=== PATIENT | female | born 1940 | race Caucasian/White ===

== ENCOUNTER 2017-04-17 17:37 | Observation (INO) | payer MEDICARE, SELFPAY ==
[2017-04-17 17:37] VITALS: BP 116/62; PULSE 55; RESP 16; TEMP 36.6; O2SAT 95; BMI 36.6
--- NOTE | 2017-04-17 17:40 | RAD_ITS ---
STUDY: X-RAY - LEFT FOOT CLINICAL: Female, 77 years old. Trauma TECHNIQUE: 3 view(s) of the foot. COMPARISON: None. FINDINGS: Normal talus, calcaneus, and tarsal bones. Normal visualized subtalar, talonavicular, calcaneocuboid, tarsal and tarsometatarsal articulations. There are very subtle lucencies at the base of the second and third metatarsals possibly representing hairline fractures. These could be artifactual. Clinical correlation recommended Normal metatarsophalangeal joint of the great toe. Normal tibial and fibular sesamoid bones. Normal interphalangeal joint of the great toe. Normal phalanges of the great toe. Normal second through fifth metatarsophalangeal joints. Normal interphalangeal joints and phalanges of the lesser toes. The soft tissue structures are unremarkable. RAD/Foot min 3 Views IMPRESSION: Question hairline fractures of the base of the second and third metatarsals otherwise no definitive evidence for acute fracture Electronically Signed: Ron Alford MD at 18:46 EST , Service support ,
--- NOTE | 2017-04-17 17:40 | RAD_ITS ---
XR Ankle Min 3 Views INDICATION: FALL, LEFT ANKLE PAIN COMPARISON: None TECHNIQUE: 3 views of the left ankle FINDINGS: There is mild soft tissue swelling noted at the medial ankle. A tiny ossific density is seen distal to the medial malleolus, appears well-corticated, most compatible with an old avulsion injury. An acute fracture is not identified with certainty. Ankle mortise is preserved. RAD/Ankle min 3 Views IMPRESSION: Mild soft tissue swelling at the medial malleolus with findings suggestive of a tiny chronic avulsion injury. No acute fracture. at 1838 Reported and signed by: Gaviota Puente MD Electronically Signed: Gaviota Puente MD at 17:37 EST Tel , Service support ,
--- NOTE | 2017-04-17 19:05 | ED.RN ---
PT ERPOTS HAS BEEN GETTING DIZZY AND WAS BEFORE FALL WELL.
[2017-04-17 19:40] VITALS: BP 164/84; PULSE 59; RESP 26; O2SAT 96
--- NOTE | 2017-04-17 19:50 | EKG12_ITS ---
Test Reason : Blood Pressure : / mmHG Vent. Rate : 058 BPM Atrial Rate : 058 BPM P-R Int : 156 ms QRS Dur : 088 ms QT Int : 490 ms P-R-T Axes : -02 -17 177 degrees QTc Int : 481 ms Sinus bradycardia Left ventricular hypertrophy with repolarization abnormality Abnormal ECG Confirmed by ELINOR ROWLAND ([id number]), technical editor BALDO SILVA ([id number] on 04/19/2017 2:44:54 PM Referred By: RENETTA Confirmed By:ELINOR ROWLAND
--- NOTE | 2017-04-17 19:50 | RAD_ITS ---
XR Chest 1 View INDICATION: SHORTNESS OF BREATH COMPARISON: None TECHNIQUE: Frontal view of the chest FINDINGS: Heart size and pulmonary vascularity are within normal limits. Interstitial markings are increased at the lung bases. There is no evidence of focal airspace consolidation or pleural effusion. Sternotomy wires are noted and mediastinal clips. RAD/Chest 1 View (Portable) IMPRESSION: Mildly increased interstitial markings at the lung bases, lungs otherwise clear. Status post CABG surgery. at 2020 Reported and signed by: Gaviota Puente MD Electronically Signed: Gaviota Puente MD at 19:18 EST Tel , Service support ,
[2017-04-17] MEDS: Aspirin 81 MG TAB.CHEW 324 MG PO (20:14)
[2017-04-17 20:17] LABS: Absolute Lymphocyte Count 1.94 X10^3/ul (0.83-4.51); Basophil# 0.02 X10^3/uL; Basophil% 0.3 % (0-1); Eosinophil# 0.04 X10^3/uL; Eosinophils% 0.7 % (0-5); Hematocrit 39.6 % (37-47); Hemoglobin 12.3 g/dl (12.0-15.0); Lymphocyte # 1.94 X10^3/ul (4.0); Lymphocyte % 32.5 % (19-41); Mean Corp Hgb Conc 31.1 g/gl (32-36); Mean Corpuscular Hgb 29.4 pg (27.0-32.0); Mean Corpuscular Volume 94.7 fL (81-99); Mean Platelet Vol. 11.1 fl (6.2-12.0); Monocyte# 0.94 X10^3/uL; Monocyte% 15.7 % (0-10); Neutrophil # 3.02 X10^3/uL (2.7-7.7); Neutrophil % 50.6 % (47-70); Platelet Count 201 K/mm3 (150-450); RBC Distribution Width CV 13.9 % (11.6-14.6); RBC Distribution Width SD 47.9 fl (35.1-43.9); Red Blood Count 4.18 M/mm3 (4.2-5.4)
[2017-04-17 20:18] LABS: POSITIVE COUNT NO; POSITIVE DIFFERENTIAL NO; POSITIVE MORPHOLOGY NO
[2017-04-17 20:38] LABS: Anion Gap 6 (5-15); BUN 12 mg/dL (7-18); BUN/Creat Ratio 13.5 RATIO (10-20); Calcium,Total 9.1 mg/dL (8.5-10.1); Chloride 101 mmol/L (98-107); Creatinine, Serum 0.89 mg/dL (0.55-1.02); EST Glomerular Filtration Rate 66 mL/min (>60); Est Glom Filt Rate - Afr Amer 80 mL/min (>60); Estimated Creatinine Clearance 44.48 ml/min; Glucose 85 mg/dL (74-106); Potassium 4.1 mmol/L (3.5-5.1); Sodium Level 138 mmol/L (136-145)
[2017-04-17 21:53] VITALS: BP 152/97; PULSE 64; RESP 14; O2SAT 94
--- NOTE | 2017-04-17 21:53 | NURSING ---
TRIED TO GET A URINE SAMPLE BUT PT PUT TOILET PAPER IN THE TOILET AND WAS UNABLE TO OBTAIN A GOOD SAMPLE.
--- NOTE | 2017-04-17 22:25 | PCM.HP.STD ---
Problem List (1) Dizziness Status: Acute (2) Hypertension Status: Chronic Qualifiers: Hypertension type: essential hypertension Qualified Code(s): I10 - Essential (primary) hypertension (3) Hyperlipidemia Status: Chronic Qualifiers: Hyperlipidemia type: unspecified Qualified Code(s): E78.5 - Hyperlipidemia, unspecified (4) CAD (coronary artery disease) Status: Acute Qualifiers: Coronary Disease-Associated Artery/Lesion type: unspecified vessel or lesion type (5) Hypothyroidism Status: Chronic Qualifiers: Hypothyroidism type: acquired Qualified Code(s): E03.9 - Hypothyroidism, unspecified History of Present Illness Date of Admission: 04/17/17 Chief Complaint: Dizziness, recurrent falls, dyspnea on exertion The patient is a 77 year old F medical history of CAD status post CABG and stents, last stent placed was 2015, hypertension, hyperlipidemia, hypothyroidism, previous CVA with left leg weakness who comes in with complaints of shortness of breath ongoing for more than 3 weeks, dizziness ongoing for more than 2 weeks, recurrent fall with a latest fall that happened yesterday. His coming to the ED at insistence of family members who noted that her left ankle and leg was swollen and tender to touch as well as erythematous. Patient states that she fell yesterday when she was going to see her hairdresser. She felt very dizzy but did not lose consciousness or have a feeling of passing out. Is that she missed her step. She denied any recent history of melena or hematochezia. She has history of GI bleeds. Denies any chest pain or nausea or diaphoresis or orthopnea or PND or fever or chills. Vitals in the ED showed temperature of 97.8, blood pressure 164/84, heart rate of 59, respiratory rate 26, SPO2 96% on 2 L of oxygen. CBC is unremarkable as well as BMP. Chest x-ray shows mildly increased interstitial markings at the lung bases but lungs are otherwise clear. X-ray shows mild soft tissue swelling at the media malleolus with signs suggesting of tiny chronic avulsion injury, no acute fracture seen on the left ankle. Left foot x-ray shows hairline fracture of the base of the second and third metatarsal but no evidence of acute fracture. Past Medical History Past Medical History (Chronic Problems): Chronic Problems Hypertension (Chronic) Hyperlipidemia (Chronic) Hypothyroidism (Chronic) Allergies Sulfa (Sulfonamide Antibiotics) Adverse Reaction (Verified 04/17/17 17:40) Rash Home Medications: Ambulatory Orders Medication Instructions Recorded Aspirin [Aspirin EC] 81 mg PO DAILY 04/17/17 Atorvastatin Calcium [Lipitor] 80 mg PO QHS 04/17/17 Carvedilol [Coreg] 25 mg PO BID 04/17/17 Flaxseed Oil [[place]-3 Flaxseed Oil] 1,000 mg PO DAILY 04/17/17 Levothyroxine [Synthroid] 100 mcg PO DAILY 04/17/17 Lisinopril [Zestril] 40 mg PO DAILY 04/17/17 Omeprazole 20 mg PO DAILY 04/17/17 Vitamin E 400 units PO DAILY 04/17/17 Surgical History: appendectomy, cholecystectomy, coronary bypass surgery, hysterectomy, tonsillectomy, - - Right CEA Psychiatric History: No pertinent psych hx SURVEILLANCE TECHNICIAN History: No pertinent SURVEILLANCE TECHNICIAN history Lives: With Family Smoking Status: Former smoker Tobacco Use: Non-smoker Alcohol: None Drugs: None - *Family History Maternal History Items: Diabetes, Heart Disease Review of Systems Constitutional: Reports: Weakness. Denies: Anorexia, Chills, Fever, Night Sweats, Weight Change Eyes: Denies: Blurred vision, Cataracts, Conjunctivae Inflammation, Double vision HEENT: Denies: Difficulty Hearing, Difficulty Swallowing, Head Aches, Hearing Changes, Sinus Congestion, Sinus Drainage Cardiovascular: Reports: Light Headedness. Denies: Chest Pain, Claudication, Chest Pressure, Chest Tightness, Edema, Orthopnea, Palpitations, Paroxysmal Noc. Dyspnea, Syncope Respiratory: Reports: Shortness of breath at rest, Shortness of breath upon exertion. Denies: Cough, Hemoptysis, Sputum production Gastrointestinal: Denies: Abdominal Pain, Constipation, Hematemesis, Nausea, Vomiting Genitourinary: Denies: Dysuria, Frequency, Incontinence, Nocturia Musculoskeletal: Denies: Joint Pain, Joint stiffness, Joint swelling, Joint Tenderness Skin: Denies: Pruritis, Rash, Wounds Neurological: Denies: Difficulty swallowing, Focal weakness, Numbness, Tingling Psychiatric: Denies: Anxiety, Depression, Homicidal Ideations, Suicidal Ideations Hematologic/ Lymphatic: Denies: Easy Bruising, Easy Bleeding VTE Information - Inpt Only VTE Present on Admission: No VTE Pharm Prophylaxis ordered?: Yes Patient Problems: Active and Suspected Problems Dizziness (Acute) CAD (coronary artery disease) (Acute) - Physical Exam General: Alert, Oriented x3, Cooperative, - - on 2L of oxygen HEENT: Atraumatic, PERRLA, EOMI, Normocephalic Oral: Moist Mucosa Neck: Supple Lungs: Clear to auscultation, Normal air movement, Diminished - at lung bases, audible wheezes heard Cardiovascular: Regular rate, Regular Rhythm, Normal S1, Normal S2, No murmurs Abdomen: Bowel Sounds Present, Soft, Non Tender, Non-Distended, No Hepato-splenomegaly Extremities: No edema, - - Left foot in boot Skin: No rashes Musculoskeletal: No Tenderness to Palpation of Joints or Extremities Lymphatic: No Cervical, Supraclavicular, or Inguinal Adenopathy Neurological: Cranial nerves II-XII grossly intact, Neuro grossly intact Psych/Mental Status: Normal Affect, Appropriate Vital Signs Temp Pulse Resp BP Pulse Ox 97.8 F 64 14 152/97 H 94 04/17/17 17:37 04/17/17 21:53 04/17/17 21:53 04/17/17 21:53 04/17/17 21:53 Oxygen Flow Rate 2 Oxygen Delivery Method Room Air Weight: 93.894 kg Body Mass Index (BMI) 36.6 Laboratory Tests Past 24 Hrs 04/17/17 04/17/17 19:30 19:30 WBC 6.0 RBC 4.18 L Hgb 12.3 Hct 39.6 MCV 94.7 MCH 29.4 MCHC 31.1 L RDW 13.9 RDW Differential 47.9 H Plt Count 201 MPV 11.1 Immature Gran % (Auto) 0.200 Neut % (Auto) 50.6 Lymph % (Auto) 32.5 Gilliam % (Auto) 15.7 H Eos % (Auto) 0.7 Baso % (Auto) 0.3 Absolute Neuts (auto) 3.0 Absolute Lymphs (auto) 1.94 Total Counted Not Reportable Sodium 138 Potassium 4.1 Chloride 101 Carbon Dioxide 31.0 Anion Gap 6 BUN 12 Creatinine 0.89 Estim Creat Clear Calc 44.48 Est GFR (MDRD) Af Amer 80 Est GFR (MDRD) Non-Af 66 BUN/Creatinine Ratio 13.5 Glucose 85 Calcium 9.1 Troponin I < 0.02 Assessment/Plan Active and Suspected Problems Dizziness (Acute) CAD (coronary artery disease) (Acute) 77 year old F medical history of CAD status post CABG and stents, 3 stents placed was 2016, hypertension, hyperlipidemia, hypothyroidism, previous CVA with left leg weakness who comes in with complaints of shortness of breath ongoing for more than 3 weeks, dizziness ongoing for more than 2 weeks, recurrent fall with a latest fall that happened yesterday. 1. Dizziness, recurrent falls, unclear etiology in a patient with significant cardiac history, EKG shows T-wave inversions in leads I, II, aVL, V5, V6( appears non-specific), troponins x 1 is negative Plan: Admit to PCU, monitor on telemetry, cardiology consult, repeat EKG in am, PT and OT to evaluate and treat, orthostatic vitals, obtain records from her primary mineral surveying technician, Dr. Marshall in [facility]. 2. CAD status post CABG and stents, T waves appear non-specific, initial troponins are negative, will trend troponins, continue on aspirin and statin, and Coreg. 3. Left second and third metatarsal hairline fractures, patient in boots, would need to follow-up with orthopedics in the outpatient, Tylenol and oxycodone as needed for pain 4. Hypertension, uncontrolled secondary to missed medications, will resume all medications with hydralazine as needed, continue to monitor on telemetry, low-salt diet 5. Hyperlipidemia, on statin, will check lipid profile in a.m. 6. Hypothyroidism, on levothyroxine 7. History of GI bleeds, no recent bleeds, hemoglobin is stable, will continue to monitor as patient will be put on DVT prophylaxis with Lovenox 8. DVT prophylaxis with Lovenox subcu Code Visit Inpatient E&M: 94738 Init Hosp L2
[2017-04-17 22:35] VITALS: BP 175/99; PULSE 69; RESP 21; O2SAT 97
[2017-04-17 22:46] LABS: Mucous, Urine 0 SEEN /hpf (<or=2+)
[2017-04-17 22:47] LABS: Color, Urine Yellow (Yellow); Glucose, Dipstick Normal (Normal); Ketone-Dipstick 15 mg/dl (Negative); Leukocyte Esterase-Dipstick 500 /ul (Negative); Nitrite-Dipstick Negative (Negative); Occult Blood-Urine 10 /ul (Negative); Protein-Dipstick 15 mg/dl (Negative); Specific Gravity, Urine 1.015 (1.002-1.030); Urine Bilirubin Dipstick Negative (Negative); Urine Clarity Cloudy (Clear); Urine Urobilinogen Normal (Normal)
[2017-04-17 22:53] LABS: Amorphous Sediment 1+ URATE; Bacteria RARE /hpf (None Seen); Red Blood Cells-Urine 0-5 SEEN /hpf (0-5); Squamous Epithelial Cells - UA 0-5 SEEN /hpf (5-10); White Blood Cells 50-100 SEEN /hpf (0-5)
[2017-04-17 23:42] VITALS: BP 140/82; PULSE 75; RESP 16; O2SAT 96
[2017-04-18] VITALS (14 sets, daily range): BP systolic 125–202; BP diastolic 55–101; PULSE 56–74; RESP 14–20; TEMP 36.7–37.1; O2SAT 94–97; BMI 36.4
[2017-04-18] MEDS: Acetaminophen 325 MG Tablet 650 MG PO ×2 (01:38→12:16)
--- NOTE | 2017-04-18 02:01 | ED.VISSUMM ---
- ER Visit Summary Date of Service: 04/18/17 Chief Complaint: Left foot pain and frequent falls History of Present Illness: The patient is a 77 F patient presenting with multiple complaints. First off patient states yesterday she suffered a fall where she injured her left foot. She is having some difficulty with bearing weight on this. She states that there is significant amount of bruising and swelling. Also, the patient has been dealing with increasing exertional dyspnea and frequent falls associated with syncopal episodes. Patient states that she does have a history of coronary artery disease as well as a stroke. She denies any recent infections such as fever cough nausea vomiting diarrhea dysuria hematuria frequency. Review of systems otherwise negative. Physical Examination: Vital signs notable for mild hypertension 152/97. Well-nourished obese female no acute distress moist mucous membranes. No JVD. Heart regular rate and rhythm with 2+ bilaterally symmetric radial pulses. Lungs clear. Abdomen soft nontender. Extremities shows evidence of left foot swelling and ecchymosis with tenderness to palpation and limited range of motion secondary to pain. Skin otherwise normal color. Patient alert and oriented no lateralizing neurological deficits. Test Results: EKG shows sinus rate of [address] elevation in lead III and T-wave inversions diffusely with no comparison. CBC chemistry troponin found to be negative, chest x-ray shows increased markings at the base, foot x-ray shows a nondisplaced second and third metatarsal fracture Emergency Department Course and Treatment: Patient presented secondary to frequent falls, increasing dyspnea, and foot pain. X-ray did have show evidence of a fracture, patient was placed in a walking boot. Patient was worked up for the possibility of cardiac etiology had EKG abnormalities and some evidence of heart failure. I believe that she requires admission for cardiac evaluation. Patient will be admitted under the hospitalist. Disposition: Admit Impression: 1. EKG changes 2. Exertional dyspnea 3. Closed left second and third metatarsal fractures nondisplaced This note was generated with [employer] dictation software. It may contain incorrect words, spelling, and punctuation that were not noted in review of the chart prior to signing ED Disposition - Plan for ED Patient: Disposition: Acute Care Hospital [facility] Chief Complaint: Fall
--- NOTE | 2017-04-18 02:48 | ED.DCSUM_ITS ---
- ER Visit Summary Date of Service: 04/18/17 Chief Complaint: Left foot pain and frequent falls History of Present Illness: The patient is a 77 F patient presenting with multiple complaints. First off patient states yesterday she suffered a fall where she injured her left foot. She is having some difficulty with bearing weight on this. She states that there is significant amount of bruising and swelling. Also, the patient has been dealing with increasing exertional dyspnea and frequent falls associated with syncopal episodes. Patient states that she does have a history of coronary artery disease as well as a stroke. She denies any recent infections such as fever cough nausea vomiting diarrhea dysuria hematuria frequency. Review of systems otherwise negative. Physical Examination: Vital signs notable for mild hypertension 152/97. Well- nourished obese female no acute distress moist mucous membranes. No JVD. Heart regular rate and rhythm with 2+ bilaterally symmetric radial pulses. Lungs clear. Abdomen soft nontender. Extremities shows evidence of left foot swelling and ecchymosis with tenderness to palpation and limited range of motion secondary to pain. Skin otherwise normal color. Patient alert and oriented no lateralizing neurological deficits. Test Results: EKG shows sinus rate of [address] elevation in lead III and T-wave inversions diffusely with no comparison. CBC chemistry troponin found to be negative, chest x-ray shows increased markings at the base, foot x- ray shows a nondisplaced second and third metatarsal fracture Emergency Department Course and Treatment: Patient presented secondary to frequent falls, increasing dyspnea, and foot pain. X-ray did have show evidence of a fracture, patient was placed in a walking boot. Patient was worked up for the possibility of cardiac etiology had EKG abnormalities and some evidence of heart failure. I believe that she requires admission for cardiac evaluation. Patient will be admitted under the hospitalist. Disposition: Admit Impression: 1. EKG changes 2. Exertional dyspnea 3. Closed left second and third metatarsal fractures nondisplaced This note was generated with [employer] dictation software. It may contain incorrect words, spelling, and punctuation that were not noted in review of the chart prior to signing ED Disposition - Plan for ED Patient: Disposition: Acute Care Hospital [facility] Chief Complaint: Fall
--- NOTE | 2017-04-18 05:55 | EKG12_ITS ---
Test Reason : MORNING EKG Blood Pressure : / mmHG Vent. Rate : 061 BPM Atrial Rate : 061 BPM P-R Int : 154 ms QRS Dur : 098 ms QT Int : 482 ms P-R-T Axes : 042 007 220 degrees QTc Int : 485 ms Normal sinus rhythm Left ventricular hypertrophy with repolarization abnormality Abnormal ECG No previous ECGs available Confirmed by ELINOR ROWLAND ([id number]), photographic editor BALDO SILVA ([id number] on 04/24/2017 2:20:37 PM Referred By: RAJAN Confirmed By:ELINOR ROWLAND
[2017-04-18 05:57] LABS: Hematocrit 38.6 % (37-47); Hemoglobin 11.8 g/dl (12.0-15.0); Mean Corp Hgb Conc 30.6 g/gl (32-36); Mean Corpuscular Hgb 29.2 pg (27.0-32.0); Mean Corpuscular Volume 95.5 fL (81-99); Mean Platelet Vol. 10.6 fl (6.2-12.0); Platelet Count 188 K/mm3 (150-450); RBC Distribution Width CV 13.8 % (11.6-14.6); Red Blood Count 4.04 M/mm3 (4.2-5.4); White Blood Count 4.6 K/mm3 (4.4-11.0)
[2017-04-18 06:13] LABS: Anion Gap 3 (5-15); BUN 11 mg/dL (7-18); BUN/Creat Ratio 14.6 RATIO (10-20); Calcium,Total 8.8 mg/dL (8.5-10.1); Chloride 103 mmol/L (98-107); Creatinine, Serum 0.75 mg/dL (0.55-1.02); EST Glomerular Filtration Rate 80 mL/min (>60); Est Glom Filt Rate - Afr Amer 96 mL/min (>60); Estimated Creatinine Clearance 39.59 ml/min; Glucose 88 mg/dL (74-106); Potassium 3.6 mmol/L (3.5-5.1); Sodium Level 138 mmol/L (136-145)
[2017-04-18] MEDS: Enoxaparin 40 MG/0.4 ML Syringe SC (06:19)
[2017-04-18] MEDS: Levothyroxine 100 MCG Tablet PO (06:19)
[2017-04-18 06:21] LABS: Scan Indicated on CBC? Y/N NO
[2017-04-18] MEDS: Ipratropium/Albuterol Sulfate 3 ML AMPUL.NEB INHALATION ×3 (07:24→14:39)
[2017-04-18] MEDS: Aspirin E.C. 81 MG Tablet PO (08:21)
[2017-04-18] MEDS: Pantoprazole Sodium 20 MG Tablet PO (08:22)
[2017-04-18] MEDS: Lisinopril 40 MG Tablet PO (08:22)
[2017-04-18] MEDS: Vitamin E 400 UNITS Capsule PO (08:22)
[2017-04-18] MEDS: Carvedilol 25 MG Tablet PO (08:22)
[2017-04-18] MEDS: Vitamin B Comp W-C Capsule 1 CAP PO (08:22)
--- NOTE | 2017-04-18 13:16 | PCM.DC ---
- Discharge Diagnoses Current Active Problems: Current Active and Chronic Problems Dizziness (Acute) Hypertension (Chronic) Hyperlipidemia (Chronic) CAD (coronary artery disease) (Acute) Hypothyroidism (Chronic) You will use the following diet at home:: Cardiac Discharge Activity: - - Wear orthopedic boot left foot/leg while ambulating until evaluted by orthopedics as outpatient. Call your doctor if you observe: Shortness of breath, Dizziness, Fainting spells, Chest pain, Increased palpitations (irregular heartbeat) Allergies/Adverse Reactions: Allergies Sulfa (Sulfonamide Antibiotics) Adverse Reaction (Verified 04/17/17 17:40) Rash Medications to take at Discharge Aspirin [Aspirin EC] 81 mg PO DAILY 04/17/17 Atorvastatin Calcium [Lipitor] 80 mg PO QHS 04/17/17 Carvedilol [Coreg (Beta Deya)] 25 mg PO BID 04/17/17 Flaxseed Oil [[place]-3 Flaxseed Oil] 1,000 mg PO DAILY 04/17/17 Levothyroxine [Synthroid] 100 mcg PO DAILY 04/17/17 Lisinopril [Zestril] 40 mg PO DAILY 04/17/17 Omeprazole 20 mg PO DAILY 04/17/17 Vitamin E 400 units PO DAILY 04/17/17 Primary Care Physician: Chase Bryan [Primary Care Provider] - Please follow up with your Primary Care Physician in: 1 Week Please Follow Up With: [facility] - Make patient appt prio to DC When: 3-5 days Please Follow Up With: Dr. Marshall, Rack Washer When: 1-2 Weeks Proposed Discharge Date: 04/18/17
--- NOTE | 2017-04-18 13:21 | DCINST_ITS ---
- Discharge Diagnoses Current Active Problems: Current Active and Chronic Problems Dizziness (Acute) Hypertension (Chronic) Hyperlipidemia (Chronic) CAD (coronary artery disease) (Acute) Hypothyroidism (Chronic) You will use the following diet at home:: Cardiac Discharge Activity: - - Wear orthopedic boot left foot/leg while ambulating until evaluted by orthopedics as outpatient. Call your doctor if you observe: Shortness of breath, Dizziness, Fainting spells , Chest pain, Increased palpitations (irregular heartbeat) Allergies/Adverse Reactions: Allergies Sulfa (Sulfonamide Antibiotics) Adverse Reaction (Verified 04/17/17 17:40) Rash Medications to take at Discharge Aspirin [Aspirin EC] 81 mg PO DAILY 04/17/17 Atorvastatin Calcium [Lipitor] 80 mg PO QHS 04/17/17 Carvedilol [Coreg (Beta Deya)] 25 mg PO BID 04/17/17 Flaxseed Oil [[place]-3 Flaxseed Oil] 1,000 mg PO DAILY 04/17/17 Levothyroxine [Synthroid] 100 mcg PO DAILY 04/17/17 Lisinopril [Zestril] 40 mg PO DAILY 04/17/17 Omeprazole 20 mg PO DAILY 04/17/17 Vitamin E 400 units PO DAILY 04/17/17 Primary Care Physician: Chase Bryan [Primary Care Provider] - Please follow up with your Primary Care Physician in: 1 Week Please Follow Up With: [facility] - Make patient appt prio to DC When: 3-5 days Please Follow Up With: Dr. Marshall, Fur Designer When: 1-2 Weeks Proposed Discharge Date: 04/18/17
--- NOTE | 2017-04-18 13:21 | PCM.DC.SUM ---
<Lilia Blackwood - Last Filed: 04/18/17 13:35> Discharge Date and Diagnosis Date of Admission: 04/17/17 Date of Discharge: 04/18/17 - Primary Discharge Diagnosis Active and Suspected Problems 1. Left second and third metatarsal hairline fractures status post mechanical fall prior to admission 2. Dizziness - Secondary Discharge Diagnosis Chronic Problems Hypertension (Chronic) Hyperlipidemia (Chronic) Hypothyroidism (Chronic) CAD status post CABG History of GI bleeds Hospital Course and Treatment Imaging Results: Diagnostic Data Ankle X-Ray 04/17/17 17:40 IMPRESSION: Mild soft tissue swelling at the medial malleolus with findings suggestive of a tiny chronic avulsion injury. No acute fracture. at 1838 Reported and signed by: Gaviota Puente MD Electronically Signed: Gaviota Puente MD at 17:37 EST Tel , Service support , Foot X-Ray 04/17/17 17:40 IMPRESSION: Question hairline fractures of the base of the second and third metatarsals otherwise no definitive evidence for acute fracture Electronically Signed: Ron Alford MD at 18:46 EST , Service support , Chest X-Ray 04/17/17 19:50 IMPRESSION: Mildly increased interstitial markings at the lung bases, lungs otherwise clear. Status post CABG surgery. at 2020 Reported and signed by: Gaviota Puente MD Electronically Signed: Gaviota Puente MD at 19:18 EST Tel , Service support , Operations: None Procedures: None Summary of Care Provided: The patient is a 77 year old F who presented to the emergency room 04/17/2017 due to mechanical fall and dizziness. Patient states she does not frequently leave her house. She went to get her hair done yesterday and tripped over the curb which caused her to fall. She denies dizziness or other symptoms related to her fall. She states she occasionally feels dizzy at home with standing from a seated position however this is not new for her. Patient missed some of her blood pressure medications and blood pressure was elevated on admission. Improved on current home regimen. Oxygen stable on room air. Patient denies shortness of breath. Chest x-ray showed mild increased markings of the lung bases, lungs otherwise clear. Oxygen stable on room air. X-ray of the left foot showed hairline fractures of the base of the second and third metatarsals. Otherwise no acute fracture. Left ankle x-ray showed mild soft tissue swelling at the medial malleolus with findings suggestive of a tiny chronic avulsion injury. No acute fracture. Patient will follow up with [facility] in 3-5 days as outpatient. In the meantime she will continue wearing boots on left lower extremity with any ambulation. She denies pain. Physical therapy evaluated patient and recommended short-term continue to therapy. Patient refused and wishes to return home without home health or further physical therapy. She denies frequent falls at home. She lives with her who helps her when needed. She has a past medical history of CAD status post CABG, hypertension, hyperlipidemia, hypothyroidism, history of CVA with chronic left leg weakness, history of GI bleed. Patient denies current dizziness. Again, she wishes to return home. Troponin negative. UA with 500 leukocytes, otherwise unremarkable. Patient denies urinary symptoms. Orthostatic vitals positive. Patient received normal saline bolus. EKG showed nonspecific T-wave changes. Patient denies chest pain. She can continue outpatient follow-up with her crop and soil technician, Dr. Lamb who is associated with [facility]. Other chronic medical conditions as noted above are stable at this time. Patient seen and examined prior to discharge. Lungs clear, diminished. Heart rate regular in rate and rhythm, no murmurs. Abdomen soft, nontender. Neuro grossly intact. Left foot in boot. Vitals stable. Patient is stable for discharge home to follow-up with primary care physician, cardiology and was to orthopedics. This patient was seen by MIRNA Osei under the supervision of Dr. Chong. Discharge Diet: Low fat/ Low Cholesterol Discharge Activity: - - Wear orthopedic boot left foot/leg while ambulating until evaluted by orthopedics as outpatient. Call your doctor if you observe: Shortness of breath, Dizziness, Fainting spells, Chest pain, Increased palpitations (irregular heartbeat) Home Medications: Medications to take at Discharge Aspirin [Aspirin EC] 81 mg PO DAILY 04/17/17 Atorvastatin Calcium [Lipitor] 80 mg PO QHS 04/17/17 Carvedilol [Coreg (Beta Deya)] 25 mg PO BID 04/17/17 Flaxseed Oil [[place]-3 Flaxseed Oil] 1,000 mg PO DAILY 04/17/17 Levothyroxine [Synthroid] 100 mcg PO DAILY 04/17/17 Lisinopril [Zestril] 40 mg PO DAILY 04/17/17 Omeprazole 20 mg PO DAILY 04/17/17 Vitamin E 400 units PO DAILY 04/17/17 Primary Care Physician: Chase Bryan [Primary Care Provider] - Please follow up with your Primary Care Physician in: 1 Week Please Follow Up With: [facility] - Make patient appt prio to DC When: 3-5 days Please Follow Up With: Dr. Marshall, Cow Washer When: 1-2 Weeks Disposition: Home Minutes spent on discharge:: 35 Patient Condition:: Stable Meaningful Use Info Meaningful Use Diagnoses (Choose all that apply): None applicable <Tito Chong - Last Filed: 04/19/17 13:00> Discharge Date and Diagnosis - Secondary Discharge Diagnosis Chronic Problems Hypertension (Chronic) Hyperlipidemia (Chronic) Hypothyroidism (Chronic) Hospital Course and Treatment Summary of Care Provided: Hospitalist note: Discharge summary above reviewed and I agree with the above discharge and treatment plan. She was admitted because of mechanical fall and dizziness. She was found to have left second and third metatarsal hairline fractures due to mechanical fall. Patient denied dizziness or other symptoms related to the fall. She mentioned that she has chronic intermittent dizziness. Her EKG revealed nonspecific T-wave changes, normal sinus rhythm without acute ischemic changes. Chest x-ray showed no acute infiltrate, consolation or effusion. Routine blood work was unremarkable. Her cardiac enzymes were negative. Her orthostatic vitals were negative. Patient discharged home in a stable medical condition, recommended to use Tylenol or ibuprofen [id number] for pain control, plan to follow-up with orthopedic surgery as outpatient in 3-5 days, continued on her home medication without any changes. . Minutes spent on discharge:: 26 Code Visit OBSV E&M: 62522 Observation care discharge
--- NOTE | 2017-04-18 13:35 | DS.PCM_ITS ---
<Lilia Blackwood - Last Filed: 04/18/17 13:35> Discharge Date and Diagnosis Date of Admission: 04/17/17 Date of Discharge: 04/18/17 - Primary Discharge Diagnosis Active and Suspected Problems 1. Left second and third metatarsal hairline fractures status post mechanical fall prior to admission 2. Dizziness - Secondary Discharge Diagnosis Chronic Problems Hypertension (Chronic) Hyperlipidemia (Chronic) Hypothyroidism (Chronic) CAD status post CABG History of GI bleeds Hospital Course and Treatment Imaging Results: Diagnostic Data Ankle X-Ray 04/17/17 17:40 IMPRESSION: Mild soft tissue swelling at the medial malleolus with findings suggestive of a tiny chronic avulsion injury. No acute fracture. at 1838 Reported and signed by: Gaviota Puente MD Electronically Signed: Gaviota Puente MD at 17:37 EST Tel , Service support , Foot X-Ray 04/17/17 17:40 IMPRESSION: Question hairline fractures of the base of the second and third metatarsals otherwise no definitive evidence for acute fracture Electronically Signed: Ron Alford MD at 18:46 EST , Service support , Chest X-Ray 04/17/17 19:50 IMPRESSION: Mildly increased interstitial markings at the lung bases, lungs otherwise clear. Status post CABG surgery. at 2020 Reported and signed by: Gaviota Puente MD Electronically Signed: Gaviota Puente MD at 19:18 EST Tel , Service support , Operations: None Procedures: None Summary of Care Provided: The patient is a 77 year old F who presented to the emergency room 04/17/2017 due to mechanical fall and dizziness. Patient states she does not frequently leave her house. She went to get her hair done yesterday and tripped over the curb which caused her to fall. She denies dizziness or other symptoms related to her fall. She states she occasionally feels dizzy at home with standing from a seated position however this is not new for her. Patient missed some of her blood pressure medications and blood pressure was elevated on admission. Improved on current home regimen. Oxygen stable on room air. Patient denies shortness of breath. Chest x-ray showed mild increased markings of the lung bases, lungs otherwise clear. Oxygen stable on room air. X-ray of the left foot showed hairline fractures of the base of the second and third metatarsals. Otherwise no acute fracture. Left ankle x-ray showed mild soft tissue swelling at the medial malleolus with findings suggestive of a tiny chronic avulsion injury. No acute fracture. Patient will follow up with [facility] in 3-5 days as outpatient. In the meantime she will continue wearing boots on left lower extremity with any ambulation. She denies pain. Physical therapy evaluated patient and recommended short-term continue to therapy. Patient refused and wishes to return home without home health or further physical therapy. She denies frequent falls at home. She lives with her who helps her when needed. She has a past medical history of CAD status post CABG, hypertension, hyperlipidemia, hypothyroidism, history of CVA with chronic left leg weakness, history of GI bleed. Patient denies current dizziness. Again, she wishes to return home. Troponin negative. UA with 500 leukocytes, otherwise unremarkable. Patient denies urinary symptoms. Orthostatic vitals positive. Patient received normal saline bolus. EKG showed nonspecific T-wave changes. Patient denies chest pain. She can continue outpatient follow-up with her instrumentation fitter, Dr. Lamb who is associated with [facility]. Other chronic medical conditions as noted above are stable at this time. Patient seen and examined prior to discharge. Lungs clear , diminished. Heart rate regular in rate and rhythm, no murmurs. Abdomen soft , nontender. Neuro grossly intact. Left foot in boot. Vitals stable. Patient is stable for discharge home to follow-up with primary care physician, cardiology and was to orthopedics. This patient was seen by MIRNA Osei under the supervision of Dr. Chong. Discharge Diet: Low fat/ Low Cholesterol Discharge Activity: - - Wear orthopedic boot left foot/leg while ambulating until evaluted by orthopedics as outpatient. Call your doctor if you observe: Shortness of breath, Dizziness, Fainting spells , Chest pain, Increased palpitations (irregular heartbeat) Home Medications: Medications to take at Discharge Aspirin [Aspirin EC] 81 mg PO DAILY 04/17/17 Atorvastatin Calcium [Lipitor] 80 mg PO QHS 04/17/17 Carvedilol [Coreg (Beta Deya)] 25 mg PO BID 04/17/17 Flaxseed Oil [[place]-3 Flaxseed Oil] 1,000 mg PO DAILY 04/17/17 Levothyroxine [Synthroid] 100 mcg PO DAILY 04/17/17 Lisinopril [Zestril] 40 mg PO DAILY 04/17/17 Omeprazole 20 mg PO DAILY 04/17/17 Vitamin E 400 units PO DAILY 04/17/17 Primary Care Physician: Chase Bryan [Primary Care Provider] - Please follow up with your Primary Care Physician in: 1 Week Please Follow Up With: [facility] - Make patient appt prio to DC When: 3-5 days Please Follow Up With: Dr. Marshall, Medical Office Receptionist Assistant When: 1-2 Weeks Disposition: Home Minutes spent on discharge:: 35 Patient Condition:: Stable Meaningful Use Info Meaningful Use Diagnoses (Choose all that apply): None applicable <Tito Chong - Last Filed: 04/19/17 13:00> Discharge Date and Diagnosis - Secondary Discharge Diagnosis Chronic Problems Hypertension (Chronic) Hyperlipidemia (Chronic) Hypothyroidism (Chronic) Hospital Course and Treatment Summary of Care Provided: Hospitalist note: Discharge summary above reviewed and I agree with the above discharge and treatment plan. She was admitted because of mechanical fall and dizziness. She was found to have left second and third metatarsal hairline fractures due to mechanical fall. Patient denied dizziness or other symptoms related to the fall. She mentioned that she has chronic intermittent dizziness. Her EKG revealed nonspecific T-wave changes, normal sinus rhythm without acute ischemic changes. Chest x-ray showed no acute infiltrate, consolation or effusion. Routine blood work was unremarkable. Her cardiac enzymes were negative. Her orthostatic vitals were negative. Patient discharged home in a stable medical condition, recommended to use Tylenol or ibuprofen [id number] for pain control, plan to follow-up with orthopedic surgery as outpatient in 3-5 days, continued on her home medication without any changes. . Minutes spent on discharge:: 26 Code Visit OBSV E&M: 38571 Observation care discharge
== END 2017-04-18 13:20 | disposition home or self-care (01) ==
LOC: ED 21:07 → PCU 22:36
PROVIDERS: Admitting Provider Internal Medicine; Emergency Provider Emergency Medicine; Family Provider Internal Medicine; PCP Internal Medicine; Visit Provider Hospitalist
DX: S92.322A Displaced fracture of second metatarsal bone, left foot, initial encounter for closed fracture (principal); S92.332A Displaced fracture of third metatarsal bone, left foot, initial encounter for closed fracture; W01.0XXA Fall on same level from slipping, tripping and stumbling without subsequent striking against object, initial encounter; Y93.89 Activity, other specified; Y92.9 Unspecified place or not applicable; E78.5 Hyperlipidemia, unspecified; I10 Essential (primary) hypertension; E03.9 Hypothyroidism, unspecified; I25.10 Atherosclerotic heart disease of native coronary artery without angina pectoris; R42 Dizziness and giddiness; I69.354 Hemiplegia and hemiparesis following cerebral infarction affecting left non-dominant side; R06.09 Other forms of dyspnea; M79.89 Other specified soft tissue disorders; E66.9 Obesity, unspecified; Z68.36 Body mass index [BMI] 36.0-36.9, adult; Z95.1 Presence of aortocoronary bypass graft; Z91.81 History of falling; Z71.3 Dietary counseling and surveillance; Z79.899 Other long term (current) drug therapy
CPT/HCPCS: 36415; 71045; 73610; 73630; 80048; 81001; 84484; 85025; 85027; 93005; 94640; 96360; 96372; 97162; 97166; 99218; 99285; J7040; A4216; G0378; G8978; G8979; G8987; G8988

== ENCOUNTER 2017-04-30 12:26 | Inpatient (IN) | payer MEDICARE, SELFPAY ==
[2017-04-30] VITALS (13 sets, daily range): BP systolic 158–175; BP diastolic 78–85; PULSE 59–66; RESP 13–18; TEMP 36.7–37.1; O2SAT 91–100; BMI 38.2; BMI 35.7
--- NOTE | 2017-04-30 12:45 | EKG12_ITS ---
Test Reason : SOB Blood Pressure : / mmHG Vent. Rate : 058 BPM Atrial Rate : 058 BPM P-R Int : 154 ms QRS Dur : 094 ms QT Int : 474 ms P-R-T Axes : 012 -16 176 degrees QTc Int : 465 ms Sinus bradycardia Left ventricular hypertrophy with repolarization abnormality Abnormal ECG Confirmed by DANICA HERNÁNDEZ, NABEEL ([id number]), tape editor BALDO SILVA ([id number]) on 05/01/2017 2:30:39 PM Referred By: BELINDA Confirmed By:NABEEL MISHRA MD
--- NOTE | 2017-04-30 12:46 | CT_ITS ---
STUDY: CTA CHEST REASON FOR EXAM: Female, 77 years old. Shortness of breath. RADIATION DOSAGE (If Supplied By Facility): CTDIvol = ( 17.84 ) mGy, DLP = ( 557.76 ) mGycm TECHNIQUE: The examination was performed with the intravenous administration of 100CC ml of Isovue 370 contrast material. Post-processing of the angiographic images was performed, with multiplanar reformation and 3D reconstruction. Individualized dose optimization techniques were used for this CT. COMPARISON: None. FINDINGS: Normal enhancement of the main pulmonary artery and right and left pulmonary arteries. Normal enhancement of the bilateral peripheral pulmonary arteries. There is no demonstrated pulmonary embolism. The main pulmonary artery measures up to 3.7 cm There is atherosclerotic calcification of the aortic arch and descending aorta. There is no demonstrated aortic dissection. There are calcifications of the coronary arteries. Sternal cerclage wires are present from a prior sternotomy. There are mitral annulus calcifications present. Normal mediastinum. Normal hilar regions. Normal visualized trachea and bronchi. There is minimal dependent atelectasis. There is a left apical granuloma present. Normal chest wall structures. Normal osseous structures. Limited images of the abdomen demonstrate gallstones within the gallbladder. CT/CTA Chest W/WO Contrast IMPRESSION: No demonstrated pulmonary embolism or arterial dissection. Dilated main pulmonary artery may reflect underlying pulmonary hypertension. Atherosclerosis. Minimal bilateral dependent atelectasis. Cholelithiasis. Electronically Signed: Gale Toribio MD at 14:51 EST Tel , Service support ,
--- NOTE | 2017-04-30 12:47 | ED.VISSUMM ---
- ER Visit Summary Date of Service: 04/30/17 Chief Complaint: Shortness of breath, near syncope History of Present Illness: The patient is a 77 F presenting with shortness of breath for the past couple of days. She states that this has been progressively worsening. She denies chest pain. She has a cough that is intermittently productive of sputum. She has nausea. She complains of dizziness and near syncope today. She did not fall. She is not on home O2. She had a foot fracture approximately 3 weeks ago and is wearing a walking boot. Physical Examination: Vitals are stable. Patient is afebrile. Alert no acute distress. HEENT exam is unremarkable. Neck is supple. Lungs are clear and equal bilaterally. Heart is regular rate and rhythm. Abdomen is soft nontender nondistended. Extremities are unremarkable. No calf tenderness. Left dorsal foot tenderness. Normal pulses. Skin is warm and dry. No focal neurologic deficit. Remainder of exam is unremarkable. Emergency Department Course and Treatment: Patient is given albuterol, Atrovent. EKG is sinus rate of 58 with LVH. CBC, chemistries unremarkable. Troponin is negative. CTA chest was obtained to rule out PE. This shows no evidence of PE, suggestive of pulmonary hypertension. Due to patient's dizziness and near syncopal episode I feel she should be observed in the hospital. Attempted to ambulate the patient and her pulse ox went to 86% on room air. Discussed with the hospitalist for admission Disposition: Observation Impression: Near syncope, hypoxia This note was generated with [employer] dictation software. It may contain incorrect words, spelling, and punctuation that were not noted in review of the chart prior to signing ED Disposition - Plan for ED Patient: Chief Complaint: Shortness of Breath Referrals: Chase Bryan [Primary Care Provider] -
[2017-04-30 13:01] LABS: Absolute Lymphocyte Count 1.28 X10^3/ul (0.83-4.51); Absolute Neutrophil Count 3.8 X10^3/uL (2.0-7.7); Basophil# 0.03 X10^3/uL; Basophil% 0.5 % (0-1); Eosinophil# 0.11 X10^3/uL; Eosinophils% 1.9 % (0-5); Hematocrit 40.9 % (37-47); Hemoglobin 12.5 g/dl (12.0-15.0); Lymphocyte # 1.28 X10^3/ul (4.0); Lymphocyte % 22.3 % (19-41); Mean Corp Hgb Conc 30.6 g/gl (32-36); Mean Corpuscular Hgb 28.9 pg (27.0-32.0); Mean Corpuscular Volume 94.7 fL (81-99); Monocyte# 0.54 X10^3/uL; Monocyte% 9.4 % (0-10); Neutrophil # 3.77 X10^3/uL (2.7-7.7); Neutrophil % 65.9 % (47-70); Platelet Count 220 K/mm3 (150-450); RBC Distribution Width CV 13.5 % (11.6-14.6); RBC Distribution Width SD 46.3 fl (35.1-43.9); Red Blood Count 4.32 M/mm3 (4.2-5.4); White Blood Count 5.7 K/mm3 (4.4-11.0)
[2017-04-30 13:04] LABS: POSITIVE COUNT NO; POSITIVE DIFFERENTIAL NO; POSITIVE MORPHOLOGY NO
[2017-04-30] MEDS: Ipratropium/Albuterol Sulfate 3 ML AMPUL.NEB INHALATION ×2 (13:15→19:37)
[2017-04-30 13:22] LABS: Anion Gap 4 (5-15); BUN 7 mg/dL (7-18); BUN/Creat Ratio 10.1 RATIO (10-20); Calcium,Total 9.1 mg/dL (8.5-10.1); Chloride 104 mmol/L (98-107); Creatinine, Serum 0.69 mg/dL (0.55-1.02); EST Glomerular Filtration Rate 87 mL/min (>60); Est Glom Filt Rate - Afr Amer 106 mL/min (>60); Estimated Creatinine Clearance 39.59 ml/min; Glucose 99 mg/dL (74-106); Potassium 3.9 mmol/L (3.5-5.1); Sodium Level 140 mmol/L (136-145)
--- NOTE | 2017-04-30 17:06 | PCM.HP.STD ---
<Lilia Blackwood - Last Filed: 04/30/17 17:38> Problem List (1) CAD (coronary artery disease) Status: Chronic (2) Dizziness Status: Chronic (3) Hyperlipidemia Status: Chronic (4) Hypertension Status: Chronic (5) Hypothyroidism Status: Chronic History of Present Illness Date of Admission: 04/30/17 Chief Complaint: Shortness of breath The patient is a 77 year old F who presents with worsening shortness of breath over the past 2 days. She states shortness of breath is worse at night and she has been sleeping in a recliner due to difficulty breathing while lying flat. She states she feels like the room is closing in on her and states she is scared to fall asleep due to fear she will wake up. She describes a tightness in her chest and throat. She complains of wheezing with exertion. She denies chest pain. Denies lower extremity swelling. Denies recent illness. Her family at bedside states they have noticed an increase in shortness of breath recently and states she is often short of breath even while having conversations by phone. Daughter at bedside states that she has heard patient had wheezing when walking from one side of the room to the other. Patient is a former smoker and quit approximately 18 years ago. She states she previously smoked for approximately 20 years. She has never had any pulmonary function testing or been diagnosed with COPD. Patient states she was at her building code inspector's office recently and was tested for oxygen. She states she was told she was a few points away from requiring home oxygen. Patient denies any recent falls at home. She was recently admitted to the hospital 04/17/2017 due to mechanical fall which was unrelated to dizziness or syncope. Patient does state she has intermittent dizziness at home but never feels like she is going to pass out. Dizziness is worse upon standing from seated position. She has a past medical history of CAD status post CABG, hypertension, hyperlipidemia, hypothyroidism, history of CVA with chronic left leg weakness, history of GI bleed. [facility] She has never seen a accelerator systems director. Past Medical History Past Medical History (Chronic Problems): Chronic Problems Dizziness (Chronic) Hypertension (Chronic) Hyperlipidemia (Chronic) CAD (coronary artery disease) (Chronic) Hypothyroidism (Chronic) Allergies Sulfa (Sulfonamide Antibiotics) Adverse Reaction (Verified 04/30/17 12:27) Rash Home Medications: Ambulatory Orders Medication Instructions Recorded Aspirin [Aspirin EC] 81 mg PO DAILY 04/17/17 Atorvastatin Calcium [Lipitor] 80 mg PO QHS 04/17/17 Carvedilol [Coreg (Beta Deya)] 25 mg PO BID 04/17/17 Flaxseed Oil [Leeds-3 Flaxseed Oil] 1,000 mg PO DAILY 04/17/17 Levothyroxine [Synthroid] 100 mcg PO DAILY 04/17/17 Lisinopril [Zestril] 40 mg PO DAILY 04/17/17 Omeprazole 20 mg PO DAILY 04/17/17 Vitamin E 400 units PO DAILY 04/17/17 Surgical History: coronary bypass surgery, hysterectomy, - - Right carotid endarterectomy, carpal tunnel surgery, hernia repair. 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 Quit approximately 18 years ago. Alcohol: None Drugs: None - *Family History Maternal History Items: Diabetes, Heart Disease Review of Systems Constitutional: Reports: Weight Change - Patient states she has slowly gained weight over the past year following her stroke., Fatigue. Denies: Chills, Fever Eyes: Denies: Blurred vision HEENT: Reports: Post Nasal Drip. Denies: Head Aches, Sinus Congestion, Sinus Drainage Cardiovascular: Reports: Chest Tightness, Light Headedness - Intermittent, chronic. Denies: Chest Pain, Palpitations, Syncope Respiratory: Reports: Shortness of Breath, Wheezing. Denies: Cough, Sputum production Gastrointestinal: Denies: Abdominal Pain, Diarrhea, Nausea, Vomiting Genitourinary: Denies: Dysuria Musculoskeletal: Denies: Joint Pain, Joint Tenderness Neurological: Denies: Numbness, Tingling, Focal weakness Psychiatric: Denies: Anxiety, Depression, Homicidal Ideations, Suicidal Ideations Hematologic/ Lymphatic: Denies: Easy Bruising, Easy Bleeding VTE Information - Inpt Only VTE Present on Admission: No VTE Mechan Device Prophylaxis: None VTE Pharm Prophylaxis ordered?: Yes - Physical Exam General: Alert, Oriented x3, Cooperative HEENT: Atraumatic, PERRLA, EOMI, Normocephalic Oral: Dry Mucosa Neck: Supple, No JVD, Negative Carotid Bruits Lungs: Clear to auscultation, Diminished Cardiovascular: Regular rate, Regular Rhythm, Normal S1, Normal S2, No murmurs Abdomen: Bowel Sounds Present, Soft, Non Tender, Non-Distended, Obese Extremities: No clubbing, No cyanosis, No edema, Capillary Refill Less than 3 Seconds Skin: No rashes, No breakdown, - - Erythematous patchy rash on face Musculoskeletal: No Tenderness to Palpation of Joints or Extremities, - - Left foot boot Neurological: Cranial nerves II-XII grossly intact Psych/Mental Status: Normal Affect, Appropriate Vital Signs Temp Pulse Resp BP Pulse Ox 98.7 F 62 14 160/85 H 99 04/30/17 12:28 04/30/17 15:09 04/30/17 15:09 04/30/17 15:09 04/30/17 15:09 Oxygen Flow Rate (L/min) 2 Oxygen Delivery Method Nasal Cannula Weight: 97.9 kg Body Mass Index (BMI) 38.2 Laboratory Tests Past 24 Hrs 04/30/17 04/30/17 12:50 12:50 WBC 5.7 RBC 4.32 Hgb 12.5 Hct 40.9 MCV 94.7 MCH 28.9 MCHC 30.6 L RDW 13.5 RDW Differential 46.3 H Plt Count 220 MPV 10.0 Immature Gran % (Auto) 0.000 Neut % (Auto) 65.9 Lymph % (Auto) 22.3 [place] % (Auto) 9.4 Eos % (Auto) 1.9 Baso % (Auto) 0.5 Absolute Neuts (auto) 3.8 Absolute Lymphs (auto) 1.28 Total Counted Not Reportable Sodium 140 Potassium 3.9 Chloride 104 Carbon Dioxide 32.0 Anion Gap 4 L BUN 7 Creatinine 0.69 Estim Creat Clear Calc 39.59 Est GFR (MDRD) Af Amer 106 Est GFR (MDRD) Non-Af 87 BUN/Creatinine Ratio 10.1 Glucose 99 Calcium 9.1 Troponin I < 0.02 Assessment/Plan 1. Shortness of breath with acute hypoxia-oxygen reported to be 87% on room air in the emergency room. CT of chest showed no pulmonary embolism or arterial dissection. Minimal bilateral dependent atelectasis. Dilated main pulmonary artery which may represent pulmonary hypertension. Oxygen now 99% on 2 L nasal cannula. Continue supplemental oxygen to maintain O2 or above 90%. Patient will need walking pulse ox to assess for home oxygen needs prior to discharge. Albuterol and DuoNeb breathing treatments for shortness of breath. Obtain echocardiogram. Recommend outpatient pulmonary function testing and follow-up with pulmonary medicine given history of tobacco use. Troponin negative ?1. EKG in emergency room showed sinus rhythm without ST T changes. Suspect COPD/pulmonary hypertension. Check BNP, TSH, Mg. Cycle enzymes. 2. CAD status post CABG-denies chest pain. Continue aspirin, statin, beta-deya. Follows with Dr. Lamb in [place]. Interested in establishing with [facility]. 3. Hypertension-mildly elevated on admission. Continue home regimen of carvedilol and lisinopril. Continue to monitor. 4. Hyperlipidemia-continue statin. 5. Hypothyroidism-continue Synthroid. Check TSH. 6. History of CVA with chronic left leg weakness- PT/OT. Continue aspirin, statin. 7. History of GI bleed-patient states this was secondary to high-dose aspirin usage. Continue PPI. 8. Lupus- denies recent flare up. 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 Check ESR/CRP. 9. Former smoker-quit approximately 18 years ago. Smoked for 20+ years. 10. Recent metatarsal fracture secondary to mechanical fall-continue left foot boot as ordered by ortho as outpatient. Discharge planning: Home health services and home-going needs were discussed with patient prior to discharge during recent admission 04/17/17 and patient declined. Family at bedside states patient has difficulty completing daily activities including showering/bathing. Anticipate patient will need, at minimum, home health services. Consult case management. Patient does state she lives at home with her who helps with daily activities. DVT prophylaxis-Lovenox subcu. This patient was seen by MIRNA Osei under the supervision of Dr. Chong. <Tito Chong - Last Filed: 04/30/17 17:51> History of Present Illness The patient is a 77 year old F [] Past Medical History Allergies Sulfa (Sulfonamide Antibiotics) Adverse Reaction (Verified 04/30/17 12:27) Rash - Physical Exam Vital Signs Temp Pulse Resp BP Pulse Ox 98.7 F 65 14 162/80 H 96 04/30/17 12:28 04/30/17 17:14 04/30/17 17:14 04/30/17 17:14 04/30/17 17:14 Oxygen Flow Rate (L/min) 2 Oxygen Delivery Method Nasal Cannula Assessment/Plan Hospitalist note: I am seeing this patient in conjunction with Lilia Arrieta. I independently seen and examined the patient. History and physical, laboratory data and imaging studies reviewed and I agree with above treatment plan. Patient was admitted for shortness of breath on exertion as well as questionable orthopnea. Does have a history of CAD status post CABG and also she is a ex-smoker, smoked for about 20 years and she quit smoking a few years ago. She denied chronic cough. In the emergency room, her pulse ox went down to 86% with ambulation. Other vital signs were stable. - Physical Exam General: Alert, Oriented x3, Cooperative, No apparent distress. HEENT: Atraumatic, PERRLA, EOMI. Neck: Supple, No JVD, Negative Carotid Bruits, Trachea Midline, Thyroid Normal. Lungs: Diminished breath sounds at the bases, otherwise clear, no rhonchi, No wheeze, No rales. Cardiovascular: Regular rate, Regular Rhythm, Normal S1, Normal S2, PMI Normal. Abdomen: Bowel Sounds Present, Soft, Non Tender, Non-Distended, No Hepato-splenomegaly. Extremities: No clubbing, No cyanosis, No edema Skin: No rashes, No breakdown Neurological: Neuro grossly intact Vital Signs are stable. Pulse ox is 96% on 2 L of oxygen. Assessment and plan: #1 shortness of breath/hypoxia: Differential diagnosis as suspected COPD versus CHF which is less likely. CTA chest, EKG and routine blood work reviewed. Troponin is negative. Plan: Admit to PCU, cardiac monitoring, serial cardiac enzymes, BNP, 2D echocardiogram, bronchodilators, incentive spirometer. Patient will need lung function test as outpatient. #2 other chronic medical problems: Stable, continue home medications as above. This note was generated with [employer] dictation software. It may contain incorrect words, spelling, and punctuation that were not noted in checking the note before signing. Code Visit OBSV E&M: 12627 Initial observation care L3
--- NOTE | 2017-04-30 17:12 | NURSING ---
124 OBS SOB, HYPOXIA ASHELFAH
--- NOTE | 2017-04-30 17:17 | HP.PCM_ITS ---
<Lilia Blackwood - Last Filed: 04/30/17 17:38> Problem List (1) CAD (coronary artery disease) Status: Chronic (2) Dizziness Status: Chronic (3) Hyperlipidemia Status: Chronic (4) Hypertension Status: Chronic (5) Hypothyroidism Status: Chronic History of Present Illness Date of Admission: 04/30/17 Chief Complaint: Shortness of breath The patient is a 77 year old F who presents with worsening shortness of breath over the past 2 days. She states shortness of breath is worse at night and she has been sleeping in a recliner due to difficulty breathing while lying flat. She states she feels like the room is closing in on her and states she is scared to fall asleep due to fear she will wake up. She describes a tightness in her chest and throat. She complains of wheezing with exertion. She denies chest pain. Denies lower extremity swelling. Denies recent illness. Her family at bedside states they have noticed an increase in shortness of breath recently and states she is often short of breath even while having conversations by phone. Daughter at bedside states that she has heard patient had wheezing when walking from one side of the room to the other. Patient is a former smoker and quit approximately 18 years ago. She states she previously smoked for approximately 20 years. She has never had any pulmonary function testing or been diagnosed with COPD. Patient states she was at her safe deposit clerk 's office recently and was tested for oxygen. She states she was told she was a few points away from requiring home oxygen. Patient denies any recent falls at home. She was recently admitted to the hospital 04/17/2017 due to mechanical fall which was unrelated to dizziness or syncope. Patient does state she has intermittent dizziness at home but never feels like she is going to pass out. Dizziness is worse upon standing from seated position. She has a past medical history of CAD status post CABG, hypertension, hyperlipidemia, hypothyroidism, history of CVA with chronic left leg weakness, history of GI bleed. [facility] She has never seen a professor of communication and writing. Past Medical History Past Medical History (Chronic Problems): Chronic Problems Dizziness (Chronic) Hypertension (Chronic) Hyperlipidemia (Chronic) CAD (coronary artery disease) (Chronic) Hypothyroidism (Chronic) Allergies Sulfa (Sulfonamide Antibiotics) Adverse Reaction (Verified 04/30/17 12:27) Rash Home Medications: Ambulatory Orders Medication Instructions Recorded Aspirin [Aspirin EC] 81 mg PO DAILY 04/17/17 Atorvastatin Calcium [Lipitor] 80 mg PO QHS 04/17/17 Carvedilol [Coreg (Beta Deya)] 25 mg PO BID 04/17/17 Flaxseed Oil [Bearden-3 Flaxseed Oil] 1,000 mg PO DAILY 04/17/17 Levothyroxine [Synthroid] 100 mcg PO DAILY 04/17/17 Lisinopril [Zestril] 40 mg PO DAILY 04/17/17 Omeprazole 20 mg PO DAILY 04/17/17 Vitamin E 400 units PO DAILY 04/17/17 Surgical History: coronary bypass surgery, hysterectomy, - - Right carotid endarterectomy, carpal tunnel surgery, hernia repair. 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 Quit approximately 18 years ago. Alcohol: None Drugs: None - *Family History Maternal History Items: Diabetes, Heart Disease Review of Systems Constitutional: Reports: Weight Change - Patient states she has slowly gained weight over the past year following her stroke., Fatigue. Denies: Chills, Fever Eyes: Denies: Blurred vision HEENT: Reports: Post Nasal Drip. Denies: Head Aches, Sinus Congestion, Sinus Drainage Cardiovascular: Reports: Chest Tightness, Light Headedness - Intermittent, chronic. Denies: Chest Pain, Palpitations, Syncope Respiratory: Reports: Shortness of Breath, Wheezing. Denies: Cough, Sputum production Gastrointestinal: Denies: Abdominal Pain, Diarrhea, Nausea, Vomiting Genitourinary: Denies: Dysuria Musculoskeletal: Denies: Joint Pain, Joint Tenderness Neurological: Denies: Numbness, Tingling, Focal weakness Psychiatric: Denies: Anxiety, Depression, Homicidal Ideations, Suicidal Ideations Hematologic/ Lymphatic: Denies: Easy Bruising, Easy Bleeding VTE Information - Inpt Only VTE Present on Admission: No VTE Mechan Device Prophylaxis: None VTE Pharm Prophylaxis ordered?: Yes - Physical Exam General: Alert, Oriented x3, Cooperative HEENT: Atraumatic, PERRLA, EOMI, Normocephalic Oral: Dry Mucosa Neck: Supple, No JVD, Negative Carotid Bruits Lungs: Clear to auscultation, Diminished Cardiovascular: Regular rate, Regular Rhythm, Normal S1, Normal S2, No murmurs Abdomen: Bowel Sounds Present, Soft, Non Tender, Non-Distended, Obese Extremities: No clubbing, No cyanosis, No edema, Capillary Refill Less than 3 Seconds Skin: No rashes, No breakdown, - - Erythematous patchy rash on face Musculoskeletal: No Tenderness to Palpation of Joints or Extremities, - - Left foot boot Neurological: Cranial nerves II-XII grossly intact Psych/Mental Status: Normal Affect, Appropriate Vital Signs Temp Pulse Resp BP Pulse Ox 98.7 F 62 14 160/85 H 99 04/30/17 12:28 04/30/17 15:09 04/30/17 15:09 04/30/17 15:09 04/30/17 15:09 Oxygen Flow Rate (L/min) 2 Oxygen Delivery Method Nasal Cannula Weight: 97.9 kg Body Mass Index (BMI) 38.2 Laboratory Tests Past 24 Hrs 04/30/17 04/30/17 12:50 12:50 WBC 5.7 RBC 4.32 Hgb 12.5 Hct 40.9 MCV 94.7 MCH 28.9 MCHC 30.6 L RDW 13.5 RDW Differential 46.3 H Plt Count 220 MPV 10.0 Immature Gran % (Auto) 0.000 Neut % (Auto) 65.9 Lymph % (Auto) 22.3 [place] % (Auto) 9.4 Eos % (Auto) 1.9 Baso % (Auto) 0.5 Absolute Neuts (auto) 3.8 Absolute Lymphs (auto) 1.28 Total Counted Not Reportable Sodium 140 Potassium 3.9 Chloride 104 Carbon Dioxide 32.0 Anion Gap 4 L BUN 7 Creatinine 0.69 Estim Creat Clear Calc 39.59 Est GFR (MDRD) Af Amer 106 Est GFR (MDRD) Non-Af 87 BUN/Creatinine Ratio 10.1 Glucose 99 Calcium 9.1 Troponin I < 0.02 Assessment/Plan 1. Shortness of breath with acute hypoxia-oxygen reported to be 87% on room air in the emergency room. CT of chest showed no pulmonary embolism or arterial dissection. Minimal bilateral dependent atelectasis. Dilated main pulmonary artery which may represent pulmonary hypertension. Oxygen now 99% on 2 L nasal cannula. Continue supplemental oxygen to maintain O2 or above 90%. Patient will need walking pulse ox to assess for home oxygen needs prior to discharge. Albuterol and DuoNeb breathing treatments for shortness of breath. Obtain echocardiogram. Recommend outpatient pulmonary function testing and follow-up with pulmonary medicine given history of tobacco use. Troponin negative ?1. EKG in emergency room showed sinus rhythm without ST T changes. Suspect COPD/pulmonary hypertension. Check BNP, TSH, Mg. Cycle enzymes. 2. CAD status post CABG-denies chest pain. Continue aspirin, statin, beta- deya. Follows with Dr. Lamb in [place]. Interested in establishing with [facility]. 3. Hypertension-mildly elevated on admission. Continue home regimen of carvedilol and lisinopril. Continue to monitor. 4. Hyperlipidemia-continue statin. 5. Hypothyroidism-continue Synthroid. Check TSH. 6. History of CVA with chronic left leg weakness- PT/OT. Continue aspirin, statin. 7. History of GI bleed-patient states this was secondary to high-dose aspirin usage. Continue PPI. 8. Lupus- denies recent flare up. 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 Check ESR/CRP. 9. Former smoker-quit approximately 18 years ago. Smoked for 20+ years. 10. Recent metatarsal fracture secondary to mechanical fall-continue left foot boot as ordered by ortho as outpatient. Discharge planning: Home health services and home-going needs were discussed with patient prior to discharge during recent admission 04/17/17 and patient declined. Family at bedside states patient has difficulty completing daily activities including showering/bathing. Anticipate patient will need, at minimum, home health services. Consult case management. Patient does state she lives at home with her who helps with daily activities. DVT prophylaxis-Lovenox subcu. This patient was seen by MIRNA Osei under the supervision of Dr. Chong. <Tito Chong - Last Filed: 04/30/17 17:51> History of Present Illness The patient is a 77 year old F [] Past Medical History Allergies Sulfa (Sulfonamide Antibiotics) Adverse Reaction (Verified 04/30/17 12:27) Rash - Physical Exam Vital Signs Temp Pulse Resp BP Pulse Ox 98.7 F 65 14 162/80 H 96 04/30/17 12:28 04/30/17 17:14 04/30/17 17:14 04/30/17 17:14 04/30/17 17:14 Oxygen Flow Rate (L/min) 2 Oxygen Delivery Method Nasal Cannula Assessment/Plan Hospitalist note: I am seeing this patient in conjunction with Lilia Arrieta. I independently seen and examined the patient. History and physical, laboratory data and imaging studies reviewed and I agree with above treatment plan. Patient was admitted for shortness of breath on exertion as well as questionable orthopnea. Does have a history of CAD status post CABG and also she is a ex-smoker, smoked for about 20 years and she quit smoking a few years ago. She denied chronic cough. In the emergency room, her pulse ox went down to 86% with ambulation. Other vital signs were stable. - Physical Exam General: Alert, Oriented x3, Cooperative, No apparent distress. HEENT: Atraumatic, PERRLA, EOMI. Neck: Supple, No JVD, Negative Carotid Bruits, Trachea Midline, Thyroid Normal. Lungs: Diminished breath sounds at the bases, otherwise clear, no rhonchi, No wheeze, No rales. Cardiovascular: Regular rate, Regular Rhythm, Normal S1, Normal S2, PMI Normal. Abdomen: Bowel Sounds Present, Soft, Non Tender, Non-Distended, No Hepato- splenomegaly. Extremities: No clubbing, No cyanosis, No edema Skin: No rashes, No breakdown Neurological: Neuro grossly intact Vital Signs are stable. Pulse ox is 96% on 2 L of oxygen. Assessment and plan: #1 shortness of breath/hypoxia: Differential diagnosis as suspected COPD versus CHF which is less likely. CTA chest, EKG and routine blood work reviewed. Troponin is negative. Plan: Admit to PCU, cardiac monitoring, serial cardiac enzymes, BNP, 2D echocardiogram, bronchodilators, incentive spirometer. Patient will need lung function test as outpatient. #2 other chronic medical problems: Stable, continue home medications as above. This note was generated with [employer] dictation software. It may contain incorrect words, spelling, and punctuation that were not noted in checking the note before signing. Code Visit OBSV E&M: 35376 Initial observation care L3
--- NOTE | 2017-04-30 17:32 | ECHOD_ITS ---
Reason For Study: dyspnea, SOB Procedure This was a 2D Doppler, Color Flow transthoracic echocardiogram. The study was technically difficult. Exam performed portable in patient room. Left Ventricle Mild concentric left ventricular hypertrophy. The estimated ejection fraction is 65 %. Stage 1 diastolic dysfunction. No regional wall motion abnormalities noted. Right Ventricle Normal size and thickness. Normal systolic function. Atria The left atrium is severely enlarged. Normal right atrium. Normal atrial septum. Mitral Valve Mild diffuse mitral valve thickening. Severe mitral annular calcification extending into the posterior leaflet. Tricuspid Valve Normal tricuspid valve. Trivial tricuspid valve insufficiency. Right ventricular systolic pressure estimated to be 37 mmHg. Mild pulmonary hypertension. Aortic Valve Trisinus/trileaflet aortic valve. Mild diffuse aortic valve thickening. Trivial aortic valve insufficiency. Pulmonic Valve Normal pulmonic valve. Great Vessels Calcified aortic root. Mild atherosclerosis of the aortic arch. Normal inferior vena cava. Inferior vena cava collapse with sniff. Pericardium/Pleural No pericardial effusion. MMode/2D Measurements & Calculations LVIDd: 5.7 cm IVSd: 1.3 cm Ao root diam: 3.1 cm LVIDs: 3.9 cm LVPWd: 1.2 cm LA dimension: 4.8 cm RVDd: 2.8 cm FS: 30.7 % LAV(MOD-bp): 94.4 ml LA A4 area: 28.7 cm2 RA A4 area: 15.6 cm2 LAV(MOD-bp) Indexed: 48.1 ml/m2 LAV(MOD-sp2): 91.0 ml LAV(MOD-sp4): 99.2 ml Doppler Measurements & Calculations MV E max emory: 62.3 cm/sec Lat Peak E' Emory: 5.9 cm/sec Med Peak E' Emory: 3.5 cm/sec MV A max emory: 89.6 cm/sec E/E' lat: 10.6 E/E' med: 17.5 MV E/A: 0.70 Ao V2 max: 120.6 cm/sec AI max emory: 386.4 cm/sec LV V1 max: 89.2 cm/sec Ao max P.8 mmHg AI max P.8 mmHg LV V1 max P.2 mmHg AI dec slope: 198.9 cm/sec2 AI P1/2t: 569.2 msec PA V2 max: 73.0 cm/sec TR max emory: 252.4 cm/sec TR max P.9 mmHg Interpretation Summary Mild concentric left ventricular hypertrophy. The estimated ejection fraction is 65 %. Stage 1 diastolic dysfunction. The left atrium is severely enlarged. Trivial tricuspid valve insufficiency. Right ventricular systolic pressure estimated to be 37 mmHg. Mild pulmonary hypertension. There is no comparison study available. Ordering Physician: MIRNA Osei Referring Physician: Chase Bryan Performed By: Marion Reece RDCS, RVT
[2017-04-30 18:44] LABS: Erythrocyte Sedimentation Rate 15 mm/hr (0-30)
[2017-04-30 19:04] LABS: BNP,B-Type NATRIURETIC PEPTIDE 614.5 pg/mL (0-100)
[2017-04-30 19:08] LABS: CRP < 2.90 mg/L (0.0-3.0)
[2017-04-30 19:17] LABS: Magnesium 2.1 mg/dL (1.6-2.6); Thyroid Stim Hormone (TSH) 3.29 uIU/mL (0.358-3.74)
[2017-04-30] MEDS: Furosemide 20 MG/2 ML VIAL IV (21:50)
[2017-04-30] MEDS: Atorvastatin Calcium 80 MG Tablet PO (21:50)
[2017-04-30] MEDS: Carvedilol 25 MG Tablet PO (21:50)
[2017-04-30] MEDS: 0.9% NaCl Peripheral Flush Adult/Peds IV (21:53)
[2017-05-01] VITALS (16 sets, daily range): BP systolic 110–149; BP diastolic 53–70; PULSE 51–66; RESP 16–20; TEMP 36.6–37; O2SAT 92–98
[2017-05-01 04:12] LABS: Hematocrit 39.7 % (37-47); Hemoglobin 12.4 g/dl (12.0-15.0); Mean Corp Hgb Conc 31.2 g/gl (32-36); Mean Corpuscular Hgb 29.8 pg (27.0-32.0); Mean Corpuscular Volume 95.4 fL (81-99); Mean Platelet Vol. 10.3 fl (6.2-12.0); Platelet Count 229 K/mm3 (150-450); RBC Distribution Width CV 13.5 % (11.6-14.6); Red Blood Count 4.16 M/mm3 (4.2-5.4); White Blood Count 5.6 K/mm3 (4.4-11.0)
[2017-05-01 04:19] LABS: Scan Indicated on CBC? Y/N NO
[2017-05-01 05:24] LABS: Anion Gap 8 (5-15); BUN 8 mg/dL (7-18); BUN/Creat Ratio 10.9 RATIO (10-20); Calcium,Total 9.2 mg/dL (8.5-10.1); Chloride 100 mmol/L (98-107); Cholesterol 114 mg/dL (200); Creatinine, Serum 0.74 mg/dL (0.55-1.02); EST Glomerular Filtration Rate 81 mL/min (>60); Est Glom Filt Rate - Afr Amer 99 mL/min (>60); Estimated Creatinine Clearance 41.33 ml/min; Glucose 91 mg/dL (74-106); High Density Lipoprotein 48 mg/dL; Potassium 3.6 mmol/L (3.5-5.1); Sodium Level 140 mmol/L (136-145); Triglycerides 64 mg/dL; Very Low Density Lipoprotein 13 mg/dL (5-40)
[2017-05-01] MEDS: Levothyroxine 100 MCG Tablet PO (06:54)
[2017-05-01] MEDS: Enoxaparin 40 MG/0.4 ML Syringe SC (06:54)
[2017-05-01] MEDS: Ipratropium/Albuterol Sulfate 3 ML AMPUL.NEB INHALATION ×2 (07:16→13:12)
[2017-05-01] MEDS: Aspirin E.C. 81 MG Tablet PO (07:59)
[2017-05-01] MEDS: Carvedilol 25 MG Tablet PO ×2 (10:00→21:51)
[2017-05-01] MEDS: Pantoprazole Sodium 20 MG Tablet PO (10:00)
[2017-05-01] MEDS: Lisinopril 40 MG Tablet PO (10:00)
--- NOTE | 2017-05-01 11:37 | PCM.PROGNOTE ---
<Lilia Blackwood - Last Filed: 05/01/17 11:49> Subjective: Patient seen and examined. She received IV Lasix ?1 last evening and reports improvement in shortness of breath. She states she slept well last night. Denies chest pain. Denies dizziness, lightheadedness. Denies other complaints. - Physical Exam General: Alert, Oriented x3, Cooperative HEENT: Atraumatic Neck: Supple, No JVD, Negative Carotid Bruits Lungs: Clear to auscultation, Diminished Cardiovascular: Regular rate, Regular Rhythm, Normal S1, Normal S2, No murmurs Abdomen: Bowel Sounds Present, Soft, Non Tender, Non-Distended Extremities: No clubbing, No cyanosis, No edema, Capillary Refill Less than 3 Seconds Skin: No rashes, No breakdown Musculoskeletal: No Tenderness to Palpation of Joints or Extremities, - - Left foot boot Neurological: Cranial nerves II-XII grossly intact, Neuro grossly intact Psych/Mental Status: Normal Affect, Appropriate Vital Signs Temp Pulse Resp BP Pulse Ox 97.9 F 59 L 18 147/70 H 98 05/01/17 08:08 05/01/17 11:08 05/01/17 08:08 05/01/17 08:08 05/01/17 08:13 Oxygen Flow Rate (L/min) 2 Oxygen Delivery Method Nasal Cannula Weight: 94.1 kg Body Mass Index (BMI) 35.7 Intake and Output for Last 24 Hours 04/29/17 04/30/17 05/01/17 23:59 23:59 23:59 Intake Total 100 / 100 100 / 100 Output Total 1050 / 1050 450 / 450 Balance -950 / -950 -350 / -350 Laboratory Tests Past 24 Hrs 04/30/17 04/30/17 04/30/17 18:25 18:25 18:25 WBC RBC Hgb Hct MCV MCH MCHC RDW RDW Differential Plt Count MPV ESR 15 Sodium Potassium Chloride Carbon Dioxide Anion Gap BUN Creatinine Estim Creat Clear Calc Est GFR (MDRD) Af Amer Est GFR (MDRD) Non-Af BUN/Creatinine Ratio Glucose Calcium Magnesium 2.1 Troponin I C-React Prot Ext Range < 2.90 B-Natriuretic Peptide Triglycerides Cholesterol LDL Cholesterol VLDL Cholesterol HDL Cholesterol TSH 3.29 04/30/17 04/30/17 04/30/17 18:25 18:25 21:19 WBC RBC Hgb Hct MCV MCH MCHC RDW RDW Differential Plt Count MPV ESR Sodium Potassium Chloride Carbon Dioxide Anion Gap BUN Creatinine Estim Creat Clear Calc Est GFR (MDRD) Af Amer Est GFR (MDRD) Non-Af BUN/Creatinine Ratio Glucose Calcium Magnesium Troponin I < 0.02 < 0.02 C-React Prot Ext Range B-Natriuretic Peptide 614.5 H Triglycerides Cholesterol LDL Cholesterol VLDL Cholesterol HDL Cholesterol TSH 05/01/17 05/01/17 05/01/17 03:40 03:40 03:40 WBC 5.6 RBC 4.16 L Hgb 12.4 Hct 39.7 MCV 95.4 MCH 29.8 MCHC 31.2 L RDW 13.5 RDW Differential 45.0 H Plt Count 229 MPV 10.3 ESR Sodium 140 Potassium 3.6 Chloride 100 Carbon Dioxide 32.0 Anion Gap 8 BUN 8 Creatinine 0.74 Estim Creat Clear Calc 41.33 Est GFR (MDRD) Af Amer 99 Est GFR (MDRD) Non-Af 81 BUN/Creatinine Ratio 10.9 Glucose 91 Calcium 9.2 Magnesium Troponin I < 0.02 C-React Prot Ext Range B-Natriuretic Peptide Triglycerides 64 Cholesterol 114 LDL Cholesterol 53 VLDL Cholesterol 13 HDL Cholesterol 48 TSH Assessment/Plan 1. Suspected acute on chronic diastolic CHF with associated acute hypoxia-shortness of breath improved with ?1 IV Lasix which was given last night. CT of chest showed no pulmonary embolism or arterial dissection. Minimal bilateral dependent atelectasis. Dilated main pulmonary artery which may represent pulmonary hypertension. EKG in emergency room showed sinus rhythm without ST T changes. Troponin negative ?4. BNP 614. TSH within normal limits. Oxygen 90% on 2 L nasal cannula. Wean oxygen as tolerated to maintain O2 at or above 90%. Incentive spirometer. Patient will need walking pulse ox prior to discharge. Continue albuterol/DuoNeb aerosols. Begin IV Lasix 40 mg twice daily. Echocardiogram shows an estimated ejection fraction of 65%, stage I diastolic dysfunction, severely enlarged left atrium, mild left ventricular hypertrophy, RVSP estimated to be 37 mmHg. Patient will need outpatient follow-up with pulmonary medicine for pulmonary function testing/polysomnogram. Continue aspirin, statin, beta-skylar, GLYNN inhibitor. 2. CAD status post CABG-denies chest pain. Continue aspirin, statin, beta-skylar. Follows with Dr. Lamb in [place]. Interested in establishing with [facility]. 3. Hypertension-mildly elevated on admission. Continue home regimen of carvedilol and lisinopril. Continue to monitor. 4. Hyperlipidemia-continue statin. 5. Hypothyroidism-continue Synthroid. TSH WNL. 6. History of CVA with chronic left leg weakness- PT/OT. Continue aspirin, statin. 7. History of GI bleed-patient states this was secondary to high-dose aspirin usage. Continue PPI. 8. Lupus- denies recent flare up. 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 ESR/CRP within normal limits. 9. Former smoker-quit approximately 18 years ago. Smoked for 20+ years. 10. Recent metatarsal fracture secondary to mechanical fall-continue left foot boot as ordered by ortho as outpatient. PT/OT. Discharge planning: Home health services and home-going needs were discussed with patient prior to discharge during recent admission 04/17/17 and patient declined. Family at bedside states patient has difficulty completing daily activities including showering/bathing. Anticipate patient will need, at minimum, home health services. Consult case management. Patient does state she lives at home with her who helps with daily activities. DVT prophylaxis-Lovenox subcu. This patient was seen by MIRNA Osei under the supervision of Dr. Montalvo. <Kaur Montalvo - Last Filed: 05/01/17 13:42> - Physical Exam Vital Signs Temp Pulse Resp BP Pulse Ox 98.5 F 62 19 H 123/66 H 95 05/01/17 12:03 05/01/17 13:28 05/01/17 13:28 05/01/17 12:03 05/01/17 12:03 Oxygen Flow Rate (L/min) 1 Oxygen Delivery Method Nasal Cannula Weight: 94.1 kg Body Mass Index (BMI) 35.7 Intake and Output for Last 24 Hours 04/29/17 04/30/17 05/01/17 23:59 23:59 23:59 Intake Total 100 / 100 300 / 300 Output Total 1050 / 1050 700 / 700 Balance -950 / -950 -400 / -400 Laboratory Tests Past 24 Hrs 04/30/17 04/30/17 04/30/17 18:25 18:25 18:25 WBC RBC Hgb Hct MCV MCH MCHC RDW RDW Differential Plt Count MPV ESR 15 Sodium Potassium Chloride Carbon Dioxide Anion Gap BUN Creatinine Estim Creat Clear Calc Est GFR (MDRD) Af Amer Est GFR (MDRD) Non-Af BUN/Creatinine Ratio Glucose Calcium Magnesium 2.1 Troponin I C-React Prot Ext Range < 2.90 B-Natriuretic Peptide Triglycerides Cholesterol LDL Cholesterol VLDL Cholesterol HDL Cholesterol TSH 3.29 04/30/17 04/30/17 04/30/17 18:25 18:25 21:19 WBC RBC Hgb Hct MCV MCH MCHC RDW RDW Differential Plt Count MPV ESR Sodium Potassium Chloride Carbon Dioxide Anion Gap BUN Creatinine Estim Creat Clear Calc Est GFR (MDRD) Af Amer Est GFR (MDRD) Non-Af BUN/Creatinine Ratio Glucose Calcium Magnesium Troponin I < 0.02 < 0.02 C-React Prot Ext Range B-Natriuretic Peptide 614.5 H Triglycerides Cholesterol LDL Cholesterol VLDL Cholesterol HDL Cholesterol TSH 05/01/17 05/01/17 05/01/17 03:40 03:40 03:40 WBC 5.6 RBC 4.16 L Hgb 12.4 Hct 39.7 MCV 95.4 MCH 29.8 MCHC 31.2 L RDW 13.5 RDW Differential 45.0 H Plt Count 229 MPV 10.3 ESR Sodium 140 Potassium 3.6 Chloride 100 Carbon Dioxide 32.0 Anion Gap 8 BUN 8 Creatinine 0.74 Estim Creat Clear Calc 41.33 Est GFR (MDRD) Af Amer 99 Est GFR (MDRD) Non-Af 81 BUN/Creatinine Ratio 10.9 Glucose 91 Calcium 9.2 Magnesium Troponin I < 0.02 C-React Prot Ext Range B-Natriuretic Peptide Triglycerides 64 Cholesterol 114 LDL Cholesterol 53 VLDL Cholesterol 13 HDL Cholesterol 48 TSH Assessment/Plan Patient was seen and examined independently of this practitioner, Lilia Blackwood. I agree with a interval history, physical exam and assessment and plan pigmented above. No acute events overnight. Admitted with SOB, feels much better today, lying almost flat in bed. Denies any chest pain/pressure, dizziness, palpitations. 2D-ECHO shows EF 65%, stage 1 diastolic dysfunction Physical exam shows no dependent leg edema, diminished BS at lung bases. A/P: 1. Acute hypoxic respiratory insufficiency secondary to Acute diastolic CHF, wean off oxygen, incentive spirometer 2. Acute diastolic CHF, on lasix 40mg IV bid 3. CAD s/p CABG 4. Hypertension, controlled 5. Hyperlipidemia Rest of chronic medical problems are stable Code Visit Inpatient E&M: 95613 Subs Hosp L2
--- NOTE | 2017-05-01 11:49 | PN_ITS ---
<Lilia Blackwood - Last Filed: 05/01/17 11:49> Subjective: Patient seen and examined. She received IV Lasix ?1 last evening and reports improvement in shortness of breath. She states she slept well last night. Denies chest pain. Denies dizziness, lightheadedness. Denies other complaints. - Physical Exam General: Alert, Oriented x3, Cooperative HEENT: Atraumatic Neck: Supple, No JVD, Negative Carotid Bruits Lungs: Clear to auscultation, Diminished Cardiovascular: Regular rate, Regular Rhythm, Normal S1, Normal S2, No murmurs Abdomen: Bowel Sounds Present, Soft, Non Tender, Non-Distended Extremities: No clubbing, No cyanosis, No edema, Capillary Refill Less than 3 Seconds Skin: No rashes, No breakdown Musculoskeletal: No Tenderness to Palpation of Joints or Extremities, - - Left foot boot Neurological: Cranial nerves II-XII grossly intact, Neuro grossly intact Psych/Mental Status: Normal Affect, Appropriate Vital Signs Temp Pulse Resp BP Pulse Ox 97.9 F 59 L 18 147/70 H 98 05/01/17 08:08 05/01/17 11:08 05/01/17 08:08 05/01/17 08:08 05/01/17 08:13 Oxygen Flow Rate (L/min) 2 Oxygen Delivery Method Nasal Cannula Weight: 94.1 kg Body Mass Index (BMI) 35.7 Intake and Output for Last 24 Hours 04/29/17 04/30/17 05/01/17 23:59 23:59 23:59 Intake Total 100 / 100 100 / 100 Output Total 1050 / 1050 450 / 450 Balance -950 / -950 -350 / -350 Laboratory Tests Past 24 Hrs 04/30/17 04/30/17 04/30/17 18:25 18:25 18:25 WBC RBC Hgb Hct MCV MCH MCHC RDW RDW Differential Plt Count MPV ESR 15 Sodium Potassium Chloride Carbon Dioxide Anion Gap BUN Creatinine Estim Creat Clear Calc Est GFR (MDRD) Af Amer Est GFR (MDRD) Non-Af BUN/Creatinine Ratio Glucose Calcium Magnesium 2.1 Troponin I C-React Prot Ext Range < 2.90 B-Natriuretic Peptide Triglycerides Cholesterol LDL Cholesterol VLDL Cholesterol HDL Cholesterol TSH 3.29 04/30/17 04/30/17 04/30/17 18:25 18:25 21:19 WBC RBC Hgb Hct MCV MCH MCHC RDW RDW Differential Plt Count MPV ESR Sodium Potassium Chloride Carbon Dioxide Anion Gap BUN Creatinine Estim Creat Clear Calc Est GFR (MDRD) Af Amer Est GFR (MDRD) Non-Af BUN/Creatinine Ratio Glucose Calcium Magnesium Troponin I < 0.02 < 0.02 C-React Prot Ext Range B-Natriuretic Peptide 614.5 H Triglycerides Cholesterol LDL Cholesterol VLDL Cholesterol HDL Cholesterol TSH 05/01/17 05/01/17 05/01/17 03:40 03:40 03:40 WBC 5.6 RBC 4.16 L Hgb 12.4 Hct 39.7 MCV 95.4 MCH 29.8 MCHC 31.2 L RDW 13.5 RDW Differential 45.0 H Plt Count 229 MPV 10.3 ESR Sodium 140 Potassium 3.6 Chloride 100 Carbon Dioxide 32.0 Anion Gap 8 BUN 8 Creatinine 0.74 Estim Creat Clear Calc 41.33 Est GFR (MDRD) Af Amer 99 Est GFR (MDRD) Non-Af 81 BUN/Creatinine Ratio 10.9 Glucose 91 Calcium 9.2 Magnesium Troponin I < 0.02 C-React Prot Ext Range B-Natriuretic Peptide Triglycerides 64 Cholesterol 114 LDL Cholesterol 53 VLDL Cholesterol 13 HDL Cholesterol 48 TSH Assessment/Plan 1. Suspected acute on chronic diastolic CHF with associated acute hypoxia- shortness of breath improved with ?1 IV Lasix which was given last night. CT of chest showed no pulmonary embolism or arterial dissection. Minimal bilateral dependent atelectasis. Dilated main pulmonary artery which may represent pulmonary hypertension. EKG in emergency room showed sinus rhythm without ST T changes. Troponin negative ?4. BNP 614. TSH within normal limits. Oxygen 90 % on 2 L nasal cannula. Wean oxygen as tolerated to maintain O2 at or above 90% . Incentive spirometer. Patient will need walking pulse ox prior to discharge. Continue albuterol/DuoNeb aerosols. Begin IV Lasix 40 mg twice daily. Echocardiogram shows an estimated ejection fraction of 65%, stage I diastolic dysfunction, severely enlarged left atrium, mild left ventricular hypertrophy, RVSP estimated to be 37 mmHg. Patient will need outpatient follow- up with pulmonary medicine for pulmonary function testing/polysomnogram. Continue aspirin, statin, beta-skylar, GLYNN inhibitor. 2. CAD status post CABG-denies chest pain. Continue aspirin, statin, beta- skylar. Follows with Dr. Lamb in [place]. Interested in establishing with [facility]. 3. Hypertension-mildly elevated on admission. Continue home regimen of carvedilol and lisinopril. Continue to monitor. 4. Hyperlipidemia-continue statin. 5. Hypothyroidism-continue Synthroid. TSH WNL. 6. History of CVA with chronic left leg weakness- PT/OT. Continue aspirin, statin. 7. History of GI bleed-patient states this was secondary to high-dose aspirin usage. Continue PPI. 8. Lupus- denies recent flare up. 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 ESR/CRP within normal limits. 9. Former smoker-quit approximately 18 years ago. Smoked for 20+ years. 10. Recent metatarsal fracture secondary to mechanical fall-continue left foot boot as ordered by ortho as outpatient. PT/OT. Discharge planning: Home health services and home-going needs were discussed with patient prior to discharge during recent admission 04/17/17 and patient declined. Family at bedside states patient has difficulty completing daily activities including showering/bathing. Anticipate patient will need, at minimum, home health services. Consult case management. Patient does state she lives at home with her who helps with daily activities. DVT prophylaxis-Lovenox subcu. This patient was seen by MIRNA Osei under the supervision of Dr. Montalvo. <Kaur Montalvo - Last Filed: 05/01/17 13:42> - Physical Exam Vital Signs Temp Pulse Resp BP Pulse Ox 98.5 F 62 19 H 123/66 H 95 05/01/17 12:03 05/01/17 13:28 05/01/17 13:28 05/01/17 12:03 05/01/17 12:03 Oxygen Flow Rate (L/min) 1 Oxygen Delivery Method Nasal Cannula Weight: 94.1 kg Body Mass Index (BMI) 35.7 Intake and Output for Last 24 Hours 04/29/17 04/30/17 05/01/17 23:59 23:59 23:59 Intake Total 100 / 100 300 / 300 Output Total 1050 / 1050 700 / 700 Balance -950 / -950 -400 / -400 Laboratory Tests Past 24 Hrs 04/30/17 04/30/17 04/30/17 18:25 18:25 18:25 WBC RBC Hgb Hct MCV MCH MCHC RDW RDW Differential Plt Count MPV ESR 15 Sodium Potassium Chloride Carbon Dioxide Anion Gap BUN Creatinine Estim Creat Clear Calc Est GFR (MDRD) Af Amer Est GFR (MDRD) Non-Af BUN/Creatinine Ratio Glucose Calcium Magnesium 2.1 Troponin I C-React Prot Ext Range < 2.90 B-Natriuretic Peptide Triglycerides Cholesterol LDL Cholesterol VLDL Cholesterol HDL Cholesterol TSH 3.29 04/30/17 04/30/17 04/30/17 18:25 18:25 21:19 WBC RBC Hgb Hct MCV MCH MCHC RDW RDW Differential Plt Count MPV ESR Sodium Potassium Chloride Carbon Dioxide Anion Gap BUN Creatinine Estim Creat Clear Calc Est GFR (MDRD) Af Amer Est GFR (MDRD) Non-Af BUN/Creatinine Ratio Glucose Calcium Magnesium Troponin I < 0.02 < 0.02 C-React Prot Ext Range B-Natriuretic Peptide 614.5 H Triglycerides Cholesterol LDL Cholesterol VLDL Cholesterol HDL Cholesterol TSH 05/01/17 05/01/17 05/01/17 03:40 03:40 03:40 WBC 5.6 RBC 4.16 L Hgb 12.4 Hct 39.7 MCV 95.4 MCH 29.8 MCHC 31.2 L RDW 13.5 RDW Differential 45.0 H Plt Count 229 MPV 10.3 ESR Sodium 140 Potassium 3.6 Chloride 100 Carbon Dioxide 32.0 Anion Gap 8 BUN 8 Creatinine 0.74 Estim Creat Clear Calc 41.33 Est GFR (MDRD) Af Amer 99 Est GFR (MDRD) Non-Af 81 BUN/Creatinine Ratio 10.9 Glucose 91 Calcium 9.2 Magnesium Troponin I < 0.02 C-React Prot Ext Range B-Natriuretic Peptide Triglycerides 64 Cholesterol 114 LDL Cholesterol 53 VLDL Cholesterol 13 HDL Cholesterol 48 TSH Assessment/Plan Patient was seen and examined independently of this practitioner, Lilia Blackwood. I agree with a interval history, physical exam and assessment and plan pigmented above. No acute events overnight. Admitted with SOB, feels much better today, lying almost flat in bed. Denies any chest pain/pressure, dizziness, palpitations. 2D-ECHO shows EF 65%, stage 1 diastolic dysfunction Physical exam shows no dependent leg edema, diminished BS at lung bases. A/P: 1. Acute hypoxic respiratory insufficiency secondary to Acute diastolic CHF, wean off oxygen, incentive spirometer 2. Acute diastolic CHF, on lasix 40mg IV bid 3. CAD s/p CABG 4. Hypertension, controlled 5. Hyperlipidemia Rest of chronic medical problems are stable Code Visit Inpatient E&M: 53042 Subs Hosp L2
--- NOTE | 2017-05-01 11:50 | NURSING ---
pt with c/o SOB. vitals stable. O2 @1L NC. Lilia Blackwood at bedside with pt. Jenniffer given that was ordered.
[2017-05-01] MEDS: 0.9% NaCl Peripheral Flush Adult/Peds IV ×2 (12:04→17:42)
[2017-05-01] MEDS: Furosemide 40 MG/4 ML Vial IV ×2 (12:04→17:42)
--- NOTE | 2017-05-01 15:12 | CHAPLAIN ---
many family members in room; patient is in bathroom; offer of support given; returned to find pt is busy with medical team
[2017-05-01] MEDS: Albuterol 2.5 MG/3 ML VIAL.NEB. INHALATION (20:40)
[2017-05-01] MEDS: BENZOCAINE/MENTHOL 1 LOZENGE MUCOUS MEM (21:51)
[2017-05-01] MEDS: Atorvastatin Calcium 80 MG Tablet PO (21:51)
[2017-05-02] VITALS (9 sets, daily range): BP systolic 99–131; BP diastolic 52–71; PULSE 53–78; RESP 16–20; TEMP 36.6–36.9; O2SAT 93–96
[2017-05-02] MEDS: Levothyroxine 100 MCG Tablet PO (06:14)
[2017-05-02] MEDS: Enoxaparin 40 MG/0.4 ML Syringe SC (06:14)
[2017-05-02 06:48] LABS: Anion Gap 7 (5-15); BUN 16 mg/dL (7-18); BUN/Creat Ratio 17.4 RATIO (10-20); Calcium,Total 9.2 mg/dL (8.5-10.1); Chloride 99 mmol/L (98-107); Creatinine, Serum 0.92 mg/dL (0.55-1.02); EST Glomerular Filtration Rate 63 mL/min (>60); Est Glom Filt Rate - Afr Amer 76 mL/min (>60); Estimated Creatinine Clearance 44.92 ml/min; Glucose 83 mg/dL (74-106); Potassium 3.7 mmol/L (3.5-5.1); Sodium Level 140 mmol/L (136-145)
[2017-05-02] MEDS: Ipratropium/Albuterol Sulfate 3 ML AMPUL.NEB INHALATION ×2 (07:14→13:04)
[2017-05-02] MEDS: Pantoprazole Sodium 20 MG Tablet PO (08:51)
[2017-05-02] MEDS: Aspirin E.C. 81 MG Tablet PO (08:51)
[2017-05-02] MEDS: Carvedilol 25 MG Tablet PO (10:14)
[2017-05-02] MEDS: 0.9% NaCl Peripheral Flush Adult/Peds IV (10:14)
[2017-05-02] MEDS: Furosemide 40 MG/4 ML Vial IV (10:14)
--- NOTE | 2017-05-02 10:32 | NURSING ---
Medications given at this time- holding lisinopril to recheck b/p and possibly give at a later time. Pt states she was a little dizzy earlier this morning when getting up. Lopressor and IV lasix given at this time. Patient sitting up in recliner, finishing breakfast. Notified that patient has order to have cath. d/c'ed and for walking spo2. Patient states that she wants to eat her breakfast first- notified to call when ready.
--- NOTE | 2017-05-02 11:26 | PCM.DC ---
You will use the following diet at home:: Cardiac Discharge Activity: Return to Normal Activity Call your doctor if you observe: Shortness of breath, Dizziness, Fainting spells, Chest pain Instructions: Low-Salt Choices, Tips for Using Less Salt, Discharge Instructions: Eating a Low-Salt Diet, Heart Failure: Making Changes to Your Diet Allergies/Adverse Reactions: Allergies Sulfa (Sulfonamide Antibiotics) Adverse Reaction (Verified 04/30/17 12:27) Rash tape Allergy (Uncoded 05/01/17 17:50) Other Medications to take at Discharge Aspirin [Aspirin EC] 81 mg PO DAILY 04/17/17 Atorvastatin Calcium [Lipitor] 80 mg PO QHS 04/17/17 Carvedilol [Coreg (Beta Deya)] 25 mg PO BID 04/17/17 Flaxseed Oil [[place]-3 Flaxseed Oil] 1,000 mg PO DAILY 04/17/17 Levothyroxine [Synthroid] 100 mcg PO DAILY 04/17/17 Lisinopril [Zestril] 40 mg PO DAILY 04/17/17 Omeprazole 20 mg PO DAILY 04/17/17 Vitamin E 400 units PO DAILY 04/17/17 Ezetimibe 10 mg PO DAILY 04/30/17 Paroxetine HCl [Paxil] 20 mg PO DAILY 04/30/17 TraMADol [Ultram] 1 - 2 tab PO Q6H PRN PRN 05/01/17 Albuterol Aerosols [Ventolin Aerosols] 2.5 mg INHALATION Q2H PRN PRN #120 vial.neb. 05/02/17 Furosemide [Lasix] 40 mg PO DAILY #30 tab 05/02/17 Ipratropium/Albuterol Sulfate [Duoneb] 3 ml INHALATION Q6HWA.RT #120 ampul.neb 05/02/17 The following prescriptions were given: Albuterol Aerosols [Ventolin Aerosols] 2.5 mg INHALATION Q2H PRN PRN #120 vial.neb. PRN Reason: Shortness Of Breath Ipratropium/Albuterol Sulfate [Duoneb] 3 ml INHALATION Q6HWA.RT #120 ampul.neb Furosemide [Lasix] 40 mg PO DAILY #30 tab Primary Care Physician: Chase Bryan [Primary Care Provider] - Please follow up with your Primary Care Physician in: 1 Week Please Follow Up With: Nik Vergara MD - Or Dr. Castaneda, may see BLUNGER LOADER/PA When: 2-4 Weeks, establish with Cardiology if patient wishes to transition care. Please Follow Up With: Wicho Mills MD - Or Dr. Rosenthal, May see BLUNGER LOADER/PA When: 1-2 Weeks, establish for suspected COPD and recommended sleep study Proposed Discharge Date: 05/02/17
--- NOTE | 2017-05-02 11:31 | DCINST_ITS ---
You will use the following diet at home:: Cardiac Discharge Activity: Return to Normal Activity Call your doctor if you observe: Shortness of breath, Dizziness, Fainting spells , Chest pain Instructions: Low-Salt Choices, Tips for Using Less Salt, Discharge Instructions: Eating a Low-Salt Diet, Heart Failure: Making Changes to Your Diet Allergies/Adverse Reactions: Allergies Sulfa (Sulfonamide Antibiotics) Adverse Reaction (Verified 04/30/17 12:27) Rash tape Allergy (Uncoded 05/01/17 17:50) Other Medications to take at Discharge Aspirin [Aspirin EC] 81 mg PO DAILY 04/17/17 Atorvastatin Calcium [Lipitor] 80 mg PO QHS 04/17/17 Carvedilol [Coreg (Beta Deya)] 25 mg PO BID 04/17/17 Flaxseed Oil [[place]-3 Flaxseed Oil] 1,000 mg PO DAILY 04/17/17 Levothyroxine [Synthroid] 100 mcg PO DAILY 04/17/17 Lisinopril [Zestril] 40 mg PO DAILY 04/17/17 Omeprazole 20 mg PO DAILY 04/17/17 Vitamin E 400 units PO DAILY 04/17/17 Ezetimibe 10 mg PO DAILY 04/30/17 Paroxetine HCl [Paxil] 20 mg PO DAILY 04/30/17 TraMADol [Ultram] 1 - 2 tab PO Q6H PRN PRN 05/01/17 Albuterol Aerosols [Ventolin Aerosols] 2.5 mg INHALATION Q2H PRN PRN #120 vial.neb. 05/02/17 Furosemide [Lasix] 40 mg PO DAILY #30 tab 05/02/17 Ipratropium/Albuterol Sulfate [Duoneb] 3 ml INHALATION Q6HWA.RT #120 ampul.neb 05/02/17 The following prescriptions were given: Albuterol Aerosols [Ventolin Aerosols] 2.5 mg INHALATION Q2H PRN PRN #120 vial.neb. PRN Reason: Shortness Of Breath Ipratropium/Albuterol Sulfate [Duoneb] 3 ml INHALATION Q6HWA.RT #120 ampul.neb Furosemide [Lasix] 40 mg PO DAILY #30 tab Primary Care Physician: Chase Bryan [Primary Care Provider] - Please follow up with your Primary Care Physician in: 1 Week Please Follow Up With: Nik Vergara MD - Or Dr. Castaneda, may see TURKISH LINE ATTENDANT/PA When: 2-4 Weeks, establish with Cardiology if patient wishes to transition care. Please Follow Up With: Wicho Mills MD - Or Dr. Rosenthal, May see TURKISH LINE ATTENDANT/PA When: 1-2 Weeks, establish for suspected COPD and recommended sleep study Proposed Discharge Date: 05/02/17
--- NOTE | 2017-05-02 11:31 | PCM.DC.SUM ---
Discharge Date and Diagnosis Date of Admission: 04/30/17 Date of Discharge: 05/02/17 - Primary Discharge Diagnosis 1. Acute on suspected chronic diastolic CHF 2. Acute hypoxia secondary to #1 3. Pulmonary hypertension - Secondary Discharge Diagnosis Chronic Problems Dizziness (Chronic) Hypertension (Chronic) Hyperlipidemia (Chronic) CAD (coronary artery disease) (Chronic) Hypothyroidism (Chronic) Hospital Course and Treatment Imaging Results: Diagnostic Data Chest CTA 04/30/17 12:46 IMPRESSION: No demonstrated pulmonary embolism or arterial dissection. Dilated main pulmonary artery may reflect underlying pulmonary hypertension. Atherosclerosis. Minimal bilateral dependent atelectasis. Cholelithiasis. Electronically Signed: Gale Toribio MD at 14:51 EST Tel , Service support , Operations: None Procedures: 2-D Echocardiogram Summary of Care Provided: 1. Acute on suspected chronic diastolic CHF with associated acute hypoxia-CT of chest showed no pulmonary embolism or arterial dissection. Minimal bilateral dependent atelectasis. Dilated main pulmonary artery which may represent pulmonary hypertension. EKG in emergency room showed sinus rhythm without ST T changes. Troponin negative ?4. BNP 614 on admission. TSH within normal limits. Patient improved symptomatically with IV Lasix. She will transition to oral Lasix 40 mg daily at discharge. Echocardiogram shows an estimated ejection fraction of 65%, stage I diastolic dysfunction, severely enlarged left atrium, mild left ventricular hypertrophy, RVSP estimated to be 37 mmHg. Patient will need outpatient follow-up with pulmonary medicine for pulmonary function testing/polysomnogram. Continue aspirin, statin, beta-deya, GLYNN inhibitor. Patient will be discharged with albuterol/DuoNeb aerosols and nebulizer due to intermittent shortness of breath suspected secondary to underlying COPD/pulmonary hypertension. Walking pulse ox completed prior to discharge and patient did not require home oxygen. Her oxygen stayed greater than 95% with ambulation. 2. CAD status post CABG-denies chest pain. Continue aspirin, statin, beta-deya. Follows with Dr. Lamb in [place]. Interested in establishing with [facility], given Dr. Vergara, Dr. Castaneda name for follow-up. 3. Hypertension-continue home carvedilol and lisinopril regimen. 4. Hyperlipidemia-continue statin. 5. Hypothyroidism-continue Synthroid. TSH WNL. 6. History of CVA with chronic left leg weakness- Continue aspirin, statin. Patient will receive physical therapy and home health services at discharge. 7. History of GI bleed-patient states this was secondary to high-dose aspirin usage. Continue PPI. 8. Lupus- denies recent flare up. 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 ESR/CRP within normal limits. 9. Former smoker-quit approximately 18 years ago. Smoked for 20+ years. Recommend outpatient follow-up with pulmonary medicine as noted above for suspected COPD. 10. Recent metatarsal fracture secondary to mechanical fall-continue left foot boot as ordered by ortho as outpatient. Patient will be discharged with physical therapy and home health services at discharge. General: Alert, Oriented x3, Cooperative HEENT: Atraumatic Neck: Supple, No JVD, Negative Carotid Bruits Lungs: Clear to auscultation, Diminished Cardiovascular: Regular rate, Regular Rhythm, Normal S1, Normal S2, No murmurs Abdomen: Bowel Sounds Present, Soft, Non Tender, Non-Distended Extremities: No clubbing, No cyanosis, No edema, Capillary Refill Less than 3 Seconds Skin: No rashes, No breakdown Musculoskeletal: No Tenderness to Palpation of Joints or Extremities, - - Left foot boot Neurological: Cranial nerves II-XII grossly intact, Neuro grossly intact Psych/Mental Status: Normal Affect, Appropriate Patient seen and examined prior to discharge. Physical assessment as noted above. This patient was seen by MIRNA Osei under the supervision of Dr. Montalvo. Discharge Diet: Low fat/ Low Cholesterol, 8 Cup Fluid Restriciton, 2000 mg Sodium Diet Discharge Activity: Return to Normal Activity Call your doctor if you observe: Shortness of breath, Dizziness, Fainting spells, Chest pain Home Medications: Medications to take at Discharge Aspirin [Aspirin EC] 81 mg PO DAILY 04/17/17 Atorvastatin Calcium [Lipitor] 80 mg PO QHS 04/17/17 Carvedilol [Coreg (Beta Deya)] 25 mg PO BID 04/17/17 Flaxseed Oil [[place]-3 Flaxseed Oil] 1,000 mg PO DAILY 04/17/17 Levothyroxine [Synthroid] 100 mcg PO DAILY 04/17/17 Lisinopril [Zestril] 40 mg PO DAILY 04/17/17 Omeprazole 20 mg PO DAILY 04/17/17 Vitamin E 400 units PO DAILY 04/17/17 Ezetimibe 10 mg PO DAILY 04/30/17 Paroxetine HCl [Paxil] 20 mg PO DAILY 04/30/17 TraMADol [Ultram] 1 - 2 tab PO Q6H PRN PRN 05/01/17 Albuterol Aerosols [Ventolin Aerosols] 2.5 mg INHALATION Q2H PRN PRN #120 vial.neb. 05/02/17 Furosemide [Lasix] 40 mg PO DAILY #30 tab 05/02/17 Ipratropium/Albuterol Sulfate [Duoneb] 3 ml INHALATION Q6HWA.RT #120 ampul.neb 05/02/17 Following Prescrptions Were Given to Patient: Albuterol Aerosols [Ventolin Aerosols] 2.5 mg INHALATION Q2H PRN PRN #120 vial.neb. PRN Reason: Shortness Of Breath Ipratropium/Albuterol Sulfate [Duoneb] 3 ml INHALATION Q6HWA.RT #120 ampul.neb Furosemide [Lasix] 40 mg PO DAILY #30 tab Primary Care Physician: Chase Bryan [Primary Care Provider] - Please follow up with your Primary Care Physician in: 1 Week Please Follow Up With: Nik Vergara MD When: 2-4 Weeks, establish with Cardiology Please Follow Up With: Wicho Mills MD - Or Dr. Rosenthal, May see RETAIL BUYER/PA When: 1-2 Weeks, establish for suspected COPD and recommended sleep study Patient Instructions: Tips for Using Less Salt, Low-Salt Choices, Heart Failure: Making Changes to Your Diet, Discharge Instructions: Eating a Low-Salt Diet Disposition: Home with Home Health Minutes spent on discharge:: 35 Patient Condition:: Stable Meaningful Use Info Meaningful Use Diagnoses (Choose all that apply): CHF - CHF GLYNN/ARB ordered at discharge?: Yes Documented LVEF (%): 65
--- NOTE | 2017-05-02 11:43 | DS.PCM_ITS ---
Discharge Date and Diagnosis Date of Admission: 04/30/17 Date of Discharge: 05/02/17 - Primary Discharge Diagnosis 1. Acute on suspected chronic diastolic CHF 2. Acute hypoxia secondary to #1 3. Pulmonary hypertension - Secondary Discharge Diagnosis Chronic Problems Dizziness (Chronic) Hypertension (Chronic) Hyperlipidemia (Chronic) CAD (coronary artery disease) (Chronic) Hypothyroidism (Chronic) Hospital Course and Treatment Imaging Results: Diagnostic Data Chest CTA 04/30/17 12:46 IMPRESSION: No demonstrated pulmonary embolism or arterial dissection. Dilated main pulmonary artery may reflect underlying pulmonary hypertension. Atherosclerosis. Minimal bilateral dependent atelectasis. Cholelithiasis. Electronically Signed: Gale Toribio MD at 14:51 EST Tel , Service support , Operations: None Procedures: 2-D Echocardiogram Summary of Care Provided: 1. Acute on suspected chronic diastolic CHF with associated acute hypoxia-CT of chest showed no pulmonary embolism or arterial dissection. Minimal bilateral dependent atelectasis. Dilated main pulmonary artery which may represent pulmonary hypertension. EKG in emergency room showed sinus rhythm without ST T changes. Troponin negative ?4. BNP 614 on admission. TSH within normal limits. Patient improved symptomatically with IV Lasix. She will transition to oral Lasix 40 mg daily at discharge. Echocardiogram shows an estimated ejection fraction of 65%, stage I diastolic dysfunction, severely enlarged left atrium, mild left ventricular hypertrophy, RVSP estimated to be 37 mmHg. Patient will need outpatient follow-up with pulmonary medicine for pulmonary function testing/polysomnogram. Continue aspirin, statin, beta- deya, GLYNN inhibitor. Patient will be discharged with albuterol/DuoNeb aerosols and nebulizer due to intermittent shortness of breath suspected secondary to underlying COPD/pulmonary hypertension. Walking pulse ox completed prior to discharge and patient did not require home oxygen. Her oxygen stayed greater than 95% with ambulation. 2. CAD status post CABG-denies chest pain. Continue aspirin, statin, beta- deya. Follows with Dr. Lamb in [place]. Interested in establishing with [facility], given Dr. Vergara, Dr. Castaneda name for follow-up. 3. Hypertension-continue home carvedilol and lisinopril regimen. 4. Hyperlipidemia-continue statin. 5. Hypothyroidism-continue Synthroid. TSH WNL. 6. History of CVA with chronic left leg weakness- Continue aspirin, statin. Patient will receive physical therapy and home health services at discharge. 7. History of GI bleed-patient states this was secondary to high-dose aspirin usage. Continue PPI. 8. Lupus- denies recent flare up. 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 ESR/CRP within normal limits. 9. Former smoker-quit approximately 18 years ago. Smoked for 20+ years. Recommend outpatient follow-up with pulmonary medicine as noted above for suspected COPD. 10. Recent metatarsal fracture secondary to mechanical fall-continue left foot boot as ordered by ortho as outpatient. Patient will be discharged with physical therapy and home health services at discharge. General: Alert, Oriented x3, Cooperative HEENT: Atraumatic Neck: Supple, No JVD, Negative Carotid Bruits Lungs: Clear to auscultation, Diminished Cardiovascular: Regular rate, Regular Rhythm, Normal S1, Normal S2, No murmurs Abdomen: Bowel Sounds Present, Soft, Non Tender, Non-Distended Extremities: No clubbing, No cyanosis, No edema, Capillary Refill Less than 3 Seconds Skin: No rashes, No breakdown Musculoskeletal: No Tenderness to Palpation of Joints or Extremities, - - Left foot boot Neurological: Cranial nerves II-XII grossly intact, Neuro grossly intact Psych/Mental Status: Normal Affect, Appropriate Patient seen and examined prior to discharge. Physical assessment as noted above. This patient was seen by MIRNA Osei under the supervision of Dr. Montalvo. Discharge Diet: Low fat/ Low Cholesterol, 8 Cup Fluid Restriciton, 2000 mg Sodium Diet Discharge Activity: Return to Normal Activity Call your doctor if you observe: Shortness of breath, Dizziness, Fainting spells , Chest pain Home Medications: Medications to take at Discharge Aspirin [Aspirin EC] 81 mg PO DAILY 04/17/17 Atorvastatin Calcium [Lipitor] 80 mg PO QHS 04/17/17 Carvedilol [Coreg (Beta Deya)] 25 mg PO BID 04/17/17 Flaxseed Oil [[place]-3 Flaxseed Oil] 1,000 mg PO DAILY 04/17/17 Levothyroxine [Synthroid] 100 mcg PO DAILY 04/17/17 Lisinopril [Zestril] 40 mg PO DAILY 04/17/17 Omeprazole 20 mg PO DAILY 04/17/17 Vitamin E 400 units PO DAILY 04/17/17 Ezetimibe 10 mg PO DAILY 04/30/17 Paroxetine HCl [Paxil] 20 mg PO DAILY 04/30/17 TraMADol [Ultram] 1 - 2 tab PO Q6H PRN PRN 05/01/17 Albuterol Aerosols [Ventolin Aerosols] 2.5 mg INHALATION Q2H PRN PRN #120 vial.neb. 05/02/17 Furosemide [Lasix] 40 mg PO DAILY #30 tab 05/02/17 Ipratropium/Albuterol Sulfate [Duoneb] 3 ml INHALATION Q6HWA.RT #120 ampul.neb 05/02/17 Following Prescrptions Were Given to Patient: Albuterol Aerosols [Ventolin Aerosols] 2.5 mg INHALATION Q2H PRN PRN #120 vial.neb. PRN Reason: Shortness Of Breath Ipratropium/Albuterol Sulfate [Duoneb] 3 ml INHALATION Q6HWA.RT #120 ampul.neb Furosemide [Lasix] 40 mg PO DAILY #30 tab Primary Care Physician: Chase Bryan [Primary Care Provider] - Please follow up with your Primary Care Physician in: 1 Week Please Follow Up With: Nik Vergara MD When: 2-4 Weeks, establish with Cardiology Please Follow Up With: Wicho Mills MD - Or Dr. Rosenthal, May see CAREER LAW CLERK/PA When: 1-2 Weeks, establish for suspected COPD and recommended sleep study Patient Instructions: Tips for Using Less Salt, Low-Salt Choices, Heart Failure : Making Changes to Your Diet, Discharge Instructions: Eating a Low-Salt Diet Disposition: Home with Home Health Minutes spent on discharge:: 35 Patient Condition:: Stable Meaningful Use Info Meaningful Use Diagnoses (Choose all that apply): CHF - CHF GLYNN/ARB ordered at discharge?: Yes Documented LVEF (%): 65
--- NOTE | 2017-05-02 14:55 | CASEMGMT ---
Per Pierre Blackwood ELECTRON BEAM PHOTO MASK TECHNICIAN, pt will need a nebulizer at home. Per pt/family, they would like to use [facility] at this time. Referral faxed to [facility] at this time and per Ryan, they will have nebulizer ready for pt when they stop on their way home with pt s/p discharge. Pt/family updated at this time and voice understanding. Pam GE CM
--- NOTE | 2017-05-02 15:13 | CASEMGMT ---
Face to Face with patient for initial transition planning/care coordination assessment. JOO CAMPUZANO introduced self and role at [facility], pt voices understanding and consents to assessment at this time. Pt sitting up in chair in no distress at this time. Pt A/O x4 at this time and answers all questions appropriately at this time. Care providers, pharmacy, and demographics verified. See attached link. Pt agrees to [facility] at this time and agrees to [facility] for RN and PT/OT. Referral to Coby at [facility] and she states they can accept pt. Pt/family updated at this time, voice understanding. Pt voices no further concerns/needs at this time. Advised pt to ask for CM if any further questions/concerns/needs arise, voices understanding. PLAN: Home w/ [facility]. SStnurys GE CM
--- NOTE | 2017-05-02 18:57 | NURSING ---
Patient's daughter called in after patient left unit stating that prescription for nebulizer should have been from [email or web address] per [place], RN-TATIANNA but that the prescription has [facility]'s name on it and that [facility] and so is [facility] health. Case managment was not present, Bertha, 911 Telecommunicator [facility] and notified them of situation at [phone]- gave number for patient's daughter. Employee for [facility] contacted daughter and ensured they would be able to get the nebulizer tonight. This RN returned call to patient's daughter and ensured everything was taken care of and that they didn't have any other issues- same verified.
--- NOTE | 2017-05-03 10:36 | CASEMGMT ---
Received message from [employer] that [facility] had stated that they did not receive correct script for pt and that pt's daughter was unable to cone picker nebulizer. Call to [facility] this am and they state that they are unsure of what is going on because there are no notes left and they state they do not see proper script in the chart. Script faxed again at this time and received call from [facility] that they did receive it at this time. Call to pt's daughter, Millie and she states that [employer] had caught [employer] before they left the office and [employer] had set pt up with nebulizer. Daughter, Millie, thanks this RN TATIANNA for calling to follow up and expresses gratitude to [employer] for taking care of the situation in real time. Pam GE CM
== END 2017-05-02 14:55 | disposition home or self-care (01) | DRG 293 ==
LOC: ED 15:04 → PCU 17:24
PROVIDERS: Nurse Practitioner Family; Admitting Provider Hospitalist; Emergency Provider Emergency Medicine; Family Provider Internal Medicine; PCP Internal Medicine; Visit Provider Internal Medicine
DX: I11.0 Hypertensive heart disease with heart failure (principal); I27.20 Pulmonary hypertension, unspecified; I69.344 Monoplegia of lower limb following cerebral infarction affecting left non-dominant side; I50.33 Acute on chronic diastolic (congestive) heart failure; E03.9 Hypothyroidism, unspecified; E78.5 Hyperlipidemia, unspecified; I25.10 Atherosclerotic heart disease of native coronary artery without angina pectoris; Z95.1 Presence of aortocoronary bypass graft; Z87.891 Personal history of nicotine dependence; Z79.899 Other long term (current) drug therapy; Z87.19 Personal history of other diseases of the digestive system; R09.02 Hypoxemia; S92.302D Fracture of unspecified metatarsal bone(s), left foot, subsequent encounter for fracture with routine healing; W19.XXXD Unspecified fall, subsequent encounter
CPT/HCPCS: 36415; 71275; 80048; 80061; 83735; 83880; 84443; 84484; 85025; 85027; 85652; 86140; 93005; 93306; 94640; 97110; 97116; 97162; 97165; 97530; 99285; Q9967; A4216; J1940

== ENCOUNTER → 2017-05-30 15:18 | Outpatient (CLI) | payer MEDICARE, SELFPAY ==
[2017-05-30 17:04] LABS: Anion Gap 6 (5-15); BUN 22 mg/dL (7-18); BUN/Creat Ratio 20.4 RATIO (10-20); Calcium,Total 9.4 mg/dL (8.5-10.1); Chloride 98 mmol/L (98-107); Creatinine, Serum 1.08 mg/dL (0.55-1.02); EST Glomerular Filtration Rate 52 mL/min (>60); Est Glom Filt Rate - Afr Amer 63 mL/min (>60); Glucose 93 mg/dL (74-106); Potassium 4.8 mmol/L (3.5-5.1); Sodium Level 135 mmol/L (136-145)
== END ==
PROVIDERS: Family Provider Internal Medicine; PCP Internal Medicine; Visit Provider Nurse Practitioner Family
DX: R06.09 Other forms of dyspnea (principal); I10 Essential (primary) hypertension; E78.5 Hyperlipidemia, unspecified; I25.10 Atherosclerotic heart disease of native coronary artery without angina pectoris
CPT/HCPCS: 36415; 80048; 83880

== ENCOUNTER → 2017-07-06 12:57 | Outpatient (CLI) | payer MEDICARE, SELFPAY ==
--- NOTE | 2017-07-08 07:23 | PFT ---
INTRODUCTION: The patient is a 77-year-old female currently under the care of Dr. Mills that presents for pulmonary function testing secondary to a diagnosis of dyspnea. Respiratory therapy reports good patient effort. Bronchodilators were used during testing. INTERPRETATION: Forced expiration spirometry demonstrates no evidence of a large airways obstructive ventilatory defect. There was no significant response to aerosolized bronchodilators, based upon strict ATS criteria. Spirograms are of good quality and plateau normally. Body plethysmography was performed and reveals a decreased TLC to 3.62 L, 79% of predicted, indicative of mild restrictive ventilatory impairment. The remainder of the lung volumes are symmetrically reduced. Diffusing capacity by single breath CO is moderately reduced at 48% predicted. IMPRESSION: These pulmonary function studies demonstrate the presence of a mild restrictive ventilatory impairment with a disproportionate reduction in diffusing capacity. There are no previous pulmonary function studies available for comparison.
== END ==
PROVIDERS: Family Provider Internal Medicine; PCP Internal Medicine; Visit Provider Internal Medicine Critical Care Medicine
DX: R06.09 Other forms of dyspnea (principal)
CPT/HCPCS: 94060; 94726; 94729

== ENCOUNTER → 2017-07-31 14:17 | Outpatient (CLI) | payer MEDICARE, SELFPAY ==
[2017-07-31 11:43] VITALS: PULSE 59; PULSE 61; PULSE 65; PULSE 81; PULSE 88; PULSE 89; PULSE 90; PULSE 91; O2SAT 94; O2SAT 95; O2SAT 97
--- NOTE | 2017-07-31 14:17 | DT_ITS ---
This patient was seen during an EMR downtime July 30, 2017 - August 06, 2017. This patient may have a combination of paper and electronic documentation or all paper documentation. All documentation is viewable within the e-chart portion of [facility] [employer] for each patient visit.
--- NOTE | 2017-08-06 11:27 | PCM.PSN.6M ---
PSN 6 Minute Walk Test - Interpretation Interpretation: The patient ambulated feet over the course of 6 minutes beginning on room air with use of a walker. Pretesting oxygen saturation was noted to be 94% on room air. With ambulation, the demi oxygen saturation was 95%. There was no significant exertional oxygen desaturation noted. - Recommendations Recommendations: There is no indication for the use of supplemental oxygen at this time.
--- NOTE | 2017-08-06 11:48 | CPS ---
Testing done by Corinne Howard RRT.
== END ==
PROVIDERS: Family Provider Internal Medicine; PCP Internal Medicine; Visit Provider Internal Medicine Critical Care Medicine
DX: R06.09 Other forms of dyspnea (principal)
CPT/HCPCS: 94618

== ENCOUNTER → 2018-11-04 16:37 | Outpatient (CLI) | payer MEDICARE, SELFPAY ==
[2018-11-04 15:40] VITALS: BMI 34.4
[2018-11-04 16:52] LABS: Mucous, Urine 0 SEEN /hpf (<or=2+); Red Blood Cells-Urine 0 SEEN /hpf (0-5)
[2018-11-04 17:17] LABS: Color, Urine Yellow (Yellow); Glucose, Dipstick Normal (Normal); Ketone-Dipstick 15 mg/dl (Negative); Leukocyte Esterase-Dipstick 500 /ul (Negative); Nitrite-Dipstick Negative (Negative); Occult Blood-Urine Negative /ul (Negative); Protein-Dipstick 30 mg/dl (Negative); Specific Gravity, Urine 1.025 (1.002-1.030); Urine Clarity Sl. Cloudy (Clear); Urine Urobilinogen 4 mg/dl (Normal)
[2018-11-04 17:18] LABS: Urine Bilirubin Dipstick 1 mg/dL (Negative)
[2018-11-04 17:25] LABS: Squamous Epithelial Cells - UA 25-50 SEEN /hpf (5-10); White Blood Cells 5-10 SEEN /hpf (0-5)
[2018-11-04 17:26] LABS: Bacteria 2+ /hpf (None Seen); Renal Epithelial Cells 0-5 SEEN /hpf (0-5); Transitional Epithelial - Ur 0-5 SEEN /hpf (0-5)
[2018-11-04 17:27] LABS: Hyaline Cast 0-5 SEEN /lpf (0-5)
== END ==
PROVIDERS: Family Provider Internal Medicine; PCP Internal Medicine; Referring Provider Nurse Practitioner Family; Visit Provider Nurse Practitioner Family
DX: R30.0 Dysuria (principal); R42 Dizziness and giddiness; I95.9 Hypotension, unspecified; Z87.440 Personal history of urinary (tract) infections
CPT/HCPCS: 81001; 87086; 87088

== ENCOUNTER → 2018-12-27 17:09 | Outpatient (CLI) | payer MEDICARE, SELFPAY ==
[2018-11-04 15:40] VITALS: BMI 34.4
--- NOTE | 2018-12-27 17:33 | RAD_ITS ---
STUDY: X-RAY - PELVIS REASON FOR EXAM: Female, 78 years old. Fall, gluteal pain TECHNIQUE: One view of the pelvis was obtained. COMPARISON: None. FINDINGS: There is a non-specific bowel gas pattern. Normal visualized soft tissue structures. There are atherosclerotic vascular calcifications. There are degenerative changes of the lumbosacral spine. Normal bilateral iliac wings, sacroiliac joints and visualized sacrum. Normal visualized bilateral superior and inferior pubic rami. There is narrowing with sclerosis of the pubic symphysis. Normal ischial tuberosities. There are osteoarthritic changes of the right femoral head with marginal osteophyte formation. There is osteoarthritic spur formation of the right acetabular rim. There is mild articular joint space narrowing of the right hip. There are osteoarthritic changes of the left femoral head with marginal osteophyte formation. There is osteoarthritic spur formation of the left acetabular rim. There is moderate articular joint space narrowing of the left hip. RAD/Pelvis 1 or 2 Views IMPRESSION: 1. Bilateral hip osteoarthrosis, left mildly worse than right. 2. Degenerative changes of the lumbosacral spine. 3. Atherosclerosis. Electronically Signed: Tacho Stanton MD (Brooks) at 17:02 EST , Service support ,
[2018-12-27 17:53] LABS: Color, Urine Yellow (Yellow); Glucose, Dipstick Normal (Normal); Ketone-Dipstick Negative (Negative); Leukocyte Esterase-Dipstick 25 /ul (Negative); Nitrite-Dipstick Negative (Negative); Occult Blood-Urine Negative /ul (Negative); Protein-Dipstick Negative (Negative); Urine Bilirubin Dipstick Negative (Negative); Urine Clarity Clear (Clear); Urine Urobilinogen Normal (Normal); Urine pH 6.5 (5.0 - 8.0)
[2018-12-27 18:09] LABS: Absolute Lymphocyte Count 1.66 X10^3/uL (0.83-4.51); Absolute Neutrophil Count 3.3 X10^3/uL (2.0-7.7); Basophil# 0.04 X10^3/uL; Basophil% 0.7 % (0-1); Eosinophil# 0.14 X10^3/uL; Eosinophils% 2.4 % (0-5); Hemoglobin 13.3 g/dL (12.0-15.0); Lymphocyte # 1.66 X10^3/ul (4.0); Lymphocyte % 28.4 % (19-41); Mean Corp Hgb Conc 30.2 g/dL (32-36); Mean Corpuscular Hgb 28.1 pg (27.0-32.0); Mean Corpuscular Volume 92.8 fL (81-99); Mean Platelet Vol. 9.9 fl (6.2-12.0); Monocyte# 0.72 X10^3/uL; Monocyte% 12.3 % (0-10); NRBC Flagged by Analyzer 0 % (0-5); Neutrophil # 3.27 X10^3/uL (2.7-7.7); Neutrophil % 55.9 % (47-70); Platelet Count 241 K/mm3 (150-450); RBC Distribution Width CV 16.3 % (11.6-14.6); RBC Distribution Width SD 55.8 fl (35.1-43.9); Red Blood Count 4.74 M/mm3 (4.2-5.4); White Blood Count 5.9 K/mm3 (4.4-11.0)
[2018-12-27 18:29] LABS: Microalbumin,Random Urine 6.7 mg/L (NO RANGE EST.); Microalbumin:Creatinine Ratio 9.6 mg/g CRE (<30 mg/g CRE)
[2018-12-27 18:34] LABS: EXAGEN MAILED SPECIMEN
[2018-12-27 18:39] LABS: Erythrocyte Sedimentation Rate 26 mm/hr (0-30)
[2018-12-27 18:51] LABS: ALB/GLOB Ratio 0.8 RATIO (0.9-2.4); AST(SGOT) 48 U/L (15-37); Alanine Aminotransfer ALT/SGPT 26 U/L (13-56); Albumin, Serum 3.6 g/dL (3.2-5.0); Alkaline Phosphatase 73 U/L (45-117); Anion Gap 7 (5-15); BUN 13 mg/dL (7-18); BUN/Creat Ratio 15.9 RATIO (10-20); CRP < 2.90 mg/L (0.0-3.0); Calcium,Total 9.6 mg/dL (8.5-10.1); Chloride 102 mmol/L (98-107); Creatinine, Serum 0.82 mg/dL (0.55-1.02); EST Glomerular Filtration Rate 72 mL/min (>60); Est Glom Filt Rate - Afr Amer 87 mL/min (>60); Globulin 4.6 g/dL (2.2-4.2); Glucose 88 mg/dL (74-106); Potassium 3.8 mmol/L (3.5-5.1); Protein, Total 8.2 g/dL (6.4-8.2); Sodium Level 138 mmol/L (136-145)
[2018-12-30 09:49] LABS: Hepatitis B Surface Antibody Non-Reactive; Hepatitis B Surface Antigen Non-Reactive (Nonreactive); Hepatitis C Antibody Non-Reactive (Nonreactive)
[2019-01-01 15:43] LABS: HLA B27 Negative (.); Hepatitis B Core AB IgM Negative (Negative)
== END ==
PROVIDERS: Family Provider Internal Medicine; PCP Internal Medicine; Referring Provider Internal Medicine Rheumatology; Visit Provider Internal Medicine Rheumatology
DX: M06.4 Inflammatory polyarthropathy (principal); M18.0 Bilateral primary osteoarthritis of first carpometacarpal joints; M47.897 Other spondylosis, lumbosacral region; M51.37 Other intervertebral disc degeneration, lumbosacral region; I10 Essential (primary) hypertension; E78.5 Hyperlipidemia, unspecified; I50.9 Heart failure, unspecified; I25.10 Atherosclerotic heart disease of native coronary artery without angina pectoris; E89.0 Postprocedural hypothyroidism; F32.9 Major depressive disorder, single episode, unspecified; J45.909 Unspecified asthma, uncomplicated
CPT/HCPCS: 36415; 72170; 80053; 81002; 81374; 82043; 82570; 85025; 85652; 86140; 86705; 86706; 86803; 87340

== ENCOUNTER 2019-12-26 12:26 | Emergency (ER) | payer MEDICARE, SELFPAY ==
[2019-09-17 12:26] VITALS: BMI 34.3
[2019-12-26] VITALS (13 sets, daily range): BP systolic 123–177; BP diastolic 87–120; PULSE 70–82; RESP 16–24; TEMP 36.6–37.2; O2SAT 93–100; BMI 35.3
--- NOTE | 2019-12-26 12:37 | EKG12_ITS ---
Test Reason : Blood Pressure : / mmHG Vent. Rate : 075 BPM Atrial Rate : 075 BPM P-R Int : 156 ms QRS Dur : 118 ms QT Int : 426 ms P-R-T Axes : 081 -08 168 degrees QTc Int : 475 ms Normal sinus rhythm Left ventricular hypertrophy with QRS widening and repolarization abnormality Inferior infarct , age undetermined Abnormal ECG Confirmed by DANICA HERNÁNDEZ, NABEEL ([id number]), editor at large ABBEY ROBERTS ([id number]) on 12/30/2019 11:15:17 AM Referred By: MEGHAN Confirmed By:NABEEL MISHRA MD
--- NOTE | 2019-12-26 12:42 | ED.DCSUM_ITS ---
History of Present Illness Informant: Patient Onset: Weeks Narrative: 79-year-old female with past medical history of HTN, HLD, CABG, lupus presents with cough and dyspnea on exertion x1 month. She states the dyspnea on exertion has been gradually getting worse every day. She is sometimes short of breath at rest. No orthopnea. Denies chest pain or lower extremity pain or swelling. Denies fevers, chills, nausea, vomiting, abdominal pain, or diarrhea. No known sick contacts. Denies history of asthma or COPD. Denies abdominal pain, melena, hematochezia, hemoptysis, or hematemesis. <Jocy Devries - Last Filed: 12/26/19 15:23> <Khoi Tellez - Last Filed: 12/26/19 16:17> Chief Complaint: Shortness of Breath Past Medical History Past Medical History: - - HTN, CABG, lupus Surgical History: coronary bypass surgery, hysterectomy, - - Right carotid endarterectomy, carpal tunnel surgery, hernia repair. Smoking Status: Former smoker - Family History Maternal Family History: Family History (Last Reviewed 09/17/19 @ 15:[address] Tiago Castaneda MD) Daughter Hypertension Melanoma Sister pacemaker Mother Hypertension Diabetes Heart disease Family History: Reports: Diabetes, Heart Disease <Jocy Devries - Last Filed: 12/26/19 15:23> - Family History Maternal Family History: Family History (Last Reviewed 09/17/19 @ 15:[address] Tiago Castaneda MD) Daughter Hypertension Melanoma Sister pacemaker Mother Hypertension Diabetes Heart disease <Khoi Tellez - Last Filed: 12/26/19 16:17> - Allergies and Home Meds Allergies/Adverse Reactions: Allergies Sulfa (Sulfonamide Antibiotics) Adverse Reaction (Verified 09/17/19 12:27) Rash tape Allergy (Uncoded 09/17/19 12:27) Other Can have cloth and paper Primary Care Physician: Chase Bryan MD [Primary Care Provider] - Review of Systems General: Denies: Chills, Fever, Sweats Eyes: Denies: Visual changes - bilaterally, Diplopia ENT: Denies: Rhinorrhea, Sore throat Cardiovascular: Denies: Chest pain, Palpitations Respiratory: Reports: Dyspnea, Cough, Sputum, Dyspnea on exertion. Denies: Orthopnea, Paroxysmal nocturnal dyspnea Gastrointestinal: Denies: Abdominal pain, Nausea, Vomiting, Diarrhea, Melena, Hematochezia Genitourinary: Denies: Dysuria, Hematuria, Frequency Musculoskeletal: Denies: Back pain, Extremity Pain Skin: Denies: Rash, Wounds Neurological: Denies: Headache, Weakness <Jocy Devries - Last Filed: 12/26/19 15:23> Physical Exam Vital Signs/Narrative: Vital Signs Temp Pulse Resp BP Pulse Ox 12/26/19 12:27 98.1 F 82 24 H 155/98 H 97 Inital Vital Signs reviewed: Yes General: Well nourished, Well developed, No Acute Distress Head: Normocephalic, Atraumatic Eyes: Perrl, EOMI ENT: Moist mucous membranes, No rhinorrhea Neck: Supple, Nontender Cardiovascular: Regular rate, Regular rhythm, No murmurs Respiratory: Wheezing, Diminished, - - tachypneic 24/min, globally diminished breath sounds with expiratory wheezing Abdomen: Soft, Nontender, Nondistended, Normal bowel sounds Rectal: Nontender, - - light brown stool Back: Normal Inspection Extremities: Nontender, No edema Skin: Normal color, No rash Neurological: Alert, Oriented x3, Cranial nerves II-XII grossly intact Psychological: Normal affect, Normal Mood <Jocy Devries - Last Filed: 12/26/19 15:23> Vital Signs/Narrative: Vital Signs Temp Pulse Resp BP Pulse Ox 12/26/19 15:50 98.8 F 73 18 152/93 H 93 12/26/19 15:45 98.5 F 70 18 144/95 H 94 12/26/19 15:35 98.5 F 73 20 H 123/96 H 100 12/26/19 14:39 73 20 H 166/87 H 99 12/26/19 12:27 98.1 F 82 24 H 155/98 H 97 <Khoi Tellez - Last Filed: 12/26/19 16:17> Diagnostic/Tx/Re-eval Clinical Impression(s) from Imaging Studies Abdomen/Pelvis CT 12/26/19 13:49 IMPRESSION: Mild degree of right perinephric stranding as well as increased markings in the right lower abdomen. Findings suggestive of a a soft tissue mass in the right side of pelvis as well as small soft tissue density lateral to the right common iliac artery. Small amount of free fluid in the cul-de-sac and right paracolic gutter. Electronically Signed: Milo Villanueva, at 14:58 EDT , Service support , Chest X-Ray 12/26/19 13:55 IMPRESSION: No acute abnormality is seen. Borderline cardiomegaly. Electronically Signed: Milo Villanueva, at 14:12 EDT , Service support , Laboratory Data 12/26/19 12/26/19 12/26/19 12:50 12:50 12:50 WBC 7.4 RBC 3.03 L Hgb 6.9 L Hct 25.2 L MCV 83.2 MCH 22.8 L MCHC 27.4 L RDW Std Deviation 56.4 H RDW Coeff of Jerry 18.8 H Plt Count 340 MPV 10.2 Immature Gran % (Auto) 0.500 Neut % (Auto) 76.1 H Lymph % (Auto) 8.6 L Kern % (Auto) 14.7 H Eos % (Auto) 0.0 Baso % (Auto) 0.1 Absolute Neuts (auto) 5.6 Absolute Lymphs (auto) 0.64 L Nucleated RBC % 1.6 Sodium 134 L Potassium 5.0 Chloride 97 L Carbon Dioxide 31.0 Anion Gap 6 BUN 21 H Creatinine 0.96 Estim Creat Clear Calc 45.21 Est GFR (MDRD) Af Amer 72 Est GFR (MDRD) Non-Af 60 BUN/Creatinine Ratio 21.9 H Glucose 140 H Lactic Acid 3.1 H* Calcium 8.9 Total Bilirubin 1.10 H AST 1435 H ALT 1240 H Alkaline Phosphatase 84 Troponin I 0.033 B-Natriuretic Peptide Total Protein 7.0 Albumin 3.0 L Globulin 4.0 Albumin/Globulin Ratio 0.8 L Blood Type Antibody Screen Crossmatch 12/26/19 12/26/19 12/26/19 12:50 13:55 13:55 WBC RBC Hgb Hct MCV MCH MCHC RDW Std Deviation RDW Coeff of Jerry Plt Count MPV Immature Gran % (Auto) Neut % (Auto) Lymph % (Auto) Kern % (Auto) Eos % (Auto) Baso % (Auto) Absolute Neuts (auto) Absolute Lymphs (auto) Nucleated RBC % Sodium Potassium Chloride Carbon Dioxide Anion Gap BUN Creatinine Estim Creat Clear Calc Est GFR (MDRD) Af Amer Est GFR (MDRD) Non-Af BUN/Creatinine Ratio Glucose Lactic Acid Calcium Total Bilirubin AST ALT Alkaline Phosphatase Troponin I B-Natriuretic Peptide 2525.1 H Total Protein Albumin Globulin Albumin/Globulin Ratio Blood Type O POSITIVE Antibody Screen NEGATIVE Crossmatch See Detail - Medical Decision Making Patient appears pale and in mild respiratory distress but nontoxic. Vital signs show 88% on RA, tachypnea of 30 breaths/min, otherwise normal. She was placed on 2L O2 and is maintaining above 90%. Heart is regular. Lung sounds were diminished with wheezing. Abdomen soft nontender. No significant lower extremity edema. Digital rectal exam showed light bright stool and no gross blood. Labs remarkable for hemoglobin of 6.9. Hemoccult negative. Pro-BNP over 2500. ALT/AST at 1445/1240. Lactate 3.1. Chest x-ray shows no acute process. No pneumonia or fluid overload. CT shows right sided pelvic mass and soft tissue mass around the right iliac artery. With her symptomatic anemia, elevated LFTs, and new pelvis mass she most likely has cancer. Patient was treated with albuterol MDI for wheezing. She consented for blood transfusion and given 2 units. Due to elevated LFTs and new pelvic mass, the hospitalist felt she should be transferred to a facility with hepatology and oncology. She was accepted by [facility] and transferred in stable condition. <Jocy Devries - Last Filed: 12/26/19 15:23> - Medical Decision Making The patient presents with exertional dyspnea. Metabolic work-up was pursued. Chest x-ray does not show evidence of volume overload. EKG with sinus rhythm without acute ischemic change. However, the patient was newly anemic. Guaiac was negative. Patient has elevation of her liver functions, elevation of her lactic acid, and a right-sided pleural effusion. She underwent CT of abdomen pelvis which shows new mass within the soft tissue of the lower abdomen. My suspicion is that this is likely new malignancy. Given her symptomatic anemia, elevation of her liver functions, and new mass, I do feel that she would best be suited at a tertiary facility. The patient was accepted by Dr. Panchal at [facility]. <Khoi Tellez - Last Filed: 12/26/19 16:17> ED Disposition <Jocy Devries - Last Filed: 12/26/19 15:23> <Khoi Tellez - Last Filed: 12/26/19 16:17> - Plan for ED Patient: Disposition: [facility] Diagnosis: Hypoxia, Anemia, Lactic acidosis, Transaminitis, Pelvic mass in female Referrals: Chase Bryan MD [Primary Care Provider] -
[2019-12-26 13:20] LABS: Absolute Lymphocyte Count 0.64 X10^3/uL (0.83-4.51); Absolute Neutrophil Count 5.6 X10^3/uL (2.0-7.7); Basophil# 0.01 X10^3/uL; Basophil% 0.1 % (0-1); Hematocrit 25.2 % (37-47); Hemoglobin 6.9 g/dL (12.0-15.0); Lymphocyte # 0.64 X10^3/ul (4.0); Lymphocyte % 8.6 % (19-41); Mean Corp Hgb Conc 27.4 g/dL (32-36); Mean Corpuscular Hgb 22.8 pg (27.0-32.0); Mean Corpuscular Volume 83.2 fL (81-99); Mean Platelet Vol. 10.2 fl (6.2-12.0); Monocyte# 1.09 X10^3/uL; Monocyte% 14.7 % (0-10); NRBC Flagged by Analyzer 1.6 % (0-5); Neutrophil # 5.63 X10^3/uL (2.7-7.7); Neutrophil % 76.1 % (47-70); Platelet Count 340 K/mm3 (150-450); RBC Distribution Width CV 18.8 % (11.6-14.6); RBC Distribution Width SD 56.4 fl (35.1-43.9); Red Blood Count 3.03 M/mm3 (4.2-5.4); White Blood Count 7.4 K/mm3 (4.4-11.0)
[2019-12-26 13:41] LABS: ALB/GLOB Ratio 0.8 RATIO (0.9-2.4); AST(SGOT) 1435 U/L (15-37); Alanine Aminotransfer ALT/SGPT 1240 U/L (13-56); Alkaline Phosphatase 84 U/L (45-117); Anion Gap 6 (5-15); BUN 21 mg/dL (7-18); BUN/Creat Ratio 21.9 RATIO (10-20); Calcium,Total 8.9 mg/dL (8.5-10.1); Chloride 97 mmol/L (98-107); Creatinine, Serum 0.96 mg/dL (0.55-1.02); EST Glomerular Filtration Rate 60 mL/min (>60); Est Glom Filt Rate - Afr Amer 72 mL/min (>60); Estimated Creatinine Clearance 45.21 ml/min; Glucose 140 mg/dL (74-106); Sodium Level 134 mmol/L (136-145)
[2019-12-26 13:43] LABS: Lactic Acid 3.1 mmol/L (0.4-1.9)
--- NOTE | 2019-12-26 13:49 | CT_ITS ---
STUDY: CT ABDOMEN AND PELVIS WITH CONTRAST REASON FOR EXAM: Female, 79 years old. ABD PAIN, SOB X 1 MONTH RADIATION DOSAGE (If Supplied By Facility): CTDIvol = ( 24.95 ) mGy, DLP = ( 1146.03 ) mGycm TECHNIQUE: Transaxial images were obtained from the dome of the diaphragm to the symphysis pubis without oral contrast. IV 100mL [id number]-300 was administered. Sagittal and coronal images were reconstructed. Individualized dose optimization techniques were used for this CT. COMPARISON: None. FINDINGS: Mild increase in linear markings at the lung bases suggestive of mild degree of bibasilar scarring. Minimal right pleural effusion. Coronary artery calcification. Prior CABG. Normal liver. There are multiple gallstones. Normal spleen. There is diffuse atrophy of the pancreas. Normal bilateral adrenal glands. Mild degree of right perinephric stranding. Mild degree of increased markings in the peritoneal fat surrounding the mid descending colon. There is a 5.4 cm x 4.8 cm cyst in the lower pole of the left kidney. Normal visualized stomach. Normal small intestine. There are multiple colonic diverticula consistent with diverticulosis. The appendix is visualized and appears normal. There is diffuse atherosclerotic calcification of the abdominal aorta and its major visceral branches, without a demonstrated aneurysm. Normal inferior vena cava. Normal retroperitoneum. Normal urinary bladder. Small amount of free fluid in the pelvis. There is a 5.1 cm x 2.6 cm soft tissue density in the right side of the pelvis. There is also evidence of a 1.5 cm x 1.2 cm soft tissue density lateral to the right common iliac artery. A neoplastic mass should be ruled out. Normal abdominal wall. There are diffuse degenerative changes of the visualized lumbar spine. CT/Abdomen/Pelvis W IV Cont ONLY IMPRESSION: Mild degree of right perinephric stranding as well as increased markings in the right lower abdomen. Findings suggestive of a a soft tissue mass in the right side of pelvis as well as small soft tissue density lateral to the right common iliac artery. Small amount of free fluid in the cul-de-sac and right paracolic gutter. Electronically Signed: Milo Villanueva, at 14:58 EDT , Service support ,
--- NOTE | 2019-12-26 13:55 | RAD_ITS ---
STUDY: X-RAY CHEST REASON FOR EXAM: Female, 79 years old. SOB TECHNIQUE: Single AP portable view of the chest. COMPARISON: Comparison is made with prior study dated 04/17/2017. FINDINGS: EKG electrodes are seen. The lungs are clear and expanded. There is no demonstrated pleural abnormality. Sternal cerclage wires and vascular clips are present from a prior sternotomy and coronary artery bypass graft procedure (CABG). Borderline cardiomegaly. Normal mediastinum and vamshi. Normal visualized pulmonary arteries. Normal visualized aortic arch and descending thoracic aorta. Normal visualized thoracic spine. Normal visualized ribs, clavicles, and shoulders. There is no demonstrated abnormality of the visualized soft tissue structures of the upper abdomen. RAD/Chest 1 View (Portable) IMPRESSION: No acute abnormality is seen. Borderline cardiomegaly. Electronically Signed: Milo Villanueva, at 14:12 EDT , Service support ,
--- NOTE | 2019-12-26 15:20 | NURSING ---
CALLED [facility] FOR DR DUVAL
[2019-12-26 15:49] LABS: International Normalized Ratio 1.7; Prothrombin Time (Protime)PT. 19.2 SECONDS (11.7-14.9)
--- NOTE | 2019-12-26 16:00 | ED.RN ---
updated daughter about ot care and plan
--- NOTE | 2019-12-26 16:18 | NURSING ---
accepted at [place] [phone]
--- NOTE | 2019-12-26 16:26 | NURSING ---
called squad, eta is within the hour
--- NOTE | 2019-12-26 16:45 | ED.RN ---
updated daughter prior to transfer
--- NOTE | 2019-12-26 16:45 | ED.RN ---
[facility] [phone]
[2019-12-26 17:07] LABS: Reflex Lactate? Y
--- NOTE | 2019-12-26 18:46 | ED.RN ---
transport present. report given. pt vs obtained and blood has been infusing for 15min without reaction
[2019-12-26 18:49] LABS: Lactic Acid 2.5 mmol/L (0.4-1.9)
== END 2019-12-26 18:53 | disposition short-term general hospital (02) ==
PROVIDERS: Emergency Medicine; Emergency Provider Physician Assistant; PCP Internal Medicine
DX: R09.02 Hypoxemia (principal); D64.9 Anemia, unspecified; E87.2 Acidosis; R74.01 Elevation of levels of liver transaminase levels; R19.00 Intra-abdominal and pelvic swelling, mass and lump, unspecified site; E78.5 Hyperlipidemia, unspecified; I10 Essential (primary) hypertension; M32.9 Systemic lupus erythematosus, unspecified; Z82.49 Family history of ischemic heart disease and other diseases of the circulatory system; Z88.2 Allergy status to sulfonamides; Z90.710 Acquired absence of both cervix and uterus; Z95.1 Presence of aortocoronary bypass graft; R05 Cough; R06.00 Dyspnea, unspecified; R06.02 Shortness of breath
CPT/HCPCS: 36430; 71045; 74177; 80053; 82274; 83605; 83880; 84484; 85025; 85610; 86850; 86900; 86901; 86920; 86922; 87040; 87635; 93005; 99285; J7030; J7040; P9016; Q9967; A4216; U0002

== ENCOUNTER → 2020-01-14 13:24 | Outpatient (CLI) | payer MEDICARE, SELFPAY ==
[2019-12-26 12:27] VITALS: BMI 35.3
--- NOTE | 2020-01-14 13:35 | RAD_ITS ---
HISTORY: CHF, SOB EXAMINATION/TECHNIQUE: XR Chest 2 Views: COMPARISON: December 26, 2019 FINDINGS: LINES/DEVICES: None. LUNGS: No consolidation or edema. No pneumothorax. Minimal atelectasis in the lung bases on inspiration. Small right pleural effusion MEDIASTINUM AND CARDIOVASCULAR STRUCTURES: Cardiac silhouette not enlarged. CABG Central airways and mediastinal contour are unremarkable. BONES AND SOFT TISSUES: Midline sternotomy wires RAD/Chest PA and Lateral IMPRESSION: Small right pleural effusion with bibasilar atelectasis at 0152 Reported and signed by: Teresa Diaz DO Electronically Signed: Teresa Diaz DO at 1:51 EST Tel , Service support ,
== END ==
PROVIDERS: PCP Internal Medicine; Referring Provider Internal Medicine; Visit Provider Internal Medicine
DX: I50.9 Heart failure, unspecified (principal)
CPT/HCPCS: 71046

== ENCOUNTER 2020-01-20 14:01 | Inpatient (IN) | payer MEDICARE, SELFPAY ==
[2019-12-26 12:27] VITALS: BMI 35.3
[2020-01-20] VITALS (10 sets, daily range): BP systolic 122–168; BP diastolic 61–93; PULSE 62–72; RESP 16–20; TEMP 36.6–37; O2SAT 93–100; BMI 36.1; BMI 34.9
--- NOTE | 2020-01-20 14:17 | EKG12_ITS ---
Test Reason : SOB Blood Pressure : / mmHG Vent. Rate : 066 BPM Atrial Rate : 249 BPM P-R Int : 000 ms QRS Dur : 118 ms QT Int : 442 ms P-R-T Axes : 068 -09 179 degrees QTc Int : 463 ms Atrial flutter with variable A-V block with premature ventricular or aberrantly conducted complexes Left ventricular hypertrophy with QRS widening and repolarization abnormality Inferior infarct , age undetermined Abnormal ECG Confirmed by DANICA HERNÁNDEZ, NABEEL ([id number]), senior editor ABBEY ROBERTS ([id number]) on 01/23/2020 10:57:15 AM Referred By: DELIA Confirmed By:NABEEL MISHRA MD
--- NOTE | 2020-01-20 14:49 | ED.VIS.GEN ---
History of Present Illness Chief Complaint: Shortness of Breath Informant: Patient Onset: Weeks Maximum Severity: Mild Narrative: The patient presents complaining of progressively worsening shortness of breath. She has history of CABG cardiac stents hypertension CHF No history of coronavirus exposures no fever chronic cough she indicates she has not gained weight she has no leg edema, she was seen by outpatient providers a few days ago work-up was unremarkable her symptoms of the shortness of breath and the weakness persisted and she was brought to the emergency department She is eating and drinking has normal urinary output normal bowel habits no blood per rectum she has had no chest pain Past Medical History - Allergies and Home Meds Allergies/Adverse Reactions: Allergies Sulfa (Sulfonamide Antibiotics) Allergy (Verified 01/20/20 16:27) Rash tape Allergy (Uncoded 01/20/20 16:27) plastic tape causes blisters Can have cloth and paper Primary Care Physician: Chase Bryan MD [Primary Care Provider] - Past Medical History: - - CABG cardiac stents CHF Surgical History: coronary bypass surgery, hysterectomy, - - Right carotid endarterectomy, carpal tunnel surgery, hernia repair. Smoking Status: Former smoker - Family History Maternal Family History: Family History (Last Reviewed 09/17/19 @ 15:[address] Tiago Castaneda MD) Daughter Hypertension Melanoma Sister pacemaker Mother Hypertension Diabetes Heart disease Family History: Reports: Diabetes, Heart Disease Review of Systems General: Denies: Chills, Fever, Sweats Eyes: Denies: Visual changes - bilaterally, Diplopia ENT: Denies: Rhinorrhea, Sore throat Cardiovascular: Denies: Chest pain, Palpitations Respiratory: Reports: Dyspnea. Denies: Cough, Dyspnea on exertion Gastrointestinal: Denies: Abdominal pain, Nausea, Vomiting, Diarrhea, Melena, Hematochezia Genitourinary: Denies: Dysuria, Hematuria, Frequency Musculoskeletal: Denies: Back pain, Extremity Pain Skin: Denies: Rash, Wounds Neurological: Denies: Headache, Weakness, Numbness Physical Exam Vital Signs/Narrative: Vital Signs Temp Pulse Resp BP Pulse Ox 01/20/20 14:17 65 16 168/61 H 97 01/20/20 14:08 98.6 F 65 18 122/92 H 99 General: Well nourished, Well developed, No Acute Distress Head: Normocephalic, Atraumatic Eyes: Perrl, EOMI ENT: Moist mucous membranes, No rhinorrhea Neck: Supple, Nontender Cardiovascular: Regular rate, Regular rhythm, No murmurs, - - Is irregular on the monitor her rate is about 70-80 questionable A. fib Respiratory: No distress, CTA bilaterally, Chest nontender Abdomen: Soft, Nontender, Nondistended, Normal bowel sounds Back: Nontender, Normal Inspection Extremities: Nontender, No edema Skin: Normal color, No rash Neurological: Alert, Oriented x3, Cranial nerves II-XII grossly intact, Normal Strength, Normal Sensation Psychological: Normal affect, Normal Mood Diagnostic/Tx/Re-eval - Medical Decision Making Patient's EKG shows what might be A. fib or flutter rate of about 70 old EKG pending She has no known history of A. fib based on the chart at this time ED screening evaluation The patient's 1 view chest x-ray to my review shows cardiomegaly no other definitive acute abnormalities soft tissue within normal range, radiology reviewed the films and are concerned for the possibility of subtle upper lobe infiltrates versus CHF versus early Covid Patient's BNP is 3000 and troponin elevated to 0.15, hemoglobin about 9 hemoglobin about a month ago 6 EKG I believe really shows underlying sinus with possible intermittent A. fib or flutter but the rate 78 is well controlled given the constellation of all the above I have asked the hospitalist to see her further management, Covid antigen has been obtained results pending Disposition admit pending hospitalist evaluation Final impression congestive heart failure, possible pneumonia, abnormal troponin ED Disposition - Plan for ED Patient: Diagnosis: Congestive heart failure dyspnea Referrals: Chase Bryan MD [Primary Care Provider] -
--- NOTE | 2020-01-20 15:05 | RAD_ITS ---
EXAM DESCRIPTION: PORTABLE AP CHEST CLINICAL HISTORY: 79 years Female, SOB X1 week SOB X1 week COMPARISON: Previous chest obtained on 01/14/2020 FINDINGS: Sternotomy sutures are noted in place. The rest of the thorax is intact. The heart and mediastinum appear to be within normal limits. The lungs demonstrates some mild peripheral alveolar infiltrates in the right upper lobe which were not noted previously. Questionable infiltrates are also seen in the left lung apex. These infiltrates are of uncertain etiology. Minimal residual pulmonary edema versus COVID 19 are diagnostic possibilities. RAD/Chest 1 View (Portable) IMPRESSION: Alveolar infiltrates are noted in the right upper lobe with questionable infiltrate seen in the left upper lobe. Residual pulmonary edema versus early pneumonic infiltrates (COVID 19?) are diagnostic possibilities. Electronically Signed: Ghanshyam Davis, at 15:35 EST Tel , Service support ,
[2020-01-20 15:06] LABS: Absolute Lymphocyte Count 0.91 X10^3/uL (0.83-4.51); Absolute Neutrophil Count 3.6 X10^3/uL (2.0-7.7); Basophil# 0.03 X10^3/uL; Basophil% 0.6 % (0-1); Eosinophil# 0.02 X10^3/uL; Eosinophils% 0.4 % (0-5); Hematocrit 29.8 % (37-47); Hemoglobin 8.2 g/dL (12.0-15.0); Lymphocyte # 0.91 X10^3/ul (4.0); Lymphocyte % 17.5 % (19-41); Mean Corp Hgb Conc 27.5 g/dL (32-36); Mean Corpuscular Hgb 23.7 pg (27.0-32.0); Mean Corpuscular Volume 86.1 fL (81-99); Mean Platelet Vol. 9.3 fl (6.2-12.0); Monocyte# 0.65 X10^3/uL; Monocyte% 12.5 % (0-10); NRBC Flagged by Analyzer 0 % (0-5); Neutrophil # 3.56 X10^3/uL (2.7-7.7); Neutrophil % 68.4 % (47-70); Platelet Count 223 K/mm3 (150-450); RBC Distribution Width CV 17.9 % (11.6-14.6); RBC Distribution Width SD 57.1 fl (35.1-43.9); Red Blood Count 3.46 M/mm3 (4.2-5.4); White Blood Count 5.2 K/mm3 (4.4-11.0)
[2020-01-20 15:24] LABS: Anion Gap 2 (5-15); BUN 12 mg/dL (7-18); BUN/Creat Ratio 15.7 RATIO (10-20); Calcium,Total 9.1 mg/dL (8.5-10.1); Chloride 96 mmol/L (98-107); Creatinine, Serum 0.76 mg/dL (0.55-1.02); EST Glomerular Filtration Rate 78 mL/min (>60); Est Glom Filt Rate - Afr Amer 94 mL/min (>60); Estimated Creatinine Clearance 38.35 ml/min; Glucose 145 mg/dL (74-106); Potassium 3.4 mmol/L (3.5-5.1); Sodium Level 139 mmol/L (136-145)
[2020-01-20] MEDS: Furosemide 40 MG/4 ML Vial IV (16:44)
--- NOTE | 2020-01-20 17:04 | NURSING ---
PCU STEP DOWN ROSSY MCDONALD
--- NOTE | 2020-01-20 17:12 | EKG12_ITS ---
Test Reason : REPEAT Blood Pressure : / mmHG Vent. Rate : 063 BPM Atrial Rate : 252 BPM P-R Int : 000 ms QRS Dur : 120 ms QT Int : 454 ms P-R-T Axes : 049 -09 176 degrees QTc Int : 464 ms Atrial flutter with 4:1 A-V conduction Left ventricular hypertrophy with QRS widening and repolarization abnormality Inferior infarct , age undetermined Abnormal ECG Confirmed by DANICA HERNÁNDEZ, NABEEL ([id number]), general expeditor ABBEY ROBERTS ([id number]) on 01/23/2020 10:57:30 AM Referred By: DELIA Confirmed By:NABEEL MISHRA MD
--- NOTE | 2020-01-20 19:44 | ECHOCS_ITS ---
Reason For Study: CHF Procedure This was a 2D Doppler, Color Flow transthoracic echocardiogram. Exam performed portable in patient room. Left Ventricle Normal LV size. The estimated ejection fraction is 50 %. Infero-Basal: Akinetic. Right Ventricle Normal RV size. Normal systolic function. Atria The left atrium is moderately enlarged. Normal right atrium. Mitral Valve There is moderate mitral annular calcification. Tricuspid Valve Normal tricuspid valve. Mild (1+) tricuspid valve insufficiency. Pulmonary artery systolic pressure is 40 mmHg. Aortic Valve Trisinus/trileaflet aortic valve. Mild focal aortic valve calcification. Mild focal aortic valve thickening. Mild (1+) aortic valve insufficiency. Pulmonic Valve Normal pulmonic valve. Great Vessels Normal aortic root. The pulmonary artery is normal size. Normal inferior vena cava. Pericardium/Pleural No pericardial effusion. Medication Diluted definity 3ml given slow IV push to enhance endocardial definition. MMode/2D Measurements & Calculations LVIDd: 5.4 cm IVSd: 1.2 cm Ao root diam: 3.4 cm LVIDs: 4.5 cm LVPWd: 1.2 cm RVDd: 3.8 cm FS: 17.2 % LAV(MOD-bp): 105.8 ml LVAd ap4: 36.1 cm2 SV(MOD-sp4): 52.2 ml LAV(MOD-bp) Indexed: 55.7 ml/m2 EDV(MOD-sp4): 134.4 ml LAV(MOD-sp2): 117.7 ml EDV(sp4-el): 139.7 ml LAV(MOD-sp4): 93.0 ml LVAs ap4: 26.1 cm2 ESV(MOD-sp4): 82.2 ml ESV(sp4-el): 84.4 ml EF(MOD-sp4): 38.8 % EF(sp4-el): 39.6 % SV(sp4-el): 55.3 ml LA A4 area: 27.7 cm2 LA dimension(2D): 5.3 cm RA A4 area: 22.0 cm2 Time Measurements MV dec time: 0.14 sec Doppler Measurements & Calculations MV E max emory: 108.8 cm/sec Lat Peak E' Emory: 11.0 cm/sec Med Peak E' Emory: 5.0 cm/sec MV A max emory: 66.5 cm/sec E/E' lat: 9.9 E/E' med: 21.9 MV E/A: 1.6 Ao V2 max: 112.5 cm/sec AI max emory: 414.6 cm/sec LV V1 max: 76.3 cm/sec Ao max P.1 mmHg AI max P.8 mmHg LV V1 max P.3 mmHg AI dec slope: 202.9 cm/sec2 AI P1/2t: 598.6 msec PA V2 max: 74.2 cm/sec PI end-d emory: 128.5 cm/sec TR max emory: 295.7 cm/sec TR max P.0 mmHg Interpretation Summary The estimated ejection fraction is 50 %. Normal LV size. Infero-Basal: Akinetic. There is moderate mitral annular calcification. Mild (1+) aortic valve insufficiency. The left atrium is moderately enlarged. Contrast injection was performed. Compared to prior study, changes are noted. Ordering Physician: Navarro Segundo Referring Physician: RICHIE ORLANDO Performed By: Yudith Leahy RDCS
--- NOTE | 2020-01-20 19:45 | HP.PCM_ITS ---
History of Present Illness Date of Admission: 01/20/20 Chief Complaint: Shortness of breath, cough, orthopnea The patient is a 79 year old F with a PMH as below presents to the hospital shortness of breath, cough, and orthopnea for over 2 weeks. She denies any chest pain with these episodes or lightheadedness. Her last echo was about 2 years ago with a normal EF and stage I diastolic dysfunction. She also sees pulmonology for pulmonary hypertension. She denies any significant leg swelling and states that she has not gained any new weight. She does not have any history of Covid exposure no fever, and her cough is fairly chronic. In the ER a chest x-ray was obtained which was read as possible infiltrates versus pulmonary edema so a Covid antigen test was performed and was negative. Since her symptoms have been going on for a little over 2 weeks she is outside the window for isolation regardless of positive or negative test for Covid. She is on chronic oxygen of 2 L and initially when she came in she was bumped up to 4 L however she received 40 of Lasix in the ER and had good urine output and since then her oxygen requirement has gone back to 2 L. Past Medical History Past Medical History (Chronic Problems): Chronic Problems (Last Updated 01/20/20 @ 18:49 by Debbie Clayton) Atherosclerosis of coronary artery of [place] heart without angina pectoris (Chronic) Atherosclerosis of coronary artery bypass graft without angina pectoris (Chronic) History of coronary artery stent placement (Chronic 2014) bare-metal stent x 3 to SVG to RPDA in April 2007; BMS to SVG to RPDA in 2014 Essential (primary) hypertension (Chronic) Hyperlipidemia (Chronic) Medical History: Medical History (Last Updated 01/20/20 @ 18:49 by Debbie Clayton) Atherosclerosis of coronary artery of [place] heart without angina pectoris (Chronic) I25.10 Atherosclerosis of coronary artery bypass graft without angina pectoris (Chronic) I25.810 Essential (primary) hypertension (Chronic) I10 Hyperlipidemia (Chronic) E78.5 History of CVA (cerebrovascular accident) Z86.73 with chronic left leg weakness Hypothyroidism E03.9 Obesity E66.9 Restrictive pattern present on pulmonary function testing R94.2 Shingles B02.9 Dizziness (Inactive) R42 Secondary pulmonary arterial hypertension (Inactive) I27.21 Allergies Sulfa (Sulfonamide Antibiotics) Allergy (Verified 11/24/20 16:27) Rash tape Allergy (Uncoded 01/20/20 16:27) plastic tape causes blisters Can have cloth and paper Home Medications: Ambulatory Orders Medication Instructions Recorded Lisinopril [Zestril] 40 mg PO DAILY 04/17/17 bupropion HCl 150 mg tablet,12 hr 150 mg PO BID ea 11/04/18 sustained-release carvedilol 25 mg tablet 12.5 mg PO BID tab 11/04/18 Levothyroxine Sodium [Euthyrox] 100 mcg PO DAILY 12/26/19 Albuterol Sulfate [Albuterol 2 puff INHALATION Q6H PRN PRN 01/20/20 Sulfate HFA] Aspirin E.C. [Ecotrin] 81 mg PO DAILY@0800 01/20/20 Budesonide/Formoterol Fumarate 2 puff INHALATION BID 01/20/20 [Symbicort 80-4.5 Mcg Inhaler] Cefuroxime Axetil [Ceftin] 250 mg PO BID 01/20/20 Ezetimibe 10 mg PO QHS 01/20/20 Furosemide [Lasix] 20 mg PO DAILY 01/20/20 Furosemide [Lasix] 40 mg PO DAILY 01/20/20 Ipratropium/Albuterol Sulfate 3 ml IH 4X/DAY 01/20/20 [Iprat-Albut 0.5-3(2.5) mg/3 ml] Multivitamin with Minerals 1 tab PO DAILY 01/20/20 [Multiple Vitamin] Omeprazole Magnesium [Prilosec Otc] 20 mg PO DAILY 01/20/20 Prednisone 20 mg PO BID 01/20/20 Surgical History: Surgical History (Last Updated 01/20/20 @ 18:54 by Debbie Clayton) H/O coronary artery bypass surgery (Resolved) Onset Date: 1999 Z95.1 CABG x 4 BOSE to LAD, SVG to D1, and Sequential SVG to RPDA and Acute [place] 1999 History of coronary artery stent placement (Chronic) Onset Date: 2014 Z95.5 bare-metal stent x 3 to SVG to RPDA in April 2007; BMS to SVG to RPDA in 2014 History of carpal tunnel surgery Z92.89 History of hernia repair Z98.890, Z87.19 History of hysterectomy Z90.710 partial, still has ovaries History of right-sided carotid endarterectomy Z98.890 Surgical History: coronary bypass surgery, hysterectomy, - - Right carotid endarterectomy, carpal tunnel surgery, hernia repair. 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 Tiago Castaneda MD) Daughter Hypertension Melanoma Sister pacemaker Mother Hypertension Diabetes Heart disease History Items: Diabetes, Heart Disease Review of Systems Constitutional: Denies: Chills, Fever, Weight Change HEENT: Denies: Head Aches, Sinus Congestion, Sinus Drainage Cardiovascular: Reports: Orthopnea. Denies: Chest Pain, Palpitations Respiratory: Reports: Cough, Shortness of Breath. Denies: Shortness of breath at rest, Sputum production Gastrointestinal: Denies: Abdominal Pain, Nausea, Vomiting Genitourinary: Denies: Dysuria Musculoskeletal: Denies: Joint Pain, Joint Tenderness Skin: Denies: Rash, Wounds Neurological: Denies: Numbness, Tingling, Focal weakness Psychiatric: Denies: Anxiety, Depression Hematologic/ Lymphatic: Denies: Easy Bruising, Easy Bleeding VTE Information - Inpt Only VTE Present on Admission: No - Physical Exam Vitals/I&O's: Vital Signs Temp Pulse Resp BP Pulse Ox 98.1 F 72 20 H 155/88 H 96 01/20/20 17:37 01/20/20 18:59 01/20/20 17:37 01/20/20 17:37 01/20/20 17:37 Oxygen Flow Rate (L/min) 2 Oxygen Delivery Method Nasal Cannula Weight: 197 lb 1.492 oz Body Mass Index (BMI) 34.9 General: Alert, Oriented x3, Cooperative, No apparent distress HEENT: Atraumatic, PERRLA, EOMI, Normocephalic Oral: Moist Mucosa Neck: Supple, No JVD Lungs: No rhonchi, No wheeze, No rales, Diminished Cardiovascular: Regular rate, Regular Rhythm, Normal S1, Normal S2, No murmurs Abdomen: Soft, Non Tender, Non-Distended, No Hepato-splenomegaly, Obese Extremities: Capillary Refill Less than 3 Seconds, Edema - Trace pitting edema bilaterally Skin: No rashes, No breakdown Neurological: Neuro grossly intact, Sensory exam intact to light touch and pain Psych/Mental Status: Normal Affect, Appropriate Microbiology Past 72 Hours 01/20/20 16:30 Mucosa - Nose SARS-CoV-2 Antigen (Rapid) - Final Laboratory Results 01/20/20 14:50: WBC 5.2, RBC 3.46 L, Hgb 8.2 L, Hct 29.8 L, MCV 86.1, MCH 23.7 L , MCHC 27.5 L, RDW Std Deviation 57.1 H, RDW Coeff of Jerry 17.9 H, Plt Count 223, MPV 9.3, Immature Gran % (Auto) 0.600, Neut % (Auto) 68.4, Lymph % (Auto) 17.5 L , Lassen % (Auto) 12.5 H, Eos % (Auto) 0.4, Baso % (Auto) 0.6, Absolute Neuts (auto) 3.6, Absolute Lymphs (auto) 0.91, Nucleated RBC % 0 01/20/20 14:50: Sodium 139, Potassium 3.4 L, Chloride 96 L, Carbon Dioxide 41.0 H, Anion Gap 2 L, BUN 12, Creatinine 0.76, Estim Creat Clear Calc 38.35, Est GFR (MDRD) Af Amer 94, Est GFR (MDRD) Non-Af 78, BUN/Creatinine Ratio 15.7, Glucose 145 H, Calcium 9.1, Troponin I 0.121 H 01/20/20 14:50: B-Natriuretic Peptide 3283.6 H Current Medications Acetaminophen (Acetaminophen 325 Mg Tablet) 650 mg PO Q6H PRN PRN PRN Reason: Pain Score 1-10/Temp > 100.7 F Albuterol/Ipratropium (Ipratropium/Albuterol Sulfate 3 Ml Ampul.Neb) 3 ml INHALATION 4X/DAY.RT JENNIFER Aspirin (Aspirin E.C. 81 Mg Tablet) 81 mg PO DAILY@0800 JENN[facility] Carvedilol (Carvedilol 12.5 Mg Tablet) 12.5 mg PO BID [facility]ENN[facility] Ezetimibe (Ezetimibe 10 Mg Tablet) 10 mg PO QHS [facility] Enoxaparin Sodium (Enoxaparin 40 Mg/0.4 Ml Syringe) 40 mg SC DAILY [facility]ENN[facility] Furosemide (Furosemide 40 Mg/4 Ml Vial) 40 mg IV BID@1000,1800 JENN[facility]ER Sodium Chloride () 250 mls @ 15 mls/hr IV .[id number] PRN PRN Reason: Saline Flush Sodium Chloride () 250 mls @ 15 mls/hr IV .[id number] PRN PRN Reason: Additional IVPB Infusion Levothyroxine Sodium (Levothyroxine 100 Mcg Tablet) 100 mcg PO DAILY@0600 [facility] Lisinopril (Lisinopril 40 Mg Tablet) 40 mg PO DAILY [facility] Melatonin (Melatonin 3 Mg Tablet) 3 mg PO QHS PRN PRN PRN Reason: INSOMNIA Non-Formulary Medication (Albuterol Sulfate) 2 puff INHALATION Q6H JENNIFER Non-Formulary Medication (Bupropion Hcl [Bupropion Hcl Sr]) 150 mg PO DAILY JENN[facility] Ondansetron HCl (Ondansetron 4 Mg/2 Ml Vial) 4 mg IV Q8H PRN PRN PRN Reason: NAUSEA/VOMITING Pantoprazole Sodium (Pantoprazole Sodium 20 Mg Tablet) 20 mg PO DAILY JENN[facility]ER Prednisone (Prednisone 20 Mg Tablet) 20 mg PO BIDCM [facility] Sodium Chloride (0.9% Saline Lock 10 Ml Syringe) 10 - 40 ml IV UD PRN PRN Reason: SALINE FLUSH Assessment/Plan All Active Problems (Last Updated 01/20/20 @ 18:54 by Debbie Clayton) H/O coronary artery bypass surgery (Resolved 1999) 1. HFpEF exacerbation/CAD status post CABG and stents/HTN/HLD/pulmonary artery hypertension -Her BNP is elevated to over 3000 without renal failure. And her troponin was elevated to 0.121, will obtain serial troponins -Based on her orthopnea, BNP elevation, and her cardiac history we will treat this like a heart failure exacerbation with diuresis. Will obtain an echo in the morning for further evaluation -I's and O's with daily weights -Blood pressure stable, will continue with her home Coreg, lisinopril -Continue with aspirin and Zetia 2. Restrictive pattern on her pulmonary function test -Continue with her inhalers -She is also on prednisone 20 mg p.o. twice daily 3. Hypothyroidism -Stable -Continue with Synthroid 4. Anxiety/depression -Stable -Continue with Wellbutrin 5. GERD -Stable -Continue with PPI DVT: Lovenox Inpatient E&M: 97155 Init Hosp L3
[2020-01-20] MEDS: Ipratropium/Albuterol Sulfate 3 ML AMPUL.NEB INHALATION (19:52)
[2020-01-20] MEDS: buPROPion (SR) 150 MG Tablet.SA PO (20:42)
[2020-01-20] MEDS: Carvedilol 12.5 MG Tablet PO (20:42)
[2020-01-20] MEDS: Ezetimibe 10 MG Tablet PO (20:42)
--- NOTE | 2020-01-20 20:46 | NURSING ---
Pt requesting to have meds at this time.
[2020-01-21] VITALS (16 sets, daily range): BP systolic 122–151; BP diastolic 68–94; PULSE 61–82; RESP 18–22; TEMP 36.6–36.9; O2SAT 91–100
[2020-01-21 02:07] LABS: Absolute Lymphocyte Count 1.36 X10^3/uL (0.83-4.51); Basophil# 0.03 X10^3/uL; Basophil% 0.6 % (0-1); Eosinophil# 0.06 X10^3/uL; Eosinophils% 1.2 % (0-5); Hematocrit 29.7 % (37-47); Hemoglobin 8.2 g/dL (12.0-15.0); Lymphocyte # 1.36 X10^3/ul (4.0); Lymphocyte % 26.3 % (19-41); Mean Corp Hgb Conc 27.6 g/dL (32-36); Mean Corpuscular Hgb 23.7 pg (27.0-32.0); Mean Corpuscular Volume 85.8 fL (81-99); Mean Platelet Vol. 10.3 fl (6.2-12.0); Monocyte# 0.77 X10^3/uL; Monocyte% 14.9 % (0-10); NRBC Flagged by Analyzer 0 % (0-5); Neutrophil # 2.95 X10^3/uL (2.7-7.7); Neutrophil % 56.8 % (47-70); Platelet Count 222 K/mm3 (150-450); RBC Distribution Width SD 55.5 fl (35.1-43.9); Red Blood Count 3.46 M/mm3 (4.2-5.4); White Blood Count 5.2 K/mm3 (4.4-11.0)
[2020-01-21 02:29] LABS: Anion Gap 6 (5-15); BUN 13 mg/dL (7-18); BUN/Creat Ratio 17.1 RATIO (10-20); Calcium,Total 8.9 mg/dL (8.5-10.1); Chloride 95 mmol/L (98-107); Creatinine, Serum 0.76 mg/dL (0.55-1.02); EST Glomerular Filtration Rate 78 mL/min (>60); Est Glom Filt Rate - Afr Amer 94 mL/min (>60); Estimated Creatinine Clearance 38.35 ml/min; Glucose 81 mg/dL (74-106); Sodium Level 140 mmol/L (136-145)
[2020-01-21] MEDS: 0.9% Saline Lock 10 ML Syringe IV (03:50)
--- NOTE | 2020-01-21 04:22 | CPS ---
PATIENT RECIEVED PRN TREATMENT DUE TO WHEEZES.
[2020-01-21] MEDS: Albuterol 2.5 MG/3 ML VIAL.NEB. INHALATION (04:24)
[2020-01-21] MEDS: Levothyroxine 100 MCG Tablet PO (05:54)
[2020-01-21] MEDS: Ipratropium/Albuterol Sulfate 3 ML AMPUL.NEB INHALATION ×4 (07:24→19:06)
[2020-01-21] MEDS: Aspirin E.C. 81 MG Tablet PO (09:20)
[2020-01-21] MEDS: buPROPion (SR) 150 MG Tablet.SA PO (09:21)
[2020-01-21] MEDS: Carvedilol 12.5 MG Tablet PO ×2 (09:21→20:46)
[2020-01-21] MEDS: Pantoprazole Sodium 20 MG Tablet PO (09:21)
[2020-01-21] MEDS: predniSONE 20 MG Tablet PO ×2 (09:21→16:32)
[2020-01-21] MEDS: Furosemide 40 MG/4 ML Vial IV (09:21)
[2020-01-21] MEDS: Lisinopril 40 MG Tablet PO (09:21)
[2020-01-21] MEDS: Enoxaparin 40 MG/0.4 ML Syringe SC (09:21)
--- NOTE | 2020-01-21 11:28 | CASEMGMT ---
JOO CAMPUZANO assessment: Phone interview with patient for initial transition planning/care coordination assessment at this time. RN TATIANNA introduced self and role at [facility], pt voices understanding and consents to assessment at this time. Pt is A/Ox4 at this time and answers questions appropriately at this time. Pt is hard of hearing. Care providers, pharmacy, and demographics verified at this time. Presentation: SOB over last week. saw PCP last week for blood work/CXR. Pt on home O2 and had to bump up to 4liters. also c/o increased weakness Admitting dx: CHF exacerbation PCP: Irvin Specialists: Tonya cardio; stephanie Mills Preferred Pharmacy: [facility] Insurance: [facility] Prescription Benefit: [facility] Living Will/HPOA: Pt states has LW/HPOA and is aware that it's no on file at [facility] at this time. Pt states her daughter, Millie Hoyt, is HPOA. LNOK: Saji Cespedes, ; Millie Hoyt, daughter/HPOA; Peterson Yasir, daughter Living Arrangements: Pt states lives with in 1 story home with 2 steps in and states no concerns at home at this time. Pt states assists with cooking/cleaning but she does laundry and self care. Transportation: Pt states /family drive and states no transportation concerns at this time. DME/HHC: Pt states has the following DME: grab bars, shower chair, raised toilet seat, cane, walker, w/c, and 2-2.5L home oxygen but cannot remember who it was set up with. Pt states recent admission to [facility] and states was set up with O2 and HHC at that time but cannot remember name of either company. Pt states to call daughter, Millie Hoyt, as she will know who they are set up with. This RN CM attempted to reach Millie at this time without success. Pt states no hx of SNF. Pt states no concerns with going home at time of discharge. Pt states is retired. Pt states quit smoking about 20 years ago and states does not drink ETOH. Pt states no further concerns/needs at this time. CM to f/u with daughter regarding DME/HHC companies and for any further discharge planning/needs. Advised pt to ask for CM if any further questions/concerns/needs arise, voices understanding. Pt Goal: Home Plan: Home w/ Resumption of HHC. Pam GE CM
--- NOTE | 2020-01-21 13:50 | PN_ITS ---
Reason for Visit: CHF Subjective: Breathing well. Patient anxious to go home. Patient states that normally she is on around 3 L of oxygen per minute. Currently she is on 2 L. Vitals/I&O's: Vital Signs Temp Pulse Resp BP Pulse Ox 36.6 C 64 22 H 151/84 H 91 01/21/20 09:00 01/21/20 11:30 01/21/20 11:30 01/21/20 09:00 01/21/20 11:30 Oxygen Flow Rate (L/min) 2 Oxygen Delivery Method Nasal Cannula Weight: 87.4 kg Body Mass Index (BMI) 34.9 Intake and Output for Last 24 Hours 01/19/20 01/20/20 01/21/20 23:59 23:59 23:59 Intake Total 120 / 120 Output Total 2099 / 2099 110 / 110 Balance -1979 / -1979 -110 / -110 General: Alert, No apparent distress HEENT: Atraumatic, Normocephalic Oral: Moist Mucosa, No Gingival or Mucosal Lesions/ Ulcerations Neck: No Nodes, Thyroid Normal Size and Texture Lungs: Clear to auscultation, Normal air movement, No rhonchi, No wheeze, No rales Cardiovascular: Regular rate, Regular Rhythm, Normal S1, Normal S2, No murmurs Abdomen: Bowel Sounds Present, Soft, Non Tender, Non-Distended, No Hepato- splenomegaly Extremities: No edema, No Calf Tenderness Skin: No rashes, No breakdown Psych/Mental Status: Normal Affect, Appropriate Microbiology Past 72 Hours 01/20/20 16:30 Mucosa - Nose SARS-CoV-2 Antigen (Rapid) - Final Laboratory Results 01/20/20 14:50: WBC 5.2, RBC 3.46 L, Hgb 8.2 L, Hct 29.8 L, MCV 86.1, MCH 23.7 L , MCHC 27.5 L, RDW Std Deviation 57.1 H, RDW Coeff of Jerry 17.9 H, Plt Count 223, MPV 9.3, Immature Gran % (Auto) 0.600, Neut % (Auto) 68.4, Lymph % (Auto) 17.5 L , Angelina % (Auto) 12.5 H, Eos % (Auto) 0.4, Baso % (Auto) 0.6, Absolute Neuts (auto) 3.6, Absolute Lymphs (auto) 0.91, Nucleated RBC % 0 01/20/20 14:50: Sodium 139, Potassium 3.4 L, Chloride 96 L, Carbon Dioxide 41.0 H, Anion Gap 2 L, BUN 12, Creatinine 0.76, Estim Creat Clear Calc 38.35, Est GFR (MDRD) Af Amer 94, Est GFR (MDRD) Non-Af 78, BUN/Creatinine Ratio 15.7, Glucose 145 H, Calcium 9.1, Troponin I 0.121 H 01/20/20 14:50: B-Natriuretic Peptide 3283.6 H 01/20/20 20:12: Troponin I 0.126 H 01/20/20 23:09: Troponin I 0.122 H 01/21/20 02:00: WBC 5.2, RBC 3.46 L, Hgb 8.2 L, Hct 29.7 L, MCV 85.8, MCH 23.7 L , MCHC 27.6 L, RDW Std Deviation 55.5 H, RDW Coeff of Jerry 18.0 H, Plt Count 222, MPV 10.3, Immature Gran % (Auto) 0.200, Neut % (Auto) 56.8, Lymph % (Auto) 26.3, Angelina % (Auto) 14.9 H, Eos % (Auto) 1.2, Baso % (Auto) 0.6, Absolute Neuts (auto) 3.0, Absolute Lymphs (auto) 1.36, Nucleated RBC % 0 01/21/20 02:00: Sodium 140, Potassium 3.0 L, Chloride 95 L, Carbon Dioxide 39.0 H, Anion Gap 6, BUN 13, Creatinine 0.76, Estim Creat Clear Calc 38.35, Est GFR (MDRD) Af Amer 94, Est GFR (MDRD) Non-Af 78, BUN/Creatinine Ratio 17.1, Glucose 81, Calcium 8.9 01/21/20 02:00: Troponin I 0.115 H Current Medications Acetaminophen (Acetaminophen 325 Mg Tablet) 650 mg PO Q6H PRN PRN PRN Reason: Pain Score 1-10/Temp > 100.7 F Albuterol Sulfate (Albuterol 2.5 Mg/3 Ml Vial.Neb.) 2.5 mg INHALATION Q4H PRN PRN Reason: SOB/WHEEZING Last Admin: 01/21/20 04:24 Dose: 2.5 mg Documented by: Albuterol/Ipratropium (Ipratropium/Albuterol Sulfate 3 Ml Ampul.Neb) 3 ml INHALATION 4X/DAY.RT [facility] Last Admin: 01/21/20 11:29 Dose: 3 ml Documented by: Aspirin (Aspirin E.C. 81 Mg Tablet) 81 mg PO DAILY@0800 [facility] Last Admin: 01/21/20 09:20 Dose: 81 mg Documented by: Bupropion HCl (Bupropion (Sr) 150 Mg Tablet.Sa) 150 mg PO BID [facility] Last Admin: 01/21/20 09:21 Dose: 150 mg Documented by: Carvedilol (Carvedilol 12.5 Mg Tablet) 12.5 mg PO BID [facility] Last Admin: 01/21/20 09:21 Dose: 12.5 mg Documented by: Ezetimibe (Ezetimibe 10 Mg Tablet) 10 mg PO QHS [facility] Last Admin: 01/20/20 20:42 Dose: 10 mg Documented by: Enoxaparin Sodium (Enoxaparin 40 Mg/0.4 Ml Syringe) 40 mg SC DAILY [facility] Last Admin: 01/21/20 09:21 Dose: 40 mg Documented by: Furosemide (Furosemide 40 Mg/4 Ml Vial) 40 mg IV BID@1000,1800 [facility] Last Admin: 01/21/20 09:21 Dose: 40 mg Documented by: Sodium Chloride () 250 mls @ 15 mls/hr IV .[id number] PRN PRN Reason: Saline Flush Sodium Chloride () 250 mls @ 15 mls/hr IV .[id number] PRN PRN Reason: Additional IVPB Infusion Levothyroxine Sodium (Levothyroxine 100 Mcg Tablet) 100 mcg PO DAILY@0600 [facility] Last Admin: 01/21/20 05:54 Dose: 100 mcg Documented by: Lisinopril (Lisinopril 40 Mg Tablet) 40 mg PO DAILY [facility] Last Admin: 01/21/20 09:21 Dose: 40 mg Documented by: Melatonin (Melatonin 3 Mg Tablet) 3 mg PO QHS PRN PRN PRN Reason: INSOMNIA Ondansetron HCl (Ondansetron 4 Mg/2 Ml Vial) 4 mg IV Q8H PRN PRN PRN Reason: NAUSEA/VOMITING Pantoprazole Sodium (Pantoprazole Sodium 20 Mg Tablet) 20 mg PO DAILY [facility] Last Admin: 01/21/20 09:21 Dose: 20 mg Documented by: Potassium Chloride (Potassium Chloride 20 Meq Tablet) [facility] Last Admin: 01/21/20 09:20 Dose: 40 meq Documented by: Prednisone (Prednisone 20 Mg Tablet) [facility] Last Admin: 01/21/20 09:21 Dose: 20 mg Documented by: Sodium Chloride (0.9% Saline Lock 10 Ml Syringe) 10 - 40 ml IV UD PRN PRN Reason: SALINE FLUSH Last Admin: 01/21/20 03:50 Dose: 10 ml Documented by: STROKE Vital Signs/Narrative: Vital Signs Pulse Resp Pulse Ox 01/21/20 11:30 64 22 H 91 Medical Necessity - Tobacco Use Smoking Status: Former smoker Tobacco Use: Cigarettes Assessment/Plan All Active Problems (Last Updated 01/20/20 @ 18:54 by Debbie Clayton) H/O coronary artery bypass surgery (Resolved 1999) 1. acute HFpEF * improved * weight appears to be below her baseline * change furosemide to PO and observe * continue GLYNN- and BB * EF 50%, down from 65% in 2018. DW Dr. Castaneda, who reviewed the 2018 echo and feels her EF was closer to 53-54%. She can follow up with him as outpt. 2. elevated troponin * likely due to deman * on ASA, GLYNN-, BB * follow up with cardiology as outpt. 3. CAD * stable 4. Chronic lung disease: * complicates care * on prednisone 20 BID 5. VTE prophylaxis: LMWH Inpatient E&M: 63828 Subs Hosp L2
--- NOTE | 2020-01-21 14:05 | CHAPLAIN ---
Type of Pastoral Visit _x__ Initial Visit ___ Follow-up Visit ___ On-call Visit ___ General Patient Visit ___ Spiritual Assessment ___ Family Conference ___ Bereavement ___ Rapid Response ___ Code Blue ___ Other (describe below) Pastoral Care Referral From _x__ Patient ___ Family ___ Nurse ___ Physician ___ Inspector Metal Fabricating ___ Windmill Mechanic ___ Other (describe below) Sacrament/Intervention _x__ Active listening ___ Anointing ___ Zoroastrianism ___ Bereavement ___ Communion ___ Marychuy exploration ___ _x__ Life review _x__ Prayer ___ Reconciliation ___ Sacrament of Sick _x__ Supportive presence ___ Wedding ___ Other (describe below) Pastoral Comments
--- NOTE | 2020-01-21 14:57 | CASEMGMT ---
SW completed a Palliative Care Screening Tool on patient. She scored a 2. SW did not talk with patient about Palliative Care as generally we consider Palliative Care when they score a 4 or more. Jaye ONTIVEROS
--- NOTE | 2020-01-21 15:17 | CASEMGMT ---
RN CM NOTE: Spoke w/pt's daughters, Millie and Pratik. Pt has O2 through [facility] and has [facility]. Per Pratik, pt was getting O2 @ 2 L/M but Dr Bryan just increased it to 2.5 L/M last week. Call placed to [facility] and their current orders for O2 are for 2 L/M. Pt currently on O2 @ 2 L/M. Pt will need updated O2 script faxed to [facility] @ discharge if requires more than 2 L/M continuously. Daughter, Pratik, states pt has concentrator and portable O2 tanks. She plans to bring portable O2 tank for pt when she takes her home @ discharge. Call placed to [facility] and spoke w/[facility]. He confirms pt is active with them and is receiving SN, PT/OT/ST, and SW. He was made aware pt has been admitted to [facility]. Resumption of HHC order placed. Nadia SNYDERN JOO CM
[2020-01-21] MEDS: Furosemide 40 MG Tablet PO (16:31)
--- NOTE | 2020-01-21 19:58 | NURSING ---
This RN received a call from Peterson Cintron, pt.'s daughter. Peterson is concerned she spoke with her mother and she sounded confused. This RN checked on pt. and pt. is calm, relaxed, A&O to self and time per baseline at hospital. Peterson states this is not normal for her. After reviewing meds with Peterson, she states pt. does not take Wellbutrin and it was discontinued d/t causing confusion. Primary RN and Dr. Barron updated.
[2020-01-21] MEDS: Ezetimibe 10 MG Tablet PO (20:46)
[2020-01-22] VITALS (7 sets, daily range): BP systolic 135–156; BP diastolic 63–80; PULSE 65–82; RESP 18; TEMP 36.6–36.7; O2SAT 87–100
[2020-01-22] MEDS: BENZOCAINE/MENTHOL 1 LOZENGE MUCOUS MEM (01:07)
[2020-01-22] MEDS: Levothyroxine 100 MCG Tablet PO (05:15)
[2020-01-22 05:59] LABS: Anion Gap 3 (5-15); BUN 16 mg/dL (7-18); BUN/Creat Ratio 21.8 RATIO (10-20); Calcium,Total 9.3 mg/dL (8.5-10.1); Chloride 95 mmol/L (98-107); Creatinine, Serum 0.73 mg/dL (0.55-1.02); EST Glomerular Filtration Rate 81 mL/min (>60); Est Glom Filt Rate - Afr Amer 99 mL/min (>60); Estimated Creatinine Clearance 38.35 ml/min; Glucose 140 mg/dL (74-106); Potassium 4.3 mmol/L (3.5-5.1); Sodium Level 138 mmol/L (136-145)
[2020-01-22] MEDS: Ipratropium/Albuterol Sulfate 3 ML AMPUL.NEB INHALATION ×2 (07:05→11:07)
[2020-01-22] MEDS: predniSONE 20 MG Tablet PO (09:36)
[2020-01-22] MEDS: Aspirin E.C. 81 MG Tablet PO (09:36)
[2020-01-22] MEDS: Furosemide 40 MG Tablet PO (09:37)
[2020-01-22] MEDS: Carvedilol 12.5 MG Tablet PO (09:37)
[2020-01-22] MEDS: Lisinopril 40 MG Tablet PO (09:37)
[2020-01-22] MEDS: Enoxaparin 40 MG/0.4 ML Syringe SC (09:37)
[2020-01-22] MEDS: Pantoprazole Sodium 20 MG Tablet PO (09:38)
[2020-01-22] MEDS: buPROPion (SR) 150 MG Tablet.SA PO (09:39)
--- NOTE | 2020-01-22 10:31 | DCINST_ITS ---
You will use the following diet at home:: Cardiac Your food should be the consistency of: Regular Your liquids should be the consistency of: Regular/Thin Discharge Activity: Return to Normal Activity Additional Instructions: You will need a BMP (lab) in 1 week, call your primary care physician to arrange this. Allergies/Adverse Reactions: Allergies Sulfa (Sulfonamide Antibiotics) Allergy (Verified 01/20/20 16:27) Rash tape Allergy (Uncoded 01/20/20 16:27) plastic tape causes blisters Can have cloth and paper Medications to take at Discharge Lisinopril [Zestril] 40 mg PO DAILY 04/17/17 bupropion HCl 150 mg tablet,12 hr sustained-release 150 mg PO BID ea 11/04/18 carvedilol 25 mg tablet 12.5 mg PO BID tab 11/04/18 Levothyroxine Sodium [Euthyrox] 100 mcg PO DAILY 12/26/19 Albuterol Sulfate [Albuterol Sulfate HFA] 2 puff INHALATION Q6H PRN PRN 01/20/20 Aspirin E.C. [Ecotrin] 81 mg PO DAILY@0800 01/20/20 Budesonide/Formoterol Fumarate [Symbicort 80-4.5 Mcg Inhaler] 2 puff INHALATION BID 01/20/20 Ezetimibe 10 mg PO QHS 01/20/20 Ipratropium/Albuterol Sulfate [Iprat-Albut 0.5-3(2.5) mg/3 ml] 3 ml IH 4X/DAY 01/20/20 Multivitamin with Minerals [Multiple Vitamin] 1 tab PO DAILY 01/20/20 Omeprazole Magnesium [Prilosec Otc] 20 mg PO DAILY 01/20/20 Prednisone 20 mg PO BID 01/20/20 Furosemide [Lasix] 40 mg PO BID@1000,1800 #60 tab 01/22/20 Potassium Chloride [K-Dur] 20 meq PO BIDCM #60 tab 01/22/20 The following prescriptions were given: Potassium Chloride [K-Dur] 20 meq PO BIDCM #60 tab Transmission Status: Pending to [id number] Furosemide [Lasix] 40 mg PO BID@1000,1800 #60 tab Transmission Status: Pending to [id number] Primary Care Physician: Chase Bryan MD [Primary Care Provider] - Please follow up with your Primary Care Physician in: 1-2 weeks Test Results: Test results from this visit will be discussed in further detail at your follow- up appointment, if applicable. Please Follow Up With: Ghanshyam Zavala NP, DECATING MACHINE OPERATOR-C - Cardiology When: 2 weeks Proposed Discharge Date: 01/22/20
--- NOTE | 2020-01-22 11:50 | PCM.DC.SUM ---
<Nitesh Rodriguez - Last Filed: 01/22/20 11:50> Discharge Date and Diagnosis Date of Admission: 01/20/20 Date of Discharge: 01/22/20 - Primary Discharge Diagnosis Acute Problems: Acute on chronic diastolic CHF exacerbation Indeterminate troponin 2/2 above - Secondary Discharge Diagnosis Chronic Problems: Chronic Problems (Last Updated 01/20/20 @ 18:49 by Debbie Clayton) Atherosclerosis of coronary artery of [place] heart without angina pectoris (Chronic) Atherosclerosis of coronary artery bypass graft without angina pectoris (Chronic) History of coronary artery stent placement (Chronic 2014) bare-metal stent x 3 to SVG to RPDA in April 2007; BMS to SVG to RPDA in 2014 Essential (primary) hypertension (Chronic) Hyperlipidemia (Chronic) Hospital Course and Treatment Imaging Results: RAD/Chest 1 View (Portable) IMPRESSION: Alveolar infiltrates are noted in the right upper lobe with questionable infiltrate seen in the left upper lobe. Residual pulmonary edema versus early pneumonic infiltrates (COVID 19?) are diagnostic possibilities. 2D TTE: Interpretation Summary The estimated ejection fraction is 50 %. Normal LV size. Infero-Basal: Akinetic. There is moderate mitral annular calcification. Mild (1+) aortic valve insufficiency. The left atrium is moderately enlarged. Contrast injection was performed. Compared to prior study, changes are noted. Operations: None Procedures: 2-D Echocardiogram Summary of Care Provided: Hospital Course: The patient is a 79 year old F with pmhx of diastolic CHF, CAD with prior stents, HTN, HLD, CVA, pulmonary HTN, restrictive airway dz with chronic hypoxic respiratory failure, who presented to the ER with c/o SOB and orthopnea. She had progressive worsening for about 2 weeks. BNP was >3200, trop was indeterminate. She was felt to have acute CHF and started on IV lasix. She responded well to this therapy. Electrolytes were replaced. Trop trended down. Echo was obtained with results as above, some decline in EF noted, discussed with Dr. Castaneda by Dr. Kessler who recommended follow up in the office. She was transitioned to PO lasix at a higher dose (40 po BID) than what she previously took, with K+ supplement. She was discharged home in stable condition. Follow up with cardiology 2 weeks, PCP 1-2 weeks. This patient was seen by Nitesh Rodriguez PA-C under the supervision of Dr. Kessler. [] - Physical Exam Vitals/I&O's: Vital Signs Temp Pulse Resp BP Pulse Ox 97.8 F 75 18 135/80 H 91 01/22/20 09:32 01/22/20 11:07 01/22/20 11:07 01/22/20 09:32 01/22/20 11:35 Oxygen Flow Rate (L/min) [At 0 REST on Room Air] Oxygen Flow Rate (L/min) [ 3 AMBULATION with Oxygen] Oxygen Flow Rate (L/min) 2 Oxygen Delivery Method Nasal Cannula Weight: 191 lb 12.835 oz Body Mass Index (BMI) 34.9 Intake and Output for Last 24 Hours 01/20/20 01/21/20 01/22/20 23:59 23:59 23:59 Intake Total 120 / 120 240 / 290 150 / 150 Output Total 2099 / 2099 1310 / 1435 475 / 475 Balance -1979 / -1979 -1070 / -1145 -325 / -325 General: Alert, Oriented x3, Cooperative HEENT: Atraumatic, PERRLA, EOMI, Normocephalic Neck: Supple, No JVD, Negative Carotid Bruits Lungs: Clear to auscultation, Diminished Cardiovascular: Regular rate, No murmurs Abdomen: Bowel Sounds Present, Soft, Non Tender Extremities: No edema, Capillary Refill Less than 3 Seconds Skin: No rashes, No breakdown Musculoskeletal: No Tenderness to Palpation of Joints or Extremities Neurological: Cranial nerves II-XII grossly intact Psych/Mental Status: Normal Affect, Appropriate, Alert and oriented to time, place, person, mood and affect Microbiology Past 72 Hours 01/20/20 16:30 Mucosa - Nose SARS-CoV-2 Antigen (Rapid) - Final Laboratory Results 01/22/20 04:51: Sodium 138, Potassium 4.3, Chloride 95 L, Carbon Dioxide 40.0 H, Anion Gap 3 L, BUN 16, Creatinine 0.73, Estim Creat Clear Calc 38.35, Est GFR (MDRD) Af Amer 99, Est GFR (MDRD) Non-Af 81, BUN/Creatinine Ratio 21.8 H, Glucose 140 H, Calcium 9.3 Current Medications Acetaminophen (Acetaminophen 325 Mg Tablet) 650 mg PO Q6H PRN PRN PRN Reason: Pain Score 1-10/Temp > 100.7 F Albuterol Sulfate (Albuterol 2.5 Mg/3 Ml Vial.Neb.) 2.5 mg INHALATION Q4H PRN PRN Reason: SOB/WHEEZING Last Admin: 01/21/20 04:24 Dose: 2.5 mg Documented by: Albuterol/Ipratropium (Ipratropium/Albuterol Sulfate 3 Ml Ampul.Neb) 3 ml INHALATION 4X/DAY.RT [facility] Last Admin: 01/22/20 11:07 Dose: 3 ml Documented by: Aspirin (Aspirin E.C. 81 Mg Tablet) 81 mg PO DAILY@0800 [facility] Last Admin: 01/22/20 09:36 Dose: 81 mg Documented by: Bupropion HCl (Bupropion (Sr) 150 Mg Tablet.Sa) 150 mg PO BID [facility] Last Admin: 01/22/20 09:39 Dose: 150 mg Documented by: Carvedilol (Carvedilol 12.5 Mg Tablet) 12.5 mg PO BID [facility] Last Admin: 01/22/20 09:37 Dose: 12.5 mg Documented by: Ezetimibe (Ezetimibe 10 Mg Tablet) 10 mg PO QHS [facility] Last Admin: 01/21/20 20:46 Dose: 10 mg Documented by: Enoxaparin Sodium (Enoxaparin 40 Mg/0.4 Ml Syringe) 40 mg SC DAILY [facility] Last Admin: 01/22/20 09:37 Dose: 40 mg Documented by: Furosemide (Furosemide 40 Mg Tablet) 40 mg PO BID@1000,1800 [facility] Last Admin: 01/22/20 09:37 Dose: 40 mg Documented by: Sodium Chloride () 250 mls @ 15 mls/hr IV .[id number] PRN PRN Reason: Saline Flush Sodium Chloride () 250 mls @ 15 mls/hr IV .[id number] PRN PRN Reason: Additional IVPB Infusion Levothyroxine Sodium (Levothyroxine 100 Mcg Tablet) 100 mcg PO DAILY@0600 [facility] Last Admin: 01/22/20 05:15 Dose: 100 mcg Documented by: Lisinopril (Lisinopril 40 Mg Tablet) 40 mg PO DAILY [facility] Last Admin: 01/22/20 09:37 Dose: 40 mg Documented by: Melatonin (Melatonin 3 Mg Tablet) 3 mg PO QHS PRN PRN PRN Reason: INSOMNIA Ondansetron HCl (Ondansetron 4 Mg/2 Ml Vial) 4 mg IV Q8H PRN PRN PRN Reason: NAUSEA/VOMITING Pantoprazole Sodium (Pantoprazole Sodium 20 Mg Tablet) 20 mg PO DAILY [facility] Last Admin: 01/22/20 09:38 Dose: 20 mg Documented by: Potassium Chloride ([facility] 20 [facility] Admin: 01/22/20 09:36 Dose: 40 meq Documented by: Prednisone ([facility] 20 Mg Tablet) [facility] Admin: 01/22/20 09:36 Dose: 20 mg Documented by: Sodium Chloride (0.9% Saline Lock 10 Ml Syringe) 10 - 40 ml IV UD PRN PRN Reason: SALINE FLUSH Last Admin: 01/21/20 03:50 Dose: 10 ml Documented by: Throat Lozenges (Benzocaine/Menthol 1 Lozenge) 1 lozenge MUCOUS MEM Q2H PRN PRN PRN Reason: sore throat/cough Last Admin: 01/22/20 01:07 Dose: 1 lozenge Documented by: Discharge Activity: Return to Normal Activity Home Medications: Medications to take at Discharge Lisinopril [Zestril] 40 mg PO DAILY 04/17/17 carvedilol 25 mg tablet 12.5 mg PO BID tab 11/04/18 Levothyroxine Sodium [Euthyrox] 100 mcg PO DAILY 12/26/19 Albuterol Sulfate [Albuterol Sulfate HFA] 2 puff INHALATION Q6H PRN PRN 01/20/20 Aspirin E.C. [Ecotrin] 81 mg PO DAILY@0800 01/20/20 Budesonide/Formoterol Fumarate [Symbicort 80-4.5 Mcg Inhaler] 2 puff INHALATION BID 01/20/20 Ezetimibe 10 mg PO QHS 01/20/20 Ipratropium/Albuterol Sulfate [Iprat-Albut 0.5-3(2.5) mg/3 ml] 3 ml IH 4X/DAY 01/20/20 Multivitamin with Minerals [Multiple Vitamin] 1 tab PO DAILY 01/20/20 Omeprazole Magnesium [Prilosec Otc] 20 mg PO DAILY 01/20/20 Prednisone 20 mg PO BID 01/20/20 Furosemide [Lasix] 40 mg PO BID@1000,1800 #60 tab 01/22/20 Potassium Chloride [K-Dur] 20 meq PO BIDCM #60 tab 01/22/20 Following Prescriptions Were Given to Patient: Potassium Chloride [K-Dur] 20 meq PO BIDCM #60 tab Transmission Status: Received by [id number] Furosemide [Lasix] 40 mg PO BID@1000,1800 #60 tab Transmission Status: Received by [id number] Primary Care Physician: Chase Bryan MD [Primary Care Provider] - Please follow up with your Primary Care Physician in: 1-2 weeks Please Follow Up With: Ghanshyam Zavala EYEGLASS FRAMES INSPECTOR, EYEGLASS FRAMES INSPECTOR-C When: 2 weeks Please Follow Up With: Chase Bryan MD Medical Necessity - Tobacco Use Smoking Status: Former smoker Tobacco Use: Cigarettes Meaningful Use Info Meaningful Use Diagnoses (Choose all that apply): CHF - CHF GLYNN/ARB ordered at discharge?: Yes Documented LVEF (%): 50 <Raulito Kessler - Last Filed: 01/22/20 13:16> Discharge Date and Diagnosis - Secondary Discharge Diagnosis Chronic Problems: Chronic Problems (Last Updated 01/20/20 @ 18:49 by Debbie Clayton) Atherosclerosis of coronary artery of [place] heart without angina pectoris (Chronic) Atherosclerosis of coronary artery bypass graft without angina pectoris (Chronic) History of coronary artery stent placement (Chronic 2014) bare-metal stent x 3 to SVG to RPDA in April 2007; BMS to SVG to RPDA in 2014 Essential (primary) hypertension (Chronic) Hyperlipidemia (Chronic) Hospital Course and Treatment Operations: None Procedures: 2-D Echocardiogram Summary of Care Provided: Patient seen and examined independently. Data reviewed. I agree with the above note by the physician business banking sales assistant. The patient is a 79 year old F presents with shortness of breath and orthopnea. 1. acute HFpEF improved weight appears to be below her baseline continue PO furosemide at 40 BID continue GLYNN- and BB EF 50%, down from 65% in 2018. DW Dr. Castaneda, who reviewed the 2018 echo and feels her EF was closer to 53-54%. She can follow up with him as outpt. follow up with cardiology 2. elevated troponin likely due to deman on ASA, GLYNN-, BB follow up with cardiology as outpt. 3. CAD stable 4. Chronic lung disease: complicates care on prednisone 20 BID[] - Physical Exam Vitals/I&O's: Vital Signs Temp Pulse Resp BP Pulse Ox 36.6 C 75 18 135/80 H 91 01/22/20 09:32 01/22/20 11:07 01/22/20 11:07 01/22/20 09:32 01/22/20 11:35 Oxygen Flow Rate (L/min) [At 0 REST on Room Air] Oxygen Flow Rate (L/min) [ 3 AMBULATION with Oxygen] Oxygen Flow Rate (L/min) 2 Oxygen Delivery Method Nasal Cannula Weight: 87 kg Body Mass Index (BMI) 34.9 Intake and Output for Last 24 Hours 01/20/20 01/21/20 01/22/20 23:59 23:59 23:59 Intake Total 120 / 120 240 / 290 150 / 150 Output Total 2099 / 2099 1310 / 1435 475 / 475 Balance -1979 / -1979 -1070 / -1145 -325 / -325 General: Alert, Cooperative HEENT: Atraumatic, Normocephalic Lungs: Clear to auscultation, Diminished Cardiovascular: Regular rate, No murmurs Abdomen: Bowel Sounds Present, Soft, Non Tender Extremities: No edema, No Calf Tenderness Psych/Mental Status: Normal Affect, Appropriate Microbiology Past 72 Hours 01/20/20 16:30 Mucosa - Nose SARS-CoV-2 Antigen (Rapid) - Final Laboratory Results 01/22/20 04:51: Sodium 138, Potassium 4.3, Chloride 95 L, Carbon Dioxide 40.0 H, Anion Gap 3 L, BUN 16, Creatinine 0.73, Estim Creat Clear Calc 38.35, Est GFR (MDRD) Af Amer 99, Est GFR (MDRD) Non-Af 81, BUN/Creatinine Ratio 21.8 H, Glucose 140 H, Calcium 9.3 Discharge Activity: Return to Normal Activity Medical Necessity - Tobacco Use Smoking Status: Former smoker Tobacco Use: Cigarettes Meaningful Use Info Meaningful Use Diagnoses (Choose all that apply): CHF - CHF GLYNN/ARB ordered at discharge?: Yes Documented LVEF (%): 50 Inpatient E&M: 16560 Disch Hosp
--- NOTE | 2020-01-22 16:57 | NURSING ---
Patient discharged into the care of daughter and . Daughter showed up with jeep and a ladder. RN wheeled patient outside and discovered the car the family brought would be a challenge for the patient. Family assured RN that patient rides in this vehicle all the time. They produced a step ladder to aid patient in climbing up into vehicle. RN asked if family would like for us to assist pt into vehicle family decline and attempted to help patient up. Patient was unable to climb ladder and slipped off in the process wedging foot between ladder and vehicle. Pt was assisted back into wheelchair until additional help and a gait belt could be brought down to help. Once patient was safely loading into vehicle RN requested home oxygen. Family asked RN to assist with turning on home O2. Home O2 cylinder was empty. RN asked if the family would like the patient to return to her room until they were able to get a new oxygen tank. Daughter stated that the patient would be fine to get home without O2.
--- NOTE | 2020-01-23 17:05 | CASEMGMT ---
JOO CAMPUZANO Discharge Follow-Up Phone Call. Lace: 11 Strata: 3 Discharge Date: 01/22/20 Adm Dx: CHF Exac. Call to pt to inquire about how she has been doing since being discharged from the hospital. Pt's daughter, Pratik, answered the phone and stated pt was sleeping and that she could answer any questions. Pratik states the [facility] nurse was there today and just left. She states they picked up the new prescriptions and pt is taking them as prescribed. She reports that when pt took the Lasix last night that it kept her up most of the night d/t needing to void frequently. They discussed this with the [facility] nurse and she advised pt to take the AM dose around 5513-1510 and 2nd dose around 2 PM to try to decrease needing to get up frequently during the night and they are going to try that. She states the [facility] nurse plans to come QOD for the next 2 weeks and then go down to 3 x's/week. Pratik states PCP had prescribed an atb and Mucinex prior to pt coming to [facility] and that they were advised to hold the atb by [facility], but she was not sure if pt should take the Mucinex. Mucinex is not listed on Home discharge medications. Pratik states they did not inform [facility] that was had been prescribed this. JOO CAMPUZANO advised Pratik to discuss this with [facility] nurse on Sunday when they come in or to talk with PCP on Sunday to inquire if he still wants her to take the Mucinex. She voices understanding. She states they attempted to make appts w/PCP and [facility] today but were unsuccessful and will attempt next week to make these. She denies having any other questions/concerns/needs at this time. Nadia RILEY RN, CM
== END 2020-01-22 13:00 | disposition home health service (06) | DRG 292 ==
LOC: ED 14:54 → PCU 18:15
PROVIDERS: Admitting Provider Family Medicine; Emergency Provider Emergency Medicine; PCP Internal Medicine
DX: I11.0 Hypertensive heart disease with heart failure (principal); J96.11 Chronic respiratory failure with hypoxia; I50.33 Acute on chronic diastolic (congestive) heart failure; E03.9 Hypothyroidism, unspecified; F32.9 Major depressive disorder, single episode, unspecified; F41.9 Anxiety disorder, unspecified; K21.9 Gastro-esophageal reflux disease without esophagitis; I25.10 Atherosclerotic heart disease of native coronary artery without angina pectoris; E78.5 Hyperlipidemia, unspecified; I27.21 Secondary pulmonary arterial hypertension; F17.210 Nicotine dependence, cigarettes, uncomplicated; Z79.51 Long term (current) use of inhaled steroids; Z79.82 Long term (current) use of aspirin; Z79.890 Hormone replacement therapy; Z80.8 Family history of malignant neoplasm of other organs or systems; Z82.49 Family history of ischemic heart disease and other diseases of the circulatory system; Z83.3 Family history of diabetes mellitus; Z86.73 Personal history of transient ischemic attack (TIA), and cerebral infarction without residual deficits; Z90.710 Acquired absence of both cervix and uterus; Z95.1 Presence of aortocoronary bypass graft; Z95.5 Presence of coronary angioplasty implant and graft
CPT/HCPCS: 36415; 71045; 80048; 83880; 84484; 85025; 87426; 93005; 93306; 94640; 97162; 97166; 99285; Q9957; A4216; C8929; J1940

== ENCOUNTER 2020-02-02 09:06 | Emergency (ER) | payer MEDICARE, SELFPAY ==
[2020-01-20 17:39] VITALS: BMI 34.9
[2020-02-02] VITALS (7 sets, daily range): BP systolic 101–130; BP diastolic 60–81; PULSE 64–73; RESP 17–22; TEMP 36.6–36.8; O2SAT 96–98; BMI 33.0
--- NOTE | 2020-02-02 09:08 | RAD_ITS ---
STUDY: X-RAY CHEST REASON FOR EXAM: Female, 79 years old. STROKE PROTOCOL TECHNIQUE: Single AP portable view of the chest. COMPARISON: Comparison is made with prior study dated 01/20/2020 and 01/14/2020. FINDINGS: EKG electrodes are seen. Stable minimal increased markings at the lung bases slightly more prominent on the left side suggestive of linear scarring. There is no demonstrated pleural abnormality. Sternal cerclage wires and vascular clips are present from a prior sternotomy and coronary artery bypass graft procedure (CABG). Normal mediastinum and vamshi. Normal visualized pulmonary arteries. There is atherosclerotic calcification of the aortic arch with tortuosity. There are degenerative changes of the visualized thoracic spine. There is degenerative osteoarthritis of the bilateral shoulders. There is no demonstrated abnormality of the visualized soft tissue structures of the upper abdomen. RAD/Chest 1 View IMPRESSION: Findings suggestive of mild linear scarring at the lung bases. There is been no change. Electronically Signed: Milo Villanueva, at 10:07 EST , Service support ,
--- NOTE | 2020-02-02 09:08 | CT_ITS ---
STUDY: CTA HEAD AND NECK WITH CONTRAST REASON FOR EXAM: Female, 79 years old. STROKE RADIATION DOSAGE (If Supplied By Facility): CTDIvol = ( 28.01 ) mGy, DLP = ( 728.02 ) mGycm TECHNIQUE: CT angiography was performed with a multi-detector CT scanner. Data acquisition was obtained from the skull base through the vertex following intravenous administration of IV 100mL [id number]-[id number]. MIP images were reconstructed from the axial data set. Post-processing of the angiographic images was performed, with multiplanar reformation and 3D reconstruction. Individualized dose optimization techniques were used for this CT. COMPARISON: No relevant priors. FINDINGS: Normal bilateral petrous carotid arteries. There is calcified plaque formation of the right cavernous carotid artery, without a cross-sectional luminal stenosis. There is calcified plaque formation of the left cavernous carotid artery, without a cross-sectional luminal stenosis. Normal right A1 segments of the anterior cerebral artery. Normal left A1 segments of the anterior cerebral artery. Normal intact anterior communicating artery (ACOM). Normal bilateral A2 segments of the anterior cerebral arteries. Normal right M1 and M2 segments of the middle cerebral arteries, with a normal M1 bifurcation. Normal left M1 and M2 segments of the middle cerebral arteries, with a normal M1 bifurcation. Normal right posterior communicating artery (PCOM). Normal left posterior communicating artery (PCOM). Normal bilateral vertebral arteries. Normal basilar artery with a normal basilar bifurcation. The visualized bilateral superior cerebellar (SCA) arteries are normal. Normal bilateral P1, P2 and visualized P3 segments of the posterior cerebral arteries. There is no demonstrated aneurysm of the [place]. AORTIC ARCH: There is atherosclerotic calcific plaque formation of the aortic arch and great vessels arising from the aortic arch, without a hemodynamically significant stenosis. There is a normal origin of the brachiocephalic, left common carotid, and left subclavian arteries. Prior CABG RIGHT CAROTID ARTERIES: Normal right common carotid artery (CCA). Normal right common carotid bulb. Findings suggestive of a prior right carotid endarterectomy. There is mild atherosclerotic plaque formation of the origin of the right internal carotid artery with less than 50% cross sectional diameter stenosis. Normal visualized cervical portion of the right internal carotid artery. Normal origin of the right external carotid artery (ECA). LEFT CAROTID ARTERIES: There is atherosclerotic plaque formation of the common carotid artery, but without a hemodynamically significant stenosis. Normal left common carotid bulb. There is extensive atherosclerotic plaque formation of the origin of the left internal carotid artery with an estimated stenosis of greater than 70%. Normal visualized cervical portion of the left internal carotid artery. Normal origin of the left external carotid artery (ECA). VERTEBRAL ARTERIES: Normal bilateral vertebral arteries. CT/STROKE CTA Head AND Neck W/Con IMPRESSION: Greater than 70% stenosis at the origin of the left internal carotid artery. Less than 50% stenosis at the origin of the right internal carotid artery. N.B. : The above information has been verbally conveyed by Milo Villanueva to Jack Craig on 02/02/2020 09:38:18 (ET). Electronically Signed: Milo Villanueva, at 9:39 EST , Service support ,
--- NOTE | 2020-02-02 09:08 | EKG12_ITS ---
Test Reason : STROKE Blood Pressure : / mmHG Vent. Rate : 057 BPM Atrial Rate : 111 BPM P-R Int : 000 ms QRS Dur : 112 ms QT Int : 444 ms P-R-T Axes : 000 -05 167 degrees QTc Int : 432 ms Atrial fibrillation with slow ventricular response Moderate voltage criteria for LVH, may be normal variant Cannot rule out Septal infarct , age undetermined Inferior infarct , age undetermined ST & T wave abnormality, consider lateral ischemia Abnormal ECG Confirmed by RHEA HERNÁNDEZ, LEXIE ([id number]), script editor ABBEY ROBERTS ([id number]) on 02/04/2020 12:50:23 PM Referred By: BETITO Confirmed By:LEXIE WILKERSON MD
--- NOTE | 2020-02-02 09:08 | CT_ITS ---
STUDY: CT HEAD STROKE PROTOCOL W/O CONTRAST INJECTION REASON FOR EXAM: Female, 79 years old. STROKE RADIATION DOSAGE (If Supplied By Facility): CTDIvol = ( 44.99 ) mGy, DLP = ( 863.60 ) mGycm TECHNIQUE: Transaxial CT imaging of the brain was performed without administration of intravenous contrast material. Individualized dose optimization techniques were used for this CT. COMPARISON: No relevant priors. FINDINGS: Normal soft tissue structures. There is hyperostosis frontalis internus. There is mild cerebral atrophy with widening of the extra-axial spaces and ventricular dilatation. There are areas of decreased attenuation within the white matter tracts of the supratentorial brain, consistent with microvascular disease changes. Small old lacunar infarct in the basal ganglia bilaterally. Normal brainstem. There is mild cerebellar atrophy. There is no intracranial hemorrhage. There are no findings of an acute ischemic infarction. Atherosclerotic calcification of the vertebral arteries and cavernous portions of the internal carotid arteries bilaterally. Normal visualized paranasal sinuses. CT/STROKE Brain/Head without Cont IMPRESSION: Chronic involutional changes of the brain. N.B. : The above information has been verbally conveyed by Milo Villanueva to Jack Craig on 02/02/2020 09:24:15 (ET). Electronically Signed: Milo Villanueva, at 9:25 EST , Service support ,
--- NOTE | 2020-02-02 09:09 | ED.VIS.STROK ---
History of Present Illness Chief Complaint: Neuro S/Sx Informant: Patient Onset: Today Context: Sudden Onset - awoke w/ sx Timing: Continuous Quality and Location: Right Arm Weakness, Right Leg Weakness, Expressive Aphasia, Receptive Aphasia, Difficulty with Ambulation Current Severity: Gone Maximum Severity: Severe Associated Symptoms: Negative for: Headache, Nausea, Vomiting, Chest Pain Narrative: 79-year-old female last known well at 1 AM, presents around 9:10 AM here to the hospital with strokelike symptoms, altered level of consciousness, weakness on the right side, visual field deficit. According to EMS on arrival, everything seemed to resolve at this time, her visual field deficit was improving in route. Further conversation with family: Patient was disoriented this morning when daughter was there to get her up, symptoms present at that time. She was reaching for things and missing them, and she was looking to the right and not able to look to the left. She also had trouble walking with her walker and required assistance from 2 family members. She is usually very with it. She has had a prior hemorrhagic stroke that left her with some mild weakness on the left side. She is on a baby aspirin daily she has not taken that yet this morning, she is not anticoagulated. She was recently hospitalized here for congestive heart failure-related issues, had a blood transfusion for anemia Hgb down to 6.9, and has been doing relatively well with regards to that in the past week or 2 since she has been home. No recent falls or head injury. She answers no to the Covid screening questions. 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 (3) Atherosclerosis of coronary artery bypass graft without angina pectoris Status: Chronic (4) Atherosclerosis of coronary artery of [place] heart without angina pectoris Status: Chronic (5) Essential (primary) hypertension Status: Chronic (6) History of coronary artery stent placement Status: Chronic Comment: bare-metal stent x 3 to SVG to RPDA in April 2007; BMS to SVG to RPDA in 2014 (7) Hyperlipidemia Status: Chronic (8) History of hemorrhagic stroke with residual hemiparesis Status: Chronic Past Medical History - Allergies and Home Meds Allergies/Adverse Reactions: Allergies Sulfa (Sulfonamide Antibiotics) Allergy (Verified 01/20/20 16:27) Rash tape Allergy (Uncoded 01/20/20 16:27) plastic tape causes blisters Can have cloth and paper Primary Care Physician: Chase Bryan MD [Primary Care Provider] - Surgical History: coronary bypass surgery, hysterectomy, - - Right carotid endarterectomy, carpal tunnel surgery, hernia repair. Lives: Alone Smoking Status: Former smoker - Family History Maternal Family History: Family History (Last Reviewed 09/17/19 @ 15:[address] Tiago Castaneda MD) Daughter Hypertension Melanoma Sister pacemaker Mother Hypertension Diabetes Heart disease Family History: Reports: Diabetes, Heart Disease Review of Systems General: Denies: Chills, Fever, Sweats Eyes: Denies: Visual changes - bilaterally, Diplopia ENT: Denies: Bilateral ear pain, Rhinorrhea, Sore throat Cardiovascular: Denies: Chest pain, Palpitations Respiratory: Reports: Dyspnea on exertion. Denies: Dyspnea, Cough Gastrointestinal: Denies: Abdominal pain, Nausea, Vomiting, Diarrhea, Melena, Hematochezia Genitourinary: Denies: Dysuria, Hematuria, Frequency Musculoskeletal: Denies: Back pain, Extremity Pain Skin: Denies: Rash, Wounds Neurological: Reports: Weakness. Denies: Headache, Numbness STROKE Inital Vital Signs reviewed: Yes - NIHSS Initial 1a Level of Consciousness: 0 1b LOC Questions (Score 2 if aphasic/stupor): 1 1c LOC Commands (Only score 1st attempt): 0 2 Best Gaze (If aphasic, use reflexive mvmts.): 0 3 Visual: 0 4 Facial Palsy: 0 5 Motor Arm Right (UN = amputation/fusion): 0 5 Motor Arm Left: 0 6 Motor Leg Right: 0 6 Motor Leg Left: 0 7 Limb ataxia (Only + if out of proportion): 0 8 Sensory (Aphasia/stupor=0 or 1, coma=2): 0 9 Best Language: 1 10 Dysarthria (mute, coma=2, intubated=UN): 1 11 Extinction and Inattention (only scored if +): 0 Total Score: 3 General: Well nourished, Well developed, - - Well-appearing no distress, conversive and appropriate Head: Normocephalic, Atraumatic Eyes: Perrl, EOMI ENT: Moist mucous membranes, No rhinorrhea Neck: Supple, Nontender, No JVD Cardiovascular: Regular rate, Regular rhythm - With occasional irregularity, Murmur - Harsh systolic murmur radiates to both carotids Respiratory: No distress, CTA bilaterally, Chest nontender Abdomen: Soft, Nontender, Nondistended, Normal bowel sounds Back: Nontender, Normal Inspection Extremities: Nontender, No edema. Negative for: Calf Tenderness Skin: Normal color, No rash, No Trauma Neurological: Alert, Cranial nerves II-XII grossly intact, Normal Strength, Normal Sensation, Disoriented Psychological: Normal affect, Normal Mood Diagnostic/Tx/Re-eval Impressions Brain CT 02/02/20 09:08 IMPRESSION: Chronic involutional changes of the brain. N.B. : The above information has been verbally conveyed by Milo Villanueva to Jack Craig on 02/02/2020 09:24:15 (ET). Electronically Signed: Milo Villanueva, at 9:25 EST , Service support , ADDENDUM: 02/02/2032 IMPRESSION: Chronic involutional changes of the brain. N.B. : The above information has been verbally conveyed by Milo Villanueva to Jack Craig on 02/02/2020 09:24:15 (ET). Electronically Signed: Milo Villanueva, at 9:25 EST , Service support , Chest X-Ray 02/02/20 09:08 IMPRESSION: Findings suggestive of mild linear scarring at the lung bases. There is been no change. Electronically Signed: Milo Villanueva, at 10:07 EST , Service support , Head/Neck CTA 02/02/20 09:08 IMPRESSION: Greater than 70% stenosis at the origin of the left internal carotid artery. Less than 50% stenosis at the origin of the right internal carotid artery. N.B. : The above information has been verbally conveyed by Milo Villanueva to Jack Craig on 02/02/2020 09:38:18 (ET). Electronically Signed: Milo Bassettraymondaubree, at 9:39 EST , Service support , ADDENDUM: 02/02/20 0946 IMPRESSION: Greater than 70% stenosis at the origin of the left internal carotid artery. Less than 50% stenosis at the origin of the right internal carotid artery. N.B. : The above information has been verbally conveyed by Milo Kay to Jack Craig on 02/02/2020 09:38:18 (ET). Electronically Signed: Milo Bassettjayeshkalin, at 9:39 EST , Service support , 02/02/20 09:08 Chest 1 View [RAD] Stat STROKE Brain/Head without Cont [CT] Stat STROKE CTA Head AND Neck W/Con [CT] Stat Laboratory Results 02/02/20 02/02/20 02/02/20 09:45 09:45 09:45 WBC 4.3 L RBC 4.03 L Hgb 9.4 L Hct 33.4 L MCV 82.9 MCH 23.3 L MCHC 28.1 L RDW Std Deviation 53.0 H RDW Coeff of Jerry 17.4 H Plt Count 268 MPV 9.8 Immature Gran % (Auto) 0.200 Neut % (Auto) 57.6 Lymph % (Auto) 23.9 Thomas % (Auto) 15.0 H Eos % (Auto) 2.6 Baso % (Auto) 0.7 Absolute Neuts (auto) 2.5 Absolute Lymphs (auto) 1.02 Nucleated RBC % 0 PT 13.7 INR 1.1 APTT 27.7 Sodium 134 L Potassium 4.6 Chloride 99 Carbon Dioxide 30.0 Anion Gap 5 BUN 29 H Creatinine 1.13 H Estim Creat Clear Calc 33.94 Est GFR (MDRD) Af Amer 60 Est GFR (MDRD) Non-Af 49 L BUN/Creatinine Ratio 25.7 H Glucose 107 H Calcium 9.3 Troponin I 0.022 - Rhythm Strip Rhythm Strip: A-fib Rate: 60 Ectopy: None - EKG Initial EKG Interpretation: No Acute Injury Pattern, Atrial Fibrillation Prior: Unchanged - Seen on prior EKG, but no documented history of atrial fibrillation - Medical Decision Making Stroke Team Activated: Yes - With patient evaluated in EMS bay and direct to CT Was Patient considered for Endovascular Intervention?: No - CTA showing no LVO IV Alteplase (t-PA) Administered: No - out of time window Suspect patient is having ischemic stroke. She is much improved compared to presentation for family and EMS. Although she still has abnormalities that are acute, she is outside of TPA window and we do not have ability to perform CT perfusion. CT angiography is negative so she does not require transfer for LVO/retrieval. She appears to be in atrial fibrillation, which she does not seem to have a history of. Since she has a history of a hemorrhagic stroke, I am holding off on anticoagulating her at this time. Given her carotid stenosis on the same side that is likely to be causing her acute symptoms, I discussed again with Dr. Ramon with neurology [facility], who states the patient should be transferred to them, accepts the patient, so that they can perform further vascular and neurologic evaluation and treatment if needed. We do not have the ability to do carotid endarterectomies at this hospital. Of note the patient already had one performed on the right, which was approximately 50% stenosed on today's CTA. Critical care time (excluding procedures): 30-74 minutes - 40 minutes including time spent discussing with patient, family, consultants, arranging admission, and performing direct patient evaluation/care to bedside and documentation ED Disposition - Plan for ED Patient: Disposition: [facility] Diagnosis: Atrial fibrillation, Acute ischemic stroke, Bilateral carotid artery stenosis Referrals: Chase Bryan MD [Primary Care Provider] -
--- NOTE | 2020-02-02 09:10 | NURSING ---
STROKE ALERT CALLED [phone], PRIOR TO ARRIVAL
--- NOTE | 2020-02-02 09:13 | NURSING ---
FACESHEET FAXED TO [facility]
[2020-02-02 09:52] LABS: Absolute Lymphocyte Count 1.02 X10^3/uL (0.83-4.51); Absolute Neutrophil Count 2.5 X10^3/uL (2.0-7.7); Basophil# 0.03 X10^3/uL; Basophil% 0.7 % (0-1); Eosinophil# 0.11 X10^3/uL; Eosinophils% 2.6 % (0-5); Hematocrit 33.4 % (37-47); Hemoglobin 9.4 g/dL (12.0-15.0); Lymphocyte # 1.02 X10^3/ul (4.0); Lymphocyte % 23.9 % (19-41); Mean Corp Hgb Conc 28.1 g/dL (32-36); Mean Corpuscular Hgb 23.3 pg (27.0-32.0); Mean Corpuscular Volume 82.9 fL (81-99); Mean Platelet Vol. 9.8 fl (6.2-12.0); Monocyte# 0.64 X10^3/uL; NRBC Flagged by Analyzer 0 % (0-5); Neutrophil # 2.45 X10^3/uL (2.7-7.7); Neutrophil % 57.6 % (47-70); Platelet Count 268 K/mm3 (150-450); RBC Distribution Width CV 17.4 % (11.6-14.6); Red Blood Count 4.03 M/mm3 (4.2-5.4); White Blood Count 4.3 K/mm3 (4.4-11.0)
[2020-02-02] MEDS: 0.9% Normal Saline 1,000 ML 100 ML IV (09:58)
[2020-02-02 10:04] LABS: International Normalized Ratio 1.1; Partial Thromboplast Time 27.7 Seconds (24.1-36.2); Prothrombin Time (Protime)PT. 13.7 SECONDS (11.7-14.9)
[2020-02-02 10:15] LABS: Anion Gap 5 (5-15); BUN 29 mg/dL (7-18); BUN/Creat Ratio 25.7 RATIO (10-20); Calcium,Total 9.3 mg/dL (8.5-10.1); Chloride 99 mmol/L (98-107); Creatinine, Serum 1.13 mg/dL (0.55-1.02); EST Glomerular Filtration Rate 49 mL/min (>60); Est Glom Filt Rate - Afr Amer 60 mL/min (>60); Estimated Creatinine Clearance 33.94 ml/min; Glucose 107 mg/dL (74-106); Potassium 4.6 mmol/L (3.5-5.1); Sodium Level 134 mmol/L (136-145)
--- NOTE | 2020-02-02 10:29 | ED.RN ---
purewick placed. pt voided clear yellow urine
--- NOTE | 2020-02-02 11:01 | NURSING ---
PATIENT ACCEPTED AT [facility]. THROUGHT THE ER SQUAD CALLED, ETA IS 20 TO 30 MIN
== END 2020-02-02 11:34 | disposition short-term general hospital (02) ==
PROVIDERS: Emergency Provider Emergency Medicine; PCP Internal Medicine
DX: I48.91 Unspecified atrial fibrillation (principal); I65.23 Occlusion and stenosis of bilateral carotid arteries; I63.9 Cerebral infarction, unspecified; I73.9 Peripheral vascular disease, unspecified; E78.5 Hyperlipidemia, unspecified; I25.10 Atherosclerotic heart disease of native coronary artery without angina pectoris; I11.0 Hypertensive heart disease with heart failure; I50.42 Chronic combined systolic (congestive) and diastolic (congestive) heart failure; R47.01 Aphasia; Z79.82 Long term (current) use of aspirin; Z82.49 Family history of ischemic heart disease and other diseases of the circulatory system; Z87.891 Personal history of nicotine dependence; Z88.2 Allergy status to sulfonamides; Z88.8 Allergy status to other drugs, medicaments and biological substances; Z90.710 Acquired absence of both cervix and uterus; Z95.5 Presence of coronary angioplasty implant and graft
CPT/HCPCS: 70450; 70496; 70498; 71045; 80048; 84484; 85025; 85610; 85730; 93005; 96360; 96361; 99285; J7030; Q9967; A4216

== ENCOUNTER 2020-03-24 06:20 | Inpatient (IN) | payer MEDICARE, SELFPAY ==
[2020-03-24] VITALS (18 sets, daily range): BP systolic 91–135; BP diastolic 49–69; PULSE 60–88; RESP 14–24; TEMP 36.1–37.2; O2SAT 90–100; BMI 34.9; BMI 35.2; BMI 32.7; BMI 32.8
[2020-03-24 06:32] LABS: Absolute Lymphocyte Count 1.08 X10^3/uL (0.83-4.51); Absolute Neutrophil Count 6.6 X10^3/uL (2.0-7.7); Basophil# 0.03 X10^3/uL; Basophil% 0.4 % (0-1); Eosinophil# 0.01 X10^3/uL; Eosinophils% 0.1 % (0-5); Hematocrit 20.6 % (37-47); Lymphocyte # 1.08 X10^3/ul (4.0); Lymphocyte % 13.2 % (19-41); Mean Corp Hgb Conc 28.2 g/dL (32-36); Mean Corpuscular Hgb 22.5 pg (27.0-32.0); Mean Corpuscular Volume 79.8 fL (81-99); Mean Platelet Vol. 9.8 fl (6.2-12.0); Monocyte# 0.48 X10^3/uL; Monocyte% 5.9 % (0-10); NRBC Flagged by Analyzer 0 % (0-5); Neutrophil # 6.56 X10^3/uL (2.7-7.7); POSITIVE COUNT YES; Platelet Count 304 K/mm3 (150-450); RBC Distribution Width CV 17.6 % (11.6-14.6); RBC Distribution Width SD 50.8 fl (35.1-43.9); Red Blood Count 2.58 M/mm3 (4.2-5.4); White Blood Count 8.2 K/mm3 (4.4-11.0)
--- NOTE | 2020-03-24 06:42 | ED.VISSUMM ---
- ER Visit Summary Date of Service: 03/24/20 Chief Complaint: Black stool History of Present Illness: The patient is a [address] Gambino. She reports that she was placed on Eliquis 2 weeks ago by her primary care physician for A. fib. The past 3 days she has been having 2-3 black stools a day. She reports that these are solid. She denies any abdominal pain. She states that today she is been nausea and vomited twice. No blood in her emesis or coffee-ground emesis. She is not taking Pepto-Bismol. Patient denies any chest pain. She does report she has had shortness of breath with exertion for the past year that is essentially unchanged. Physical Examination: Vitals: Stable. Afebrile. General: Well-nourished and well-developed. Head: Normocephalic atraumatic. Neck: Supple, no lymphadenopathy. No JVD. Nontender. Cardiovascular: Regular rate and rhythm. No murmurs. Respiratory: No respiratory distress. Clear to auscultation bilaterally. Abdominal: Soft, nontender, nondistended, normal bowel sounds. No guarding, rebound, or peritoneal signs. Back: Nontender. Extremities: Nontender, no edema. Skin: Normal color, no rash. Neurologic: Alert and oriented ?3. Cranial nerves II through XII are intact. Normal strength and sensation. Psych: Normal affect. Test Results: EKG is A. fib at 79 with PVCs. T wave inversions in the lateral leads. This is unchanged from last month. CBC shows an H&H of 5.8 and 20.6. Hemoglobin ranged between 6.9?9.4 and 2020. Segment neutrophils 80 lymphocytes 13. Chem-7 shows a sodium 132, chloride 97, glucose 111, BUN 29, creatinine 1.10. LFTs show an albumin of 3.1 and ALT of 12. INR is 1.5. PTT is 28.2. Emergency Department Course and Treatment: Patient was typed and crossed for 2 units of packed red blood cells. She is given Protonix IV. She is resting comfortably. Treatment Plan: Patient will be discussed the hospitalist and admitted for further evaluation and treatment. She reports she is never had endoscopy. Her last colonoscopy was approximately 6 years ago. She does not remember the doctor's name. He is in [place]. Disposition: Admitted in improved condition. Impression: 1. Upper GI bleed. 2. Anemia. 3. Coagulopathy on Eliquis. This note was generated with [employer] dictation software. It may contain incorrect words, spelling, and punctuation that were not noted in review of the chart prior to signing ED Disposition - Plan for ED Patient: Referrals: Chase Bryan MD [Primary Care Provider] -
[2020-03-24 06:43] LABS: International Normalized Ratio 1.5; Prothrombin Time (Protime)PT. 17.8 SECONDS (11.7-14.9)
[2020-03-24 06:44] LABS: Differential Indicated SCAN CRITERIA MET; Hemoglobin 5.8 g/dL (12.0-15.0); Partial Thromboplast Time 28.2 Seconds (24.1-36.2)
[2020-03-24 06:49] LABS: Hypochromasia 4+
[2020-03-24 06:51] LABS: ALB/GLOB Ratio 0.8 RATIO (0.9-2.4); AST(SGOT) 18 U/L (15-37); Alanine Aminotransfer ALT/SGPT 12 U/L (13-56); Albumin, Serum 3.1 g/dL (3.2-5.0); Alkaline Phosphatase 49 U/L (45-117); Anion Gap 7 (5-15); BUN 29 mg/dL (7-18); BUN/Creat Ratio 26.4 RATIO (10-20); Calcium,Total 9.1 mg/dL (8.5-10.1); Chloride 97 mmol/L (98-107); EST Glomerular Filtration Rate 51 mL/min (>60); Est Glom Filt Rate - Afr Amer 62 mL/min (>60); Globulin 3.7 g/dL (2.2-4.2); Glucose 111 mg/dL (74-106); Potassium 4.2 mmol/L (3.5-5.1); Protein, Total 6.8 g/dL (6.4-8.2); Sodium Level 132 mmol/L (136-145)
--- NOTE | 2020-03-24 07:02 | EKG12_ITS ---
Test Reason : WEAKNESS Blood Pressure : / mmHG Vent. Rate : 078 BPM Atrial Rate : 119 BPM P-R Int : 000 ms QRS Dur : 116 ms QT Int : 444 ms P-R-T Axes : 000 -04 168 degrees QTc Int : 506 ms Atrial fibrillation with premature ventricular or aberrantly conducted complexes Left ventricular hypertrophy with QRS widening Marked ST abnormality, possible lateral subendocardial injury Prolonged QT Abnormal ECG Confirmed by ALY HERNÁNDEZ, GAMA ([id number]), continuous wave operator ABBEY ROBERTS ([id number]) on 03/29/2020 11:08:14 AM Referred By: GAVINO Confirmed By:SHAHZAD LU MD
--- NOTE | 2020-03-24 07:14 | HP.PCM_ITS ---
History of Present Illness Date of Admission: 03/24/20 Chief Complaint: DARK STOOLS The patient is a 80 year old F with a PMH as outlined, which includes paroxysmal afib was admitted via the ED on 03/24/2020 with a complaint of dark stools for 3 days prior to admission. She was started on eliquis 2 weeks ago by her PCP for afib. She hasnt had any blood emesis or coffee ground emesis. She is not on oral iron tablets. She denied any abdominal pain, palpitations, dizziness, nausea or chest pain. She did admit to lightheadness. She hasnt had such dark stools before. Review of systems is otherwise negative. In the ED, vitals were temperature of 99 Fahrenheit with blood pressure 109/54, pulse rate of 72 and r espiratory rate of 18. Chemistry showed sodium of 132 and potassium of 4.2 with bicarb of 28 and anion gap of 7. CBC showed hemoglobin of 5.8 with WBC of 8.2 and platelets of 304. She has been admitted to be managed for acute on chronic anemia likely due to anticoagulant use. [] Past Medical History Past Medical History (Chronic Problems): Chronic Problems (Last Updated 01/23/20 @ 07:26 by Debbie Clayton) Peripheral arterial disease (Chronic) History of hemorrhagic stroke with residual hemiparesis (Chronic) Acute and chronic respiratory failure (Chronic) 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) Atherosclerosis of coronary artery of [place] heart without angina pectoris (Chronic) Atherosclerosis of coronary artery bypass graft without angina pectoris (Chronic) History of coronary artery stent placement (Chronic 2014) bare-metal stent x 3 to SVG to RPDA in April 2007; BMS to SVG to RPDA in 2014 Essential (primary) hypertension (Chronic) Hyperlipidemia (Chronic) Medical History: Medical History (Last Updated 01/23/20 @ 07:26 by Debbie Clayton) Elevated LFTs (Acute) Onset Date: 12/26/19 R79.89 Acute and chronic respiratory failure (Chronic) J96.20 Non-STEMI (non-ST elevated myocardial infarction) (Acute) Onset Date: 01/20/20 I21.4 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) I50.41 Atherosclerosis of coronary artery of [place] heart without angina pectoris (Chronic) I25.10 Atherosclerosis of coronary artery bypass graft without angina pectoris (Chronic) I25.810 Essential (primary) hypertension (Chronic) I10 Hyperlipidemia (Chronic) E78.5 History of CVA (cerebrovascular accident) Z86.73 with chronic left leg weakness Hypothyroidism E03.9 Obesity E66.9 Restrictive pattern present on pulmonary function testing R94.2 Shingles B02.9 Dizziness (Inactive) R42 Secondary pulmonary arterial hypertension (Inactive) I27.21 Allergies Sulfa (Sulfonamide Antibiotics) Allergy (Verified 03/24/20 06:26) Rash apixaban [From Eliquis] Adverse Reaction (Intermediate, Verified 03/24/20 06:26) GI upset, can't eat. tape Allergy (Uncoded 01/20/20 16:27) plastic tape causes blisters Can have cloth and paper Home Medications: Ambulatory Orders Medication Instructions Recorded Lisinopril [Zestril] 40 mg PO DAILY 04/17/17 carvedilol 25 mg tablet 12.5 mg PO BID tab 11/04/18 Levothyroxine Sodium [Euthyrox] 100 mcg PO DAILY 12/26/19 Albuterol Sulfate [Albuterol 2 puff INHALATION Q6H PRN PRN 01/20/20 Sulfate HFA] Aspirin E.C. [Ecotrin] 81 mg PO DAILY@0800 01/20/20 Budesonide/Formoterol Fumarate 2 puff INHALATION BID PRN 01/20/20 [Symbicort 80-4.5 Mcg Inhaler] Ipratropium/Albuterol Sulfate 3 ml IH 4X/DAY PRN 01/20/20 [Iprat-Albut 0.5-3(2.5) mg/3 ml] Multivitamin with Minerals 1 tab PO DAILY 01/20/20 [Multiple Vitamin] Omeprazole Magnesium [Prilosec Otc] 20 mg PO DAILY 01/20/20 ezetimibe 10 mg tablet 10 mg PO QHS #90 tab 02/13/20 Apixaban [Eliquis] 5 mg PO BID 03/24/20 Cholecalciferol (VIT D3) [Vitamin 1,000 unit PO DAILY 03/24/20 D] Escitalopram Oxalate [Lexapro] 10 mg PO DAILY 03/24/20 Furosemide 40 mg PO DAILY 03/24/20 Potassium Chloride [K-Dur] 20 meq PO BIDCM 03/24/20 Surgical History: Surgical History (Last Updated 01/20/20 @ 18:54 by Debbie Clayton) H/O coronary artery bypass surgery (Resolved) Onset Date: 1999 Z95.1 CABG x 4 BOSE to LAD, SVG to D1, and Sequential SVG to RPDA and Acute [place] 2000 History of coronary artery stent placement (Chronic) Onset Date: 2014 Z95.5 bare-metal stent x 3 to SVG to RPDA in April 2007; BMS to SVG to RPDA in 2014 History of carpal tunnel surgery Z92.89 History of hernia repair Z98.890, Z87.19 History of hysterectomy Z90.710 partial, still has ovaries History of right-sided carotid endarterectomy Z98.890 Surgical History: coronary bypass surgery, hysterectomy, - - Right carotid endarterectomy, carpal tunnel surgery, hernia repair. 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 Tiago Castaneda MD) Daughter Hypertension Melanoma Sister pacemaker Mother Hypertension Diabetes Heart disease History Items: Diabetes, Heart Disease Review of Systems Constitutional: Denies: Chills, Fever, Malaise, Weakness, Weight Change Eyes: Denies: Blurred vision HEENT: Denies: Head Aches, Sinus Congestion, Sinus Drainage Cardiovascular: Denies: Chest Pain, Palpitations Respiratory: Denies: Cough, Shortness of Breath, Shortness of breath at rest, Shortness of breath upon exertion, Sputum production Gastrointestinal: Reports: Melena, -. Denies: Abdominal Pain, Nausea, Vomiting Genitourinary: Denies: Dysuria Musculoskeletal: Denies: Joint Pain, Joint Tenderness Skin: Denies: Rash, Wounds Neurological: Denies: Numbness, Tingling, Focal weakness Psychiatric: Denies: Anxiety, Depression, Homicidal Ideations, Suicidal Ideations Hematologic/ Lymphatic: Denies: Easy Bruising, Easy Bleeding VTE Information - Inpt Only VTE Present on Admission: No VTE Pharm Prophylaxis ordered?: No Reason prophylaxis not ordered:: Palliative Care - acute on chronic anemia Patient Problems: Active and Suspected Problems (Last Updated 01/23/20 @ 07:26 by Debbie Clayton) Gastrointestinal hemorrhage with melena (Acute) - Physical Exam Vitals/I&O's: Vital Signs Temp Pulse Resp BP Pulse Ox 99 F 72 18 109/54 L 100 03/24/20 06:21 03/24/20 06:21 03/24/20 06:21 03/24/20 06:21 03/24/20 06:21 Oxygen Delivery Method Room Air Weight: 198 lb 10.184 oz Body Mass Index (BMI) 35.2 Finger Stick Blood Glucose 135 General: Alert, Oriented x3, Cooperative HEENT: Atraumatic, PERRLA, EOMI, Normocephalic Oral: Moist Mucosa Neck: Supple, No JVD, Negative Carotid Bruits Lungs: Clear to auscultation, Normal air movement Cardiovascular: No murmurs, Irregular Rate - afib, rate controlled Abdomen: Bowel Sounds Present, Soft, Non Tender Extremities: No edema, Capillary Refill Less than 3 Seconds Skin: No rashes, No breakdown Musculoskeletal: No Tenderness to Palpation of Joints or Extremities Neurological: Cranial nerves II-XII grossly intact Psych/Mental Status: Normal Affect, Appropriate, Alert and oriented to time, place, person, mood and affect Laboratory Results 03/24/20 06:30: WBC 8.2, RBC 2.58 L, Hgb 5.8 L*, Hct 20.6 L, MCV 79.8 L, MCH 22.5 L, MCHC 28.2 L, RDW Std Deviation 50.8 H, RDW Coeff of Jerry 17.6 H, Plt Count 304, MPV 9.8, Immature Gran % (Auto) 0.400, Neut % (Auto) 80.0 H, Lymph % (Auto) 13.2 L, [place] % (Auto) 5.9, Eos % (Auto) 0.1, Baso % (Auto) 0.4, Absolute Neuts (auto) 6.6, Absolute Lymphs (auto) 1.08, Nucleated RBC % 0, Diff Path Review May foll, Hypochromasia 4+ 03/24/20 06:30: PT 17.8 H, INR 1.5, APTT 28.2 03/24/20 06:30: Sodium 132 L, Potassium 4.2, Chloride 97 L, Carbon Dioxide 28.0, Anion Gap 7, BUN 29 H, Creatinine 1.10 H, Estim Creat Clear Calc 34.30, Est GFR (MDRD) Af Amer 62, Est GFR (MDRD) Non-Af 51 L, BUN/Creatinine Ratio 26.4 H, Glucose 111 H, Calcium 9.1, Total Bilirubin 0.40, AST 18, ALT 12 L, Alkaline Phosphatase 49, Total Protein 6.8, Albumin 3.1 L, Globulin 3.7, Albumin/Globulin Ratio 0.8 L 03/24/20 06:30: Blood Type Pending, Antibody Screen Pending, Crossmatch See Detail Assessment/Plan All Active Problems (Last Updated 01/20/20 @ 18:54 by Debbie Clayton) Gastrointestinal hemorrhage with melena (Acute) Elevated LFTs (Acute 12/26/19) Non-STEMI (non-ST elevated myocardial infarction) (Acute 01/20/20) H/O coronary artery bypass surgery (Resolved 1999) 80 y/o admitted with a complaint of melena stools and found to have acute on chronic anemia #Acute on chronic anemia due to anticoagulant use and GI bleed * admit to PCu with telemetry * transfuse with 2 units of PRBCs * hold xarelto and aspirin * IV patnoprazole 40mg bid * consult general surgery * keep on clear liquids for now, pending general surgery evaluation * #Lower GI bleed * as above * #CAD s/p CABG * hold aspirin. Continue carvedilol and lisinopril as well as ezetimibe * cardiology consulted per request of general surgery for pre op risk stratification o/a of history of recent admission for heart failure * troponins ordered; initial troponin was 0.24. this is likely demand ischemia from anemia. * #Elevated troponin: * troponins trended upwards from 0.24 to 1.5. She has no chest pain. * This is likely demand ischemia from anemia. * cardiology on board. * #hypertension: On carvedilol and lisinopril #CHF: on lasix, carvedilol and lisinopril. BNP was elevated at 640. On lasix. WIll give an additional dose of lasix with transfusion #History of CVA with residual left lower extremity weakness: stable. Hold aspirin o/a of GI bleed #Afib: on carvedilol. xarelto on hold o/a of GI bleed. # Hypothyroidism: on synthroid DVT prophylaxis: SCDs GI prophylaxis: PPI Code status: DNCA. * Patient counseled about differences between full code, DNRCC and DNRCCA. Patient elects to be DNRCCA no intubation. Total face to face time 17 mins. Inpatient E&M: 55105 Init Hosp L3 Procedures: 12609 Advncd Care Plan 30 Min
--- NOTE | 2020-03-24 07:25 | NURSING ---
PCU GI BLEED SHANE
--- NOTE | 2020-03-24 10:07 | PCM.CONS.GEN ---
Problem List (1) Gastrointestinal hemorrhage with melena Status: Acute Reason for Consult Date of Consultation: 03/24/20 History of Present Illness: The patient is a 80 year old F who presented to the emergency room with complaint of dark stools weakness fatigue and shortness of breath. The patient is noted to be further anemic. I been asked to see the patient by Dr. Escamilla and a written copy of my surgical consult will be present within the charting. Getting a precise history from the patient unfortunately is not possible. It is evident that January 06, 2019 her hemoglobin was 13.3. December 26, 2019 her hemoglobin was 6.9. February 02, 2020 her hemoglobin was 9.4. On today's presentation her hemoglobin is 5.8. By charting it would appear that she is on Eliquis for atrial fibrillation. Her pertinent other medications include 40 mg of Lasix daily and Epitol and potassium chloride and 81 mg aspirin. According to her previous cardiology note per Dr. Castaneda the patient has a previous history of GI bleeding. She is very nonspecific about this but thinks that it was previously an upper GI bleed and she thinks she previously had blood transfusion. It is of note that she was hospitalized at [facility] December 26, 2019. Because of abdominal pain and shortness of breath a CT scan was obtained of the abdomen. This demonstrated incidental gallstones. Perinephric stranding. Stranding around the mid descending colon fatty area. There is felt to be a 5.1 x 2.6 cm pelvic mass lateral to the right common iliac artery. The patient does not recall that she had this further evaluated. December 27, 2019 she had increased treatment for congestive heart failure with a BNP greater than 3000. She had her oral furosemide therapy increased at that time. The patient thinks that she only has been on blood thinner for 2 weeks. Charting however would suggest that she has been on anticoagulation for atrial fibrillation longer than that and extending into her recent [facility] hospitalizations. She may have had a change in the drug medication possibly she previously was on Xarelto and got changed more recently to apixaban (Eliquis) She thinks she may have had a colonoscopy 6 or 7 years ago but that is not clear Laboratory demonstrates a white blood cell count of 8.2 with a hemoglobin of 5.8 and hematocrit of 20.6 with a platelet count of 304,000. It is present neutrophils. MCV is low at 79.8. PT is elevated at 17.8. INR is 1.5. PTT is 28.2. BUN is 29 and creatinine 1.1 it is of note that previously January 22, 2020 she had a more normal BUN of 16 She had a non-ST segment elevation MD January 20, 2020. She has indwelling coronary stents. History of CVA with chronic left leg weakness. COPD A CTA of the carotids performed February 02, 2020 because of dysarthria and right-sided weakness showed plaque within the right common carotid artery with subsequent greater than 70% stenosis of the left internal carotid artery. 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) Atherosclerosis of coronary artery of [place] heart without angina pectoris (Chronic) Atherosclerosis of coronary artery bypass graft without angina pectoris (Chronic) History of coronary artery stent placement (Chronic 2014) bare-metal stent x 3 to SVG to RPDA in April 2007; BMS to SVG to RPDA in 2014 Essential (primary) hypertension (Chronic) Hyperlipidemia (Chronic) Medical History: Medical History (Last Updated 01/23/20 @ 07:26 by Debbie Clayton) Elevated LFTs (Acute) Onset Date: 12/26/19 R79.89 Acute and chronic respiratory failure (Chronic) J96.20 Non-STEMI (non-ST elevated myocardial infarction) (Acute) Onset Date: 01/20/20 I21.4 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) I50.41 Atherosclerosis of coronary artery of [place] heart without angina pectoris (Chronic) I25.10 Atherosclerosis of coronary artery bypass graft without angina pectoris (Chronic) I25.810 Essential (primary) hypertension (Chronic) I10 Hyperlipidemia (Chronic) E78.5 History of CVA (cerebrovascular accident) Z86.73 with chronic left leg weakness Hypothyroidism E03.9 Obesity E66.9 Restrictive pattern present on pulmonary function testing R94.2 Shingles B02.9 Dizziness (Inactive) R42 Secondary pulmonary arterial hypertension (Inactive) I27.21 Allergies Sulfa (Sulfonamide Antibiotics) Allergy (Verified 03/24/20 06:26) Rash apixaban [From Eliquis] Adverse Reaction (Intermediate, Verified 03/24/20 06:26) GI upset, can't eat. tape Allergy (Uncoded 01/20/20 16:27) plastic tape causes blisters Can have cloth and paper Home Medications: Ambulatory Orders Medication Instructions Recorded Lisinopril [Zestril] 40 mg PO DAILY 04/17/17 carvedilol 25 mg tablet 12.5 mg PO BID tab 11/04/18 Levothyroxine Sodium [Euthyrox] 100 mcg PO DAILY 12/26/19 Albuterol Sulfate [Albuterol 2 puff INHALATION Q6H PRN PRN 01/20/20 Sulfate HFA] Aspirin E.C. [Ecotrin] 81 mg PO DAILY@0800 01/20/20 Budesonide/Formoterol Fumarate 2 puff INHALATION BID PRN 01/20/20 [Symbicort 80-4.5 Mcg Inhaler] Ipratropium/Albuterol Sulfate 3 ml IH 4X/DAY PRN 01/20/20 [Iprat-Albut 0.5-3(2.5) mg/3 ml] Multivitamin with Minerals 1 tab PO DAILY 01/20/20 [Multiple Vitamin] Omeprazole Magnesium [Prilosec Otc] 20 mg PO DAILY 01/20/20 ezetimibe 10 mg tablet 10 mg PO QHS #90 tab 02/13/20 Apixaban [Eliquis] 5 mg PO BID 03/24/20 Cholecalciferol (VIT D3) [Vitamin 1,000 unit PO DAILY 03/24/20 D] Escitalopram Oxalate [Lexapro] 10 mg PO DAILY 03/24/20 Furosemide 40 mg PO DAILY 03/24/20 Potassium Chloride [K-Dur] 20 meq PO BIDCM 03/24/20 Surgical History: Surgical History (Last Updated 01/20/20 @ 18:54 by Debbie Clayton) H/O coronary artery bypass surgery (Resolved) Onset Date: 1999 Z95.1 CABG x 4 BOSE to LAD, SVG to D1, and Sequential SVG to RPDA and Acute [place] 1999 History of coronary artery stent placement (Chronic) Onset Date: 2015 Z95.5 bare-metal stent x 3 to SVG to RPDA in April 2007; BMS to SVG to RPDA in 2014 History of carpal tunnel surgery Z92.89 History of hernia repair Z98.890, Z87.19 History of hysterectomy Z90.710 partial, still has ovaries History of right-sided carotid endarterectomy Z98.890 Surgical History: coronary bypass surgery, hysterectomy, - - Right carotid endarterectomy, carpal tunnel surgery, hernia repair. 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 Tiago Castaneda MD) Daughter Hypertension Melanoma Sister pacemaker Mother Hypertension Diabetes Heart disease History Items: Diabetes, Heart Disease Review of Systems Constitutional: Denies: Fever Eyes: Denies: Double vision HEENT: Denies: Difficulty Swallowing Cardiovascular: Denies: Chest Pain Respiratory: Reports: Shortness of Breath Gastrointestinal: Reports: Nausea, Melena. Denies: Abdominal Pain Musculoskeletal: Denies: Leg Pain Skin: Denies: Jaundice Endocrine: Denies: Change in Body Habitus - Physical Exam Vitals/I&O's: Vital Signs Temp Pulse Resp BP Pulse Ox 98.1 F 79 15 98/59 L 96 03/24/20 09:04 03/24/20 09:26 03/24/20 09:04 03/24/20 09:04 03/24/20 09:04 Oxygen Flow Rate (L/min) 5 Oxygen Delivery Method Nasal Cannula Weight: 187 lb 13.341 oz Body Mass Index (BMI) 32.7 Finger Stick Blood Glucose 135 Intake and Output for Last 24 Hours 03/22/20 03/23/20 03/24/20 23:59 23:59 23:59 Intake Total 535 / 535 Balance 535 / 535 General: Alert, Cooperative, No apparent distress, - - Pale in appearance HEENT: Atraumatic Oral: Dry Mucosa Neck: Supple Lungs: Clear to auscultation Cardiovascular: Irregular Rate Abdomen: Bowel Sounds Present, Soft, Non-Distended, - - Minimal tenderness palpation right lower quadrant Extremities: No Calf Tenderness Psych/Mental Status: Normal Affect Laboratory Results 03/24/20 06:30: WBC 8.2, RBC 2.58 L, Hgb 5.8 L*, Hct 20.6 L, MCV 79.8 L, MCH 22.5 L, MCHC 28.2 L, RDW Std Deviation 50.8 H, RDW Coeff of Jerry 17.6 H, Plt Count 304, MPV 9.8, Immature Gran % (Auto) 0.400, Neut % (Auto) 80.0 H, Lymph % (Auto) 13.2 L, [place] % (Auto) 5.9, Eos % (Auto) 0.1, Baso % (Auto) 0.4, Absolute Neuts (auto) 6.6, Absolute Lymphs (auto) 1.08, Nucleated RBC % 0, Diff Path Review May foll, Hypochromasia 4+ 03/24/20 06:30: PT 17.8 H, INR 1.5, APTT 28.2 03/24/20 06:30: Sodium 132 L, Potassium 4.2, Chloride 97 L, Carbon Dioxide 28.0, Anion Gap 7, BUN 29 H, Creatinine 1.10 H, Estim Creat Clear Calc 34.30, Est GFR (MDRD) Af Amer 62, Est GFR (MDRD) Non-Af 51 L, BUN/Creatinine Ratio 26.4 H, Glucose 111 H, Calcium 9.1, Total Bilirubin 0.40, AST 18, ALT 12 L, Alkaline Phosphatase 49, Total Protein 6.8, Albumin 3.1 L, Globulin 3.7, Albumin/Globulin Ratio 0.8 L 03/24/20 06:30: Blood Type O POSITIVE, Antibody Screen NEGATIVE, Crossmatch See Detail 03/24/20 06:30: B-Natriuretic Peptide Pending 03/24/20 08:25: COVID-19 (AKSHAT) Pending Current Medications Acetaminophen (Acetaminophen 325 Mg Tablet) 650 mg PO Q6H PRN PRN PRN Reason: Pain Score 1-10/Temp > 100.7 F Albuterol/Ipratropium (Ipratropium/Albuterol Sulfate 3 Ml Ampul.Neb) 3 ml INHALATION 4X/DAY PRN PRN Reason: SOB &/OR WHEEZING Bisacodyl (Bisacodyl 5 Mg Tablet) 20 mg PO 1400 ONE Stop: 03/24/20 14:01 Carvedilol (Carvedilol 12.5 Mg Tablet) 12.5 mg PO BID JENNIFER Cholecalciferol (Cholecalciferol (Vit D3) 1,000 Unit (25mcg)) 1,000 unit PO DAILYCM COUNTS INCLUDE 234 BEDS AT THE [facility] Ezetimibe (Ezetimibe 10 Mg Tablet) 10 mg PO QHS JENNIFER Escitalopram Oxalate (Escitalopram Oxalate 10 Mg Tablet) 10 mg PO DAILY JENNIFER Furosemide (Furosemide 40 Mg Tablet) 40 mg PO DAILY JENNIFER Pantoprazole Sodium 40 mg/ (Sodium Chloride) 110 mls @ 330 mls/hr IV Q12 JENNIFER Levothyroxine Sodium (Levothyroxine 100 Mcg Tablet) 100 mcg PO DAILY@0600 JENNIFER Lisinopril (Lisinopril 40 Mg Tablet) 40 mg PO DAILY JENNIFER Multivitamins/Minerals (Multivitamins,Ther W-Minerals Tablet) 1 tablet PO DAILY@0800 JENNIFER Non-Formulary Medication (Albuterol Sulfate) 2 puff INHALATION Q6H PRN PRN PRN Reason: sob wheezing Non-Formulary Medication (Budesonide/Formoterol Fumarate) 2 puff INHALATION BID PRN PRN Reason: SOB &/OR WHEEZING Ondansetron HCl (Ondansetron 4 Mg/2 Ml Vial) 4 mg IV Q8H PRN PRN PRN Reason: NAUSEA/VOMITING Polyethylene Glycol (Polyethylene Glycol 3350 Bowel Prep) 0 bottle PO DAILY@1600 ONE Stop: 03/24/20 16:01 Sodium Chloride (0.9% Saline Lock 10 Ml Syringe) 10 - 40 ml IV UD PRN PRN Reason: SALINE FLUSH Assessment/Plan All Active Problems (Last Updated 01/20/20 @ 18:54 by Debbie Clayton) Gastrointestinal hemorrhage with melena (Acute) Elevated LFTs (Acute 12/26/19) Non-STEMI (non-ST elevated myocardial infarction) (Acute 01/20/20) H/O coronary artery bypass surgery (Resolved 1999) Very complex 80-year-old female. Recent history of stroke and myocardial infarction. Anemia dating back to at least December 26, 2019 with current presentation suggesting a acute component She has history of right pelvic mass and perinephric stranding and inflammatory changes adjacent to the descending colon all on previous CT scan. In addition the CT showed multiple gallstones. He has diverticulosis. The patient is in need of blood transfusion. She recently was hospitalized with spontaneous acute congestive heart failure On top of her chronic disease. I will ask cardiology to evaluate the patient. I do not believe that the patient would do well with outpatient bowel prepping. If the patient is felt to be medically and cardiac stable we will try to do a combined esophagogastroduodenoscopy and colonoscopy for diagnosis and possible intervention tomorrow. The patient is very much aware that she is at increased adverse outcome because of her significant multiple medical morbidities. I am not sure whether the endoscopy will detect a reason for her anemia identified December 26, 2019 but it would seem reasonable. Pending the results of her endoscopy she may benefit from a repeat CT scan to help evaluate the previous identified pelvic mass. She has had an opportunity to ask and have questions answered. Pending ongoing medical and cardiac treatment will pursue endoscopy tomorrow I appreciate the opportunity of assisting with her surgical care 80-minute patient evaluation, chart review and consultation with Dr. Escamilla and Dr. Castaneda. Arvind Maloney M.D., F.A.C.S.
[2020-03-24 10:32] LABS: BNP,B-Type NATRIURETIC PEPTIDE 640.9 pg/mL (0-100)
--- NOTE | 2020-03-24 11:40 | CASEMGMT ---
RN TATIANNA Face to Face with patient for initial transition planning/care coordination assessment. RN CM introduced self and role at [facility]. Patient lying in bed, alert and oriented. Patient willing to participate in assessment and is able to answer all questions appropriately. Care providers, pharmacy, and demographics verified. Patient wishes to discharge home, denies need for home health at this time. Patient states she has no further needs or concerns at this time. CM to follow for discharge planning needs that may arise. PCP: Irvin Specialists: Tonya physician office specialist Preferred Pharmacy: [facility] Insurance: [employer] [facility] Prescription Benefit: yes Living Will/HPOA: yes, daughter Millie Hoyt LNOK: , daughter Living Arrangements: Patient lives with in a 1 story home with 2 steps and railing. patient states she is independent at home. Transportation: self/ DME/HHC: Patient states she has shower chair, raised toilet, cane, walker, grab bars, and home oxygen as needed, patient could not recall DME company. [facility]. Disposition Plan: Patient to discharge home with family support and follow-up plans in place. Lourdes RILEY, RN, CM
[2020-03-24] MEDS: Escitalopram Oxalate 10 MG Tablet PO (11:49)
[2020-03-24] MEDS: Furosemide 40 MG Tablet PO (11:50)
[2020-03-24] MEDS: Carvedilol 12.5 MG Tablet PO (11:50)
[2020-03-24] MEDS: Levothyroxine 100 MCG Tablet PO (11:50)
[2020-03-24 12:12] LABS: Pathologist Review Reviewed
[2020-03-24] MEDS: Bisacodyl 5 MG Tablet 20 MG PO (14:57)
[2020-03-24] MEDS: Polyethylene Glycol 3350 BOWEL PREP PO (16:13)
[2020-03-24] MEDS: 0.9% Saline Lock 10 ML Syringe IV ×3 (16:35→22:22)
[2020-03-24] MEDS: Furosemide 40 MG/4 ML Vial IV (16:36)
[2020-03-24] MEDS: Ondansetron 4 MG/2 ML Vial IV (16:36)
--- NOTE | 2020-03-24 17:26 | CON.PCM_ITS ---
Reason for Consult Date of Consultation: 03/24/20 Reason for Consultation: Preoperative assessment History of Present Illness: The patient is a 80 year old F who presents to the emergency room with complaints of a 3-day history of black tarry stools. Patient apparently had gone into atrial fibrillation detected by her primary physician and was started on Eliquis. She started noticing the above a few days ago. She did not have any abdominal discomfort and has not had any hematemesis. She denies any chest pain no paroxysmal nocturnal dyspnea or pedal edema. She did feel weak. She has a history of coronary artery disease status post CABG in 1999 with BOSE to LAD, SVG to diagonal, and SVG to acute marginal to PDA of RCA, bare-metal stent ?3 to SVG to PDA of RCA in April 2007 and BMS to SVG to RCA in 2014, carotid artery disease status post carotid endarterectomy, hypertension, hyperlipidemia, hypothyroidism, CVA with chronic left leg weakness, GI bleed, Lupus, and former smoker. She was admitted to the hospital in the fall of last year with congestive heart failure and an elevated natruretic peptide level. More recently she was admitted through the [facility] in January 2020 with a left occipital stroke and at that time was noted to be in atrial fibrillation and was started on Eliquis because it was felt that the risks of a repeat stroke outweighed the benefits of starting on anticoagulation. An echocardiogram performed within the [facility] demonstrated an ejection fraction of approximately 40% with segmental wall motion abnormalities involving the inferior wall. Pt denies chest, arm, jaw, or neck discomfort. His exercise tolerance is stable. Pt denies symptoms of CHF, palpitations, lightheadedness, near syncopal or syncopal episodes. She was evaluated in the emergency room and noted to have a hemoglobin of 5.8. Despite this low hemoglobin she has not had any anginal spells. EKG demonstrates atrial fibrillation with a controlled ventricular response rate. I was asked by the surgeon to evaluate her for risk st ratification. Past Medical History Allergies/Adverse Reactions: Allergies Sulfa (Sulfonamide Antibiotics) Allergy (Verified 03/24/20 06:26) Rash apixaban [From Eliquis] Adverse Reaction (Intermediate, Verified 03/24/20 06:26) GI upset, can't eat. tape Allergy (Uncoded 01/20/20 16:27) plastic tape causes blisters Can have cloth and paper Home Medications: Ambulatory Orders Medication Instructions Recorded Lisinopril [Zestril] 40 mg PO DAILY 04/17/17 carvedilol 25 mg tablet 12.5 mg PO BID tab 11/04/18 Levothyroxine Sodium [Euthyrox] 100 mcg PO DAILY 12/26/19 Albuterol Sulfate [Albuterol 2 puff INHALATION Q6H PRN PRN 01/20/20 Sulfate HFA] Aspirin E.C. [Ecotrin] 81 mg PO DAILY@0800 01/20/20 Budesonide/Formoterol Fumarate 2 puff INHALATION BID PRN 01/20/20 [Symbicort 80-4.5 Mcg Inhaler] Ipratropium/Albuterol Sulfate 3 ml IH 4X/DAY PRN 01/20/20 [Iprat-Albut 0.5-3(2.5) mg/3 ml] Multivitamin with Minerals 1 tab PO DAILY 01/20/20 [Multiple Vitamin] Omeprazole Magnesium [Prilosec Otc] 20 mg PO DAILY 01/20/20 ezetimibe 10 mg tablet 10 mg PO QHS #90 tab 02/13/20 Apixaban [Eliquis] 5 mg PO BID 03/24/20 Cholecalciferol (VIT D3) [Vitamin 1,000 unit PO DAILY 03/24/20 D] Escitalopram Oxalate [Lexapro] 10 mg PO DAILY 03/24/20 Furosemide 40 mg PO DAILY 03/24/20 Potassium Chloride [K-Dur] 20 meq PO BIDCM 03/24/20 Past Medical History (Chronic Problems): Chronic Problems (Last Updated 01/23/20 @ 07:26 by Debbie Clayton) Peripheral arterial disease (Chronic) History of hemorrhagic stroke with residual hemiparesis (Chronic) Acute and chronic respiratory failure (Chronic) 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 Tiago Castaneda MD) Daughter Hypertension Melanoma Sister pacemaker Mother Hypertension Diabetes Heart disease History Items: Diabetes, Heart Disease Smoking Status: Former smoker Alcohol: None Drugs: None Review of Systems - Review of Systems General: Denies: Fever, Night Sweats, Fatigue HEENT: Denies: Vision Change Cardiovascular: Denies: Chest Discomfort, Shortness of Breath, Orthopnea, PND, Peripheral Edema, Palpitations, Lightheadedness, Dizziness, Near Syncope, Syncope Respiratory: Denies: Cough, Sputum Production, Hemoptysis Gastrointestinal: Denies: Hematemesis, Hematochezia, Melena Genitourinary: Denies: Dysuria, Hematuria Skin: Denies: Rash Neurological: Denies: Dizziness Psychiatric: Denies: Anxiety Endocrine: Denies: Excessive Sweating Hematologic/ Lymphatic: Reports: Anemia Subjectve: Patient seen and evaluated Objective: Vital Signs Temp Pulse Resp BP Pulse Ox 97.8 F 77 16 91/60 90 03/24/20 13:24 03/24/20 13:24 03/24/20 13:24 03/24/20 13:24 03/24/20 13:24 Oxygen Flow Rate (L/min) 5 Oxygen Delivery Method Nasal Cannula Weight: 187 lb 13.341 oz Body Mass Index (BMI) 32.7 Finger Stick Blood Glucose 135 Intake and Output for Last 24 Hours 03/22/20 03/23/20 03/24/20 23:59 23:59 23:59 Intake Total 1211 / 1211 Output Total 200 / 200 Balance 1011 / 1011 General: Awake, Alert, Oriented x 3 HEENT: PERRL, EOMI, Sclera Non Icteric, Pallor Neck: Supple, Good ROM, No Lymph Node Enlargement Lungs: Clear to auscultation Cardiovascular: Irregular Rhythm, Normal S1, Normal S2, No Murmurs, No Rubs, No Gallops Vascular: No Carotid Bruits, Normal Femoral Pulses, Normal Radial Pulses, Normal Dorsalis Pedal Pulse, Normal Posterior Tibial Pulses Abdomen: Bowel Sounds Present, Soft, Non Tender, No HSM, No Organomegaly Extremities: No Cyanosis, No Clubbing, No edema Musculoskeletal: No Erythema Skin: No Rashes Lymphatic: No Lymph Node Enlargement Neurological: No Focal Motor or Sensory Deficit Psych/Mental Status: Appropriate 03/24/20 06:30: WBC 8.2, RBC 2.58 L, Hgb 5.8 L*, Hct 20.6 L, MCV 79.8 L, MCH 22.5 L, MCHC 28.2 L, Plt Count 304, MPV 9.8, Immature Gran % (Auto) 0.400, Neut % (Auto) 80.0 H, Lymph % (Auto) 13.2 L, [place] % (Auto) 5.9, Eos % (Auto) 0.1, Baso % (Auto) 0.4, Absolute Neuts (auto) 6.6, Nucleated RBC % 0 03/24/20 06:30: PT 17.8 H, INR 1.5, APTT 28.2 03/24/20 06:30: Sodium 132 L, Potassium 4.2, Chloride 97 L, Carbon Dioxide 28.0, Anion Gap 7, BUN 29 H, Creatinine 1.10 H, Est GFR (MDRD) Af Amer 62, Est GFR (MDRD) Non-Af 51 L, BUN/Creatinine Ratio 26.4 H, Glucose 111 H, Calcium 9.1, Total Bilirubin 0.40 03/24/20 06:30: B-Natriuretic Peptide 640.9 H 03/24/20 10:35: Troponin I 0.240 H Rhythm: EKG: Atrial fibrillation with a controlled ventricular response rate ECHO: Previous echocardiogram from August 2019 demonstrated an ejection fraction of 40% with segmental wall motion abnormalities involving the inferior wall. Stress Test: Cardiac Cath: PCI: CT Surgery: Holter monitor: EPS: PPM: CXR: Chest CT Scan: Assessment/Plan 1. Preoperative evaluation and assessment * Ms. Cespedes has known coronary artery disease but appears to have been asymptomatic following a recent GI bleed having been started recently on Eliquis. She has dropped her hemoglobin to less than 6 and has had no EKG changes with minimal elevation in troponin. Based on the above I would recommend that we optimize her by transfusing her to a hemoglobin of at least 8 and then at this time I would recommend that we proceed with the upper and lower endoscopy as recommended by the surgeon. She would also receive a dose of intravenous Lasix due to her left ventricular systolic dysfunction and her elevated natruretic peptide level. The above has been communicated to both the surgeon and the nurses. * She should be stable enough to undergo the above procedures in a.m. * 2. Atrial fibrillation * Ventricular response rate is controlled. The plan will be to continue her current dose of beta-skylar after the endoscopy has been performed. * At this juncture I do not think that she is a candidate for anticoagulation. * We may be able to consider her at some point for the watchman device * 3. Coronary artery disease * She has known coronary artery disease but does not have any evidence of angina. The mild elevation in troponin is likely secondary to demand ischemia. We will continue to optimize her medical therapy. * 4. 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 She will need to continue on the beta-skylar and diuretics as necessary. * * Thank you for allowing me to participate in the care of your patient. Please don't hesitate to call if any issues arise.
--- NOTE | 2020-03-24 17:30 | NURSING ---
times on all vs for blood are off time was done q 1 hour while infusing
[2020-03-24 17:34] LABS: Hematocrit 26.1 % (37-47); Hemoglobin 7.7 g/dL (12.0-15.0)
[2020-03-24] MEDS: Budesonide Respules 0.5 MG/2 ML AMPUL.NEB. INHALATION (19:37)
[2020-03-24] MEDS: Ezetimibe 10 MG Tablet PO (21:11)
[2020-03-24] MEDS: proCHLORPERazine 10 MG/2 ML Vial 5 MG IV (21:13)
--- NOTE | 2020-03-24 23:46 | RAD_ITS ---
STUDY: X-RAY CHEST REASON FOR EXAM: Female, 80 years old. PRE OP FOR EGD/COLONOSCOPY -- DENIES ANY BREATHING PROBLEMS TECHNIQUE: Single AP portable view of the chest. COMPARISON: 02/02/2020. FINDINGS: The lungs are mildly underexpanded. There is minimal bilateral basilar atelectasis. There are no confluent pulmonary infiltrates. There is no demonstrated pleural abnormality. There is mild cardiac enlargement. There are sternotomy wires and surgical clips suggesting previous CABG. Normal mediastinum and vamshi. There is atherosclerotic calcification of the aortic arch. There are no demonstrated acute fractures or destructive bone lesions. There is no demonstrated abnormality of the visualized soft tissue structures of the upper abdomen. RAD/Chest 1 View (Portable) IMPRESSION: Mild cardiomegaly. No evidence for acute cardiopulmonary pathology. Electronically Signed: Mega Rodriguez MD at 1:08 EST , Service support ,
[2020-03-25] VITALS (19 sets, daily range): BP systolic 100–130; BP diastolic 50–104; PULSE 61–93; RESP 12–32; TEMP 36.2–36.9; O2SAT 93–100
[2020-03-25] MEDS: 0.9% Saline Lock 10 ML Syringe IV ×4 (00:44→11:13)
[2020-03-25] MEDS: proMETHazine 25 MG/ML Syringe 6.25 MG IV (00:44)
[2020-03-25] MEDS: Furosemide 40 MG/4 ML Vial IV ×2 (01:06→11:10)
--- NOTE | 2020-03-25 01:09 | PCM.HOSP.N ---
Hospitalist Note Patient with recent PRBC administration, more dyspneic requiring increased oxygen supplementation, currently lasix 40 mg IV x [address] additionally [address] on BIPAP to assist with volume overload. Trop are elevated with Cardiology consulted. Patient is also a GI bleed thus unable to be currently on antiplt/anticoagulation. ABG requested additionally. Will have low dose PRN ativan given agitation to assist in BIPAP compliance. CODE status noted DNR-CCA, no intubation. Will transition to Step down status.
[2020-03-25] MEDS: LORazepam 2 MG/ML Syringe 0.5 MG IV ×2 (01:23→03:47)
--- NOTE | 2020-03-25 04:21 | PN.SURG_ITS ---
Patient Problems: Active and Suspected Problems (Last Updated 01/23/20 @ 07:26 by Debbie Clayton) Gastrointestinal hemorrhage with melena (Acute) Subjective: Patient was just able to mostly complete her bowel prep with clearing of stools. She then came more hypoxic and tachypneic with mental status changes. She was placed on BiPAP. Chest x-ray shows cardiomegaly. Serial troponins were 0.24 and then 1.51 and then 1.39 On her presentation her BNP was elevated at 640 Currently she is restless. Unlike yesterday, she is unable to respond to verbal commands. Abdomen is mildly distended. Soft. I do not detect a focal mass. - Physical Exam Vitals/I&O's: Vital Signs Temp Pulse Resp BP Pulse Ox 98.3 F 75 21 H 125/104 H 94 03/25/20 03:35 03/25/20 03:35 03/25/20 03:35 03/25/20 03:35 03/25/20 03:35 Oxygen Flow Rate (L/min) 5 Oxygen Delivery Method Bi-pap Weight: 187 lb 13.341 oz Body Mass Index (BMI) 32.7 Finger Stick Blood Glucose 135 Intake and Output for Last 24 Hours 03/23/20 03/24/20 03/25/20 23:59 23:59 23:59 Intake Total 1921 / 2881 1360 / 1360 Output Total 900 / 900 Balance 1020 1360 / 1360 Lungs: - - Diminished in the bases Abdomen: Soft, Hypoactive Bowel Sounds, Distended Laboratory Results 03/24/20 06:30: WBC 8.2, RBC 2.58 L, Hgb 5.8 L*, Hct 20.6 L, MCV 79.8 L, MCH 22.5 L, MCHC 28.2 L, RDW Std Deviation 50.8 H, RDW Coeff of Jerry 17.6 H, Plt Count 304, MPV 9.8, Immature Gran % (Auto) 0.400, Neut % (Auto) 80.0 H, Lymph % (Auto) 13.2 L, [place] % (Auto) 5.9, Eos % (Auto) 0.1, Baso % (Auto) 0.4, Absolute Neuts (auto) 6.6, Absolute Lymphs (auto) 1.08, Nucleated RBC % 0, Diff Path Review Reviewed, Hypochromasia 4+ 03/24/20 06:30: PT 17.8 H, INR 1.5, APTT 28.2 03/24/20 06:30: Sodium 132 L, Potassium 4.2, Chloride 97 L, Carbon Dioxide 28.0, Anion Gap 7, BUN 29 H, Creatinine 1.10 H, Estim Creat Clear Calc 34.30, Est GFR (MDRD) Af Amer 62, Est GFR (MDRD) Non-Af 51 L, BUN/Creatinine Ratio 26.4 H, Glucose 111 H, Calcium 9.1, Total Bilirubin 0.40, AST 18, ALT 12 L, Alkaline Phosphatase 49, Total Protein 6.8, Albumin 3.1 L, Globulin 3.7, Albumin/Globulin Ratio 0.8 L 03/24/20 06:30: Blood Type O POSITIVE, Antibody Screen NEGATIVE, Crossmatch See Detail 03/24/20 06:30: B-Natriuretic Peptide 640.9 H 03/24/20 06:30: Crossmatch See Detail 03/24/20 08:25: COVID-19 ([facility]) Not Detected 03/24/20 10:35: Troponin I 0.240 H 03/24/20 17:15: Troponin I 1.510 H* 03/24/20 17:15: Hgb 7.7 L, Hct 26.1 L 03/24/20 21:00: Troponin I 1.390 H* Current Medications Acetaminophen (Acetaminophen 325 Mg Tablet) 650 mg PO Q6H PRN PRN PRN Reason: Pain Score 1-10/Temp > 100.7 F Albuterol/Ipratropium (Ipratropium/Albuterol Sulfate 3 Ml Ampul.Neb) 3 ml INHALATION 4X/DAY PRN PRN Reason: SOB &/OR WHEEZING Budesonide (Budesonide Respules 0.5 Mg/2 Ml Ampul.Neb.) 0.5 mg INHALATION Q12H.RT [facility] Last Admin: 03/24/20 19:37 Dose: 0.5 mg Documented by: Calamine/Phenol (Menthol/Lanolin/Calamine/Znox 113 Gm Tube) 1 applic TOPICAL 4X/DAY [facility]; Protocol Carvedilol (Carvedilol 12.5 Mg Tablet) 12.5 mg PO BID [facility] Last Admin: 03/24/20 11:50 Dose: 12.5 mg Documented by: Cholecalciferol (Cholecalciferol (Vit D3) 1,000 Unit (25mcg)) [facility] Ezetimibe (Ezetimibe 10 Mg Tablet) 10 mg PO QHS [facility] Last Admin: 03/24/20 21:11 Dose: 10 mg Documented by: Escitalopram Oxalate (Escitalopram Oxalate 10 Mg Tablet) 10 mg PO DAILY [facility] Last Admin: 03/24/20 11:49 Dose: 10 mg Documented by: Furosemide (Furosemide 40 Mg Tablet) 40 mg PO DAILY [facility] Last Admin: 03/24/20 11:50 Dose: 40 mg Documented by: Pantoprazole Sodium 40 mg/ (Sodium Chloride) 110 mls @ 330 mls/hr IV Q12 [facility] Last Infusion: 03/24/20 22:23 Dose: Infused Documented by: Levothyroxine Sodium (Levothyroxine 100 Mcg Tablet) 100 mcg PO DAILY@0600 [facility] Last Admin: 03/24/20 11:50 Dose: 100 mcg Documented by: Lisinopril (Lisinopril 40 Mg Tablet) 40 mg PO DAILY [facility] Last Admin: 03/24/20 11:26 Dose: Not Given Documented by: Lorazepam (Lorazepam 2 Mg/Ml Syringe) 0.5 mg IV Q4H PRN PRN PRN Reason: agitation with BIPAP Last Admin: 03/25/20 01:23 Dose: 0.5 mg Documented by: Multivitamins/Minerals (Multivitamins,Ther W-Minerals Tablet) 1 tablet PO DAILY@0800 [facility] Nystatin (Nystatin Powder 15gm Bottle) 1 applic TOPICAL TID [facility]; Protocol Ondansetron HCl (Ondansetron 4 Mg/2 Ml Vial) 4 mg IV Q8H PRN PRN PRN Reason: NAUSEA/VOMITING Last Admin: 03/24/20 16:36 Dose: 4 mg Documented by: Promethazine HCl (Promethazine 25 Mg/Ml Syringe) 6.25 mg IV Q4H PRN PRN PRN Reason: NAUSEA/VOMITING Last Admin: 03/25/20 00:44 Dose: 6.25 mg Documented by: Sodium Chloride (0.9% Saline Lock 10 Ml Syringe) 10 - 40 ml IV UD PRN PRN Reason: SALINE FLUSH Last Admin: 03/25/20 03:47 Dose: 30 ml Documented by: Medical Necessity - Tobacco Use Smoking Status: Former smoker Assessment/Plan All Active Problems (Last Updated 01/20/20 @ 18:54 by Debbie Clayton) Gastrointestinal hemorrhage with melena (Acute) Elevated LFTs (Acute 12/26/19) Non-STEMI (non-ST elevated myocardial infarction) (Acute 01/20/20) H/O coronary artery bypass surgery (Resolved 1999) History of recent stroke, chronic anemia since at least December 26, 2019. Acute exacerbation. Presentation now complicated by elevated troponins and elevated BNP and increased oxygen demand and acute confusion Recommendations were made per Dr. Dorie Dunbar to forego the scheduled upper and lower endoscopy this morning. I would concur. She is on IV pantoprazole correlating with her reported history of melena. With the bowel prep the melena apparently has cleared. I would keep the patient n.p.o. at this time. It is not clear whether we will be able to reschedule for an endoscopy attempt tomorrow or whether medical status is simply too tenuous. I will defer to primary care and cardiology. Arvind Maloney M.D., F.A.C.S.
--- NOTE | 2020-03-25 06:20 | PCS.PANDOC ---
PANDEMIC DOCUMENTATION INITIATED: Date: 03/24/2020 Time: 0764
[2020-03-25 06:55] LABS: Absolute Lymphocyte Count 1.86 X10^3/uL (0.83-4.51); Absolute Neutrophil Count 4.1 X10^3/uL (2.0-7.7); Basophil# 0.02 X10^3/uL; Basophil% 0.3 % (0-1); Eosinophil# 0.05 X10^3/uL; Eosinophils% 0.7 % (0-5); Hematocrit 29.6 % (37-47); Hemoglobin 8.7 g/dL (12.0-15.0); Lymphocyte # 1.86 X10^3/ul (4.0); Lymphocyte % 26.6 % (19-41); Mean Corp Hgb Conc 29.4 g/dL (32-36); Mean Corpuscular Hgb 24.3 pg (27.0-32.0); Mean Corpuscular Volume 82.7 fL (81-99); Mean Platelet Vol. 9.4 fl (6.2-12.0); Monocyte# 0.93 X10^3/uL; Monocyte% 13.3 % (0-10); NRBC Flagged by Analyzer 0.4 % (0-5); Neutrophil # 4.09 X10^3/uL (2.7-7.7); Neutrophil % 58.7 % (47-70); Platelet Count 237 K/mm3 (150-450); RBC Distribution Width CV 17.4 % (11.6-14.6); RBC Distribution Width SD 52.4 fl (35.1-43.9); Red Blood Count 3.58 M/mm3 (4.2-5.4)
[2020-03-25] MEDS: Budesonide Respules 0.5 MG/2 ML AMPUL.NEB. INHALATION (07:14)
[2020-03-25 07:33] LABS: Anion Gap 7 (5-15); BUN 23 mg/dL (7-18); BUN/Creat Ratio 22.8 RATIO (10-20); Calcium,Total 8.7 mg/dL (8.5-10.1); Chloride 101 mmol/L (98-107); Creatinine, Serum 1.01 mg/dL (0.55-1.02); EST Glomerular Filtration Rate 56 mL/min (>60); Est Glom Filt Rate - Afr Amer 68 mL/min (>60); Estimated Creatinine Clearance 37.36 ml/min; Glucose 69 mg/dL (74-106); Potassium 3.2 mmol/L (3.5-5.1); Sodium Level 137 mmol/L (136-145)
[2020-03-25] MEDS: Nystatin Powder 15gm Bottle 1 APPLIC TOPICAL ×3 (07:54→23:21)
[2020-03-25 08:26] LABS: Bacteria 0 SEEN /hpf (None Seen); Mucous, Urine 0 SEEN /hpf (<or=2+); Red Blood Cells-Urine 0 SEEN /hpf (0-5); Squamous Epithelial Cells - UA 0 SEEN /hpf (5-10); White Blood Cells 0 SEEN /hpf (0-5)
[2020-03-25 08:27] LABS: Color, Urine Yellow (Yellow); Glucose, Dipstick Normal (Normal); Ketone-Dipstick Negative (Negative); Leukocyte Esterase-Dipstick Negative /ul (Negative); Nitrite-Dipstick Negative (Negative); Occult Blood-Urine Negative /ul (Negative); Protein-Dipstick Negative (Negative); Specific Gravity, Urine 1.015 (1.002-1.030); Urine Bilirubin Dipstick Negative (Negative); Urine Clarity Clear (Clear); Urine Urobilinogen Normal (Normal)
--- NOTE | 2020-03-25 08:49 | PN.CARD_ITS ---
Subjectve: Patient seen and evaluated. Events of last night reviewed. Objective: Vital Signs Temp Pulse Resp BP Pulse Ox 98.1 F 68 19 H 107/92 H 100 03/25/20 07:30 03/25/20 07:30 03/25/20 07:30 03/25/20 07:30 03/25/20 07:30 Oxygen Flow Rate (L/min) 10 Oxygen Delivery Method Nasal Cannula Weight: 187 lb 13.341 oz Body Mass Index (BMI) 32.7 Finger Stick Blood Glucose 135 Intake and Output for Last 24 Hours 03/23/20 03/24/20 03/25/20 23:59 23:59 23:59 Intake Total 1921 / 2881 1360 / 1360 Output Total 900 / 900 Balance 1020 1360 / 1360 General: Awake, Alert, Oriented x 3 HEENT: PERRL, EOMI, Sclera Non Icteric Neck: Supple, Good ROM, No Lymph Node Enlargement Lungs: Clear to auscultation Cardiovascular: Regular Rhythm, Normal S1, Normal S2, No Murmurs, No Rubs, No Gallops Vascular: No Carotid Bruits, Normal Femoral Pulses, Normal Radial Pulses, Normal Dorsalis Pedal Pulse, Normal Posterior Tibial Pulses Abdomen: Bowel Sounds Present, Soft, Non Tender, No HSM, No Organomegaly Extremities: No Cyanosis, No Clubbing, No edema Neurological: No Focal Motor or Sensory Deficit 03/24/20 06:30: B-Natriuretic Peptide 640.9 H 03/24/20 10:35: Troponin I 0.240 H 03/24/20 17:15: Troponin I 1.510 H* 03/24/20 17:15: Hgb 7.7 L, Hct 26.1 L 03/24/20 21:00: Troponin I 1.390 H* 03/25/20 05:50: WBC 7.0, RBC 3.58 L, Hgb 8.7 L, Hct 29.6 L, MCV 82.7, MCH 24.3 L , MCHC 29.4 L, Plt Count 237, MPV 9.4, Immature Gran % (Auto) 0.400, Neut % (Auto) 58.7, Lymph % (Auto) 26.6, [place] % (Auto) 13.3 H, Eos % (Auto) 0.7, Baso % (Auto) 0.3, Absolute Neuts (auto) 4.1, Nucleated RBC % 0.4 03/25/20 05:50: Sodium 137, Potassium 3.2 L, Chloride 101, Carbon Dioxide 29.0, Anion Gap 7, BUN 23 H, Creatinine 1.01, Est GFR (MDRD) Af Amer 68, Est GFR (MDRD) Non-Af 56 L, BUN/Creatinine Ratio 22.8 H, Glucose 69 L, Calcium 8.7 03/25/20 08:15: Urine Color Yellow, Urine Clarity Clear, Urine pH 6.0, Ur Specific [place] 1.015, Urine Protein Negative, Urine Glucose (UA) Normal, Urine Ketones Negative, Urine Occult Blood Negative, Urine Nitrite Negative, Urine Bilirubin Negative, Urine Urobilinogen Normal, Ur Leukocyte Esterase Negative, Urine RBC 0 SEEN, Urine WBC 0 SEEN Rhythm: EKG: ECHO: Stress Test: Cardiac Cath: PCI: CT Surgery: Holter monitor: EPS: PPM: CXR: Chest CT Scan: Medical Necessity - Tobacco Use Smoking Status: Former smoker Assessment/Plan 1. Preoperative evaluation and assessment * Ms. Cespedes has known coronary artery disease but appears to have been asymptomatic following a recent GI bleed having been started recently on Eliquis. She has dropped her hemoglobin to less than 6 and has had no EKG changes with mild elevation in her troponin. * With her third transfusion she apparently went into mild congestive heart failure with hypoxia. She is doing better this morning. Agree with deferring the endoscopy at least 24 hours * 2. Atrial fibrillation * Ventricular response rate is controlled. The plan will be to continue her current dose of beta-skylar after the endoscopy has been performed. * At this juncture I do not think that she is a candidate for anticoagulation. * We may be able to consider her at some point for the watchman device * 3. Coronary artery disease * She has known coronary artery disease but does not have any evidence of angina. The mild elevation in troponin is likely secondary to demand ischemia. We will continue to optimize her medical therapy. * At this time there are no plans to take her to the cardiac catheterization lab. 4. 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 She will need to continue on the beta-skylar and diuretics as necessary. * We will repeat her echocardiogram to reassess her ventricular function and further risk stratify as necessary. * Thank you for allowing me to participate in the care of your patient. Please don't hesitate to call if any issues arise.
--- NOTE | 2020-03-25 08:50 | ECHOCS_ITS ---
Reason For Study: CAD/ASHD Procedure This was a 2D Doppler, Color Flow transthoracic echocardiogram. The study was technically difficult. Due to body habitus. Exam performed supine. Contrast injection was performed. Exam performed portable in patient room. Left Ventricle Normal LV size. Mild to moderate segmental systolic dysfunction (see wall motion). The estimated ejection fraction is 35 %. Stage 3 diastolic dysfunction. Infero-Basal: Akinetic. Mid-Inferior: Hypokinetic. Mid-inferoseptal : Hypokinetic. Posterior-Basal: Hypokinetic. The rest of the wall segments are normal. Right Ventricle Normal RV size. Normal systolic function. Atria The left atrium is severely enlarged. The right atrium is mildly enlarged. Mitral Valve There is mild to moderate mitral annular calcification. Mild (1+) eccentric mitral valve insufficiency. Tricuspid Valve Normal tricuspid valve. Mild to moderate (1-2+) tricuspid valve insufficiency. Pulmonary artery systolic pressure is 40 mmHg. Mild pulmonary hypertension. Aortic Valve Trisinus/trileaflet aortic valve. Mild focal aortic valve calcification. Mild (1+) aortic valve insufficiency. Great Vessels Calcified aortic root. The pulmonary artery is normal size. Normal inferior vena cava. Pericardium/Pleural No pericardial effusion. Medication Diluted definity 3.0ml given slow IV push to enhance endocardial definition. MMode/2D Measurements & Calculations LVIDd: 4.7 cm IVSd: 1.1 cm Ao root diam: 3.9 cm LVIDs: 3.5 cm LVPWd: 1.1 cm FS: 25.5 % LAV(MOD-bp): 133.7 ml LA A4 area: 33.8 cm2 LA dimension(2D): 5.5 cm LAV(MOD-bp) Indexed: 71.1 ml/m2 LAV(MOD-sp2): 134.8 ml LAV(MOD-sp4): 124.2 ml RA A4 area: 22.1 cm2 Doppler Measurements & Calculations MV E max emory: 112.2 cm/sec Lat Peak E' Emory: 11.6 cm/sec Med Peak E' [place]ory: 3.9 cm/sec MV A max emory: 44.4 cm/sec E/E' lat: 9.7 E/E' med: 29.0 MV E/A: 2.5 Ao V2 max: 97.1 cm/sec AI max emory: 398.8 cm/sec LV V1 max: 80.2 cm/sec Ao max P.8 mmHg AI max P.6 mmHg LV V1 max P.6 mmHg AI dec slope: 203.6 cm/sec2 AI P1/2t: 573.8 msec TR max emory: 306.7 cm/sec TR max P.7 mmHg Interpretation Summary Normal LV size. Mild to moderate segmental systolic dysfunction (see wall motion). The estimated ejection fraction is 35 %. Stage 3 diastolic dysfunction. Mild (1+) aortic valve insufficiency. Mild pulmonary hypertension. Contrast injection was performed. Compared to prior study, there is no significant change. Ordering Physician: Tiago Castaneda Referring Physician: Chase Bryan Performed By: Marion Reece, CORWIN, RVT
[2020-03-25] MEDS: Menthol/Lanolin/Calamine/Znox 113 GM Tube 1 APPLIC TOPICAL ×4 (10:47→23:20)
--- NOTE | 2020-03-25 13:47 | PN_ITS ---
Patient Problems: Active and Suspected Problems (Last Updated 01/23/20 @ 07:26 by Debbie Clayton) Gastrointestinal hemorrhage with melena (Acute) Subjective: Patient seen and examined. She was transfused with 3 units of packed red blood cells yesterday. Patient's troponin peaked at 1.51 and then trended down to 1.39. His BNP was also up at 640.9. She was diuresed with IV Lasix in between the packed red blood cells. I have asked her more short of breath last night and had to be put on BiPAP. She was on 10 L this morning at time of review. Daughter was by her bedside. Patient was drowsy and so review of systems with patient could not be done. Daughter's main concern was about finding other source of bleeding and wanted to know whether the EGD and colonoscopy would be done tomorrow. Patient has remained hemodynamically stable. Potassium is 3.2 today. Hemoglobin is 8.7. Vitals/I&O's: Vital Signs Temp Pulse Resp BP Pulse Ox 98.2 F 61 20 H 125/70 H 99 03/25/20 13:04 03/25/20 13:04 03/25/20 13:04 03/25/20 13:04 03/25/20 13:04 Oxygen Flow Rate (L/min) 5 Oxygen Delivery Method Nasal Cannula Weight: 187 lb 13.341 oz Body Mass Index (BMI) 32.7 Finger Stick Blood Glucose 135 Intake and Output for Last 24 Hours 03/23/20 03/24/20 03/25/20 23:59 23:59 23:59 Intake Total 1921 / 2881 1470 / 1470 Output Total 900 / 900 Balance 1020 1470 / 1470 General: Lethargic HEENT: Atraumatic, PERRLA, EOMI, Normocephalic Oral: Dry Mucosa Neck: Supple, No JVD, Negative Carotid Bruits Lungs: - - diminished breath sounds bibasally, no wheezes or crackles.On 10L of oxygen by nasal canula. Cardiovascular: Normal S1, Normal S2, No murmurs, Irregular Rate - afib, rate controlled, Murmur - grade 2-3 systolic murmur, loudest over aortic region Abdomen: Bowel Sounds Present, Soft, Non Tender Extremities: No clubbing, No cyanosis, No edema, Capillary Refill Less than 3 Seconds Skin: No rashes, No breakdown Musculoskeletal: No Tenderness to Palpation of Joints or Extremities Lymphatic: No Cervical, Supraclavicular, or Inguinal Adenopathy Neurological: Cranial nerves II-XII grossly intact Psych/Mental Status: - - lethargic Laboratory Results 03/24/20 06:30: Crossmatch See Detail 03/24/20 06:30: Crossmatch See Detail 03/24/20 17:15: Troponin I 1.510 H* 03/24/20 17:15: Hgb 7.7 L, Hct 26.1 L 03/24/20 21:00: Troponin I 1.390 H* 03/25/20 05:50: WBC 7.0, RBC 3.58 L, Hgb 8.7 L, Hct 29.6 L, MCV 82.7, MCH 24.3 L , MCHC 29.4 L, RDW Std Deviation 52.4 H, RDW Coeff of Jerry 17.4 H, Plt Count 237, MPV 9.4, Immature Gran % (Auto) 0.400, Neut % (Auto) 58.7, Lymph % (Auto) 26.6, [place] % (Auto) 13.3 H, Eos % (Auto) 0.7, Baso % (Auto) 0.3, Absolute Neuts (auto) 4.1, Absolute Lymphs (auto) 1.86, Nucleated RBC % 0.4 03/25/20 05:50: Sodium 137, Potassium 3.2 L, Chloride 101, Carbon Dioxide 29.0, Anion Gap 7, BUN 23 H, Creatinine 1.01, Estim Creat Clear Calc 37.36, Est GFR (MDRD) Af Amer 68, Est GFR (MDRD) Non-Af 56 L, BUN/Creatinine Ratio 22.8 H, Glucose 69 L, Calcium 8.7 03/25/20 08:15: Urine Color Yellow, Urine Clarity Clear, Urine pH 6.0, Ur Specific [place] 1.015, Urine Protein Negative, Urine Glucose (UA) Normal, Urine Ketones Negative, Urine Occult Blood Negative, Urine Nitrite Negative, Urine Bilirubin Negative, Urine Urobilinogen Normal, Ur Leukocyte Esterase Negative, Urine RBC 0 SEEN, Urine WBC 0 SEEN, Ur Squamous Epith Cells 0 SEEN, Urine Bacteria 0 SEEN, Urine Mucus 0 SEEN Diagnostic Data Chest X-Ray 03/24/20 23:46 IMPRESSION: Mild cardiomegaly. No evidence for acute cardiopulmonary pathology. Electronically Signed: Mega Rodriguez MD at 1:08 EST , Service support , Current Medications Acetaminophen (Acetaminophen 325 Mg Tablet) 650 mg PO Q6H PRN PRN PRN Reason: Pain Score 1-10/Temp > 100.7 F Albuterol/Ipratropium (Ipratropium/Albuterol Sulfate 3 Ml Ampul.Neb) 3 ml INHALATION 4X/DAY PRN PRN Reason: SOB &/OR WHEEZING Budesonide (Budesonide Respules 0.5 Mg/2 Ml Ampul.Neb.) 0.5 mg INHALATION Q12H.RT [facility] Last Admin: 03/25/20 07:14 Dose: 0.5 mg Documented by: Calamine/Phenol (Menthol/Lanolin/Calamine/Znox 113 Gm Tube) 1 applic TOPICAL 4X/DAY [facility]; Protocol Last Admin: 03/25/20 10:47 Dose: 1 applicatio Documented by: Carvedilol (Carvedilol 12.5 Mg Tablet) 12.5 mg PO BID [facility] Last Admin: 03/25/20 10:50 Dose: Not Given Documented by: Cholecalciferol (Cholecalciferol (Vit D3) 1,000 Unit (25mcg)) 1,000 unit PO DAILYCM [facility] Last Admin: 03/25/20 07:56 Dose: Not Given Documented by: Ezetimibe (Ezetimibe 10 Mg Tablet) 10 mg PO QHS [facility] Last Admin: 03/24/20 21:11 Dose: 10 mg Documented by: Escitalopram Oxalate (Escitalopram Oxalate 10 Mg Tablet) 10 mg PO DAILY [facility] Last Admin: 03/25/20 10:50 Dose: Not Given Documented by: Pantoprazole Sodium 40 mg/ (Sodium Chloride) 110 mls @ 330 mls/hr IV Q12 [facility] Last Infusion: 03/25/20 11:08 Dose: Infused Documented by: Levothyroxine Sodium (Levothyroxine 100 Mcg Tablet) 100 mcg PO DAILY@0600 [facility] Last Admin: 03/25/20 05:01 Dose: Not Given Documented by: Lisinopril (Lisinopril 40 Mg Tablet) 40 mg PO DAILY [facility] Last Admin: 03/25/20 10:51 Dose: Not Given Documented by: Lorazepam (Lorazepam 2 Mg/Ml Syringe) 0.5 mg IV Q4H PRN PRN PRN Reason: agitation with BIPAP Last Admin: 03/25/20 01:23 Dose: 0.5 mg Documented by: Multivitamins/Minerals (Multivitamins,Ther W-Minerals Tablet) 1 tablet PO DAILY@0800 [facility] Last Admin: 03/25/20 07:56 Dose: Not Given Documented by: Nystatin (Nystatin Powder 15gm Bottle) 1 applic TOPICAL TID [facility]; Protocol Last Admin: 03/25/20 07:54 Dose: 1 applicatio Documented by: Ondansetron HCl (Ondansetron 4 Mg/2 Ml Vial) 4 mg IV Q8H PRN PRN PRN Reason: NAUSEA/VOMITING Last Admin: 03/24/20 16:36 Dose: 4 mg Documented by: Promethazine HCl (Promethazine 25 Mg/Ml Syringe) 6.25 mg IV Q4H PRN PRN PRN Reason: NAUSEA/VOMITING Last Admin: 03/25/20 00:44 Dose: 6.25 mg Documented by: Sodium Chloride (0.9% Saline Lock 10 Ml Syringe) 10 - 40 ml IV UD PRN PRN Reason: SALINE FLUSH Last Admin: 03/25/20 11:13 Dose: 20 ml Documented by: STROKE Vital Signs/Narrative: Vital Signs Temp Pulse Resp BP Pulse Ox 03/25/20 13:04 98.2 F 61 20 H 125/70 H 99 03/25/20 12:48 99 03/25/20 12:40 100 03/25/20 11:21 98.2 F 83 18 130/83 H 100 Medical Necessity - Tobacco Use Smoking Status: Former smoker Assessment/Plan All Active Problems (Last Updated 01/20/20 @ 18:54 by Debbie Clayton) Gastrointestinal hemorrhage with melena (Acute) Elevated LFTs (Acute 12/26/19) Non-STEMI (non-ST elevated myocardial infarction) (Acute 01/20/20) H/O coronary artery bypass surgery (Resolved 1999) 80 y/o admitted with a complaint of melena stools and found to have acute on chronic anemia #Acute on chronic anemia due to anticoagulant use and GI bleed * s/p transfusion of 3 units of PRBCs * Hb today is 8.7 * xarelto and aspirin on hold * on IV pantoprazole 40mg bid * general surgery on board: EGD and colonoscopy deferred for now o/a of tenuous respiratory status. to be done once patient improves * * #Lower GI bleed * as above * #CAD s/p CABG * hold aspirin. Continue carvedilol and lisinopril as well as ezetimibe * cardiology consulted per request of general surgery for pre op risk stratification o/a of history of recent admission for heart failure * troponins ordered; initial troponin was 0.24. this is likely demand ischemia f rom anemia. * #Nonstemi * troponins peaked at 1.51; trended down slightly to 1.39 today * cardiology on board; this is likely due to demand ischemia from anemia * per cardiology, to optimise her medical therapy * 2D echo shows EF of 35% with mild to moderate's segmental systolic dysfunction and severely enlarged left atrium as well as moderately enlarged right atrium and stage III diastolic dysfunction. no significant change from previous echo * #Acute hypoxic respiratory failure * Multifactorial, due to heart failure and acute on chronic anemia * Was on 10 L of oxygen this morning. * Pulmonology consulted. Breathing treatments with bronchodilators. * Titrate oxygen to maintain saturation above 90%. Being diuresed with IV Lasix. 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 BNP was elevated at 640. 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 Hold as pirin o/a of GI bleed #Afib: on carvedilol. xarelto on hold o/a of GI bleed. # Hypothyroidism: on synthroid DVT prophylaxis: SCDs GI prophylaxis: PPI Code status: DNRCCA. * Of note, daughter requested that she can stay with her mother throughout the night as her mother gets agitated at night and is only calmed by the presence of her daughter or other family members. Nursing staff informed to see if this can be facilitated. Inpatient E&M: [id number] [facility] L3
[2020-03-25] MEDS: Carvedilol 12.5 MG Tablet PO (23:21)
[2020-03-25] MEDS: Ezetimibe 10 MG Tablet PO (23:21)
[2020-03-26] VITALS (15 sets, daily range): BP systolic 99–148; BP diastolic 51–90; PULSE 67–92; RESP 16–23; TEMP 36.3–37.3; O2SAT 97–100
--- NOTE | 2020-03-26 | COLBX_PTH ---
PATIENT: RENETTA ARREGUIN LOC: [facility] U#:[id number] AGE/SX: 80/F ROOM: [facility] RE03/24/[address]: Dr. Raulito Kessler DO : 1940 BED: 1 DIS: 03/30/2020 SPEC #: [id number] RECD: 03/26/20 16:47 STATUS: EMANUEL REFernando #: [id number] TRACEE: 03/26/20 00:[address]: Arvind Maloney DEPT: SURGICAL PATHOLOGY RECD BY: Anton Barrera ENTERED: 03/29/20 10:48 SP TYPE: COLON BX OTHR DR: MD Dr. Raulito Mercado DO Dr. Nana Yaa Koram, MD Dr. Peter Katsaros, MD Dr. Robert D Cebul, MD Tissues: A - Duodenum, NOS B - Gastric mucous membrane C - Esophageal mucous membrane Procedures: Special Stain Group I Surgery Specimen Level IV GMS Stain (control) Comments: @ Ordering doctor for SUIV edited from to @ john DELA CRUZ at 03/29/20 1249 @ Submitting doctor edited from to @ john DELA CRUZ at 03/29/20 1249 HEADER OPERATION: Colonoscopy, EGD ([facility] [place]) PRE-OP DIAGNOSIS: GI bleed TISSUE SUBMITTED: A - Duodenum biopsy, B - Antrum biopsy for H. pylori and path, C - Distal esophagus biopsy MICROSCOPIC DIAGNOSIS A. Duodenum, biopsy: No pathologic change. B. Gastric antrum, biopsy: Chronic gastritis. See comment. C. Distal esophagus, biopsy: Mild acute esophagitis. Negative for fungal organisms. See comment. AM:emily 03/30/2020 COMMENT B. The results of immunohistochemistry for Helicobacter pylori will be reported separately ([id number]). C. GMS stain with matched control was used in the evaluation of this case. MICROSCOPIC DESCRIPTION Slides are reviewed. GROSS DESCRIPTION A - Received in fixative is one container labeled with the patient's name and designated duodenum biopsy. The specimen consists of one irregular fragment of light watters soft tissue that measures 0.2 x 0.2 x 0.1 cm. The specimen is totally submitted in one cassette. B - Received in fixative is one container labeled with the patient's name and designated antrum biopsy. The specimen consists of one irregular fragment of light watters soft tissue that measures 0.5 x 0.3 x 0.1 cm. The specimen is totally submitted in one cassette. C - Received in fixative is one container labeled with the patient's name and designated distal esophagus biopsy. The specimen consists of one irregular fragment of light watters soft tissue that measures 0.7 x 0.2 x <0.1 cm. The specimen is totally submitted in one cassette. / AM:emily 03/29/20 TC:2 CPT: 27894 x3, 55423
[2020-03-26 05:33] LABS: Absolute Lymphocyte Count 1.01 X10^3/uL (0.83-4.51); Absolute Neutrophil Count 6.4 X10^3/uL (2.0-7.7); Basophil# 0.03 X10^3/uL; Basophil% 0.3 % (0-1); Eosinophil# 0.03 X10^3/uL; Eosinophils% 0.3 % (0-5); Hematocrit 30.5 % (37-47); Hemoglobin 8.8 g/dL (12.0-15.0); Lymphocyte # 1.01 X10^3/ul (4.0); Lymphocyte % 11.6 % (19-41); Mean Corp Hgb Conc 28.9 g/dL (32-36); Mean Corpuscular Hgb 24.5 pg (27.0-32.0); Mean Platelet Vol. 9.3 fl (6.2-12.0); Monocyte# 1.22 X10^3/uL; NRBC Flagged by Analyzer 0.2 % (0-5); Neutrophil # 6.37 X10^3/uL (2.7-7.7); Neutrophil % 73.5 % (47-70); Platelet Count 241 K/mm3 (150-450); RBC Distribution Width CV 17.7 % (11.6-14.6); RBC Distribution Width SD 54.2 fl (35.1-43.9); Red Blood Count 3.59 M/mm3 (4.2-5.4); White Blood Count 8.7 K/mm3 (4.4-11.0)
[2020-03-26 05:50] LABS: Anion Gap 6 (5-15); BUN 16 mg/dL (7-18); Calcium,Total 8.5 mg/dL (8.5-10.1); Chloride 105 mmol/L (98-107); Creatinine, Serum 0.84 mg/dL (0.55-1.02); EST Glomerular Filtration Rate 69 mL/min (>60); Est Glom Filt Rate - Afr Amer 84 mL/min (>60); Estimated Creatinine Clearance 44.92 ml/min; Glucose 81 mg/dL (74-106); Potassium 4.1 mmol/L (3.5-5.1); Sodium Level 140 mmol/L (136-145)
--- NOTE | 2020-03-26 06:00 | PCM.PN.SRG ---
Patient Problems: Active and Suspected Problems (Last Updated 01/23/20 @ 07:26 by Debbie Clayton) Gastrointestinal hemorrhage with melena (Acute) Subjective: Patient resting. Daughter is in the room. No specific complaints. With assistance she was able to get out of bed to the bathroom yesterday. No complaints of abdominal pain. Still on 4 L/min of oxygen - Physical Exam Vitals/I&O's: Vital Signs Temp Pulse Resp BP Pulse Ox 98.3 F 80 18 130/84 H 97 03/25/20 21:30 03/25/20 21:30 03/25/20 21:30 03/25/20 21:30 03/25/20 21:30 Oxygen Flow Rate (L/min) 4 Oxygen Delivery Method Nasal Cannula Weight: 187 lb 13.341 oz Body Mass Index (BMI) 32.7 Finger Stick Blood Glucose 135 Intake and Output for Last 24 Hours 03/24/20 03/25/20 03/26/20 23:59 23:59 23:59 Intake Total 1921 / 2881 1580 / 1580 Output Total 900 / 900 450 / 450 Balance 1020 1130 / 1130 Abdomen: Soft, Non Tender Laboratory Results 03/25/20 05:50: WBC 7.0, RBC 3.58 L, Hgb 8.7 L, Hct 29.6 L, MCV 82.7, MCH 24.3 L, MCHC 29.4 L, RDW Std Deviation 52.4 H, RDW Coeff of Jerry 17.4 H, Plt Count 237, MPV 9.4, Immature Gran % (Auto) 0.400, Neut % (Auto) 58.7, Lymph % (Auto) 26.6, Hughes % (Auto) 13.3 H, Eos % (Auto) 0.7, Baso % (Auto) 0.3, Absolute Neuts (auto) 4.1, Absolute Lymphs (auto) 1.86, Nucleated RBC % 0.4 03/25/20 05:50: Sodium 137, Potassium 3.2 L, Chloride 101, Carbon Dioxide 29.0, Anion Gap 7, BUN 23 H, Creatinine 1.01, Estim Creat Clear Calc 37.36, Est GFR (MDRD) Af Amer 68, Est GFR (MDRD) Non-Af 56 L, BUN/Creatinine Ratio 22.8 H, Glucose 69 L, Calcium 8.7 03/25/20 08:15: Urine Color Yellow, Urine Clarity Clear, Urine pH 6.0, Ur Specific [place] 1.015, Urine Protein Negative, Urine Glucose (UA) Normal, Urine Ketones Negative, Urine Occult Blood Negative, Urine Nitrite Negative, Urine Bilirubin Negative, Urine Urobilinogen Normal, Ur Leukocyte Esterase Negative, Urine RBC 0 SEEN, Urine WBC 0 SEEN, Ur Squamous Epith Cells 0 SEEN, Urine Bacteria 0 SEEN, Urine Mucus 0 SEEN 03/26/20 05:12: WBC 8.7, RBC 3.59 L, Hgb 8.8 L, Hct 30.5 L, MCV 85.0, MCH 24.5 L, MCHC 28.9 L, RDW Std Deviation 54.2 H, RDW Coeff of Jerry 17.7 H, Plt Count 241, MPV 9.3, Immature Gran % (Auto) 0.300, Neut % (Auto) 73.5 H, Lymph % (Auto) 11.6 L, Hughes % (Auto) 14.0 H, Eos % (Auto) 0.3, Baso % (Auto) 0.3, Absolute Neuts (auto) 6.4, Absolute Lymphs (auto) 1.01, Nucleated RBC % 0.2 03/26/20 05:12: Sodium 140, Potassium 4.1, Chloride 105, Carbon Dioxide 29.0, Anion Gap 6, BUN 16, Creatinine 0.84, Estim Creat Clear Calc 44.92, Est GFR (MDRD) Af Amer 84, Est GFR (MDRD) Non-Af 69, BUN/Creatinine Ratio 19.0, Glucose 81, Calcium 8.5 Current Medications Acetaminophen (Acetaminophen 325 Mg Tablet) 650 mg PO Q6H PRN PRN PRN Reason: Pain Score 1-10/Temp > 100.7 F Albuterol/Ipratropium (Ipratropium/Albuterol Sulfate 3 Ml Ampul.Neb) 3 ml INHALATION 4X/DAY PRN PRN Reason: SOB &/OR WHEEZING Budesonide (Budesonide Respules 0.5 Mg/2 Ml Ampul.Neb.) 0.5 mg INHALATION Q12H.RT JENNIFER Last Admin: 03/25/20 07:14 Dose: 0.5 mg Documented by: Calamine/Phenol (Menthol/Lanolin/Calamine/Znox 113 Gm Tube) 1 applic TOPICAL 4X/DAY [facility]; Protocol Last Admin: 03/25/20 23:20 Dose: 1 applicatio Documented by: Carvedilol (Carvedilol 12.5 Mg Tablet) 12.5 mg PO BID [facility] Last Admin: 03/25/20 23:21 Dose: 12.5 mg Documented by: Cholecalciferol (Cholecalciferol (Vit D3) 1,000 Unit (25mcg)) 1,000 unit PO DAILYCM [facility] Last Admin: 03/25/20 07:56 Dose: Not Given Documented by: Ezetimibe (Ezetimibe 10 Mg Tablet) 10 mg PO QHS [facility] Last Admin: 03/25/20 23:21 Dose: 10 mg Documented by: Escitalopram Oxalate (Escitalopram Oxalate 10 Mg Tablet) 10 mg PO DAILY [facility] Last Admin: 03/25/20 10:50 Dose: Not Given Documented by: Pantoprazole Sodium 40 mg/ (Sodium Chloride) 110 mls @ 330 mls/hr IV Q12 [facility] Last Infusion: 03/25/20 23:35 Dose: Infused Documented by: Levothyroxine Sodium (Levothyroxine 100 Mcg Tablet) 100 mcg PO DAILY@0600 [facility] Last Admin: 03/25/20 05:01 Dose: Not Given Documented by: Lisinopril (Lisinopril 40 Mg Tablet) 40 mg PO DAILY [facility] Last Admin: 03/25/20 10:51 Dose: Not Given Documented by: Lorazepam (Lorazepam 2 Mg/Ml Syringe) 0.5 mg IV Q4H PRN PRN PRN Reason: agitation with BIPAP Last Admin: 03/25/20 01:23 Dose: 0.5 mg Documented by: Multivitamins/Minerals (Multivitamins,Ther W-Minerals Tablet) 1 tablet PO DAILY@0800 [facility] Last Admin: 03/25/20 07:56 Dose: Not Given Documented by: Nystatin (Nystatin Powder 15gm Bottle) 1 applic TOPICAL TID [facility]; Protocol Last Admin: 03/25/20 23:21 Dose: 1 applicatio Documented by: Ondansetron HCl (Ondansetron 4 Mg/2 Ml Vial) 4 mg IV Q8H PRN PRN PRN Reason: NAUSEA/VOMITING Last Admin: 03/24/20 16:36 Dose: 4 mg Documented by: Promethazine HCl (Promethazine 25 Mg/Ml Syringe) 6.25 mg IV Q4H PRN PRN PRN Reason: NAUSEA/VOMITING Last Admin: 03/25/20 00:44 Dose: 6.25 mg Documented by: Sodium Chloride (0.9% Saline Lock 10 Ml Syringe) 10 - 40 ml IV UD PRN PRN Reason: SALINE FLUSH Last Admin: 03/25/20 11:13 Dose: 20 ml Documented by: Medical Necessity - Tobacco Use Smoking Status: Former smoker Assessment/Plan All Active Problems (Last Updated 01/20/20 @ 18:54 by Debbie Clayton) Gastrointestinal hemorrhage with melena (Acute) Elevated LFTs (Acute 12/26/19) Non-STEMI (non-ST elevated myocardial infarction) (Acute 01/20/20) H/O coronary artery bypass surgery (Resolved 1999) 80-year-old female. Improving oxygen requirements. Improved laboratory with a hemoglobin of 8.8. I discussed with the patient and her daughter my involvement with planned esophagogastroduodenoscopy and colonoscopy and inspecting for potential source of blood loss. They are aware and have had an opportunity ask and have questions answered. They are additionally aware that the patient was felt not to be medically stable yet to pursue this today. Pending her ongoing progress I could reschedule for Sunday or Sunday of next week. This is the next time when full endoscopy staffing would be available. At this time I am awaiting cardiology and medical clearance and then will try to schedule as appropriate
[2020-03-26] MEDS: Nystatin Powder 15gm Bottle 1 APPLIC TOPICAL ×3 (06:13→20:46)
[2020-03-26] MEDS: Budesonide Respules 0.5 MG/2 ML AMPUL.NEB. INHALATION ×2 (06:56→18:43)
[2020-03-26] MEDS: 0.9% Saline Lock 10 ML Syringe IV ×3 (08:50→20:53)
[2020-03-26] MEDS: Polyethylene Glycol 3350 17 GM PACKET 51 GM PO (08:50)
[2020-03-26] MEDS: Furosemide 40 MG/4 ML Vial IV (08:50)
[2020-03-26] MEDS: Menthol/Lanolin/Calamine/Znox 113 GM Tube 1 APPLIC TOPICAL ×4 (08:50→20:45)
[2020-03-26] MEDS: Acetaminophen 325 MG Tablet 650 MG PO (10:20)
--- NOTE | 2020-03-26 10:35 | CASEMGMT ---
Addendum entered by Lourdes Garcia 03/26/20 13:33: This RN CM has still not heard back from [facility] on acceptance so call placed to them again at this time. Message left with intake to call Vernell GE CM back with decision on pt acceptance. Pam GE CM Original Note: This RN CM to room to discuss discharge planning with pt/daughter at this time. Pt is currently on BSC. Pt has prn oxygen thru [facility] currently. Daughter states they would like pt set up with [facility] for SN, PT/OT as she has been with them multiple times in the past and declines HHC list at this time. Referral faxed to [facility] and call to [facility] to notify of referral at this time. Per Chandrika at [facility], she will give this RN CM a call to see if they can accept pt at this time. Green sheet left on chart for continuous home oxygen need thru [facility] and HHC. Pam GE CM
--- NOTE | 2020-03-26 10:43 | PN_ITS ---
Patient Problems: Active and Suspected Problems (Last Updated 01/23/20 @ 07:26 by Debbie Clayton) Gastrointestinal hemorrhage with melena (Acute) Subjective: Patient seen and examined. Daughter was by her bedside. SHe was more alert this morning and had no complaints. She said she felt fine. She is down to 4L of oxygen. Review of systems is otherwise negative. Hemoglobin is 8.8. Per cardiology, it is ok for patient to have the EGD and colonoscopy today as she is still at high risk for the EGD and colonoscopy, and risk profile is unlikely to global director air and climate change the weekend. General surgery informed. For EGD and colonoscopy later today. Vitals/I&O's: Vital Signs Temp Pulse Resp BP Pulse Ox 99.1 F 75 23 H 130/84 H 100 03/26/20 06:07 03/26/20 08:00 03/26/20 06:56 03/25/20 21:30 03/26/20 06:56 Oxygen Flow Rate (L/min) 4 Oxygen Delivery Method Nasal Cannula Weight: 187 lb 13.341 oz Body Mass Index (BMI) 32.7 Finger Stick Blood Glucose 135 Intake and Output for Last 24 Hours 03/24/20 03/25/20 03/26/20 23:59 23:59 23:59 Intake Total 1921 / 2881 1580 / 1580 Output Total 900 / 900 450 / 450 Balance 1020 1130 / 1130 General: Lethargic, alert and more communicative today HEENT: Atraumatic, PERRLA, EOMI, Normocephalic Oral: Dry Mucosa Neck: Supple, No JVD, Negative Carotid Bruits Lungs: - - diminished breath sounds bibasally, no wheezes or crackles.On 4L of oxygen by nasal canula. Cardiovascular: Normal S1, Normal S2, No murmurs, Irregular Rate - afib, rate controlled, Murmur - grade 2-3 systolic murmur, loudest over aortic region Abdomen: Bowel Sounds Present, Soft, Non Tender Extremities: No clubbing, No cyanosis, No edema, Capillary Refill Less than 3 Seconds Skin: No rashes, No breakdown Musculoskeletal: No Tenderness to Palpation of Joints or Extremities Lymphatic: No Cervical, Supraclavicular, or Inguinal Adenopathy Neurological: Cranial nerves II-XII grossly intact Psych/Mental Status: - - lethargic Laboratory Results 03/26/20 05:12: WBC 8.7, RBC 3.59 L, Hgb 8.8 L, Hct 30.5 L, MCV 85.0, MCH 24.5 L , MCHC 28.9 L, RDW Std Deviation 54.2 H, RDW Coeff of Jerry 17.7 H, Plt Count 241, MPV 9.3, Immature Gran % (Auto) 0.300, Neut % (Auto) 73.5 H, Lymph % (Auto) 11.6 L, [place] % (Auto) 14.0 H, Eos % (Auto) 0.3, Baso % (Auto) 0.3, Absolute Neuts (auto) 6.4, Absolute Lymphs (auto) 1.01, Nucleated RBC % 0.2 03/26/20 05:12: Sodium 140, Potassium 4.1, Chloride 105, Carbon Dioxide 29.0, Anion Gap 6, BUN 16, Creatinine 0.84, Estim Creat Clear Calc 44.92, Est GFR (MDRD) Af Amer 84, Est GFR (MDRD) Non-Af 69, BUN/Creatinine Ratio 19.0, Glucose 81, Calcium 8.5 Current Medications Acetaminophen (Acetaminophen 325 Mg Tablet) 650 mg PO Q6H PRN PRN PRN Reason: Pain Score 1-10/Temp > 100.7 F Last Admin: 03/26/20 10:20 Dose: 650 mg Documented by: Albuterol/Ipratropium (Ipratropium/Albuterol Sulfate 3 Ml Ampul.Neb) 3 ml INHALATION 4X/DAY PRN PRN Reason: SOB &/OR WHEEZING Budesonide (Budesonide Respules 0.5 Mg/2 Ml Ampul.Neb.) 0.5 mg INHALATION Q12H.RT JENNIFER Last Admin: 03/26/20 06:56 Dose: 0.5 mg Documented by: Calamine/Phenol (Menthol/Lanolin/Calamine/Znox 113 Gm Tube) 1 applic TOPICAL 4X/DAY JENNIFER; Protocol Last Admin: 03/25/20 23:20 Dose: 1 applicatio Documented by: Carvedilol (Carvedilol 12.5 Mg Tablet) 12.5 mg PO BID JENNIFER Last Admin: 03/25/20 23:21 Dose: 12.5 mg Documented by: Cholecalciferol (Cholecalciferol (Vit D3) 1,000 Unit (25mcg)) 1,000 unit PO [facility]ILYCM [facility] Last Admin: 03/25/20 07:56 Dose: Not Given Documented by: Ezetimibe (Ezetimibe 10 Mg Tablet) 10 mg PO QHS [facility] Last Admin: 03/25/20 23:21 Dose: 10 mg Documented by: Escitalopram Oxalate (Escitalopram Oxalate 10 Mg Tablet) 10 mg PO DAILY [facility] Last Admin: 03/25/20 10:50 Dose: Not Given Documented by: Pantoprazole Sodium 40 mg/ (Sodium Chloride) 110 mls @ 330 mls/hr IV Q12 [facility] Last Infusion: 03/25/20 23:35 Dose: Infused Documented by: Levothyroxine Sodium (Levothyroxine 100 Mcg Tablet) 100 mcg PO DAILY@0600 [facility] Last Admin: 03/26/20 06:14 Dose: Not Given Documented by: Lisinopril (Lisinopril 40 Mg Tablet) 40 mg PO DAILY [facility] Last Admin: 03/25/20 10:51 Dose: Not Given Documented by: Lorazepam (Lorazepam 2 Mg/Ml Syringe) 0.5 mg IV Q4H PRN PRN PRN Reason: agitation with BIPAP Last Admin: 03/25/20 01:23 Dose: 0.5 mg Documented by: Multivitamins/Minerals (Multivitamins,Ther W-Minerals Tablet) 1 tablet PO DAILY@0800 [facility] Last Admin: 03/25/20 07:56 Dose: Not Given Documented by: Nystatin (Nystatin Powder 15gm Bottle) 1 applic TOPICAL TID [facility]; Protocol Last Admin: 03/26/20 06:13 Dose: 1 applicatio Documented by: Ondansetron HCl (Ondansetron 4 Mg/2 Ml Vial) 4 mg IV Q8H PRN PRN PRN Reason: NAUSEA/VOMITING Last Admin: 03/24/20 16:36 Dose: 4 mg Documented by: Promethazine HCl (Promethazine 25 Mg/Ml Syringe) 6.25 mg IV Q4H PRN PRN PRN Reason: NAUSEA/VOMITING Last Admin: 03/25/20 00:44 Dose: 6.25 mg Documented by: Sodium Chloride (0.9% Saline Lock 10 Ml Syringe) 10 - 40 ml IV UD PRN PRN Reason: SALINE FLUSH Last Admin: 03/26/20 08:50 Dose: 10 ml Documented by: STROKE Vital Signs/Narrative: Vital Signs Pulse Resp Pulse Ox 03/26/20 08:00 75 03/26/20 06:56 69 23 H 100 Medical Necessity - Tobacco Use Smoking Status: Former smoker Assessment/Plan All Active Problems (Last Updated 01/20/20 @ 18:54 by Debbie Clayton) Gastrointestinal hemorrhage with melena (Acute) Elevated LFTs (Acute 12/26/19) Non-STEMI (non-ST elevated myocardial infarction) (Acute 01/20/20) H/O coronary artery bypass surgery (Resolved 1999) #Acute on chronic anemia due to anticoagulant use and GI bleed * s/p transfusion of 3 units of PRBCs * Hb trmsind 8.7 * xarelto and aspirin on hold * on IV pantoprazole 40mg bid * general surgery on board; for EGD and colonoscopy later today. * patient and daughter counseled that she was high risk for the EGD and colonoscopy due to her nonstemi and respiratory failure. * #Lower GI bleed * as above * #CAD s/p CABG * hold aspirin. Continue carvedilol and lisinopril as well as ezetimibe * cardiology on board. * troponins ordered; initial troponin was 0.24. this is likely demand ischemia from anemia. * #Nonstemi * troponins peaked at 1.51; trended down slightly to 1.39 today * cardiology on board; this is likely due to demand ischemia from anemia * per cardiology, to optimise her medical therapy * 2D echo shows EF of 35% with mild to moderate's segmental systolic dysfunction and severely enlarged left atrium as well as moderately enlarged right atrium and stage III diastolic dysfunction. no significant change from previous echo * #Acute hypoxic respiratory failure * Multifactorial, due to heart failure and acute on chronic anemia * down to 4L of oxygen today, from 10L yesterday * Pulmonology on board. Breathing treatments with bronchodilators. * Titrate oxygen to maintain saturation above 90%. Being diuresed with IV Lasix. 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 BNP was elevated at 640. 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 Hold aspirin o/a of GI bleed #Afib: on carvedilol. xarelto on hold o/a of GI bleed. # Hypothyroidism: on synthroid DVT prophylaxis: SCDs GI prophylaxis: PPI Code status: DNRCCA. * Inpatient E&M: 33431 Subs Hosp L3
--- NOTE | 2020-03-26 14:40 | NURSING ---
Pt to endoscopy w/Janina from surgery.
--- NOTE | 2020-03-26 15:05 | CASEMGMT ---
JOO CAMPUZANO NOTE: Call placed to Yuriy @ [facility]. He states they are able to accept pt. He is aware pt may be ready for discharge over the weekend. Pt out of room for procedure at this time. JOO Morillo, made aware [facility] able to accept and states she will notify pt when she returns to room. Nadia RILEY RN CM
--- NOTE | 2020-03-26 15:30 | IMM_PTH ---
PATIENT: RENETTA ARREGUIN LOC: [facility] U#:[id number] AGE/SX: 80/F ROOM: [facility] RE03/24/[address]: Dr. Raulito Kessler DO : 1940 BED: 1 DIS: 03/30/2020 SPEC #: [id number] RECD: 03/29/20 12:05 STATUS: EMANUEL REFernando #: [id number] TRACEE: 03/26/20 15:[address]: Arvind Maloney DEPT: IMMUNOHISTOCHEMISTRY RECD BY: Sruthi Melara ENTERED: 03/29/20 12:06 SP TYPE: IMMUNO OTHR DR: MD Dr. Raulito Mercado DO Dr. Nana Yaa Koram, MD Dr. Peter Katsaros, MD Tissues: B - Stomach, NOS Procedures: H Pylori (initial) PHYSICIAN & INSTITUTION [place] [address] SPECIMEN INFORMATION: Tissue Source: B - Antrum biopsy Clinical Info: GI bleed Specimen Number: [id number] CPT code: 49306 METHODOLOGY: Deparaffinized sections of prefer/formalin-fixed tissue or PAP/DQ stained slides are incubated with monoclonal/polyclonal antibodies/oligonucleotide probes. Localization is made via biotin free immunoperoxidase method. Appropriate controls are performed and reacted as expected. Results on target cell population are indicated in the following table: RESULTS: ANTIBODY / CLONE RESULT Block B H Pylori (polyclonal) negative These tests were developed and their performance characteristics determined by [facility]. They may not have been cleared or approved by the U.S. Food and Drug Administration. The FDA has determined that such clearance or approval is not necessary. INTERPRETATION: B. Antrum, biopsy: Negative for Helicobacter pylori organisms. AM:emily 03/30/2020
--- NOTE | 2020-03-26 16:16 | OP.EGD_ITS ---
Patient Name: Dolores Cespedes Procedure Date: 03/26/2020 3:38 PM Date of : 1940 Age: 80 Procedure: Upper GI endoscopy Indications: Iron deficiency anemia secondary to chronic blood loss Providers: Arvind Maloney MD Medicines: See the Anesthesia note for documentation of the administered medications Complications: No immediate complications. Procedure: Pre-Anesthesia Assessment: - Prior to the procedure, a History and Physical was performed, and patient medications and allergies were reviewed. The patient's tolerance of previous anesthesia was also reviewed. The risks and benefits of the procedure and the sedation options and risks were discussed with the patient. All questions were answered, and informed consent was obtained. Prior Anticoagulants: The patient has taken no previous anticoagulant or antiplatelet agents. ASA Grade Assessment: IV - A patient with severe systemic disease that is a constant threat to life. After reviewing the risks and benefits, the patient was deemed in satisfactory condition to undergo the procedure. After obtaining informed consent, the endoscope was passed under direct vision. Throughout the procedure, the patient's blood pressure, pulse, and oxygen saturations were monitored continuously. The Endoscope was introduced through the mouth, and advanced to the second part of duodenum. The upper GI endoscopy was accomplished without difficulty. The patient tolerated the procedure well. Scope In: 3:45:11 PM Scope Out: 3:51:19 PM Total Procedure Duration Time 0 hours 6 minutes 8 seconds Findings: A small hiatal hernia was present. The Z-line was variable and was found 38 cm from the incisors. Biopsies were taken with a cold forceps for histology. Diffuse mildly erythematous mucosa without bleeding was found in the gastric antrum. Biopsies were taken with a cold forceps for histology. The examined duodenum was normal. Biopsies were taken with a cold forceps for histology. Impression: - Small hiatal hernia. - Z-line variable, 38 cm from the incisors. Biopsied. - Erythematous mucosa in the antrum. Biopsied. - Normal examined duodenum. Biopsied. Recommendation: - Return patient to hospital [facility] for ongoing care. - Resume previous diet. - Continue present medications. - Telephone my office for pathology results in 1 week. No signs for source of blood loss Procedure Code(s): --- Professional --- 99433, Esophagogastroduodenoscopy, flexible, transoral; with biopsy, single or multiple Diagnosis Code(s): --- Professional --- K44.9, Diaphragmatic hernia without obstruction or gangrene K22.8, Other specified diseases of esophagus K31.89, Other diseases of stomach and duodenum D50.0, Iron deficiency anemia secondary to blood loss (chronic) CPT copyright 2017 [employer]. All rights reserved. The codes documented in this report are preliminary and upon middle school art teacher review may be revised to meet current compliance requirements. Arvind Maloney MD 03/26/2020 4:16:27 PM This report has been signed electronically. Number of Addenda: 0 Note Initiated On: 03/26/2020 3:38 PM
--- NOTE | 2020-03-26 16:16 | OP.CCLET_ITS ---
03/26/2020 Chase Bryan Re : Upper GI endoscopy procedure for Dolores Cespedes Dear Irvin This procedure was performed on Thursday, March 26, 2020. My impressions and recommendations are as follows: Impressions : - Small hiatal hernia. - Z-line variable, 38 cm from the incisors. Biopsied. - Erythematous mucosa in the antrum. Biopsied. - Normal examined duodenum. Biopsied. Recommendations : - Return patient to hospital [facility] for ongoing care. - Resume previous diet. - Continue present medications. - Telephone my office for pathology results in 1 week. No signs for source of blood loss My findings are described in the full procedure note, which is enclosed. If I can be of further assistance, please feel free to contact me at Doctor phone number(s): Work: . Sincerely, Arvind Maloney MD 03/26/2020 4:16:27 PM This report has been signed electronically.
--- NOTE | 2020-03-26 16:20 | OP.COLON_ITS ---
Patient Name: Dolores Cespedes Procedure Date: 03/26/2020 3:52 PM Date of : 1940 Age: 80 Procedure: Colonoscopy Indications: Iron deficiency anemia secondary to chronic blood loss Providers: Arvind Maloney MD Medicines: See the Anesthesia note for documentation of the administered medications Patient Profile: Last Colonoscopy: date unknown. Complications: No immediate complications. Procedure: Pre-Anesthesia Assessment: - Prior to the procedure, a History and Physical was performed, and patient medications and allergies were reviewed. The patient's tolerance of previous anesthesia was also reviewed. The risks and benefits of the procedure and the sedation options and risks were discussed with the patient. All questions were answered, and informed consent was obtained. Prior Anticoagulants: The patient has taken no previous anticoagulant or antiplatelet agents. ASA Grade Assessment: IV - A patient with severe systemic disease that is a constant threat to life. After reviewing the risks and benefits, the patient was deemed in satisfactory condition to undergo the procedure. After I obtained informed consent, the scope was passed under direct vision. Throughout the procedure, the patient's blood pressure, pulse, and oxygen saturations were monitored continuously. The Colonoscope was introduced through the anus and advanced to the cecum, identified by appendiceal orifice and ileocecal valve. The colonoscopy was performed without difficulty. The patient tolerated the procedure well. The quality of the bowel preparation was adequate to identify polyps. The ileocecal valve and the appendiceal orifice were photographed. Scope In: 3:54:58 PM Scope Withdrawal Time 0 hours 6 minutes 22 seconds Scope Out: 4:08:12 PM Total Procedure Duration Time 0 hours 13 minutes 14 seconds Findings: The digital rectal exam findings include thrombosed external hemorrhoids, non-thrombosed internal hemorrhoids and internal hemorrhoids that prolapse with straining, but spontaneously regress to the resting position (Grade II). Multiple diverticula were found in the sigmoid colon and descending colon. The colon (entire examined portion) was moderately tortuous. Advancing the scope required using manual pressure. The exam was otherwise without abnormality. Impression: - Thrombosed external hemorrhoids, non-thrombosed internal hemorrhoids and internal hemorrhoids that prolapse with straining, but spontaneously regress to the resting position (Grade II) found on digital rectal exam. - Diverticulosis in the sigmoid colon and in the descending colon. - Tortuous colon. - The examination was otherwise normal. - No specimens collected. Recommendation: - Return patient to hospital [facility] for ongoing care. - Resume previous diet. - Continue present medications. - Repeat colonoscopy is not recommended due to current age (66 years or older) for screening purposes. No source of bleeding identified Procedure Code(s): --- Professional --- 09081, Colonoscopy, flexible; diagnostic, including collection of specimen(s) by brushing or washing, when performed (separate procedure) Diagnosis Code(s): --- Professional --- K64.1, Second degree hemorrhoids K64.5, Perianal venous thrombosis D50.0, Iron deficiency anemia secondary to blood loss (chronic) K57.30, Diverticulosis of large intestine without perforation or abscess without bleeding Q43.8, Other specified congenital malformations of intestine CPT copyright 2017 [employer]. All rights reserved. The codes documented in this report are preliminary and upon branch assistant review may be revised to meet current compliance requirements. Arvind Maloney MD 03/26/2020 4:20:21 PM This report has been signed electronically. Number of Addenda: 0 Note Initiated On: 03/26/2020 3:52 PM
--- NOTE | 2020-03-26 16:20 | OP.CCLET_ITS ---
03/26/2020 Chase Bryan Re : Colonoscopy procedure for Dolores Cespedes Dear Irvin This procedure was performed on Thursday, March 26, 2020. My impressions and recommendations are as follows: Impressions : - Thrombosed external hemorrhoids, non-thrombosed internal hemorrhoids and internal hemorrhoids that prolapse with straining, but spontaneously regress to the resting position (Grade II) found on digital rectal exam. - Diverticulosis in the sigmoid colon and in the descending colon. - Tortuous colon. - The examination was otherwise normal. - No specimens collected. Recommendations : - Return patient to hospital [facility] for ongoing care. - Resume previous diet. - Continue present medications. - Repeat colonoscopy is not recommended due to current age (66 years or older) for screening purposes. No source of bleeding identified My findings are described in the full procedure note, which is enclosed. If I can be of further assistance, please feel free to contact me at Doctor phone number(s): Work: . Sincerely, Arvind Maloney MD 03/26/2020 4:20:21 PM This report has been signed electronically.
[2020-03-26] MEDS: Escitalopram Oxalate 10 MG Tablet PO (18:40)
[2020-03-26] MEDS: Carvedilol 12.5 MG Tablet PO (20:46)
[2020-03-26] MEDS: Ezetimibe 10 MG Tablet PO (20:46)
[2020-03-27] VITALS (12 sets, daily range): BP systolic 98–130; BP diastolic 51–62; PULSE 66–85; RESP 14–20; TEMP 36.2–37; O2SAT 87–98
[2020-03-27] MEDS: Acetaminophen 325 MG Tablet 650 MG PO ×3 (03:22→16:24)
[2020-03-27] MEDS: Levothyroxine 100 MCG Tablet PO (05:35)
[2020-03-27] MEDS: Nystatin Powder 15gm Bottle 1 APPLIC TOPICAL ×2 (05:35→16:26)
[2020-03-27 06:56] LABS: Absolute Lymphocyte Count 1.18 X10^3/uL (0.83-4.51); Absolute Neutrophil Count 6.9 X10^3/uL (2.0-7.7); Basophil# 0.01 X10^3/uL; Basophil% 0.1 % (0-1); Eosinophil# 0.02 X10^3/uL; Eosinophils% 0.2 % (0-5); Hematocrit 30.9 % (37-47); Hemoglobin 8.6 g/dL (12.0-15.0); Lymphocyte # 1.18 X10^3/ul (4.0); Lymphocyte % 12.4 % (19-41); Mean Corp Hgb Conc 27.8 g/dL (32-36); Mean Corpuscular Hgb 23.9 pg (27.0-32.0); Mean Corpuscular Volume 85.8 fL (81-99); Mean Platelet Vol. 9.5 fl (6.2-12.0); Monocyte# 1.44 X10^3/uL; Monocyte% 15.1 % (0-10); NRBC Flagged by Analyzer 0 % (0-5); Neutrophil # 6.85 X10^3/uL (2.7-7.7); Neutrophil % 71.8 % (47-70); Platelet Count 249 K/mm3 (150-450); RBC Distribution Width CV 17.9 % (11.6-14.6); White Blood Count 9.5 K/mm3 (4.4-11.0)
[2020-03-27] MEDS: Budesonide Respules 0.5 MG/2 ML AMPUL.NEB. INHALATION ×2 (07:14→19:13)
[2020-03-27 07:18] LABS: Anion Gap 2 (5-15); BUN 14 mg/dL (7-18); BUN/Creat Ratio 16.5 RATIO (10-20); Calcium,Total 8.8 mg/dL (8.5-10.1); Chloride 100 mmol/L (98-107); Creatinine, Serum 0.85 mg/dL (0.55-1.02); EST Glomerular Filtration Rate 69 mL/min (>60); Est Glom Filt Rate - Afr Amer 83 mL/min (>60); Estimated Creatinine Clearance 44.39 ml/min; Glucose 128 mg/dL (74-106); Potassium 3.8 mmol/L (3.5-5.1); Sodium Level 136 mmol/L (136-145)
[2020-03-27] MEDS: Multivitamins,Ther W-Minerals Tablet 1 TABLET PO (08:38)
[2020-03-27] MEDS: Escitalopram Oxalate 10 MG Tablet PO (08:39)
[2020-03-27] MEDS: Carvedilol 12.5 MG Tablet PO (08:39)
[2020-03-27] MEDS: Menthol/Lanolin/Calamine/Znox 113 GM Tube 1 APPLIC TOPICAL ×4 (08:40→20:49)
[2020-03-27] MEDS: 0.9% Saline Lock 10 ML Syringe IV ×3 (08:45→20:49)
--- NOTE | 2020-03-27 12:07 | CM.UR ---
Was alerted by Charge nurse Meka that patient now wants to go to SNF. States that therapy did recommend SNF. Went in and spoke to the patient and family member present. Patient is only willing to go to TCU. She states she will not go to a correction. Pierre Love RN, [facility].
[2020-03-27] MEDS: Ondansetron 4 MG/2 ML Vial IV (12:54)
--- NOTE | 2020-03-27 13:09 | PCM.PN.HOSP ---
Patient Problems: Active and Suspected Problems (Last Updated 01/23/20 @ 07:26 by Debbie Clayton) Gastrointestinal hemorrhage with melena (Acute) Subjective: Patient seen and examined. Patient remains very frail and lethargic.She has no active complaints. However she worked with physical therapy today and did very poorly. She will threfore need placement for acute rehab. This was discussed with patient and her daughter, and daughter is in agreement; patient is however reticent now. She had EGD and colonoscopy which didnt show any evidence of bleeding. Vitals/I&O's: Vital Signs Temp Pulse Resp BP Pulse Ox 98.6 F 81 14 103/51 L 87 03/27/20 08:32 03/27/20 08:32 03/27/20 08:32 03/27/20 08:32 03/27/20 09:55 Oxygen Flow Rate (L/min) [ 1 AMBULATION with Oxygen] Oxygen Flow Rate (L/min) 0.5 Oxygen Delivery Method Nasal Cannula Weight: 187 lb 13.341 oz Body Mass Index (BMI) 32.7 Finger Stick Blood Glucose 135 Intake and Output for Last 24 Hours 03/25/20 03/26/20 03/27/20 23:59 23:59 23:59 Intake Total 1580 / 1580 1180 / 1420 1090 / 1090 Output Total 450 / 450 600 / 850 550 / 550 Balance 1130 / 1130 580 / 570 540 / 540 General: very lethargic. HEENT: Atraumatic, PERRLA, EOMI, Normocephalic Oral: Dry Mucosa Neck: Supple, No JVD, Negative Carotid Bruits Lungs: - - diminished breath sounds bibasally, no wheezes or crackles.On 0.5L of oxygen by nasal canula. Cardiovascular: Normal S1, Normal S2, No murmurs, Irregular Rate - afib, rate controlled, Murmur - grade 2-3 systolic murmur, loudest over aortic region Abdomen: Bowel Sounds Present, Soft, Non Tender Extremities: No clubbing, No cyanosis, No edema, Capillary Refill Less than 3 Seconds Skin: No rashes, No breakdown Musculoskeletal: No Tenderness to Palpation of Joints or Extremities Lymphatic: No Cervical, Supraclavicular, or Inguinal Adenopathy Neurological: Cranial nerves II-XII grossly intact Psych/Mental Status: - - very weak and lethargic Microbiology Past 72 Hours 03/25/20 08:15 Urine Catheter - Catheter Urine Culture - Final Culture exhibits no growth. Laboratory Results 03/27/20 06:44: WBC 9.5, RBC 3.60 L, Hgb 8.6 L, Hct 30.9 L, MCV 85.8, MCH 23.9 L, MCHC 27.8 L, RDW Std Deviation 56.0 H, RDW Coeff of Jerry 17.9 H, Plt Count 249, MPV 9.5, Immature Gran % (Auto) 0.400, Neut % (Auto) 71.8 H, Lymph % (Auto) 12.4 L, [place] % (Auto) 15.1 H, Eos % (Auto) 0.2, Baso % (Auto) 0.1, Absolute Neuts (auto) 6.9, Absolute Lymphs (auto) 1.18, Nucleated RBC % 0 03/27/20 06:44: Sodium 136, Potassium 3.8, Chloride 100, Carbon Dioxide 34.0 H, Anion Gap 2 L, BUN 14, Creatinine 0.85, Estim Creat Clear Calc 44.39, Est GFR (MDRD) Af Amer 83, Est GFR (MDRD) Non-Af 69, BUN/Creatinine Ratio 16.5, Glucose 128 H, Calcium 8.8 Diagnostic Data Chest X-Ray 03/24/20 23:46 IMPRESSION: Mild cardiomegaly. No evidence for acute cardiopulmonary pathology. Electronically Signed: Mega Rodriguez MD at 1:08 EST , Service support , Current Medications Acetaminophen (Acetaminophen 325 Mg Tablet) 650 mg PO Q6H PRN PRN PRN Reason: Pain Score 1-10/Temp > 100.7 F Last Admin: 03/27/20 10:20 Dose: 650 mg Documented by: Albuterol/Ipratropium (Ipratropium/Albuterol Sulfate 3 Ml Ampul.Neb) 3 ml INHALATION 4X/DAY PRN PRN Reason: SOB &/OR WHEEZING Budesonide (Budesonide Respules 0.5 Mg/2 Ml Ampul.Neb.) 0.5 mg INHALATION Q12H.RT JENNIFER Last Admin: 03/27/20 07:14 Dose: 0.5 mg Documented by: Calamine/Phenol (Menthol/Lanolin/Calamine/Znox 113 Gm Tube) 1 applic TOPICAL 4X/DAY [facility]; Protocol Last Admin: 03/27/20 08:40 Dose: 1 applicatio Documented by: Carvedilol (Carvedilol 12.5 Mg Tablet) 12.5 mg PO BID [facility] Last Admin: 03/27/20 08:39 Dose: 12.5 mg Documented by: Cholecalciferol (Cholecalciferol (Vit D3) 1,000 Unit (25mcg)) 1,000 unit PO DAILYCM [facility] Last Admin: 03/27/20 08:39 Dose: 1,000 unit Documented by: Ezetimibe (Ezetimibe 10 Mg Tablet) 10 mg PO QHS [facility] Last Admin: 03/26/20 20:46 Dose: 10 mg Documented by: Escitalopram Oxalate (Escitalopram Oxalate 10 Mg Tablet) 10 mg PO DAILY [facility] Last Admin: 03/27/20 08:39 Dose: 10 mg Documented by: Pantoprazole Sodium 40 mg/ (Sodium Chloride) 110 mls @ 330 mls/hr IV Q12 [facility] Last Infusion: 03/27/20 09:12 Dose: Infused Documented by: Levothyroxine Sodium (Levothyroxine 100 Mcg Tablet) 100 mcg PO DAILY@0600 [facility] Last Admin: 03/27/20 05:35 Dose: 100 mcg Documented by: Lisinopril (Lisinopril 40 Mg Tablet) 40 mg PO DAILY [facility] Last Admin: 03/27/20 08:40 Dose: Not Given Documented by: Lorazepam (Lorazepam 2 Mg/Ml Syringe) 0.5 mg IV Q4H PRN PRN PRN Reason: agitation with BIPAP Last Admin: 03/25/20 01:23 Dose: 0.5 mg Documented by: Multivitamins/Minerals (Multivitamins,Ther W-Minerals Tablet) 1 tablet PO DAILY@0800 [facility] Last Admin: 03/27/20 08:38 Dose: 1 tablet Documented by: Nystatin (Nystatin Powder 15gm Bottle) 1 applic TOPICAL TID [facility]; Protocol Last Admin: 03/27/20 05:35 Dose: 1 applicatio Documented by: Ondansetron HCl (Ondansetron 4 Mg/2 Ml Vial) 4 mg IV Q8H PRN PRN PRN Reason: NAUSEA/VOMITING Last Admin: 03/27/20 12:54 Dose: 4 mg Documented by: Promethazine HCl (Promethazine 25 Mg/Ml Syringe) 6.25 mg IV Q4H PRN PRN PRN Reason: NAUSEA/VOMITING Last Admin: 03/25/20 00:44 Dose: 6.25 mg Documented by: Sodium Chloride (0.9% Saline Lock 10 Ml Syringe) 10 - 40 ml IV UD PRN PRN Reason: SALINE FLUSH Last Admin: 03/27/20 12:54 Dose: 20 ml Documented by: STROKE Vital Signs/Narrative: Vital Signs Pulse Ox Pulse Ox 03/27/20 09:55 92 87 Medical Necessity - Tobacco Use Smoking Status: Former smoker Assessment/Plan All Active Problems (Last Updated 01/20/20 @ 18:54 by Debbie Clayton) Gastrointestinal hemorrhage with melena (Acute) Elevated LFTs (Acute 12/26/19) Non-STEMI (non-ST elevated myocardial infarction) (Acute 01/20/20) H/O coronary artery bypass surgery (Resolved 1999) #Acute on chronic anemia due to anticoagulant use and GI bleed s/p transfusion of 3 units of PRBCs Hb today is 8.6 xarelto and aspirin on hold on IV pantoprazole 40mg bid general surgery on board; had EGD which showed a small hiatal hernia and diffuse mildly erythematous mucosa without bleeding in the gastric antrum which was biopsied colonoscopy showed thrombosed external hemorrhoids, nonthrombosed internal hemorrhoids and internal hemorrhoids that prolapse with straining but no bleeding. Diverticulosis in sigmoid colon and descending colon patient and daughter counseled that she would need to be off xarelto permanently #Lower GI bleed as above #CAD s/p CABG hold aspirin. Continue carvedilol and lisinopril as well as ezetimibe cardiology on board. troponins ordered; initial troponin was 0.24. this is likely demand ischemia from anemia. #Nonstemi cardiology on board; this is likely due to demand ischemia from anemia per cardiology, to optimise her medical therapy 2D echo shows EF of 35% with mild to moderate's segmental systolic dysfunction and severely enlarged left atrium as well as moderately enlarged right atrium and stage III diastolic dysfunction. no significant change from previous echo on carvedilol, ezetimibe and lisinopril #Acute hypoxic respiratory failure Multifactorial, due to heart failure and acute on chronic anemia down to 4L of oxygen today, from 10L yesterday Pulmonology on board. Breathing treatments with bronchodilators. Titrate oxygen to maintain saturation above 90%. Being diuresed with IV Lasix. 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 BNP was elevated at 640. 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 Hold aspirin o/a of GI bleed #Afib: on carvedilol. xarelto on hold o/a of GI bleed. Patient and daughter counseled that she would need to stop Xarelto permanently. They were counseled that she has had an increased risk of stroke due to A. fib but the risk of anticoagulating her outweigh the benefits. They are in agreement with this. # Hypothyroidism: on synthroid DVT prophylaxis: SCDs GI prophylaxis: PPI Code status: DNRCCA. Disposition: Patient too weak to be able to go home. Daughter amenable to patient going to an acute rehab facility for a brief period. Patient's is not very agreeable but wants to think about it. Inpatient E&M: 66870 Subs Hosp L2
--- NOTE | 2020-03-27 14:14 | CASEMGMT ---
SOCIAL WORK Updated by Estela CAMPUZANO, patient wanting SNF and only agreeable to TCU. Call to Referral Line, left message for Marce updating on referral. Plan: Referral to TCU Twila Gutierrez MSW, [employer]
[2020-03-27] MEDS: Ezetimibe 10 MG Tablet PO (20:48)
[2020-03-28] VITALS (12 sets, daily range): BP systolic 98–121; BP diastolic 55–80; PULSE 58–85; RESP 14–20; TEMP 36.3–36.9; O2SAT 95–99
[2020-03-28] MEDS: Levothyroxine 100 MCG Tablet PO (05:09)
[2020-03-28] MEDS: Nystatin Powder 15gm Bottle 1 APPLIC TOPICAL ×3 (05:09→20:51)
--- NOTE | 2020-03-28 06:17 | RAD_ITS ---
STUDY: X-RAY - RIGHT WRIST REASON FOR EXAM: Female, 80 years old. PAIN AND SWELLING TO RT WRIST AND HAND WITH NKI -- PATIENT UNABLE TO TELL ME WHERE THE PAIN WAS TECHNIQUE: 3 view(s) of the wrist were obtained. COMPARISON: X-ray and FINDINGS: There is generalized osteoporosis. Normal visualized distal radius and ulna. Normal radiocarpal articulation. There is a negative ulnar variance. Normal carpal bones. There is degenerative arthrosis of the navicular-greater multangular articulation. There is degenerative arthrosis of the carpometacarpal articulation of the thumb. Normal second through fifth carpometacarpal articulations. Normal visualized metacarpal bones. The soft tissue structures are unremarkable. RAD/Wrist min 3 Views IMPRESSION: Degenerative changes, as above. Osteoporosis. No demonstrated fracture, dislocation, or destructive osseous lesion. Electronically Signed: Mega Rodriguez MD at 7:54 EST , Service support ,
--- NOTE | 2020-03-28 06:17 | RAD_ITS ---
STUDY: X-RAY - RIGHT HAND REASON FOR EXAM: Female, 80 years old. PAIN AND SWELLING TO RT WRIST AND HAND WITH NKI -- PATIENT UNABLE TO TELL ME WHERE THE PAIN WAS TECHNIQUE: 3 view(s) of the hand. COMPARISON: X-ray wrist. FINDINGS: There is generalized osteoporosis. Normal radiocarpal articulation. Normal distal radioulnar joint. Normal visualized carpal bones. There is degenerative arthrosis of the navicular-greater multangular articulation. There is degenerative arthrosis of the carpometacarpal (CMC) articulation of the thumb. Normal second through fifth carpometacarpal joints. Normal metacarpi. There is degenerative arthrosis of the metacarpophalangeal (MCP) joints. There is degenerative arthrosis of the interphalangeal joint of the thumb with articular joint space narrowing. Normal proximal and distal phalanges of the thumb. There is degenerative arthrosis of multiple metacarpophalangeal (MCP) joints. There is degenerative arthrosis of multiple proximal and distal interphalangeal joints of the second through fifth fingers. Normal phalanges of the second through fifth fingers. The soft tissue structures are unremarkable. RAD/Hand Min 3 Views IMPRESSION: Degenerative changes. Osteoporosis. No demonstrated fracture, dislocation, or destructive osseous lesion. Electronically Signed: Mega Rodriguez MD at 7:34 EST , Service support ,
[2020-03-28] MEDS: Budesonide Respules 0.5 MG/2 ML AMPUL.NEB. INHALATION (06:41)
[2020-03-28 08:58] LABS: Absolute Lymphocyte Count 1.37 X10^3/uL (0.83-4.51); Absolute Neutrophil Count 5.5 X10^3/uL (2.0-7.7); Basophil# 0.03 X10^3/uL; Basophil% 0.4 % (0-1); Eosinophil# 0.06 X10^3/uL; Eosinophils% 0.7 % (0-5); Hematocrit 29.6 % (37-47); Hemoglobin 8.5 g/dL (12.0-15.0); Lymphocyte # 1.37 X10^3/ul (4.0); Lymphocyte % 17.1 % (19-41); Mean Corp Hgb Conc 28.7 g/dL (32-36); Mean Corpuscular Hgb 24.4 pg (27.0-32.0); Mean Corpuscular Volume 85.1 fL (81-99); Mean Platelet Vol. 9.5 fl (6.2-12.0); Monocyte# 1.03 X10^3/uL; Monocyte% 12.8 % (0-10); NRBC Flagged by Analyzer 0 % (0-5); Neutrophil % 68.6 % (47-70); Platelet Count 237 K/mm3 (150-450); RBC Distribution Width CV 17.8 % (11.6-14.6); RBC Distribution Width SD 55.4 fl (35.1-43.9); Red Blood Count 3.48 M/mm3 (4.2-5.4)
[2020-03-28] MEDS: Acetaminophen 325 MG Tablet 650 MG PO ×2 (09:31→16:09)
[2020-03-28] MEDS: Carvedilol 12.5 MG Tablet PO (09:32)
[2020-03-28] MEDS: Escitalopram Oxalate 10 MG Tablet PO (09:32)
[2020-03-28] MEDS: Multivitamins,Ther W-Minerals Tablet 1 TABLET PO (09:32)
[2020-03-28] MEDS: Menthol/Lanolin/Calamine/Znox 113 GM Tube 1 APPLIC TOPICAL ×3 (09:33→20:51)
[2020-03-28] MEDS: Pantoprazole Sodium 40 MG Tablet PO ×2 (11:17→20:54)
--- NOTE | 2020-03-28 12:07 | PCM.PN.HOSP ---
Patient Problems: Active and Suspected Problems (Last Updated 01/23/20 @ 07:26 by Debbie Clayton) Gastrointestinal hemorrhage with melena (Acute) Subjective: Patient seen and examined. She had no complaints though she remains lethargic. Review of systems otherwise negative. Vitals/I&O's: Vital Signs Temp Pulse Resp BP Pulse Ox 98.5 F 85 15 121/71 H 95 03/28/20 09:28 03/28/20 09:28 03/28/20 09:28 03/28/20 09:28 03/28/20 09:28 Oxygen Flow Rate (L/min) [ 1 AMBULATION with Oxygen] Oxygen Flow Rate (L/min) 1 Oxygen Delivery Method Nasal Cannula Weight: 187 lb 13.341 oz Body Mass Index (BMI) 32.7 Finger Stick Blood Glucose 135 Intake and Output for Last 24 Hours 03/26/20 03/27/20 03/28/20 23:59 23:59 23:59 Intake Total 1180 / 1420 1440 / 1840 400 / 400 Output Total 600 / 850 550 / 850 400 / 400 Balance 580 / 570 890 / 990 0 / 0 General: still lethargic. HEENT: Atraumatic, PERRLA, EOMI, Normocephalic Oral: Dry Mucosa Neck: Supple, No JVD, Negative Carotid Bruits Lungs: - - diminished breath sounds bibasally, no wheezes or crackles.On 1L of oxygen by nasal canula. Cardiovascular: Normal S1, Normal S2, No murmurs, Irregular Rate - afib, rate controlled, Murmur - grade 2-3 systolic murmur, loudest over aortic region Abdomen: Bowel Sounds Present, Soft, Non Tender Extremities: No clubbing, No cyanosis, No edema, Capillary Refill Less than 3 Seconds Skin: No rashes, No breakdown Musculoskeletal: No Tenderness to Palpation of Joints or Extremities Lymphatic: No Cervical, Supraclavicular, or Inguinal Adenopathy Neurological: Cranial nerves II-XII grossly intact Psych/Mental Status: - - still weak and lethargic Microbiology Past 72 Hours 03/25/20 08:15 Urine Catheter - Catheter Urine Culture - Final Culture exhibits no growth. Laboratory Results 03/28/20 08:46: WBC 8.0, RBC 3.48 L, Hgb 8.5 L, Hct 29.6 L, MCV 85.1, MCH 24.4 L, MCHC 28.7 L, RDW Std Deviation 55.4 H, RDW Coeff of Jerry 17.8 H, Plt Count 237, MPV 9.5, Immature Gran % (Auto) 0.400, Neut % (Auto) 68.6, Lymph % (Auto) 17.1 L, [place] % (Auto) 12.8 H, Eos % (Auto) 0.7, Baso % (Auto) 0.4, Absolute Neuts (auto) 5.5, Absolute Lymphs (auto) 1.37, Nucleated RBC % 0 Diagnostic Data Chest X-Ray 03/24/20 23:46 IMPRESSION: Mild cardiomegaly. No evidence for acute cardiopulmonary pathology. Electronically Signed: Mega Rodriguez MD at 1:08 EST , Service support , Hand X-Ray 03/28/20 06:17 IMPRESSION: Degenerative changes. Osteoporosis. No demonstrated fracture, dislocation, or destructive osseous lesion. Electronically Signed: Mega Rodriguez MD at 7:34 EST , Service support , Wrist X-Ray 03/28/20 06:17 IMPRESSION: Degenerative changes, as above. Osteoporosis. No demonstrated fracture, dislocation, or destructive osseous lesion. Electronically Signed: Mega Rodriguez MD at 7:54 EST , Service support , Current Medications Acetaminophen (Acetaminophen 325 Mg Tablet) 650 mg PO Q6H PRN PRN PRN Reason: Pain Score 1-10/Temp > 100.7 F Last Admin: 03/28/20 09:31 Dose: 650 mg Documented by: Albuterol/Ipratropium (Ipratropium/Albuterol Sulfate 3 Ml Ampul.Neb) 3 ml INHALATION 4X/DAY PRN PRN Reason: SOB &/OR WHEEZING Budesonide (Budesonide Respules 0.5 Mg/2 Ml Ampul.Neb.) 0.5 mg INHALATION Q12H.RT [facility] Last Admin: 03/28/20 06:41 Dose: 0.5 mg Documented by: Calamine/Phenol (Menthol/Lanolin/Calamine/Znox 113 Gm Tube) 1 applic TOPICAL 4X/DAY [facility]; Protocol Last Admin: 03/28/20 09:33 Dose: 1 applicatio Documented by: Carvedilol (Carvedilol 12.5 Mg Tablet) 12.5 mg PO BID [facility] Last Admin: 03/28/20 09:32 Dose: 12.5 mg Documented by: Cholecalciferol (Cholecalciferol (Vit D3) 1,000 Unit (25mcg)) 1,000 unit PO DAILYCM [facility] Last Admin: 03/28/20 09:32 Dose: 1,000 unit Documented by: Ezetimibe (Ezetimibe 10 Mg Tablet) 10 mg PO QHS [facility] Last Admin: 03/27/20 20:48 Dose: 10 mg Documented by: Escitalopram Oxalate (Escitalopram Oxalate 10 Mg Tablet) 10 mg PO DAILY [facility] Last Admin: 03/28/20 09:32 Dose: 10 mg Documented by: Hydralazine HCl (Hydralazine 20 Mg/Ml Vial) 10 mg IV Q4H PRN PRN PRN Reason: SBP > 160 Levothyroxine Sodium (Levothyroxine 100 Mcg Tablet) 100 mcg PO DAILY@0600 [facility] Last Admin: 03/28/20 05:09 Dose: 100 mcg Documented by: Lorazepam (Lorazepam 2 Mg/Ml Syringe) 0.5 mg IV Q4H PRN PRN PRN Reason: agitation with BIPAP Last Admin: 03/25/20 01:23 Dose: 0.5 mg Documented by: Multivitamins/Minerals (Multivitamins,Ther W-Minerals Tablet) 1 tablet PO DAILY@0800 [facility] Last Admin: 03/28/20 09:32 Dose: 1 tablet Documented by: Nystatin (Nystatin Powder 15gm Bottle) 1 applic TOPICAL TID [facility]; Protocol Last Admin: 03/28/20 05:09 Dose: 1 applicatio Documented by: Ondansetron HCl (Ondansetron 4 Mg/2 Ml Vial) 4 mg IV Q8H PRN PRN PRN Reason: NAUSEA/VOMITING Last Admin: 01/30/21 12:54 Dose: 4 mg Documented by: Pantoprazole Sodium (Pantoprazole Sodium 40 Mg Tablet) 40 mg PO BID [facility] Last Admin: 03/28/20 11:17 Dose: 40 mg Documented by: Promethazine HCl (Promethazine 25 Mg/Ml Syringe) 6.25 mg IV Q4H PRN PRN PRN Reason: NAUSEA/VOMITING Last Admin: 03/25/20 00:44 Dose: 6.25 mg Documented by: Sodium Chloride (0.9% Saline Lock 10 Ml Syringe) 10 - 40 ml IV UD PRN PRN Reason: SALINE FLUSH Last Admin: 03/27/20 20:49 Dose: 10 ml Documented by: STROKE Vital Signs/Narrative: Vital Signs Temp Pulse Resp BP Pulse Ox 03/28/20 09:28 98.5 F 85 15 121/71 H 95 Medical Necessity - Tobacco Use Smoking Status: Former smoker Assessment/Plan All Active Problems (Last Updated 01/20/20 @ 18:54 by Debbie Clayton) Gastrointestinal hemorrhage with melena (Acute) Elevated LFTs (Acute 12/26/19) Non-STEMI (non-ST elevated myocardial infarction) (Acute 01/20/20) H/O coronary artery bypass surgery (Resolved 1999) #Acute on chronic anemia due to anticoagulant use and GI bleed s/p transfusion of 3 units of PRBCs Hb today is 8.5 xarelto and aspirin discontinued will switch IV pantoprazole to PO pantoprazole general surgery on board; had EGD which showed a small hiatal hernia and diffuse mildly erythematous mucosa without bleeding in the gastric antrum which was biopsied colonoscopy showed thrombosed external hemorrhoids, nonthrombosed internal hemorrhoids and internal hemorrhoids that prolapse with straining but no bleeding. Diverticulosis in sigmoid colon and descending colon patient and daughter counseled that she would need to be off xarelto and aspirin permanently #Lower GI bleed as above #CAD s/p CABG aspirin on hold due to GI bleed as above. Continue carvedilol and lisinopril as well as ezetimibe cardiology on board. troponins ordered; initial troponin was 0.24. this is likely demand ischemia from anemia. #Nonstemi cardiology on board; this is likely due to demand ischemia from anemia per cardiology, to optimise her medical therapy 2D echo shows EF of 35% with mild to moderate's segmental systolic dysfunction and severely enlarged left atrium as well as moderately enlarged right atrium and stage III diastolic dysfunction. no significant change from previous echo on carvedilol, ezetimibe and lisinopril #Acute hypoxic respiratory failure Multifactorial, due to heart failure and acute on chronic anemia now down to 1L of oxygen Pulmonology on board. Breathing treatments with bronchodilators. Titrate oxygen to maintain saturation above 90%. 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 BNP was elevated at 640. 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 Hold aspirin o/a of GI bleed #Afib: on carvedilol. xarelto on hold o/a of GI bleed. They were counseled that she has had an increased risk of stroke due to A. fib but the risk of anticoagulating her outweigh the benefits. They are in agreement with this. # Hypothyroidism: on synthroid DVT prophylaxis: SCDs GI prophylaxis: PPI Code status: DNRCCA. Disposition: awaiting placement to rehab facility to get intensive physical therapy, with the goal of returning home eventually.. Inpatient E&M: 81741 Subs Hosp L2
[2020-03-28] MEDS: 0.9% Saline Lock 10 ML Syringe IV (16:09)
[2020-03-28] MEDS: Ezetimibe 10 MG Tablet PO (20:52)
[2020-03-29] VITALS (12 sets, daily range): BP systolic 125–145; BP diastolic 69–78; PULSE 59–89; RESP 14–21; TEMP 36–37.1; O2SAT 95–100
[2020-03-29 05:01] LABS: Allen Test Positive; Base Excess 7 mmol/L (-2 to +2); Bicarbonate 32.9 mmol/L (22-26); Blood Gas Specimen Type ART; O2 Delivery Device Cannula; PO2 117 mmHG (75-100); SITE L Radial; SO2 98 % (95-99); Total Carbon Dioxide 35 mmol/L; pCO2 60.2 mmHg (35-45); pH 7.35 (7.35-7.45)
[2020-03-29] MEDS: Nystatin Powder 15gm Bottle 1 APPLIC TOPICAL ×3 (05:06→20:30)
[2020-03-29] MEDS: Levothyroxine 100 MCG Tablet PO (05:06)
[2020-03-29 06:03] LABS: Absolute Lymphocyte Count 1.45 X10^3/uL (0.83-4.51); Absolute Neutrophil Count 3.3 X10^3/uL (2.0-7.7); Basophil# 0.03 X10^3/uL; Basophil% 0.5 % (0-1); Eosinophil# 0.13 X10^3/uL; Eosinophils% 2.3 % (0-5); Hematocrit 30.9 % (37-47); Hemoglobin 8.6 g/dL (12.0-15.0); Lymphocyte # 1.45 X10^3/ul (4.0); Mean Corp Hgb Conc 27.8 g/dL (32-36); Mean Corpuscular Hgb 24.1 pg (27.0-32.0); Mean Corpuscular Volume 86.6 fL (81-99); Mean Platelet Vol. 9.6 fl (6.2-12.0); Monocyte% 12.5 % (0-10); NRBC Flagged by Analyzer 0 % (0-5); Neutrophil # 3.25 X10^3/uL (2.7-7.7); Neutrophil % 58.3 % (47-70); Platelet Count 252 K/mm3 (150-450); RBC Distribution Width CV 17.8 % (11.6-14.6); RBC Distribution Width SD 57.1 fl (35.1-43.9); Red Blood Count 3.57 M/mm3 (4.2-5.4); White Blood Count 5.6 K/mm3 (4.4-11.0)
[2020-03-29 06:28] LABS: ALB/GLOB Ratio 0.6 RATIO (0.9-2.4); AST(SGOT) 19 U/L (15-37); Alanine Aminotransfer ALT/SGPT 12 U/L (13-56); Albumin, Serum 2.2 g/dL (3.2-5.0); Alkaline Phosphatase 51 U/L (45-117); Anion Gap 6 (5-15); BUN 16 mg/dL (7-18); BUN/Creat Ratio 25.2 RATIO (10-20); Calcium,Total 9.3 mg/dL (8.5-10.1); Chloride 101 mmol/L (98-107); Creatinine, Serum 0.63 mg/dL (0.55-1.02); EST Glomerular Filtration Rate 96 mL/min (>60); Est Glom Filt Rate - Afr Amer 116 mL/min (>60); Estimated Creatinine Clearance 37.74 ml/min; Globulin 3.9 g/dL (2.2-4.2); Glucose 92 mg/dL (74-106); Magnesium 2.2 mg/dL (1.6-2.6); Potassium 3.9 mmol/L (3.5-5.1); Protein, Total 6.1 g/dL (6.4-8.2); Sodium Level 137 mmol/L (136-145)
--- NOTE | 2020-03-29 09:30 | NURSING ---
This RN in room to assess patient and obtain VS. Pt responding to minimal commands, unable to state name, this RN lifted up right arm in which it fell to bed, able to hold left arm without drift, BLE drift. Came out to nurses station and Dr Kessler in room at [id number] to assess patient. MD stated no anticoagulation at this time d/t admission for GI bleed and asked this RN to order stat head CT without contrast.
--- NOTE | 2020-03-29 09:33 | CASEMGMT ---
Addendum entered by Jaye Haywood 03/29/20 11:11: SW went to patient's room to let her know she can go to TCU when ready. Patient was not answering SHAVONNE and wouldn't even look the direction of SHAVONNE. RN and physician were discussing patient as RN also noticed this. SHAVONNE received a call from Marce and patient was approved for TCU. SW let her know it will probably not be today. Plan: d/c to [facility] TCU when medically ready. Jaye ONTIVEROS Original Note: SHAVONNE spoke with Marce on [facility] referral phone and TCU can take patient at discharge pending pre-cert. SHAVONNE will notify patient and family. Plan: [facility] TCU pending insurance approval. Jaye ONTIVEROS
--- NOTE | 2020-03-29 09:42 | CT_ITS ---
STUDY: CT BRAIN WITHOUT CONTRAST REASON FOR EXAM: Female, 80 years old. RT SIDED NEGLECT RADIATION DOSAGE (If Supplied By Facility): CTDIvol = ( 44.99 ) mGy, DLP = ( 849.54 ) mGycm TECHNIQUE: Transaxial CT imaging of the brain was performed without administration of intravenous contrast material. Individualized dose optimization techniques were used for this CT. COMPARISON: Comparison is made with prior study dated 02/02/2020. FINDINGS: Normal soft tissue structures. Normal calvarium. There is mild cerebral atrophy with widening of the extra-axial spaces and ventricular dilatation. There are areas of decreased attenuation within the white matter tracts of the supratentorial brain, consistent with microvascular disease changes. Normal basal ganglia and thalami. Normal brainstem. There is mild cerebellar atrophy. There is no intracranial hemorrhage. There are no findings of an acute ischemic infarction. Atherosclerotic plaque formation of the vertebral arteries and cavernous portions of the internal carotid arteries bilaterally. Normal visualized paranasal sinuses. CT/Brain/Head without Contrast IMPRESSION: Chronic involutional changes of the brain. Electronically Signed: Milo Villanueva MD at 10:12 EST , Service support ,
[2020-03-29] MEDS: Menthol/Lanolin/Calamine/Znox 113 GM Tube 1 APPLIC TOPICAL ×3 (09:45→20:31)
--- NOTE | 2020-03-29 10:39 | MRI_ITS ---
ACR Level 3 findings have been noted. An addendum which confirms receipt of the report will follow. STUDY: MRI BRAIN WITHOUT CONTRAST REASON FOR EXAM: Female, 80 years old unresponsive patient with right-sided weakness. TECHNIQUE: Standardized multiplanar fat and water weighted pulse sequences were obtained. Several images are limited by patient motion. COMPARISON: CT of the head dated 03/29/2020. FINDINGS: There is mild cerebral atrophy with widening of the extra-axial spaces and ventricular dilatation. There are multiple white matter hyperintensities, distributed throughout the deep white matter tracts of the cerebral hemispheres, consistent with moderate chronic white matter ischemic changes. There is restricted diffusion within the peripheral cortex of the left parietal lobe, posterior left temporal lobe and occipital lobe suggesting sequela of an acute infarct. There is a small susceptibility artifact in the region of the tiffanie that may represent sequela of old petechial hemorrhage. There are prominent perivascular spaces (PVS) involving the basal ganglia. Normal thalami. There is no extra-axial fluid accumulation. Normal flow voids within the major intracranial circulation suggesting patency by spin echo criteria. Normal sella turcica, pituitary gland, infundibular stalk, optic chiasm and hypothalamus. Normal tectal plate and pineal gland. There are chronic white matter ischemic changes of the tiffanie. The midbrain and medulla are otherwise normal. Normal cerebellum. Normal basal cisterns. Normal bilateral temporal bones. Normal bilateral internal auditory canals. There are bilateral ocular lens implants with otherwise normal intraorbital contents. Normal visualized paranasal sinuses. Normal calvarium and skull base. Normal visualized soft tissue structures. Normal visualized upper cervical spine. MRI/Brain without Contrast IMPRESSION: 1. Involutional changes of the brain, as described above. 2. Sequela of acute infarct involving the left middle cerebral artery territory. Electronically Signed: Juana Lantigua MD at 15:43 EST , Service support ,
--- NOTE | 2020-03-29 13:22 | CASEMGMT ---
SHAVONNE spoke with patient's daughter letting her know that TCU can take patient when she is ready. She thanked SHAVONNE for the update. Jaye WILBURN MSW
--- NOTE | 2020-03-29 14:55 | CT_ITS ---
STUDY: CTA HEAD AND NECK WITH CONTRAST REASON FOR EXAM: Female, 80 years old. PAIN, CONFUSION, HTN, CABG, STENTS, ANEMIA, RT SIDED ENDARTERECTOMY, CVA RADIATION DOSAGE (If Supplied By Facility): CTDIvol = ( 32.38 ) mGy, DLP = ( 671.73 ) mGycm TECHNIQUE: CT angiography was performed with a multi-detector CT scanner. Data acquisition was obtained from the skull base through the vertex following intravenous administration of IV 100mL [id number]. MIP images were reconstructed from the axial data set. Post-processing of the angiographic images was performed, with multiplanar reformation and 3D reconstruction. Individualized dose optimization techniques were used for this CT. COMPARISON: No relevant priors. FINDINGS: Normal bilateral petrous carotid arteries. There is calcified plaque formation of the right cavernous carotid artery, without a cross-sectional luminal stenosis. There is calcified plaque formation of the left cavernous carotid artery, without a cross-sectional luminal stenosis. Normal right A1 segments of the anterior cerebral artery. Normal left A1 segments of the anterior cerebral artery. Normal intact anterior communicating artery (ACOM). Normal bilateral A2 segments of the anterior cerebral arteries. Normal right M1 and M2 segments of the middle cerebral arteries, with a normal M1 bifurcation. Normal left M1 and M2 segments of the middle cerebral arteries, with a normal M1 bifurcation. Normal right posterior communicating artery (PCOM). Normal left posterior communicating artery (PCOM). Normal bilateral vertebral arteries. Normal basilar artery with a normal basilar bifurcation. The visualized bilateral superior cerebellar (SCA) arteries are normal. Normal bilateral P1, P2 and visualized P3 segments of the posterior cerebral arteries. There is no demonstrated aneurysm of the [place] of [place]. There is no demonstrated abnormality of the visualized brain. AORTIC ARCH: There is atherosclerotic calcific plaque formation of the aortic arch and great vessels arising from the aortic arch, without a hemodynamically significant stenosis. There is a normal origin of the brachiocephalic, left common carotid, and left subclavian arteries. Atherosclerotic calcification at the origin of the left common carotid artery as well as the left subclavian artery and right brachiocephalic artery. RIGHT CAROTID ARTERIES: There is atherosclerotic plaque formation of the common carotid artery, but without a hemodynamically significant stenosis. Normal right common carotid bulb. There is mild atherosclerotic plaque formation of the origin of the right internal carotid artery with less than 50% cross sectional diameter stenosis. Normal visualized cervical portion of the right internal carotid artery. Normal origin of the right external carotid artery (ECA). LEFT CAROTID ARTERIES: There is atherosclerotic plaque formation of the common carotid artery, but without a hemodynamically significant stenosis. Normal left common carotid bulb. There is extensive atherosclerotic plaque formation of the origin of the left internal carotid artery with an estimated stenosis of greater than 70%. Normal visualized cervical portion of the left internal carotid artery. Normal origin of the left external carotid artery (ECA). VERTEBRAL ARTERIES: Normal bilateral vertebral arteries. CT/CTA Head AND Neck W/ Contrast IMPRESSION: Greater than 70% stenosis at the origin of the left internal carotid artery. Electronically Signed: Milo Villanueva MD at 15:39 EST , Service support ,
--- NOTE | 2020-03-29 16:01 | TELEMED_ITS ---
[facility] has confirmed receipt of a request for visit. This document confirms receipt of the order initiating the consult. To find the results of the consultation, please view the patient's reports for the scanned Telemed Consult.
--- NOTE | 2020-03-29 16:03 | PCM.PN.HOSP ---
Patient Problems: Active and Suspected Problems (Last Updated 01/23/20 @ 07:26 by Debbie Clayton) Gastrointestinal hemorrhage with melena (Acute) Subjective: Seen in the morning and patient stated that she was feeling well. Shortly afterwards, patient was noted to be having a change in mental status. Went to evaluate the patient and patient was having right-sided neglect. Stroke team was not called as patient not be a candidate for TPA given her recent hemorrhage. Vitals/I&O's: Vital Signs Temp Pulse Resp BP Pulse Ox 36.9 C 79 18 138/73 H 100 03/29/20 13:23 03/29/20 13:23 03/29/20 13:23 03/29/20 13:23 03/29/20 13:23 Oxygen Flow Rate (L/min) [ 1 AMBULATION with Oxygen] Oxygen Flow Rate (L/min) 2 Oxygen Delivery Method Nasal Cannula Weight: 85.2 kg Body Mass Index (BMI) 32.7 Finger Stick Blood Glucose 135 Intake and Output for Last 24 Hours 03/27/20 03/28/20 03/29/20 23:59 23:59 23:59 Intake Total 1440 / 1840 1650 / 1850 320 / 320 Output Total 550 / 850 700 / 875 650 / 650 Balance 890 / 990 950 / 975 -330 / -330 General: Confused HEENT: Atraumatic, Normocephalic, - - Eyes deviated to the left Oral: Moist Mucosa, No Gingival or Mucosal Lesions/ Ulcerations Neck: No Nodes, Thyroid Normal Size and Texture Lungs: Clear to auscultation, Normal air movement, No rhonchi, No wheeze, No rales Cardiovascular: Regular rate, Regular Rhythm, Normal S1, Normal S2, No murmurs Abdomen: Bowel Sounds Present, Soft, Non Tender, Non-Distended, No Hepato-splenomegaly Extremities: No edema, No Calf Tenderness Skin: No rashes, No breakdown Neurological: - - Eyes deviated to the left. Right-sided neglect. Does not move the right side spontaneously. Does not follow commands. Confused. Microbiology Past 72 Hours 03/25/20 08:15 Urine Catheter - Catheter Urine Culture - Final Culture exhibits no growth. Laboratory Results 03/29/20 04:55: Specimen Type ART, Sample Site L Radial, pH 7.35, Bicarbonate Actual 32.9 H, Total CO2 35, Base Excess 7 H, O2 Saturation 98, ABG pCO2 60.2 H, ABG pO2 117 H, Bruno Test Positive, O2 Delivery Device Cannula, Liter Flow 2.0 03/29/20 05:50: WBC 5.6, RBC 3.57 L, Hgb 8.6 L, Hct 30.9 L, MCV 86.6, MCH 24.1 L, MCHC 27.8 L, RDW Std Deviation 57.1 H, RDW Coeff of Jerry 17.8 H, Plt Count 252, MPV 9.6, Immature Gran % (Auto) 0.400, Neut % (Auto) 58.3, Lymph % (Auto) 26.0, [place] % (Auto) 12.5 H, Eos % (Auto) 2.3, Baso % (Auto) 0.5, Absolute Neuts (auto) 3.3, Absolute Lymphs (auto) 1.45, Nucleated RBC % 0 03/29/20 05:50: Sodium 137, Potassium 3.9, Chloride 101, Carbon Dioxide 30.0, Anion Gap 6, BUN 16, Creatinine 0.63, Estim Creat Clear Calc 37.74, Est GFR (MDRD) Af Amer 116, Est GFR (MDRD) Non-Af 96, BUN/Creatinine Ratio 25.2 H, Glucose 92, Calcium 9.3, Magnesium 2.2, Total Bilirubin 0.40, AST 19, ALT 12 L, Alkaline Phosphatase 51, Total Protein 6.1 L, Albumin 2.2 L, Globulin 3.9, Albumin/Globulin Ratio 0.6 L Clinical Impression(s) from Imaging Studies Chest X-Ray 03/24/20 23:46 IMPRESSION: Mild cardiomegaly. No evidence for acute cardiopulmonary pathology. Electronically Signed: Mega Rodriguez MD at 1:08 EST , Service support , Hand X-Ray 03/28/20 06:17 IMPRESSION: Degenerative changes. Osteoporosis. No demonstrated fracture, dislocation, or destructive osseous lesion. Electronically Signed: Mega Rodriguez MD at 7:34 EST , Service support , Wrist X-Ray 03/28/20 06:17 IMPRESSION: Degenerative changes, as above. Osteoporosis. No demonstrated fracture, dislocation, or destructive osseous lesion. Electronically Signed: Mega Rodriguez MD at 7:54 EST , Service support , Brain CT 03/29/20 09:42 IMPRESSION: Chronic involutional changes of the brain. Electronically Signed: Milo Villanueva MD at 10:12 EST , Service support , Brain MRI 03/29/20 10:39 IMPRESSION: 1. Involutional changes of the brain, as described above. 2. Sequela of acute infarct involving the left middle cerebral artery territory. Electronically Signed: Juana Lantigua MD at 15:43 EST , Service support , Head/Neck CTA 03/29/20 14:55 IMPRESSION: Greater than 70% stenosis at the origin of the left internal carotid artery. Electronically Signed: Milo Villanueva MD at 15:39 EST , Service support , Current Medications Acetaminophen (Acetaminophen 325 Mg Tablet) 650 mg PO Q6H PRN PRN PRN Reason: Pain Score 1-10/Temp > 100.7 F Last Admin: 03/28/20 16:09 Dose: 650 mg Documented by: Albuterol/Ipratropium (Ipratropium/Albuterol Sulfate 3 Ml Ampul.Neb) 3 ml INHALATION 4X/DAY PRN PRN Reason: SOB &/OR WHEEZING Budesonide (Budesonide Respules 0.5 Mg/2 Ml Ampul.Neb.) 0.5 mg INHALATION Q12H.RT JENNIFER Last Admin: 03/28/20 06:41 Dose: 0.5 mg Documented by: Calamine/Phenol (Menthol/Lanolin/Calamine/Znox 113 Gm Tube) 1 applic TOPICAL 4X/DAY [facility]; Protocol Last Admin: 03/29/20 14:03 Dose: 1 applicatio Documented by: Carvedilol (Carvedilol 12.5 Mg Tablet) 12.5 mg PO BID [facility] Last Admin: 03/29/20 10:45 Dose: Not Given Documented by: Cholecalciferol (Cholecalciferol (Vit D3) 1,000 Unit (25mcg)) 1,000 unit PO DAILYCM [facility] Last Admin: 03/29/20 10:45 Dose: Not Given Documented by: Ezetimibe (Ezetimibe 10 Mg Tablet) 10 mg PO QHS [facility] Last Admin: 03/28/20 20:52 Dose: 10 mg Documented by: Escitalopram Oxalate (Escitalopram Oxalate 10 Mg Tablet) 10 mg PO DAILY [facility] Last Admin: 03/29/20 10:46 Dose: Not Given Documented by: Hydralazine HCl (Hydralazine 20 Mg/Ml Vial) 10 mg IV Q4H PRN PRN PRN Reason: SBP > 160 Levothyroxine Sodium (Levothyroxine 100 Mcg Tablet) 100 mcg PO DAILY@0600 [facility] Last Admin: 03/29/20 05:06 Dose: 100 mcg Documented by: Lorazepam (Lorazepam 2 Mg/Ml Syringe) 0.5 mg IV Q4H PRN PRN PRN Reason: agitation with BIPAP Last Admin: 03/25/20 01:23 Dose: 0.5 mg Documented by: Multivitamins/Minerals (Multivitamins,Ther W-Minerals Tablet) 1 tablet PO DAILY@0800 [facility] Last Admin: 03/29/20 10:45 Dose: Not Given Documented by: Nystatin (Nystatin Powder 15gm Bottle) 1 applic TOPICAL TID [facility]; Protocol Last Admin: 03/29/20 14:02 Dose: 1 applicatio Documented by: Ondansetron HCl (Ondansetron 4 Mg/2 Ml Vial) 4 mg IV Q8H PRN PRN PRN Reason: NAUSEA/VOMITING Last Admin: 03/27/20 12:54 Dose: 4 mg Documented by: Pantoprazole Sodium (Pantoprazole Sodium 40 Mg Tablet) 40 mg PO BID [facility] Last Admin: 03/29/20 10:46 Dose: Not Given Documented by: Promethazine HCl (Promethazine 25 Mg/Ml Syringe) 6.25 mg IV Q4H PRN PRN PRN Reason: NAUSEA/VOMITING Last Admin: 03/25/20 00:44 Dose: 6.25 mg Documented by: Sodium Chloride (0.9% Saline Lock 10 Ml Syringe) 10 - 40 ml IV UD PRN PRN Reason: SALINE FLUSH Last Admin: 03/28/20 16:09 Dose: 10 ml Documented by: STROKE Vital Signs/Narrative: Vital Signs Temp Pulse Resp BP Pulse Ox 03/29/20 13:23 36.9 C 79 18 138/73 H 100 Medical Necessity - Tobacco Use Smoking Status: Former smoker Assessment/Plan All Active Problems (Last Updated 01/20/20 @ 18:54 by Debbie Clayton) Gastrointestinal hemorrhage with melena (Acute) Elevated LFTs (Acute 12/26/19) Non-STEMI (non-ST elevated myocardial infarction) (Acute 01/20/20) H/O coronary artery bypass surgery (Resolved 1999) 1. Acute left MCA stroke: Patient has known left carotid stenosis which was verified on CTA, this seems to be a likely cause of the stroke rather than the patient's known history of atrial fibrillation.. But also patient does have A. fib and was taken off apixaban for this GI bleed. Consult to teleneurology for further recommendations. 2. GI bleed: EGD showed no acute bleeding other than some erythematous mucosa which was biopsied. Colonoscopy showed thrombosed external hemorrhoids, nonthrombosed internal hemorrhoids. No active bleeding was identified. Certainly exacerbated by the patient's anticoagulation, which has been held. 3. Acute blood loss anemia: Secondary to GI bleed. Patient was transfused 3 units packed red blood cells. Hemoglobin has remained stable. Hold off any additional transfusions unless hemoglobin drops below 8. 4. Atrial fibrillation: On carvedilol. Anticoagulation held due to GI bleed. 5. Non-STEMI: Troponins peaked at 1.51. Seen by cardiology felt that this was a demand ischemic event. Recommending optimizing medical therapy. 6. VTE prophylaxis with SCDs. Discussed with the patient's daughter at bedside. Greater than 45 minutes which greater than 50% of time was counseling the patient's daughter about the acute events, possibility of stroke at that time and further work-up. Inpatient E&M: [id number] [place] [id number]
[2020-03-29] MEDS: Acetaminophen 325 MG Tablet 650 MG PO (20:29)
[2020-03-29] MEDS: Carvedilol 12.5 MG Tablet PO (20:30)
[2020-03-29] MEDS: Pantoprazole Sodium 40 MG Tablet PO (20:30)
[2020-03-30] VITALS (8 sets, daily range): BP systolic 118–128; BP diastolic 70–86; PULSE 61–80; RESP 16–18; TEMP 36.6–37; O2SAT 95–99
[2020-03-30] MEDS: Nystatin Powder 15gm Bottle 1 APPLIC TOPICAL (05:05)
[2020-03-30] MEDS: Levothyroxine 100 MCG Tablet PO (05:05)
[2020-03-30] MEDS: Acetaminophen 325 MG Tablet 650 MG PO ×2 (05:06→11:34)
[2020-03-30] MEDS: Budesonide Respules 0.5 MG/2 ML AMPUL.NEB. INHALATION (06:57)
--- NOTE | 2020-03-30 08:55 | CASEMGMT ---
SW did not complete a PHQ 9 as patient is confused A&O X1-2 Jaye WILBURN MSW
[2020-03-30] MEDS: Multivitamins,Ther W-Minerals Tablet 1 TABLET PO (09:25)
[2020-03-30] MEDS: Menthol/Lanolin/Calamine/Znox 113 GM Tube 1 APPLIC TOPICAL (09:25)
[2020-03-30] MEDS: Escitalopram Oxalate 10 MG Tablet PO (09:26)
[2020-03-30] MEDS: Pantoprazole Sodium 40 MG Tablet PO (09:26)
[2020-03-30] MEDS: Carvedilol 12.5 MG Tablet PO (09:26)
[2020-03-30] MEDS: 0.9% Saline Lock 10 ML Syringe IV (09:27)
--- NOTE | 2020-03-30 11:37 | TREXTCAR_ITS ---
- Diet 03/26/20 17:30 Diet: Regular - General Food consistency:: Pureed Liquid Consistency:: Regular/Thin Type of Dietary Supplement:: Ensure Clear Is pt able to select menu?: Yes Diet Comments: 240 ml ensure clear BID w/breakfast & dinner, TOTAL FEED, liquids by straw - Routine Orders/Code Status Code Status: [facility] - Therapies Weight Bearing: Full weight bearing Physical Therapy: Eval and Treat Occupational Therapy: Eval and Treat Speech Therapy: Eval and Treat - Allergies/Procedures Done in Hospital Allergies/Adverse Reactions: Allergies Sulfa (Sulfonamide Antibiotics) Allergy (Verified 03/24/20 06:26) Rash apixaban [From Eliquis] Adverse Reaction (Intermediate, Verified 03/24/20 06:26) GI upset, can't eat. tape Allergy (Uncoded 01/20/20 16:27) plastic tape causes blisters Can have cloth and paper Procedures: Colonoscopy, EGD - Type of Care/Length of Stay Estimated LOS: Convalescent Care Less Than 30 days Type of Care Needed: Skilled Rehab Potential: Fair Prognosis: Fair - Additional Orders/Day of Discharge Additional Orders: Head CT without contrast on or around 04/05/2020. If no evidence of bleed, then restart apixaban 5mg BID and stop aspirin. Day of Discharge: 03/30/20 - Dietary and Speech Recommendations Dietitian Recommendations/Changes: 240 ml ensure clear BID w/ meals Speech Linguistic Eval Summary: Pt oriented to self, month. [employer] reoriented pt to , place, and age. Pt required maximal verbal cues to follow simple commands (open eyes, open mouth, stick out tongue) with 50% accuracy. Pt responding to simple questions with short, 1-3 word responses. Pt spoke with reduced articulation, low volume, and quick rate. Plan for further cognitive- linguistic assessment as able in future sessions. - Follow Up Care Primary Care Physician: Chase Bryan MD [Primary Care Provider] - Within 2 Weeks Please Follow Up With: Ghanshyam Zavala [employer]OR[employer] TEAM MARKETING INTERN, SPORTS TEAM MARKETING INTERN-C When: 04/05/2020 Please Follow Up With: Calixto Otero MD - neurology When: 1-2 months
--- NOTE | 2020-03-30 11:44 | PCM.DC.SUM ---
Discharge Date and Diagnosis - Problem List Patient Problems: Active and Suspected Problems (Last Updated 01/23/20 @ 07:26 by Debbie Clayton) Gastrointestinal hemorrhage with melena (Acute) Date of Admission: 03/24/20 - Primary Discharge Diagnosis Acute Problems: Active Problems (Last Updated 01/23/20 @ 07:26 by Debbie Clayton) Gastrointestinal hemorrhage with melena (Acute) Acute Left MCA CVA - Secondary Discharge Diagnosis Chronic Problems: Chronic Problems (Last Updated 01/23/20 @ 07:26 by Debbie Clayton) Peripheral arterial disease (Chronic) History of hemorrhagic stroke with residual hemiparesis (Chronic) Acute and chronic respiratory failure (Chronic) 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 No evidence for acute cardiopulmonary pathology. Electronically Signed: Mega Rodriguez MD at 1:08 EST , Service support , Hand X-Ray 03/28/20 06:17 IMPRESSION: Degenerative changes. Osteoporosis. No demonstrated fracture, dislocation, or destructive osseous lesion. Electronically Signed: Mega Rodriguez MD at 7:34 EST , Service support , Wrist X-Ray 03/28/20 06:17 IMPRESSION: Degenerative changes, as above. Osteoporosis. No demonstrated fracture, dislocation, or destructive osseous lesion. Electronically Signed: Mega Rodriguez MD at 7:54 EST , Service support , Brain CT 03/29/20 09:42 IMPRESSION: Chronic involutional changes of the brain. Electronically Signed: Milo Villanueva MD at 10:12 EST , Service support , Brain MRI 03/29/20 10:39 IMPRESSION: 1. Involutional changes of the brain, as described above. 2. Sequela of acute infarct involving the left middle cerebral artery territory. Electronically Signed: Juana Lantigua MD at 15:43 EST , Service support , ADDENDUM: 03/29/20 1712 IMPRESSION: 1. Involutional changes of the brain, as described above. 2. Sequela of acute infarct involving the left middle cerebral artery territory. N.B. : Susannah Somers RN, RN, confirmed on 03/29/2020 17:05:03 (ET) that the healthcare facility has received the radiology report. Electronically Signed: Juana Lantigua MD at 15:43 EST , Service support , Head/Neck CTA 03/29/20 14:55 IMPRESSION: Greater than 70% stenosis at the origin of the left internal carotid artery. Electronically Signed: Milo Villanueva MD at 15:39 EST , Service support , [facility], general surgery SOC teleneurology Operations: None Procedures: Colonoscopy, Electroencephalogram, EGD Summary of Care Provided: The patient is a 80 year old F presents with dark stool. Patient was found to have GI bleed. EGD and colonoscopy were negative. Patient was transfused 3 units of packed red blood cells and hemoglobin has remained stable. On March 29, patient had change in mental status and was also having right-sided neglect. CAT scan was negative, however MRI showed a left MCA stroke. Patient evaluated by SOC teleneurology who felt that the stroke was embolic and not from the patient's known left carotid stenosis and recommended resumption of anticoagulation. Given the acute stroke did not recommend anticoagulation for another 7 days but recommended a CAT scan beforehand to make sure there was any hemorrhagic transformation. Case discussed counseling with the patient's family. Patient additionally also had non-ST patient myocardial infarction. Was evaluated by cardiology felt is related with demand given patient's acute blood loss anemia. [] 1. Acute left MCA stroke: Patient has known left carotid stenosis which was verified on CTA, this seems to be a likely cause of the stroke rather than the patient's known history of atrial fibrillation.. But also patient does have A. fib and was taken off apixaban for this GI bleed. DW [facility] teleneurologist on 03/29, he recommends holding off on anticoagulation for 7 days and then resume apixaban after CAT scan to make sure there was no hemorrhagic transformation. Statin as well. 2. GI bleed: EGD showed no acute bleeding other than some erythematous mucosa which was biopsied. Colonoscopy showed thrombosed external hemorrhoids, nonthrombosed internal hemorrhoids. No active bleeding was identified. Certainly exacerbated by the patient's anticoagulation, which has been held. Continue with the twice daily PPI. 3. Acute blood loss anemia: Secondary to GI bleed. Patient was transfused 3 units packed red blood cells. Hemoglobin has remained stable. Hold off any additional transfusions unless hemoglobin drops below 8. 4. Atrial fibrillation: On carvedilol. Anticoagulation held due to GI bleed. Resume after 7 days if hemoglobin remained stable and no hemorrhagic transformation. 5. Non-STEMI: Troponins peaked at 1.51. Seen by cardiology felt that this was a demand ischemic event. Recommending optimizing medical therapy. Patient Problems: Active and Suspected Problems (Last Updated 01/23/20 @ 07:26 by Debbie Clayton) Gastrointestinal hemorrhage with melena (Acute) - Physical Exam Vitals/I&O's: Vital Signs Temp Pulse Resp BP Pulse Ox 37.0 C 67 16 128/70 H 99 03/30/20 08:12 03/30/20 08:12 03/30/20 08:12 03/30/20 08:12 03/30/20 08:12 Oxygen Flow Rate (L/min) [ 1 AMBULATION with Oxygen] Oxygen Flow Rate (L/min) 2 Oxygen Delivery Method Nasal Cannula Weight: 85.2 kg Body Mass Index (BMI) 32.7 Finger Stick Blood Glucose 135 Intake and Output for Last 24 Hours 03/28/20 03/29/20 03/30/20 23:59 23:59 23:59 Intake Total 1650 / 1850 560 / 620 210 / 210 Output Total 700 / 875 875 / 875 Balance 950 / 975 -315 / -255 210 / 210 General: No apparent distress, Confused - but more alert. does follow commands HEENT: Atraumatic, Normocephalic Oral: Moist Mucosa, No Gingival or Mucosal Lesions/ Ulcerations Neck: No Nodes, Thyroid Normal Size and Texture Lungs: Clear to auscultation, Normal air movement, No rhonchi, No wheeze, No rales Cardiovascular: Regular rate, Regular Rhythm, Normal S1, Normal S2, No murmurs Abdomen: Bowel Sounds Present, Soft, Non Tender, Non-Distended, No Hepato-splenomegaly Extremities: No edema, No Calf Tenderness Neurological: Cranial nerves II-XII grossly intact, Motor Exam 5/5 strength throughout Microbiology Past 72 Hours 03/25/20 08:15 Urine Catheter - Catheter Urine Culture - Final Culture exhibits no growth. Current Medications Acetaminophen (Acetaminophen 325 Mg Tablet) 650 mg PO Q6H PRN PRN PRN Reason: Pain Score 1-10/Temp > 100.7 F Last Admin: 03/30/20 11:34 Dose: 650 mg Documented by: Albuterol/Ipratropium (Ipratropium/Albuterol Sulfate 3 Ml Ampul.Neb) 3 ml INHALATION 4X/DAY PRN PRN Reason: SOB &/OR WHEEZING Budesonide (Budesonide Respules 0.5 Mg/2 Ml Ampul.Neb.) 0.5 mg INHALATION Q12H.RT JENNIFER Last Admin: 03/30/20 06:57 Dose: 0.5 mg Documented by: Calamine/Phenol (Menthol/Lanolin/Calamine/Znox 113 Gm Tube) 1 applic TOPICAL 4X/DAY [facility]; Protocol Last Admin: 03/30/20 09:25 Dose: 1 applicatio Documented by: Carvedilol (Carvedilol 12.5 Mg Tablet) 12.5 mg PO BID [facility] Last Admin: 03/30/20 09:26 Dose: 12.5 mg Documented by: Cholecalciferol (Cholecalciferol (Vit D3) 1,000 Unit (25mcg)) 1,000 unit PO DAILYCM [facility] Last Admin: 03/30/20 09:25 Dose: 1,000 unit Documented by: Ezetimibe (Ezetimibe 10 Mg Tablet) 10 mg PO QHS [facility] Last Admin: 03/29/20 20:38 Dose: Not Given Documented by: Escitalopram Oxalate (Escitalopram Oxalate 10 Mg Tablet) 10 mg PO DAILY [facility] Last Admin: 03/30/20 09:26 Dose: 10 mg Documented by: Hydralazine HCl (Hydralazine 20 Mg/Ml Vial) 10 mg IV Q4H PRN PRN PRN Reason: SBP > 160 Levothyroxine Sodium (Levothyroxine 100 Mcg Tablet) 100 mcg PO DAILY@0600 [facility] Last Admin: 03/30/20 05:05 Dose: 100 mcg Documented by: Lorazepam (Lorazepam 2 Mg/Ml Syringe) 0.5 mg IV Q4H PRN PRN PRN Reason: agitation with BIPAP Last Admin: 03/25/20 01:23 Dose: 0.5 mg Documented by: Multivitamins/Minerals (Multivitamins,Ther W-Minerals Tablet) 1 tablet PO DAILY@0800 [facility] Last Admin: 03/30/20 09:25 Dose: 1 tablet Documented by: Nystatin (Nystatin Powder 15gm Bottle) 1 applic TOPICAL TID [facility]; Protocol Last Admin: 03/30/20 05:05 Dose: 1 applicatio Documented by: Ondansetron HCl (Ondansetron 4 Mg/2 Ml Vial) 4 mg IV Q8H PRN PRN PRN Reason: NAUSEA/VOMITING Last Admin: 03/27/20 12:54 Dose: 4 mg Documented by: Pantoprazole Sodium (Pantoprazole Sodium 40 Mg Tablet) 40 mg PO BID [facility] Last Admin: 03/30/20 09:26 Dose: 40 mg Documented by: Promethazine HCl (Promethazine 25 Mg/Ml Syringe) 6.25 mg IV Q4H PRN PRN PRN Reason: NAUSEA/VOMITING Last Admin: 03/25/20 00:44 Dose: 6.25 mg Documented by: Sodium Chloride (0.9% Saline Lock 10 Ml Syringe) 10 - 40 ml IV UD PRN PRN Reason: SALINE FLUSH Last Admin: 03/30/20 09:27 Dose: 10 ml Documented by: Discharge Diet: Low fat/ Low Cholesterol Discharge Activity: Return to Normal Activity Home Medications: Medications to take at Discharge Lisinopril [Zestril] 40 mg PO DAILY 04/17/17 carvedilol 25 mg tablet 12.5 mg PO BID tab 11/04/18 Levothyroxine Sodium [Euthyrox] 100 mcg PO DAILY 12/26/19 Albuterol Sulfate [Albuterol Sulfate HFA] 2 puff INHALATION Q6H PRN PRN 01/20/20 Budesonide/Formoterol Fumarate [Symbicort 80-4.5 Mcg Inhaler] 2 puff INHALATION BID PRN 01/20/20 Ipratropium/Albuterol Sulfate [Iprat-Albut 0.5-3(2.5) mg/3 ml] 3 ml IH 4X/DAY PRN 01/20/20 Multivitamin with Minerals [Multiple Vitamin] 1 tab PO DAILY 01/20/20 ezetimibe 10 mg tablet 10 mg PO QHS #90 tab 02/13/20 Cholecalciferol (VIT D3) [Vitamin D3] 1,000 unit PO DAILY 03/24/20 Escitalopram Oxalate [Lexapro] 10 mg PO DAILY 03/24/20 Furosemide 40 mg PO DAILY 03/24/20 Potassium Chloride [K-Dur] 20 meq PO BIDCM 03/24/20 Acetaminophen [Tylenol Tablet] 650 mg PO Q6H PRN PRN tab 03/30/20 Aspirin E.C. [Ecotrin] 81 mg PO DAILY@0800 #0 03/30/20 Atorvastatin Calcium [Lipitor] 40 mg PO QHS #30 tab 03/30/20 Omeprazole Magnesium [Prilosec Otc] 20 mg PO BID #0 03/30/20 Following Prescriptions Were Given to Patient: Atorvastatin Calcium [Lipitor] 40 mg PO QHS #30 tab Primary Care Physician: Chase Bryan MD [Primary Care Provider] - Within 2 Weeks Please Follow Up With: Ghanshyam Zavala NP, AEROSPACE ENGINEER-C When: 04/05/2020 Please Follow Up With: Calixto Otero MD - neurology When: 1-2 months Disposition: Long-Term facility Minutes spent on discharge:: 40 Patient Condition:: Fair Medical Necessity - Tobacco Use Smoking Status: Former smoker Meaningful Use Info Meaningful Use Diagnoses (Choose all that apply): Ischemic CVA - CVA Therapy Assessed for PT,OT and/or ST?: Yes - Ischemic Stroke Antithrombotic order at d/c?: Yes Dx of Atrial fib/flutter?: Yes Anticoagulant at discharge?: No Reason anticoagulant not ordered: Medical Contraindication Statins at discharge?: Yes Primary Dx Acute Ischemic CVA?: Yes IV tPA ordered during stay?: No Reason IV t-PA not ordered: Treatment not Indicated Inpatient E&M: [id number]
[2020-03-30 12:00] LABS: Bedside Glucose 98 mg/dL (70-110)
--- NOTE | 2020-03-30 12:01 | PHA.DC.MR ---
Pharmacy Service has performed discharge medication reconciliation for this patient. The patient's discharge medication list was reviewed for discrepancies and discrepancies were resolved. Home Medications Lisinopril [Zestril] 40 mg PO DAILY 04/17/17 carvedilol 25 mg tablet 12.5 mg PO BID tab 11/04/18 Levothyroxine Sodium [Euthyrox] 100 mcg PO DAILY 12/26/19 Albuterol Sulfate [Albuterol Sulfate HFA] 2 puff INHALATION Q6H PRN PRN 01/20/20 Budesonide/Formoterol Fumarate [Symbicort 80-4.5 Mcg Inhaler] 2 puff INHALATION BID PRN 01/20/20 Ipratropium/Albuterol Sulfate [Iprat-Albut 0.5-3(2.5) mg/3 ml] 3 ml IH 4X/DAY PRN 01/20/20 Multivitamin with Minerals [Multiple Vitamin] 1 tab PO DAILY 01/20/20 ezetimibe 10 mg tablet 10 mg PO QHS #90 tab 02/13/20 Cholecalciferol (VIT D3) [Vitamin D3] 1,000 unit PO DAILY 03/24/20 Escitalopram Oxalate [Lexapro] 10 mg PO DAILY 03/24/20 Furosemide 40 mg PO DAILY 03/24/20 Potassium Chloride [K-Dur] 20 meq PO BIDCM 03/24/20 Acetaminophen [Tylenol Tablet] 650 mg PO Q6H PRN PRN tab 03/30/20 Aspirin E.C. [Ecotrin] 81 mg PO DAILY@0800 #0 03/30/20 Atorvastatin Calcium [Lipitor] 40 mg PO QHS #30 tab 03/30/20 Omeprazole Magnesium [Prilosec Otc] 20 mg PO BID #0 03/30/20
--- NOTE | 2020-03-30 12:54 | CASEMGMT ---
Patient is ready to go to TCU today. SHAVONNE notified Marce in TCU. SW also spoke with patient's daughter and answered her questions. Med list copied. Plan: d/c to [facility] TCU under skilled level of care. Jaye WILBURN MSW
== END 2020-03-30 14:59 | disposition skilled nursing facility (03) | DRG 280 ==
LOC: ED 07:25 → PCU 07:31
PROVIDERS: Family Medicine; Surgery; Admitting Provider Student in an Organized Health Care Education/Training Program; Emergency Provider Emergency Medicine; PCP Internal Medicine
PROC: 0DJD8ZZ Inspection of Lower Intestinal Tract, Via Natural or Artificial Opening Endoscopic (ICD-10-PCS; CPT 45378; principal; 2020-03-26 15:25)
DX: I21.4 Non-ST elevation (NSTEMI) myocardial infarction (principal); I50.43 Acute on chronic combined systolic (congestive) and diastolic (congestive) heart failure; I63.512 Cerebral infarction due to unspecified occlusion or stenosis of left middle cerebral artery; I63.412 Cerebral infarction due to embolism of left middle cerebral artery; J96.21 Acute and chronic respiratory failure with hypoxia; D62 Acute posthemorrhagic anemia; R41.4 Neurologic neglect syndrome; D68.9 Coagulation defect, unspecified; I69.354 Hemiplegia and hemiparesis following cerebral infarction affecting left non-dominant side; Q43.8 Other specified congenital malformations of intestine; I69.359 Hemiplegia and hemiparesis following cerebral infarction affecting unspecified side; I48.0 Paroxysmal atrial fibrillation; Z66 Do not resuscitate; E03.9 Hypothyroidism, unspecified; I11.0 Hypertensive heart disease with heart failure; I25.10 Atherosclerotic heart disease of native coronary artery without angina pectoris; K44.9 Diaphragmatic hernia without obstruction or gangrene; K22.8 Other specified diseases of esophagus; K31.89 Other diseases of stomach and duodenum; K64.1 Second degree hemorrhoids; K64.5 Perianal venous thrombosis; Z95.1 Presence of aortocoronary bypass graft; I73.9 Peripheral vascular disease, unspecified; E78.5 Hyperlipidemia, unspecified; I65.23 Occlusion and stenosis of bilateral carotid arteries; Z95.5 Presence of coronary angioplasty implant and graft; Z87.891 Personal history of nicotine dependence; Z79.01 Long term (current) use of anticoagulants; Z79.51 Long term (current) use of inhaled steroids; Z82.49 Family history of ischemic heart disease and other diseases of the circulatory system; Z80.8 Family history of malignant neoplasm of other organs or systems; Z83.3 Family history of diabetes mellitus; Z90.710 Acquired absence of both cervix and uterus; Z79.82 Long term (current) use of aspirin; Z79.890 Hormone replacement therapy; Z68.35 Body mass index [BMI] 35.0-35.9, adult; Z79.899 Other long term (current) drug therapy; J44.9 Chronic obstructive pulmonary disease, unspecified; I25.2 Old myocardial infarction; I69.344 Monoplegia of lower limb following cerebral infarction affecting left non-dominant side; R19.00 Intra-abdominal and pelvic swelling, mass and lump, unspecified site; K80.20 Calculus of gallbladder without cholecystitis without obstruction
CPT/HCPCS: 36415; 36600; 70450; 70496; 70498; 70551; 71045; 73110; 73130; 80048; 80053; 81001; 82803; 82962; 83735; 83880; 84484; 85014; 85018; 85025; 85610; 85730; 86850; 86900; 86901; 86920; 86922; 87086; 87635; 88305; 88312; 88342; 92507; 92523; 92526; 92610; 93005; 93306; 94002; 94003; 94640; 95819; 97110; 97163; 97166; 97530; 97535; 99285; J7030; J7040; P9016; Q9957; Q9967; A4216; C8929; J1940; J2405; J3490; U0002

== ENCOUNTER 2020-03-30 15:24 | Inpatient (IN) | payer MEDICARE, SELFPAY ==
[2020-03-24 08:07] VITALS: BMI 32.7
[2020-03-30 15:34] VITALS: BP 131/62; PULSE 57; RESP 18; TEMP 36.1; O2SAT 94; BMI 33.9
--- NOTE | 2020-03-30 16:45 | NURSING ---
Spoke with patient's CLIFFORD Duran, she stated she spoke with the family and they have decided pt should be a DNRCC-A with no intubation.
[2020-03-30] MEDS: Carvedilol 12.5 MG Tablet PO (17:56)
[2020-03-30] MEDS: Pantoprazole Sodium 20 MG Tablet PO (17:57)
[2020-03-30] MEDS: Fluticasone/Salmeterol 232-14 Inhaler 1 PUFF IH (17:57)
--- NOTE | 2020-03-30 18:09 | HP.PCM_ITS ---
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 (6) Carotid artery stenosis Status: Chronic (7) Coronary artery disease Status: Chronic (8) Atrial fibrillation Status: Chronic (9) Hypertension Status: Chronic (10) Hypothyroidism Status: Chronic (11) Chronic obstructive pulmonary disease Status: Chronic (12) GERD (gastroesophageal reflux disease) Status: Chronic (13) Depression Status: Chronic (14) Hypokalemia Status: Chronic (15) Non-STEMI (non-ST elevated myocardial infarction) Status: Acute (16) Hyperlipidemia Status: Chronic Qualifiers: History of Present Illness Date of Admission: 03/30/20 Chief Complaint: Here for rehabilitation, strengthening, prior to discharge home with . 03/24/2020 The patient is a 80 year old Female with below past medical history presented to [facility] Emergency Department with black stool. 03/24/2020 EKG showed atrial fibrillation with premature ventricular or aberrantly conducted complexes, left ventricular hypertrophy with QRS widening. Marked ST abnormality, possible lateral subendocardial injury, Prolonged QT. Eliquis 2.5MG twice daily for 2 weeks for atrial fibrillation. Black stools 2-3 times per day for 3 days, Black stool solid, not loose. Hemoglobin 5.8. Type and Cross 2 units PRBC, Pantoprazole IV given. 03/24/2020 Admit to Hospital. Transfuse 2 units PRBC, Pantoprazole 40MG IV twice daily, Hold Eliquis, Hold Aspirin for gastrointestinal bleed. Trend Troponin for indeterminate troponin 2/2 demand ischemia, peak troponin 1.5. 03/25/2020 Echo Normal LV size. Mild to moderate segmental systolic dysfunction. EF 35%. Mild pulmonary hypertension. 03/26/2020 EGD showed small hiatal hernia, gastritis. 03/26/2020 Colonoscopy showed hemorrhoids, diverticulosis. 03/28/2020 X-ray right hand, showed arthritis, osteoporosis. 03/28/2020 X-ray right wrist, showed arthritis, osteoporosis. 03/29/2020 CT brain showed chronic involutional changes of brain. 03/29/2020 MRI brain showed left middle cerebral artery infarct. 03/29/2020 CTA head/neck showed left internal carotid artery stenosis > 70%. 03/29/2020 Transfused total of 3 units PRBC. 03/29/2020 Teleneurology consulted, TPA not recommended due to time lapse. Recommend CT brain 04/05/2020 to confirm no hemorrhagic transformation, then restart Eliquis 2.5MG BID. 03/30/2020 Admit to TCU with debility, here for rehabilitation, strengthening, prior to discharge home with . 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) Atherosclerosis of coronary artery of [place] heart without angina pectoris (Chronic) Atherosclerosis of coronary artery bypass graft without angina pectoris (Chronic) History of coronary artery stent placement (Chronic 2014) bare-metal stent x 3 to SVG to RPDA in April 2007; BMS to SVG to RPDA in 2014 Essential (primary) hypertension (Chronic) Hyperlipidemia (Chronic) Medical History: Medical History (Last Updated 01/23/20 @ 07:26 by Debbie Clayton) Elevated LFTs (Acute) Onset Date: 12/26/19 R79.89 Acute and chronic respiratory failure (Chronic) J96.20 Non-STEMI (non-ST elevated myocardial infarction) (Acute) Onset Date: 01/20/20 I21.4 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) I50.41 Atherosclerosis of coronary artery of [place] heart without angina pectoris (Chronic) I25.10 Atherosclerosis of coronary artery bypass graft without angina pectoris (Chronic) I25.810 Essential (primary) hypertension (Chronic) I10 Hyperlipidemia (Chronic) E78.5 History of CVA (cerebrovascular accident) Z86.73 with chronic left leg weakness Hypothyroidism E03.9 Obesity E66.9 Restrictive pattern present on pulmonary function testing R94.2 Shingles B02.9 Dizziness (Inactive) R42 Secondary pulmonary arterial hypertension (Inactive) I27.21 Allergies Sulfa (Sulfonamide Antibiotics) Allergy (Verified 03/24/20 06:26) Rash apixaban [From Eliquis] Adverse Reaction (Intermediate, Verified 03/24/20 06:26) GI upset, can't eat. tape Allergy (Uncoded 01/20/20 16:27) plastic tape causes blisters Can have cloth and paper Home Medications: Ambulatory Orders Medication Instructions Recorded Lisinopril [Zestril] 40 mg PO DAILY 04/17/17 carvedilol 25 mg tablet 12.5 mg PO BID tab 11/04/18 Levothyroxine Sodium [Euthyrox] 100 mcg PO DAILY 12/26/19 Albuterol Sulfate [Albuterol 2 puff INHALATION Q6H PRN PRN 01/20/20 Sulfate HFA] Budesonide/Formoterol Fumarate 2 puff INHALATION BID PRN 01/20/20 [Symbicort 80-4.5 Mcg Inhaler] Ipratropium/Albuterol Sulfate 3 ml IH 4X/DAY PRN 01/20/20 [Iprat-Albut 0.5-3(2.5) mg/3 ml] Multivitamin with Minerals 1 tab PO DAILY 01/20/20 [Multiple Vitamin] ezetimibe 10 mg tablet 10 mg PO QHS #90 tab 02/13/20 Cholecalciferol (VIT D3) [Vitamin 1,000 unit PO DAILY 03/24/20 D3] Escitalopram Oxalate [Lexapro] 10 mg PO DAILY 03/24/20 Furosemide 40 mg PO DAILY 03/24/20 Potassium Chloride [K-Dur] 20 meq PO BIDCM 03/24/20 Acetaminophen [Tylenol Tablet] 650 mg PO Q6H PRN PRN tab 03/30/20 Aspirin E.C. [Ecotrin] 81 mg PO DAILY@0800 #0 03/30/20 Atorvastatin Calcium [Lipitor] 40 mg PO QHS 03/30/20 Omeprazole Magnesium [Prilosec Otc] 20 mg PO BID 03/30/20 Surgical History: Surgical History (Last Updated 01/20/20 @ 18:54 by Debbie Clayton) H/O coronary artery bypass surgery (Resolved) Onset Date: 1999 Z95.1 CABG x 4 BOSE to LAD, SVG to D1, and Sequential SVG to RPDA and Acute [place] 2000 History of coronary artery stent placement (Chronic) Onset Date: 2014 Z95.5 bare-metal stent x 3 to SVG to RPDA in April 2007; BMS to SVG to RPDA in 2014 History of carpal tunnel surgery Z92.89 History of hernia repair Z98.890, Z87.19 History of hysterectomy Z90.710 partial, still has ovaries History of right-sided carotid endarterectomy Z98.890 Surgical History: angioplasty - Cardiac stent., coronary bypass surgery - x 4., herniorrhaphy, hysterectomy, - - Right carotid endarterectomy, carpal tunnel surgery. 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 Tiago Castaneda MD) Daughter Hypertension Melanoma Sister pacemaker Mother Hypertension Diabetes Heart disease History Items: Diabetes, Heart Disease Review of Systems Constitutional: Denies: Chills, Fever, Weight Change HEENT: Denies: Head Aches, Sinus Congestion, Sinus Drainage Cardiovascular: Denies: Chest Pain, Palpitations Respiratory: Denies: Cough, Shortness of breath at rest, Sputum production Gastrointestinal: Denies: Abdominal Pain, Nausea, Vomiting Genitourinary: Denies: Dysuria Musculoskeletal: Denies: Joint Pain, Joint Tenderness Skin: Denies: Rash, Wounds Neurological: Denies: Numbness, Tingling, Focal weakness Psychiatric: Denies: Anxiety, Depression, Homicidal Ideations, Suicidal Ideations Hematologic/ Lymphatic: Denies: Easy Bruising, Easy Bleeding VTE Information - Inpt Only VTE Present on Admission: No VTE Mechan Device Prophylaxis: Knee High ASHUTOSH Hose VTE Pharm Prophylaxis ordered?: No Reason prophylaxis not ordered:: Treatment Not Indicated Patient Problems: Active and Suspected Problems (Last Updated 01/23/20 @ 07:26 by Debbie Clayton) Debility (Acute) Melena (Acute) Upper gastrointestinal bleed (Acute) Gastritis (Acute) Left middle cerebral artery stroke (Acute) Non-STEMI (non-ST elevated myocardial infarction) (Acute 01/20/20) - Physical Exam Vitals/I&O's: Vital Signs Temp Pulse Resp BP Pulse Ox 96.9 F L 57 L 18 131/62 H 94 03/30/20 15:34 03/30/20 15:34 03/30/20 15:34 03/30/20 15:34 03/30/20 15:34 Oxygen Flow Rate (L/min) 1 Oxygen Delivery Method Nasal Cannula Weight: 86.778 kg Body Mass Index (BMI) 33.9 Finger Stick Blood Glucose 135 General: Alert, Oriented x3, Cooperative HEENT: Atraumatic, PERRLA, EOMI, Normocephalic Neck: Supple, No JVD, Negative Carotid Bruits Lungs: Clear to auscultation, Normal air movement Cardiovascular: Regular rate, No murmurs Abdomen: Bowel Sounds Present, Soft, Non Tender Extremities: No edema, Capillary Refill Less than 3 Seconds Skin: No rashes, No breakdown Musculoskeletal: No Tenderness to Palpation of Joints or Extremities Neurological: Cranial nerves II-XII grossly intact, - - Right hemiplegia. Psych/Mental Status: Normal Affect, Appropriate Current Medications Acetaminophen (Acetaminophen 325 Mg Tablet) 650 mg PO Q6H PRN PRN PRN Reason: Pain Score 1-10/Temp > 100.7 F Albuterol/Ipratropium (Ipratropium/Albuterol Sulfate 3 Ml Ampul.Neb) 3 ml INHALATION 4X/DAY PRN PRN Reason: SOB &/OR WHEEZING Aspirin (Aspirin E.C. 81 Mg Tablet) 81 mg PO DAILY@0800 [facility] Atorvastatin Calcium (Atorvastatin Calcium 40 Mg Tablet) 40 mg PO QHS [facility] Carvedilol (Carvedilol 12.5 Mg Tablet) 12.5 mg PO BID [facility] Last Admin: 03/30/20 17:56 Dose: 12.5 mg Documented by: Cholecalciferol (Cholecalciferol (Vit D3) 1,000 Unit (25mcg)) 1,000 unit PO DAILY [facility] Ezetimibe (Ezetimibe 10 Mg Tablet) 10 mg PO QHS [facility] Escitalopram Oxalate (Escitalopram Oxalate 10 Mg Tablet) 10 mg PO DAILY [facility] Furosemide (Furosemide 40 Mg Tablet) 40 mg PO DAILY [facility] Levothyroxine Sodium (Levothyroxine 100 Mcg Tablet) 100 mcg PO DAILY [facility] Lisinopril (Lisinopril 40 Mg Tablet) 40 mg PO DAILY [facility] Multivitamins/Minerals (Multivitamins,Ther W-Minerals Tablet) 1 tablet PO DAILY@0800 [facility] Non-Formulary Medication (Albuterol Sulfate) 2 puff INHALATION Q6H PRN PRN PRN Reason: sob wheezing Nutritional Formula (Lactose Free) (Ensure Enlive 120 Ml Liquid) 120 ml PO BID [facility] Pantoprazole Sodium (Pantoprazole Sodium 20 Mg Tablet) 20 mg PO BID [facility] Stop: 04/27/20 18:01 Last Admin: 03/30/20 17:57 Dose: 20 mg Documented by: Pantoprazole Sodium (Pantoprazole Sodium 20 Mg Tablet) 20 mg PO DAILY [facility] Potassium Chloride (Potassium Chloride 20 Meq Tablet) 20 meq PO BIDCM [facility] Last Admin: 03/30/20 17:56 Dose: 20 meq Documented by: Fluticasone/Salmeterol (Fluticasone/Salmeterol 232-14 Inhaler) 1 puff IH Q12 [facility] Last Admin: 03/30/20 17:57 Dose: 1 puff Documented by: Tuberculin PPD (Tuberculin,Purif.Prot.Deriv. 50 Tu/Ml Vial) 5 tu ID [id number] Stop: 03/31/20 10:01 Tuberculin PPD (Tuberculin,Purif.Prot.Deriv. 50 Tu/Ml Vial) 5 tu ID [id number] Stop: 04/07/20 10:01 Assessment/Plan All Active Problems (Last Updated 01/20/20 @ 18:54 by Debbie Clayton) Gastrointestinal hemorrhage with melena (Acute) Debility (Acute) Melena (Acute) Upper gastrointestinal bleed (Acute) Gastritis (Acute) Left middle cerebral artery stroke (Acute) Elevated LFTs (Acute 12/26/19) Non-STEMI (non-ST elevated myocardial infarction) (Acute 01/20/20) H/O coronary artery bypass surgery (Resolved 1999) 80 year old female with below past medical history hospitalized for upper gastrointestinal bleed requiring blood transfusion, complicated by left middle cerebral artery stroke, admitted to TCU with debility, here for rehabilitation, strengthening, prior to discharge home with . * Debility - PT/OT. * Cognition/dysphagia - ST. * Pain - Tylenol 1000MG Q6H PRN pain (1-10). * Bowel - Miralax 17GM daily, Senna/colace 1 tablet BID, MOM 30ML daily PRN, Dulcolax 10MG SD daily PRN. * Adult immunization - Administer Prevnar 13, Pneumovax 23, Fluzone, COVID19 vaccine as appropriate. * DVT prophylaxis - Hold, recent UGIB. * COPD - Advair 232-14 1 inhalation Q12H, Duoneb 3ML 4x/day PRN, Albuterol MDI 2 puffs Q6H PRN. * Stroke - Aspirin 81MG daily, stop when resident starts Eliquis. * Hyperlipidemia - Atorvastatin 40MG QHS, Zetia 10MG QHS. * Chronic systolic congestive heart failure - Coreg 12.5MG BID, Lasix 40MG daily. * Vitamin D deficiency - D3 1000IU daily. * Nutrition - Ensure Enlive 120ML BID, MVI daily. * Depression - Lexapro 10MG daily, stable chronic [facility] use, GDR not recommended. * Hypothyroidism - Levothyroxine 100MCG daily. * Gastritis/GERD - Pantoprazole 20MG BID thru 04/27/2020, then 20MG daily. * Hypokalemia - K-Dur 20MEQ BID. * Atrial Fibrillation - Coreg 12.5MG BID, CT brain 04/05/2020, if negative for hemorrhagic transformation, restart Eliquis 2.5MG BID, stop Aspirin 81MG daily. * Carotid artery stenosis - Left ICA > 70%, probable cause of stroke, consider left carotid endarterectomy.
--- NOTE | 2020-03-30 18:12 | NURSING ---
PT CRYING AND ASKING WHY GOD WHY DID THIS HAPPEN TO ME. PT ALSO NOT WANTING TO EAT. GOT PT SOMETHING DIFFERENT AND NOW IS TAKING A FEW BITES. DID A LITTLE ONE ON ONE WITH PT. RN AWARE
[2020-03-30] MEDS: Atorvastatin Calcium 40 MG Tablet PO (21:29)
[2020-03-30] MEDS: Ezetimibe 10 MG Tablet PO (21:29)
[2020-03-31 05:45] LABS: Absolute Lymphocyte Count 1.46 X10^3/uL (0.83-4.51); Absolute Neutrophil Count 3.4 X10^3/uL (2.0-7.7); Basophil# 0.04 X10^3/uL; Basophil% 0.7 % (0-1); Eosinophil# 0.15 X10^3/uL; Eosinophils% 2.6 % (0-5); Hematocrit 30.5 % (37-47); Hemoglobin 8.7 g/dL (12.0-15.0); Lymphocyte # 1.46 X10^3/ul (4.0); Lymphocyte % 25.3 % (19-41); Mean Corp Hgb Conc 28.5 g/dL (32-36); Mean Corpuscular Hgb 24.2 pg (27.0-32.0); Mean Platelet Vol. 9.4 fl (6.2-12.0); Monocyte# 0.73 X10^3/uL; Monocyte% 12.7 % (0-10); NRBC Flagged by Analyzer 0 % (0-5); Neutrophil # 3.36 X10^3/uL (2.7-7.7); Neutrophil % 58.4 % (47-70); Platelet Count 318 K/mm3 (150-450); RBC Distribution Width CV 17.6 % (11.6-14.6); RBC Distribution Width SD 54.6 fl (35.1-43.9); Red Blood Count 3.59 M/mm3 (4.2-5.4); White Blood Count 5.8 K/mm3 (4.4-11.0)
[2020-03-31 06:05] VITALS: BP 125/68; PULSE 74; RESP 16; TEMP 36.8; O2SAT 98
[2020-03-31 06:13] LABS: Anion Gap 4 (5-15); BUN 10 mg/dL (7-18); BUN/Creat Ratio 16.7 RATIO (10-20); Calcium,Total 9.1 mg/dL (8.5-10.1); Chloride 100 mmol/L (98-107); EST Glomerular Filtration Rate 103 mL/min (>60); Est Glom Filt Rate - Afr Amer 124 mL/min (>60); Estimated Creatinine Clearance 37.74 ml/min; Glucose 100 mg/dL (74-106); Sodium Level 137 mmol/L (136-145)
[2020-03-31] MEDS: Fluticasone/Salmeterol 232-14 Inhaler 1 PUFF IH ×2 (06:31→17:30)
[2020-03-31] MEDS: Escitalopram Oxalate 10 MG Tablet PO (06:31)
[2020-03-31] MEDS: Pantoprazole Sodium 20 MG Tablet PO ×2 (06:31→17:29)
[2020-03-31] MEDS: Lisinopril 40 MG Tablet PO (06:31)
[2020-03-31] MEDS: Levothyroxine 100 MCG Tablet PO (06:31)
[2020-03-31] MEDS: Senna/Docusate Sodium 1 Tablet PO ×2 (06:31→17:29)
[2020-03-31] MEDS: Furosemide 40 MG Tablet PO (06:31)
[2020-03-31] MEDS: Carvedilol 12.5 MG Tablet PO ×2 (06:31→17:30)
[2020-03-31] MEDS: Polyethylene Glycol 3350 17 GM PACKET PO (06:32)
[2020-03-31] MEDS: Multivitamins,Ther W-Minerals Tablet 1 TABLET PO (08:39)
[2020-03-31] MEDS: Aspirin E.C. 81 MG Tablet PO (08:39)
[2020-03-31] MEDS: Tuberculin,Purif.prot.deriv. 50 TU/ML Vial 5 ML ID (10:44)
[2020-03-31] MEDS: Acetaminophen 500 MG Tablet 1000 MG PO (11:47)
--- NOTE | 2020-03-31 13:01 | CASEMGMT ---
Social Work Completed initial assessment with dtr. Inquired about POA paperwork. Dtr unsure if official paperwork was completed but look and notify SW. Explained if not, would be next of kin unless he defers all conversations be through dtr. Dtr stated has stated for her to be point of contact. Dtr confirmed DNR_CCA, no intubation code status. Explained [employer] insurance. Dtr expressed understanding. No issues noted at this time. Will continue to follow. Merle Small, LEARNING AND DEVELOPMENT SPECIALIST [employer]
--- NOTE | 2020-03-31 14:20 | PCM.PN.RX ---
<Aishwarya Beal - Last Filed: 03/31/20 14:20> Progress Note - Pharmacy Subjective: TCU Admission Objective: Allergies Sulfa (Sulfonamide Antibiotics) Allergy (Verified 03/24/20 06:26) Rash apixaban [From Eliquis] Adverse Reaction (Intermediate, Verified 03/24/20 06:26) GI upset, can't eat. tape Allergy (Uncoded 01/20/20 16:27) plastic tape causes blisters Can have cloth and paper Current Medications Generic Name Dose Route Start Last Admin Trade Name Freq PRN Reason Stop Dose Admin Acetaminophen 1,000 mg 03/30/20 18:34 03/31/20 11:47 Acetaminophen 500 Mg Tablet PO 1,000 mg Q6H PRN PRN Administration Pain Score 1-10 Albuterol Sulfate 2 puff 03/31/20 10:06 Albuterol Sulfate 8 Gm Inhaler (60 Puffs) INHALATION Q6H PRN PRN sob/wheezing Albuterol/Ipratropium 3 ml 03/30/20 15:59 Ipratropium/Albuterol Sulfate 3 Ml Ampul.Neb INHALATION 4X/DAY.RT PRN SOB &/OR WHEEZING Apixaban 5 mg 04/06/20 06:00 Apixaban 5 Mg Tablet PO BID JENNIFER Aspirin 81 mg 03/31/20 08:00 03/31/20 08:39 Aspirin E.C. 81 Mg Tablet PO 04/05/20 23:59 81 mg DAILY@0800 JENNIFER Administration Atorvastatin Calcium 40 mg 03/30/20 22:00 03/30/20 21:29 Atorvastatin Calcium 40 Mg Tablet PO 40 mg QHS JENNIFER Administration Bisacodyl 10 mg 03/30/20 18:34 Bisacodyl 10 Mg Suppository RECTAL DAILY PRN Constipation Carvedilol 12.5 mg 03/30/20 18:00 03/31/20 06:31 Carvedilol 12.5 Mg Tablet PO 12.5 mg BID [facility] Administration Cholecalciferol 1,000 unit 03/31/20 06:00 03/31/20 06:31 Cholecalciferol (Vit D3) 1,000 Unit (25mcg) PO 1,000 unit DAILY JENNIFER Administration Ezetimibe 10 mg 03/30/20 22:00 03/30/20 21:29 Ezetimibe 10 Mg Tablet PO 10 mg QHS JENNIFER Administration Escitalopram Oxalate 10 mg 03/31/20 06:00 03/31/20 06:31 Escitalopram Oxalate 10 Mg Tablet PO 10 mg DAILY JENN[facility]ER Administration Furosemide 40 mg 03/31/20 06:00 03/31/20 06:31 Furosemide 40 Mg Tablet PO 40 mg DAILY JENNIFER Administration Levothyroxine Sodium 100 mcg 03/31/20 06:00 03/31/20 06:31 Levothyroxine 100 Mcg Tablet PO 100 mcg DAILY JENNIFER Administration Lisinopril 40 mg 03/31/20 06:00 03/31/20 06:31 Lisinopril 40 Mg Tablet PO 40 mg DAILY JENNIFER Administration Magnesium Hydroxide 30 ml 03/30/20 18:33 Magnesium Hydroxide 30 Ml Udc PO DAILY PRN Constipation Melatonin 6 mg 03/31/20 22:00 Melatonin 3 Mg Tablet PO QHS [facility] Multivitamins/Minerals 1 tablet 03/31/20 08:00 03/31/20 08:39 Multivitamins,Ther W-Minerals Tablet PO 1 tablet DAILY@0800 [facility] Administration Nutritional Formula (Lactose Free) 120 ml 03/30/20 18:00 03/31/20 06:33 Ensure Enlive 120 Ml Liquid PO 120 ml BID [facility] Administration Pantoprazole Sodium 20 mg 03/30/20 18:00 03/31/20 06:31 Pantoprazole Sodium 20 Mg Tablet PO 04/27/20 18:01 20 mg BID JENNIFER Administration Pantoprazole Sodium 20 mg 04/28/20 06:00 Pantoprazole Sodium 20 Mg Tablet PO DAILY [facility] Polyethylene Glycol 17 gm 03/31/20 06:00 03/31/20 06:32 Polyethylene Glycol 3350 17 Gm Packet PO 17 gm DAILY [facility] Administration Potassium Chloride 20 meq 03/30/20 17:00 03/31/20 08:39 Potassium Chloride 20 Meq Tablet PO 20 meq BIDCM [facility] Administration Fluticasone/Salmeterol 1 puff 03/30/20 18:00 03/31/20 06:31 Fluticasone/Salmeterol 232-14 Inhaler IH 1 puff Q12 [facility] Administration Senna/Docusate Sodium 1 tablet 03/31/20 06:00 03/31/20 06:31 Senna/Docusate Sodium 1 Tablet PO 1 tablet BID [facility] Administration Tuberculin PPD 5 tu 04/07/20 10:00 Tuberculin,Purif.Prot.Deriv. 50 Tu/Ml Vial ID 04/07/20 10:01 X1 ONE Problem List (Last Updated 01/23/20 @ 07:26 by Debbie Clayton) Debility (Acute) Melena (Acute) Upper gastrointestinal bleed (Acute) Gastritis (Acute) Left middle cerebral artery stroke (Acute) Carotid artery stenosis (Chronic) Coronary artery disease (Chronic) Atrial fibrillation (Chronic) Hypertension (Chronic) Hypothyroidism (Chronic) Chronic obstructive pulmonary disease (Chronic) GERD (gastroesophageal reflux disease) (Chronic) Depression (Chronic) Hypokalemia (Chronic) Non-STEMI (non-ST elevated myocardial infarction) (Acute 01/20/20) Hyperlipidemia (Chronic) Vital Signs Temp Pulse Resp BP Pulse Ox 98.3 F 74 16 125/68 H 98 03/31/20 06:05 03/31/20 06:05 03/31/20 06:05 03/31/20 06:05 03/31/20 06:05 Oxygen Flow Rate (L/min) 2 Oxygen Delivery Method Room Air Weight: 86.778 kg Body Mass Index (BMI) 33.9 Finger Stick Blood Glucose 135 Sodium 137 mmol/L (136-145) 03/31/20 05:15 Potassium 4.0 mmol/L (3.5-5.1) 03/31/20 05:15 Chloride 100 mmol/L (98-107) 03/31/20 05:15 Carbon Dioxide 33.0 mmol/L (21.0-32.0) H 03/31/20 05:15 Anion Gap 4 (5-15) L 03/31/20 05:15 BUN 10 mg/dL (7-18) 03/31/20 05:15 Creatinine 0.60 mg/dL (0.55-1.02) 03/31/20 05:15 Est GFR (MDRD) Af Amer 124 mL/min (>60) 03/31/20 05:15 Est GFR (MDRD) Non-Af 103 mL/min (>60) 03/31/20 05:15 BUN/Creatinine Ratio 16.7 RATIO (10-20) 03/31/20 05:15 Glucose 100 mg/dL (74-106) 03/31/20 05:15 Assessment/Plan: 1. Pain: acetaminophen 1000mg PO Q6H PRN pain 1-12/05. Please continue to monitor for increased pain and PRN usage. 2. CHF/stroke/atrial fibrillation/HTN: aspirin 81mg PO daily thru 04/05/20 then apixaban 5mg PO BID starting 04/06/20, carvedilol 12.5mg PO BID, furosemide 40mg PO daily and lisinopril 40mg PO daily. Please continue to monitor for S/S of bleeding, hemoglobin (last 8.7g/dL), HR (last 74), BP (last 125/68), and renal function. *3. Hyperlipidemia: atorvastatin 40mg PO QHS and ezetimibe 20mg PO QHS. Please consider ordering a lipid panel. Last one from 04/2017. Thanks. Please continue to monitor for muscle pain. *4. Hypothyroidism: levothyroxine 100mcg PO daily. Please consider ordering a TSH. Last one from 04/2017. Thanks. Please continue to monitor for S/S of hypo/hyperthyroidism. 5. Gastritis/GERD: pantoprazole 20mg PO BID thru 04/27/20 then 20mg PO daily. Please continue to monitor for S/S of GERD and diarrhea. 6. Hypokalemia: potassium chloride 20mEq PO BIDCM. Please continue to monitor potassium levels (last 4 mmol/L). *7. COPD: fluticasone/salmeterol 232/14mcg 1puff Q12, ipratropium/albuterol 3mL inhalation 4x/day PRN SOB and/or Wheezing (second line) and albuterol inhaler 2puffs Q6H PRN sob/wheezing (first line). Please continue to monitor for SOB, wheezing, PRN usage, and thrush. Please rinse mouth with water and spit after administration of fluticasone/salmeterol to prevent thrush. *8. Vitamin D deficiency/overall nutrition: cholecalciferol 1000units PO daily and multivitamin 1T PO DAILYCM. Please consider ordering a vitamin D level now and then annually as clinically appropriate. Patient does not have a level in the chart. Thanks. Psychotropic Medications: 1. Depression: escitalopram 10mg PO daily. Please see physician note regarding GDR. *Unnecessary Medications: melatonin 6mg PO QHS. I did not see an indication in the chart. Please consider adding an indication. Thanks. Bowel Regimen: Miralax 17gm PO daily, senna/docusate 1T PO BID, MOM 30mL PO daily PRN constipation, and bisacodyl 10mg IN daily PRN constipation. Please continue to monitor for constipation and PRN usage. Date of Note:: 03/31/20 - Provider Comments Provider responsibility: Provider responsible to enter orders to implement recommendations <Anthony Bernstein Chi - Last Filed: 03/31/20 15:52> Progress Note - Pharmacy Subjective: [] Objective: Allergies Sulfa (Sulfonamide Antibiotics) Allergy (Verified 03/24/20 06:26) Rash apixaban [From Eliquis] Adverse Reaction (Intermediate, Verified 03/24/20 06:26) GI upset, can't eat. tape Allergy (Uncoded 01/20/20 16:27) plastic tape causes blisters Can have cloth and paper Current Medications Generic Name Dose Route Start Last Admin Trade Name Freq PRN Reason Stop Dose Admin Acetaminophen 1,000 mg 03/30/20 18:34 03/31/20 11:47 Acetaminophen 500 Mg Tablet PO 1,000 mg Q6H PRN PRN Administration Pain Score 1-10 Albuterol Sulfate 2 puff 03/31/20 10:06 Albuterol Sulfate 8 Gm Inhaler (60 Puffs) INHALATION Q6H PRN PRN sob/wheezing Albuterol/Ipratropium 3 ml 03/30/20 15:59 Ipratropium/Albuterol Sulfate 3 Ml Ampul.Neb INHALATION 4X/DAY.RT PRN SOB &/OR WHEEZING Apixaban 5 mg 04/06/20 06:00 Apixaban 5 Mg Tablet PO BID JENNIFER Aspirin 81 mg 03/31/20 08:00 03/31/20 08:39 Aspirin E.C. 81 Mg Tablet PO 04/05/20 23:59 81 mg DAILY@0800 JENN[facility]ER Administration Atorvastatin Calcium 40 mg 03/30/20 22:00 03/30/20 21:29 Atorvastatin Calcium 40 Mg Tablet PO 40 mg QHS [facility] Administration Bisacodyl 10 mg 03/30/20 18:34 Bisacodyl 10 Mg Suppository RECTAL DAILY PRN Constipation Carvedilol 12.5 mg 03/30/20 18:00 03/31/20 06:31 Carvedilol 12.5 Mg Tablet PO 12.5 mg BID [facility] Administration Cholecalciferol 1,000 unit 03/31/20 06:00 03/31/20 06:31 Cholecalciferol (Vit D3) 1,000 Unit (25mcg) PO 1,000 unit DAILY [facility] Administration Ezetimibe 10 mg 03/30/20 22:00 03/30/20 21:29 Ezetimibe 10 Mg Tablet PO 10 mg QHS [facility] Administration Escitalopram Oxalate 10 mg 03/31/20 06:00 03/31/20 06:31 Escitalopram Oxalate 10 Mg Tablet PO 10 mg DAILY [facility] Administration Furosemide 40 mg 03/31/20 06:00 03/31/20 06:31 Furosemide 40 Mg Tablet PO 40 mg DAILY [facility] Administration Levothyroxine Sodium 100 mcg 03/31/20 06:00 03/31/20 06:31 Levothyroxine 100 Mcg Tablet PO 100 mcg DAILY [facility] Administration Lisinopril 40 mg 03/31/20 06:00 03/31/20 06:31 Lisinopril 40 Mg Tablet PO 40 mg DAILY [facility] Administration Magnesium Hydroxide 30 ml 03/30/20 18:33 Magnesium Hydroxide 30 Ml Udc PO DAILY PRN Constipation Melatonin 6 mg 03/31/20 22:00 Melatonin 3 Mg Tablet PO QHS [facility] Multivitamins/Minerals 1 tablet 03/31/20 08:00 03/31/20 08:39 Multivitamins,Ther W-Minerals Tablet PO 1 tablet DAILY@0800 [facility] Administration Nutritional Formula (Lactose Free) 120 ml 03/30/20 18:00 03/31/20 06:33 Ensure Enlive 120 Ml Liquid PO 120 ml BID [facility] Administration Pantoprazole Sodium 20 mg 03/30/20 18:00 03/31/20 06:31 Pantoprazole Sodium 20 Mg Tablet PO 04/27/20 18:01 20 mg BID [facility] Administration Pantoprazole Sodium 20 mg 04/28/20 06:00 Pantoprazole Sodium 20 Mg Tablet PO DAILY [facility] Polyethylene Glycol 17 gm 03/31/20 06:00 03/31/20 06:32 Polyethylene Glycol 3350 17 Gm Packet PO 17 gm DAILY [facility] Administration Potassium Chloride 20 meq 03/30/20 17:00 03/31/20 08:39 Potassium Chloride 20 Meq Tablet PO 20 meq BIDCM [facility] Administration Fluticasone/Salmeterol 1 puff 03/30/20 18:00 03/31/20 06:31 Fluticasone/Salmeterol 232-14 Inhaler IH 1 puff Q12 [facility] Administration Senna/Docusate Sodium 1 tablet 03/31/20 06:00 03/31/20 06:31 Senna/Docusate Sodium 1 Tablet PO 1 tablet BID [facility] Administration Tuberculin PPD 5 tu 04/07/20 10:00 Tuberculin,Purif.Prot.Deriv. 50 Tu/Ml Vial ID 04/07/20 10:01 X1 ONE Problem List (Last Updated 01/23/20 @ 07:26 by Debbie Clayton) Debility (Acute) Melena (Acute) Upper gastrointestinal bleed (Acute) Gastritis (Acute) Left middle cerebral artery stroke (Acute) Carotid artery stenosis (Chronic) Coronary artery disease (Chronic) Atrial fibrillation (Chronic) Hypertension (Chronic) Hypothyroidism (Chronic) Chronic obstructive pulmonary disease (Chronic) GERD (gastroesophageal reflux disease) (Chronic) Depression (Chronic) Hypokalemia (Chronic) Non-STEMI (non-ST elevated myocardial infarction) (Acute 01/20/20) Hyperlipidemia (Chronic) Vital Signs Temp Pulse Resp BP Pulse Ox 97.5 F L 70 18 117/46 L 100 03/31/20 14:39 03/31/20 14:39 03/31/20 14:39 03/31/20 14:39 03/31/20 14:39 Oxygen Flow Rate (L/min) 2 Oxygen Delivery Method Nasal Cannula Weight: 86.778 kg Body Mass Index (BMI) 33.9 Finger Stick Blood Glucose 135 Sodium 137 mmol/L (136-145) 03/31/20 05:15 Potassium 4.0 mmol/L (3.5-5.1) 03/31/20 05:15 Chloride 100 mmol/L (98-107) 03/31/20 05:15 Carbon Dioxide 33.0 mmol/L (21.0-32.0) H 03/31/20 05:15 Anion Gap 4 (5-15) L 03/31/20 05:15 BUN 10 mg/dL (7-18) 03/31/20 05:15 Creatinine 0.60 mg/dL (0.55-1.02) 03/31/20 05:15 Est GFR (MDRD) Af Amer 124 mL/min (>60) 03/31/20 05:15 Est GFR (MDRD) Non-Af 103 mL/min (>60) 03/31/20 05:15 BUN/Creatinine Ratio 16.7 RATIO (10-20) 03/31/20 05:15 Glucose 100 mg/dL (74-106) 03/31/20 05:15 Assessment/Plan: Psychotropic Medications: Unnecessary Medications: Bowel Regimen: - Provider Comments Provider responsibility: Provider responsible to enter orders to implement recommendations Provider Comments to Recommendations by Pharmacy: Agree
[2020-03-31 14:39] VITALS: BP 117/46; PULSE 70; RESP 18; TEMP 36.4; O2SAT 100
--- NOTE | 2020-03-31 14:40 | NURSING ---
Addendum entered by Martha Ortega 03/31/20 16:51: faxed clinical information to [facility] as requested for precert for CT SCAN of head. RN updated Original Note: [employer] called to start prior authorization for F/u CT of the head without contrast. Transaction ID [id number]
[2020-03-31 17:38] VITALS: BP 107/62
[2020-03-31] MEDS: Ezetimibe 10 MG Tablet PO (19:56)
[2020-03-31] MEDS: Atorvastatin Calcium 40 MG Tablet PO (19:56)
[2020-03-31] MEDS: MELATONIN 3 MG TABLET 6 MG PO (19:56)
[2020-04-01 05:00] VITALS: BP 112/56; PULSE 55; RESP 18; TEMP 36.9; O2SAT 97
[2020-04-01] MEDS: Escitalopram Oxalate 10 MG Tablet PO (05:50)
[2020-04-01] MEDS: Lisinopril 40 MG Tablet PO (05:50)
[2020-04-01] MEDS: Pantoprazole Sodium 20 MG Tablet PO ×2 (05:50→17:55)
[2020-04-01] MEDS: Furosemide 40 MG Tablet PO (05:50)
[2020-04-01] MEDS: Carvedilol 12.5 MG Tablet PO ×2 (05:51→17:55)
[2020-04-01] MEDS: Senna/Docusate Sodium 1 Tablet PO ×2 (05:51→17:55)
[2020-04-01] MEDS: Fluticasone/Salmeterol 232-14 Inhaler 1 PUFF IH ×2 (05:51→18:47)
[2020-04-01] MEDS: Levothyroxine 100 MCG Tablet PO (05:51)
[2020-04-01] MEDS: Polyethylene Glycol 3350 17 GM PACKET PO (05:52)
[2020-04-01] MEDS: Multivitamins,Ther W-Minerals Tablet 1 TABLET PO (09:28)
[2020-04-01] MEDS: Aspirin E.C. 81 MG Tablet PO (09:28)
--- NOTE | 2020-04-01 11:32 | NURSING ---
automotive starter repairer Note: Res unable to answer questions to complete initial assessment. Contacted and spoke to , Saji and daughter, Millie to obtain background information. Then, coordinated call via Duo from resident's phone to video chat with and daughter. Res did not verbalize during call. Not answering family's questions, nor maintaining eyes open. Asked resident to state her wishes regarding returning home. Did not respond or reply. Thanked family for the call and requested they attempt to call her back this afternoon.
--- NOTE | 2020-04-01 11:48 | CASEMGMT ---
Addendum entered by Merle Small 04/01/20 15:49: Spoke with dtrPeterson, at length. Reviewed below information and answered questions. Dtr inquiring about several medical questions. Offered to have Dr. Bernstein contact family during office hours - dtr agreeable. Left message for Dr. Egan conflicted with what to do for pt as her father is having a difficult time being away from pt as well. Provided emotional and verbal support. Offered to assist with any decision. Dtr expressed great appreciation for SW information, time, patience and understanding. Family will contact SW tomorrow after conversation with with decision. SW to continue to follow. Original Note: Social Work Received information from nursing that pt had a bad night and is requesting to DC home. Spoke with pt. Pt laying in recliner with eyes closed. Introduced self and role. Pt not alert. Inquired where pt was located, and what year - no response. Inquired about dtr's names - pt replied I have two daughters - Peterson and Millie. Inquired where she lives home with my , Saji. Inquired if she wants to go home, yes. Inquired if she wants to continue with therapy no. Inquired if she wants to be comfortable, with hospice services and is ready to no. Clarified pt wants to go home with no therapy and no hospice yes. SW had to continue to cue pt to open eyes to answer questions, but pt clear in her wishes. Received voicemail from dtrPeterson. Contacted Peterson and scheduled a later time to discuss pt. Contacted other dtr Millie. Provided above information and inquired about family's goal for pt. Dtr does want pt come home if she is not happy about remaining in TCU, but conflicted. Dtr inquired about services at home. Explained since pt does not want hospice nor therapy, SW can offer and recommend nonskilled HHC as pt is x2 assist, 1:1 supervision with modified diet, and any DME needed. Explained SW can assist with DC any time but pt does have CT scan scheduled for 04/05 that it would be beneficial if pt remained until then. Explained pt will need a cot transport home and to any appts - provided [facility] pricing. Dtr unsure of decision and requested to keep scheduled phone call with sister to explain information. SW agreed. Inquired about any DME pt would need because if family/pt would like to DC home this date, SW will need to organize DME. Pt has all DME except hospital bed and dtr unsure if would want one. Will notify SHAVONNE. SHAVONNE did email list of nonskilled [facility] agencies and transport resources. Will continue to follow. WESTON SumnerW
--- NOTE | 2020-04-01 12:49 | NURSING ---
UPDATED DAUGHTER THIS MORNING.
[2020-04-01] MEDS: Acetaminophen 500 MG Tablet 1000 MG PO ×2 (13:20→21:38)
[2020-04-01 14:03] VITALS: BP 86/50; PULSE 56; RESP 17; TEMP 36.7; O2SAT 97
[2020-04-01 15:00] VITALS: PULSE 56; RESP 16; O2SAT 99
[2020-04-01 17:00] VITALS: BP 106/47; PULSE 78
[2020-04-01] MEDS: MELATONIN 3 MG TABLET 6 MG PO (21:37)
[2020-04-01] MEDS: Atorvastatin Calcium 40 MG Tablet PO (21:37)
[2020-04-01] MEDS: Ezetimibe 10 MG Tablet PO (21:38)
[2020-04-02 05:00] VITALS: BP 105/68; PULSE 65; RESP 18; TEMP 36.6; O2SAT 100
[2020-04-02 05:50] LABS: Hematocrit 29.6 % (37-47); Hemoglobin 8.4 g/dL (12.0-15.0)
[2020-04-02] MEDS: Senna/Docusate Sodium 1 Tablet PO (06:26)
[2020-04-02] MEDS: Lisinopril 40 MG Tablet PO (06:26)
[2020-04-02] MEDS: Levothyroxine 100 MCG Tablet PO (06:26)
[2020-04-02] MEDS: Escitalopram Oxalate 10 MG Tablet PO (06:26)
[2020-04-02] MEDS: Furosemide 40 MG Tablet PO (06:26)
[2020-04-02] MEDS: Acetaminophen 500 MG Tablet 1000 MG PO ×3 (06:26→19:40)
[2020-04-02] MEDS: Pantoprazole Sodium 20 MG Tablet PO ×2 (06:26→17:47)
[2020-04-02] MEDS: Carvedilol 12.5 MG Tablet PO ×2 (06:26→17:46)
[2020-04-02] MEDS: Polyethylene Glycol 3350 17 GM PACKET PO (06:27)
[2020-04-02] MEDS: Fluticasone/Salmeterol 232-14 Inhaler 1 PUFF IH ×2 (06:27→17:47)
[2020-04-02] MEDS: Aspirin E.C. 81 MG Tablet PO (07:52)
[2020-04-02] MEDS: Multivitamins,Ther W-Minerals Tablet 1 TABLET PO (07:52)
[2020-04-02 10:00] VITALS: PULSE 68; O2SAT 100
[2020-04-02 16:00] VITALS: BP 103/51; PULSE 68; RESP 16; TEMP 36.4; O2SAT 98
[2020-04-02] MEDS: Ezetimibe 10 MG Tablet PO (19:40)
[2020-04-02] MEDS: Atorvastatin Calcium 40 MG Tablet PO (19:40)
[2020-04-02] MEDS: MELATONIN 3 MG TABLET 6 MG PO (19:40)
[2020-04-03 02:21] VITALS: BP 98/62; PULSE 64; RESP 16; TEMP 36.5; O2SAT 99
[2020-04-03] MEDS: Senna/Docusate Sodium 1 Tablet PO (06:39)
[2020-04-03] MEDS: Polyethylene Glycol 3350 17 GM PACKET PO (06:39)
[2020-04-03] MEDS: Lisinopril 40 MG Tablet PO (06:39)
[2020-04-03] MEDS: Furosemide 40 MG Tablet PO (06:39)
[2020-04-03] MEDS: Escitalopram Oxalate 10 MG Tablet PO (06:39)
[2020-04-03] MEDS: Levothyroxine 100 MCG Tablet PO (06:39)
[2020-04-03] MEDS: Acetaminophen 500 MG Tablet 1000 MG PO ×3 (06:39→21:04)
[2020-04-03] MEDS: Carvedilol 12.5 MG Tablet PO ×2 (06:39→17:52)
[2020-04-03] MEDS: Fluticasone/Salmeterol 232-14 Inhaler 1 PUFF IH ×2 (06:44→17:52)
[2020-04-03] MEDS: Pantoprazole Sodium 20 MG Tablet PO ×2 (06:46→17:52)
[2020-04-03 06:47] VITALS: BP 112/40; PULSE 66; RESP 18; TEMP 36.6; O2SAT 100
[2020-04-03] MEDS: Multivitamins,Ther W-Minerals Tablet 1 TABLET PO (08:05)
[2020-04-03] MEDS: Aspirin E.C. 81 MG Tablet PO (08:05)
--- NOTE | 2020-04-03 12:17 | NURSING ---
attempted to call daughter Peterson with an update at listed number, unable to leave a voicemail due to mailbox not set up.
[2020-04-03 14:51] VITALS: BP 145/67; PULSE 57; RESP 20; TEMP 36.3; O2SAT 93
[2020-04-03 21:00] VITALS: PULSE 62; RESP 16; O2SAT 97
[2020-04-03] MEDS: Atorvastatin Calcium 40 MG Tablet PO (21:03)
[2020-04-03] MEDS: MELATONIN 3 MG TABLET 6 MG PO (21:03)
[2020-04-03] MEDS: Ezetimibe 10 MG Tablet PO (21:03)
[2020-04-04 04:49] VITALS: BP 109/69; PULSE 62; RESP 16; TEMP 36.6; O2SAT 96
[2020-04-04] MEDS: Acetaminophen 500 MG Tablet 1000 MG PO ×3 (04:55→20:46)
[2020-04-04] MEDS: Levothyroxine 100 MCG Tablet PO (04:55)
[2020-04-04] MEDS: Escitalopram Oxalate 10 MG Tablet PO (04:55)
[2020-04-04] MEDS: Furosemide 40 MG Tablet PO (04:55)
[2020-04-04] MEDS: Senna/Docusate Sodium 1 Tablet PO ×2 (04:55→17:44)
[2020-04-04] MEDS: Pantoprazole Sodium 20 MG Tablet PO ×2 (04:55→17:44)
[2020-04-04] MEDS: Lisinopril 40 MG Tablet PO (04:56)
[2020-04-04] MEDS: Polyethylene Glycol 3350 17 GM PACKET PO (04:56)
[2020-04-04] MEDS: Carvedilol 12.5 MG Tablet PO ×2 (04:56→17:44)
[2020-04-04] MEDS: Fluticasone/Salmeterol 232-14 Inhaler 1 PUFF IH ×2 (05:00→17:46)
[2020-04-04 05:18] LABS: Hematocrit 29.8 % (37-47); Hemoglobin 8.3 g/dL (12.0-15.0)
[2020-04-04] MEDS: Aspirin E.C. 81 MG Tablet PO (08:50)
[2020-04-04] MEDS: Multivitamins,Ther W-Minerals Tablet 1 TABLET PO (08:50)
[2020-04-04 14:16] VITALS: BP 107/58; PULSE 62; RESP 18; TEMP 36.3; O2SAT 98
[2020-04-04] MEDS: Atorvastatin Calcium 40 MG Tablet PO (19:41)
[2020-04-04] MEDS: Ezetimibe 10 MG Tablet PO (19:41)
[2020-04-04] MEDS: MELATONIN 3 MG TABLET 6 MG PO (20:46)
[2020-04-05 05:00] VITALS: BP 119/50; PULSE 65; RESP 16; TEMP 36.8; O2SAT 96
[2020-04-05] MEDS: Levothyroxine 100 MCG Tablet PO (05:32)
[2020-04-05] MEDS: Pantoprazole Sodium 20 MG Tablet PO ×2 (05:32→17:13)
[2020-04-05] MEDS: Furosemide 40 MG Tablet PO (05:32)
[2020-04-05] MEDS: Senna/Docusate Sodium 1 Tablet PO ×2 (05:32→17:13)
[2020-04-05] MEDS: Escitalopram Oxalate 10 MG Tablet PO (05:32)
[2020-04-05] MEDS: Polyethylene Glycol 3350 17 GM PACKET PO (05:32)
[2020-04-05] MEDS: Lisinopril 40 MG Tablet PO (05:32)
[2020-04-05] MEDS: Acetaminophen 500 MG Tablet 1000 MG PO ×3 (05:32→21:31)
[2020-04-05] MEDS: Carvedilol 12.5 MG Tablet PO ×2 (05:32→17:13)
[2020-04-05] MEDS: Fluticasone/Salmeterol 232-14 Inhaler 1 PUFF IH ×2 (05:36→17:14)
[2020-04-05] MEDS: Aspirin E.C. 81 MG Tablet PO (08:13)
[2020-04-05] MEDS: Multivitamins,Ther W-Minerals Tablet 1 TABLET PO (08:13)
--- NOTE | 2020-04-05 08:46 | NURSING ---
Precert for CT scan was approved from 03/31/20 through 04/28/20. Authorization number [id number]
--- NOTE | 2020-04-05 16:08 | NURSING ---
Pt returned from [facility] at this time, N.O. BNP to assess SOB. Daughter reported they have been told by multiple doctors that pt is not to take eliquis or aspirin ever again, but says baby ASA is ok. Pt had appointment with Ghanshyam Zavala SQL DEVELOPER at [facility], CT results sent with pt and daughter attended appointment to ask about restarting eliquis. Ghanshyam Zavala to consult with Dr. Castaneda and reach out to Dr. Bernstein.
[2020-04-05 17:06] VITALS: BP 102/59; PULSE 65; RESP 20; TEMP 36.8; O2SAT 93
[2020-04-05] MEDS: Atorvastatin Calcium 40 MG Tablet PO (21:26)
[2020-04-05] MEDS: Ezetimibe 10 MG Tablet PO (21:26)
[2020-04-05] MEDS: MELATONIN 3 MG TABLET 6 MG PO (21:27)
[2020-04-05 21:55] VITALS: PULSE 65; RESP 16; O2SAT 96
[2020-04-06 05:00] VITALS: BP 160/93; PULSE 65; RESP 16; TEMP 36.9; O2SAT 97
[2020-04-06 05:34] LABS: Hemoglobin 8.6 g/dL (12.0-15.0)
[2020-04-06] MEDS: Senna/Docusate Sodium 1 Tablet PO ×2 (06:30→17:24)
[2020-04-06] MEDS: Pantoprazole Sodium 20 MG Tablet PO ×2 (06:30→17:24)
[2020-04-06] MEDS: Polyethylene Glycol 3350 17 GM PACKET PO (06:30)
[2020-04-06] MEDS: Levothyroxine 100 MCG Tablet PO (06:30)
[2020-04-06] MEDS: Lisinopril 40 MG Tablet PO (06:30)
[2020-04-06] MEDS: Carvedilol 12.5 MG Tablet PO ×2 (06:30→17:24)
[2020-04-06] MEDS: Furosemide 40 MG Tablet PO ×2 (06:30→17:24)
[2020-04-06] MEDS: Escitalopram Oxalate 10 MG Tablet PO (06:30)
[2020-04-06] MEDS: Fluticasone/Salmeterol 232-14 Inhaler 1 PUFF IH ×2 (06:32→17:25)
[2020-04-06] MEDS: Acetaminophen 500 MG Tablet 1000 MG PO ×3 (06:33→21:16)
[2020-04-06 08:19] LABS: BNP,B-Type NATRIURETIC PEPTIDE 530.9 pg/mL (0-100)
[2020-04-06] MEDS: Multivitamins,Ther W-Minerals Tablet 1 TABLET PO (08:38)
[2020-04-06] MEDS: Aspirin E.C. 81 MG Tablet PO (08:38)
[2020-04-06 10:00] VITALS: PULSE 66; RESP 18; O2SAT 94
[2020-04-06] MEDS: Ondansetron ODT 4 MG Tablet PO (11:06)
[2020-04-06 11:57] LABS: Mucous, Urine 0 SEEN /hpf (<or=2+); Red Blood Cells-Urine 0 SEEN /hpf (0-5); Squamous Epithelial Cells - UA 0 SEEN /hpf (5-10)
[2020-04-06 12:07] LABS: Color, Urine Yellow (Yellow); Glucose, Dipstick Normal (Normal); Ketone-Dipstick Negative (Negative); Leukocyte Esterase-Dipstick 500 /ul (Negative); Nitrite-Dipstick Negative (Negative); Occult Blood-Urine Negative /ul (Negative); Protein-Dipstick Negative (Negative); Specific Gravity, Urine 1.005 (1.002-1.030); Urine Bilirubin Dipstick Negative (Negative); Urine Clarity Clear (Clear); Urine Urobilinogen Normal (Normal)
[2020-04-06 12:16] LABS: Bacteria 2+ /hpf (None Seen); Renal Epithelial Cells 0-5 SEEN /hpf (0-5); White Blood Cells 0-5 SEEN /hpf (0-5)
[2020-04-06] MEDS: CEFUROXIME AXETIL 250 MG TABLET 500 MG PO ×2 (13:03→17:25)
--- NOTE | 2020-04-06 13:15 | RAD_ITS ---
STUDY: X-RAY - ABDOMEN/PELVIS REASON FOR EXAM: Female, 80 years old. Diarrhea since this morning TECHNIQUE: Single AP view of the abdomen / pelvis. COMPARISON: None. FINDINGS: Normal visualized lung bases. There is an unremarkable bowel gas pattern. There is no demonstrated free abdominal air. The visualized liver, spleen and kidneys are grossly normal in size and morphology. Atherosclerotic calcification of the abdominal aorta. There are diffuse degenerative changes of the visualized lumbar spine. Osteoarthritis of both hip joints. RAD/Abdomen Single View IMPRESSION: Nonspecific bowel gas pattern. Electronically Signed: Milo Villanueva MD at 14:48 EST , Service support ,
[2020-04-06 15:02] VITALS: BP 103/61; PULSE 70; RESP 18; TEMP 36.3; O2SAT 95
[2020-04-06] MEDS: APIXABAN 2.5 MG TABLET PO (17:24)
--- NOTE | 2020-04-06 18:23 | NURSING ---
UPDATED FAMILY ON PT.
[2020-04-06] MEDS: Ezetimibe 10 MG Tablet PO (21:17)
[2020-04-06] MEDS: MELATONIN 3 MG TABLET 6 MG PO (21:17)
[2020-04-06] MEDS: Atorvastatin Calcium 40 MG Tablet PO (21:17)
[2020-04-07 01:15] VITALS: BP 101/44; PULSE 57; RESP 16; TEMP 36.4; O2SAT 97
[2020-04-07] MEDS: APIXABAN 2.5 MG TABLET PO ×2 (05:17→17:02)
[2020-04-07] MEDS: Polyethylene Glycol 3350 17 GM PACKET PO (05:17)
[2020-04-07] MEDS: Pantoprazole Sodium 20 MG Tablet PO ×2 (05:17→17:01)
[2020-04-07] MEDS: Carvedilol 12.5 MG Tablet PO ×2 (05:17→17:03)
[2020-04-07] MEDS: Escitalopram Oxalate 10 MG Tablet PO (05:17)
[2020-04-07] MEDS: Senna/Docusate Sodium 1 Tablet PO ×2 (05:17→17:03)
[2020-04-07] MEDS: Furosemide 40 MG Tablet PO ×2 (05:17→17:02)
[2020-04-07] MEDS: Levothyroxine 100 MCG Tablet PO (05:17)
[2020-04-07] MEDS: Fluticasone/Salmeterol 232-14 Inhaler 1 PUFF IH ×2 (05:18→17:03)
[2020-04-07] MEDS: Menthol/Lanolin/Calamine/Znox 113 GM Tube 1 APPLIC TOPICAL ×2 (05:18→17:03)
[2020-04-07] MEDS: Lisinopril 40 MG Tablet PO (05:19)
[2020-04-07] MEDS: Acetaminophen 500 MG Tablet 1000 MG PO ×3 (05:20→21:09)
[2020-04-07 05:34] LABS: Absolute Lymphocyte Count 1.68 X10^3/uL (0.83-4.51); Absolute Neutrophil Count 2.2 X10^3/uL (2.0-7.7); Basophil# 0.04 X10^3/uL; Basophil% 0.9 % (0-1); Eosinophil# 0.12 X10^3/uL; Eosinophils% 2.6 % (0-5); Hematocrit 33.4 % (37-47); Hemoglobin 9.1 g/dL (12.0-15.0); Lymphocyte # 1.68 X10^3/ul (4.0); Lymphocyte % 36.1 % (19-41); Mean Corp Hgb Conc 27.2 g/dL (32-36); Mean Corpuscular Hgb 23.8 pg (27.0-32.0); Mean Corpuscular Volume 87.2 fL (81-99); Mean Platelet Vol. 9.7 fl (6.2-12.0); Monocyte# 0.64 X10^3/uL; Monocyte% 13.7 % (0-10); NRBC Flagged by Analyzer 0 % (0-5); Neutrophil # 2.17 X10^3/uL (2.7-7.7); Neutrophil % 46.5 % (47-70); Platelet Count 328 K/mm3 (150-450); RBC Distribution Width SD 57.8 fl (35.1-43.9); Red Blood Count 3.83 M/mm3 (4.2-5.4); White Blood Count 4.7 K/mm3 (4.4-11.0)
[2020-04-07 05:55] LABS: Anion Gap 2 (5-15); BUN 19 mg/dL (7-18); BUN/Creat Ratio 20.5 RATIO (10-20); Chloride 97 mmol/L (98-107); Creatinine, Serum 0.93 mg/dL (0.55-1.02); EST Glomerular Filtration Rate 62 mL/min (>60); Est Glom Filt Rate - Afr Amer 75 mL/min (>60); Estimated Creatinine Clearance 40.58 ml/min; Glucose 87 mg/dL (74-106); Potassium 4.7 mmol/L (3.5-5.1); Sodium Level 135 mmol/L (136-145)
[2020-04-07] MEDS: Aspirin E.C. 81 MG Tablet PO (08:17)
[2020-04-07] MEDS: Multivitamins,Ther W-Minerals Tablet 1 TABLET PO (08:17)
[2020-04-07] MEDS: CEFUROXIME AXETIL 250 MG TABLET 500 MG PO ×2 (08:17→17:01)
--- NOTE | 2020-04-07 11:24 | CASEMGMT ---
Social Work IDT met with patient, both dtrs and via conference call for care plan meeting. Discussed patient's progress in therapy and nursing. ST working on diet and cognition. OT completed morning ADL sponge bathe and it was noted to take 90 mins total as pt needed frequent rest breaks. Compassionate care visits have been successful and pt is noted to be more alert and talkative. Pt up in chair and awake during meeting. Pt reports mood has improved. Pt's intake variable. Pt is out of isolation 04/13. Explained [facility] insurance with NRD 04/08 and EDC 04/19. Provided and explained insurance's care plan. Inquired about pt's levels to return home as family will only have pt return home, no SNF. Pt was SBA-CGA for tx, min for LE care and toileting tasks. can assist at that level for pt to return home. SW will continue to follow for discharge planning. Merle Small, [employer] ROLLER POWERHOUSE TENDER
--- NOTE | 2020-04-07 12:15 | NURSING ---
Pharmacy called to please send up TB test for patient. Could not locate on the floor.
[2020-04-07] MEDS: Tuberculin,Purif.prot.deriv. 50 TU/ML Vial 5 ML ID (14:47)
[2020-04-07 14:48] VITALS: BP 106/58; PULSE 99; RESP 16; TEMP 36.9; O2SAT 97
[2020-04-07 19:42] VITALS: PULSE 69; RESP 16; O2SAT 97
[2020-04-07] MEDS: Atorvastatin Calcium 40 MG Tablet PO (21:07)
[2020-04-07] MEDS: MELATONIN 3 MG TABLET 6 MG PO (21:07)
[2020-04-07] MEDS: Ezetimibe 10 MG Tablet PO (21:07)
[2020-04-08 02:10] VITALS: BP 108/86; PULSE 69; RESP 16; TEMP 36.9; O2SAT 97
[2020-04-08] MEDS: Fluticasone/Salmeterol 232-14 Inhaler 1 PUFF IH ×2 (05:23→18:06)
[2020-04-08] MEDS: APIXABAN 2.5 MG TABLET PO ×2 (05:23→18:07)
[2020-04-08] MEDS: Polyethylene Glycol 3350 17 GM PACKET PO (05:23)
[2020-04-08] MEDS: Escitalopram Oxalate 10 MG Tablet PO (05:24)
[2020-04-08] MEDS: Levothyroxine 100 MCG Tablet PO (05:24)
[2020-04-08] MEDS: Furosemide 40 MG Tablet PO ×2 (05:24→18:07)
[2020-04-08] MEDS: Pantoprazole Sodium 20 MG Tablet PO ×2 (05:24→18:08)
[2020-04-08] MEDS: Lisinopril 40 MG Tablet PO (05:24)
[2020-04-08] MEDS: Carvedilol 12.5 MG Tablet PO (05:24)
[2020-04-08] MEDS: Senna/Docusate Sodium 1 Tablet PO ×2 (05:24→18:08)
[2020-04-08] MEDS: Menthol/Lanolin/Calamine/Znox 113 GM Tube 1 APPLIC TOPICAL ×2 (05:31→18:05)
[2020-04-08] MEDS: Acetaminophen 500 MG Tablet 1000 MG PO ×3 (05:33→20:08)
[2020-04-08] MEDS: Multivitamins,Ther W-Minerals Tablet 1 TABLET PO (09:17)
[2020-04-08] MEDS: CEFUROXIME AXETIL 250 MG TABLET 500 MG PO ×2 (09:17→18:06)
[2020-04-08] MEDS: Aspirin E.C. 81 MG Tablet PO (09:17)
[2020-04-08 09:23] VITALS: BP 103/44; O2SAT 99
--- NOTE | 2020-04-08 09:26 | NURSING ---
PT STATED SHE WAS FEELING DIZZY. VITALS DONE,REPORTED TO RN.
--- NOTE | 2020-04-08 09:26 | MDS.RN ---
Information for the mds was obtained from review of the clinical record, interview of resident, staff, and direct observation of resident's care.
[2020-04-08] MEDS: Ondansetron ODT 4 MG Tablet PO (11:23)
[2020-04-08 11:24] VITALS: BP 96/53; PULSE 61; RESP 16; TEMP 36.3; O2SAT 98
[2020-04-08 11:25] VITALS: PULSE 53; RESP 18; O2SAT 98
--- NOTE | 2020-04-08 11:52 | NURSING ---
PT ON CEFTIN FOR UTI. PT ALSO NAUSEATED,GAVE PRN ZOFRAN. RN AWARE.
--- NOTE | 2020-04-08 13:10 | NURSING ---
pt refused to get dressed. pt stated she felt more comfortable in her pjs.
--- NOTE | 2020-04-08 13:34 | NURSING ---
family updated today on pt.
[2020-04-08 17:17] VITALS: BP 96/51; PULSE 83
[2020-04-08] MEDS: MELATONIN 3 MG TABLET 6 MG PO (20:07)
[2020-04-08] MEDS: Atorvastatin Calcium 40 MG Tablet PO (20:07)
[2020-04-08] MEDS: Ezetimibe 10 MG Tablet PO (20:09)
[2020-04-09] MEDS: Menthol/Lanolin/Calamine/Znox 113 GM Tube 1 APPLIC TOPICAL ×2 (04:41→17:43)
[2020-04-09] MEDS: Polyethylene Glycol 3350 17 GM PACKET PO (04:42)
[2020-04-09] MEDS: Senna/Docusate Sodium 1 Tablet PO ×2 (04:44→17:41)
[2020-04-09] MEDS: Pantoprazole Sodium 20 MG Tablet PO ×2 (04:44→17:41)
[2020-04-09] MEDS: Levothyroxine 100 MCG Tablet PO (04:44)
[2020-04-09] MEDS: Lisinopril 40 MG Tablet PO (04:44)
[2020-04-09] MEDS: Furosemide 40 MG Tablet PO (04:44)
[2020-04-09] MEDS: Carvedilol 6.25 MG Tablet PO (04:44)
[2020-04-09] MEDS: Escitalopram Oxalate 10 MG Tablet PO (04:44)
[2020-04-09] MEDS: APIXABAN 2.5 MG TABLET PO ×2 (04:44→17:41)
[2020-04-09] MEDS: Fluticasone/Salmeterol 232-14 Inhaler 1 PUFF IH ×2 (04:45→17:42)
[2020-04-09] MEDS: Acetaminophen 500 MG Tablet 1000 MG PO ×3 (04:47→22:09)
[2020-04-09 04:48] VITALS: BP 105/68; PULSE 85; RESP 18; TEMP 36.7; O2SAT 90
[2020-04-09] MEDS: Aspirin E.C. 81 MG Tablet PO (08:37)
[2020-04-09] MEDS: CEFUROXIME AXETIL 250 MG TABLET 500 MG PO ×2 (08:37→17:40)
[2020-04-09] MEDS: Multivitamins,Ther W-Minerals Tablet 1 TABLET PO (08:38)
[2020-04-09 11:00] VITALS: BP 83/42; PULSE 80; RESP 18; TEMP 36.5; O2SAT 97
[2020-04-09] MEDS: traMADol 50 MG Tablet PO (12:15)
[2020-04-09] MEDS: 0.9% Normal Saline 1,000 ML 1000 ML IV (12:15)
[2020-04-09] MEDS: 0.9% Normal Saline 1,000 ML 60 ML IV (13:21)
[2020-04-09 14:09] VITALS: BP 93/59; PULSE 58; RESP 17; TEMP 36.1; O2SAT 99
--- NOTE | 2020-04-09 15:35 | NURSING ---
Pt c/o headache, drowsy, BP 83/42, lips dry, RN notified and Dr. Bernstein updated, N.O. 1L NS Bolus then NS 60cc/hr, Urine culture and Ultram PRN
[2020-04-09] MEDS: Atorvastatin Calcium 40 MG Tablet PO (22:06)
[2020-04-09] MEDS: Ezetimibe 10 MG Tablet PO (22:07)
[2020-04-09] MEDS: MELATONIN 3 MG TABLET 6 MG PO (22:07)
--- NOTE | 2020-04-09 22:19 | NURSING ---
This nurse went into patient room to administer hs medication and patient was lethargy not wanting to open eyes or her name. Patient finally respond to name and opened mouth for hs medications. Lung clear posterior and anterior, Bp-105/58, RR-18, OR-53, Sp02-97% via nasal cannula 1L. Patient has swelling to bilateral eyes NS running in right wrist at 601ml/hr. Rn made aware
[2020-04-09 22:25] VITALS: BP 105/58; PULSE 53; RESP 18; O2SAT 97
[2020-04-09 23:11] LABS: Bedside Glucose 132 mg/dL (70-110)
--- NOTE | 2020-04-09 23:24 | NURSING ---
Per JF Meek, pt more lethargic this evening, orbital edema, see vitals, faint crackles noted to lt lower lobe, updated on vitals and pt condition, new order to dc ivf and ultram. JF Meek made aware of new orders.
[2020-04-10 06:34] VITALS: BP 133/61; PULSE 65; RESP 20; TEMP 36.4; O2SAT 98
--- NOTE | 2020-04-10 06:41 | NURSING ---
went to pt's room to check vs and give am medications. pt does not open eyes and is not responding verbally to this rn. am medications not given at this time.
[2020-04-10] MEDS: Pantoprazole Sodium 20 MG Tablet PO ×2 (06:49→17:32)
[2020-04-10] MEDS: Levothyroxine 100 MCG Tablet PO (06:49)
[2020-04-10] MEDS: Escitalopram Oxalate 10 MG Tablet PO (06:49)
[2020-04-10] MEDS: Lisinopril 40 MG Tablet PO (06:49)
[2020-04-10] MEDS: Carvedilol 6.25 MG Tablet PO ×2 (06:49→17:31)
[2020-04-10] MEDS: Senna/Docusate Sodium 1 Tablet PO ×2 (06:49→17:32)
[2020-04-10] MEDS: APIXABAN 2.5 MG TABLET PO ×2 (06:50→17:31)
[2020-04-10] MEDS: Furosemide 40 MG Tablet PO (06:52)
[2020-04-10] MEDS: Acetaminophen 500 MG Tablet 1000 MG PO ×3 (06:53→22:26)
[2020-04-10] MEDS: Fluticasone/Salmeterol 232-14 Inhaler 1 PUFF IH ×2 (06:55→17:35)
[2020-04-10] MEDS: Menthol/Lanolin/Calamine/Znox 113 GM Tube 1 APPLIC TOPICAL ×2 (07:01→17:33)
[2020-04-10] MEDS: CEFUROXIME AXETIL 250 MG TABLET 500 MG PO ×2 (09:25→17:30)
[2020-04-10] MEDS: Aspirin E.C. 81 MG Tablet PO (09:29)
[2020-04-10] MEDS: Multivitamins,Ther W-Minerals Tablet 1 TABLET PO (09:30)
[2020-04-10 14:04] VITALS: BP 82/48; PULSE 60; RESP 16; TEMP 36.4; O2SAT 94
[2020-04-10 17:28] VITALS: BP 109/58; PULSE 70
[2020-04-10] MEDS: Atorvastatin Calcium 40 MG Tablet PO (22:22)
[2020-04-10] MEDS: MELATONIN 3 MG TABLET 6 MG PO (22:22)
[2020-04-10] MEDS: Ezetimibe 10 MG Tablet PO (22:23)
[2020-04-11 05:00] VITALS: BP 115/65; PULSE 70; RESP 18; TEMP 36.6; O2SAT 94
[2020-04-11] MEDS: Carvedilol 6.25 MG Tablet PO ×2 (06:21→17:48)
[2020-04-11] MEDS: APIXABAN 2.5 MG TABLET PO ×2 (06:21→17:49)
[2020-04-11] MEDS: Pantoprazole Sodium 20 MG Tablet PO ×2 (06:21→17:50)
[2020-04-11] MEDS: Escitalopram Oxalate 10 MG Tablet PO (06:21)
[2020-04-11] MEDS: Furosemide 40 MG Tablet PO (06:21)
[2020-04-11] MEDS: Senna/Docusate Sodium 1 Tablet PO ×2 (06:22→17:49)
[2020-04-11] MEDS: Fluticasone/Salmeterol 232-14 Inhaler 1 PUFF IH ×2 (06:22→17:53)
[2020-04-11] MEDS: Lisinopril 40 MG Tablet PO (06:22)
[2020-04-11] MEDS: Levothyroxine 100 MCG Tablet PO (06:22)
[2020-04-11] MEDS: Menthol/Lanolin/Calamine/Znox 113 GM Tube 1 APPLIC TOPICAL ×2 (06:22→17:48)
[2020-04-11] MEDS: Acetaminophen 500 MG Tablet 1000 MG PO ×3 (06:24→22:40)
[2020-04-11] MEDS: Multivitamins,Ther W-Minerals Tablet 1 TABLET PO (09:16)
[2020-04-11] MEDS: CEFUROXIME AXETIL 250 MG TABLET 500 MG PO ×2 (09:16→17:47)
[2020-04-11] MEDS: Aspirin E.C. 81 MG Tablet PO (09:16)
[2020-04-11 11:10] VITALS: PULSE 68; RESP 18; O2SAT 97
[2020-04-11 14:22] VITALS: BP 118/49; PULSE 55; RESP 20; TEMP 37; O2SAT 96
[2020-04-11] MEDS: Ondansetron ODT 4 MG Tablet PO (17:47)
[2020-04-11] MEDS: MELATONIN 3 MG TABLET 6 MG PO (22:39)
[2020-04-11] MEDS: Ezetimibe 10 MG Tablet PO (22:39)
[2020-04-11] MEDS: Atorvastatin Calcium 40 MG Tablet PO (22:39)
[2020-04-12 05:00] VITALS: BP 110/70; PULSE 77; RESP 18; TEMP 36.6; O2SAT 95
[2020-04-12] MEDS: Furosemide 40 MG Tablet PO (05:21)
[2020-04-12] MEDS: Carvedilol 6.25 MG Tablet PO ×2 (05:21→18:02)
[2020-04-12] MEDS: APIXABAN 2.5 MG TABLET PO ×2 (05:22→18:01)
[2020-04-12] MEDS: Levothyroxine 100 MCG Tablet PO (05:22)
[2020-04-12] MEDS: Lisinopril 40 MG Tablet PO (05:22)
[2020-04-12] MEDS: Fluticasone/Salmeterol 232-14 Inhaler 1 PUFF IH ×2 (05:22→18:01)
[2020-04-12] MEDS: Menthol/Lanolin/Calamine/Znox 113 GM Tube 1 APPLIC TOPICAL ×2 (05:22→18:04)
[2020-04-12] MEDS: Senna/Docusate Sodium 1 Tablet PO ×2 (05:22→18:02)
[2020-04-12] MEDS: Escitalopram Oxalate 10 MG Tablet PO (05:22)
[2020-04-12] MEDS: Pantoprazole Sodium 20 MG Tablet PO ×2 (05:22→18:02)
[2020-04-12] MEDS: Acetaminophen 500 MG Tablet 1000 MG PO ×3 (05:24→21:25)
[2020-04-12] MEDS: Aspirin E.C. 81 MG Tablet PO (08:44)
[2020-04-12] MEDS: Multivitamins,Ther W-Minerals Tablet 1 TABLET PO (08:44)
[2020-04-12 14:41] VITALS: BP 93/55; PULSE 61; RESP 16; TEMP 36.2; O2SAT 95
--- NOTE | 2020-04-12 16:50 | RAD_ITS ---
STUDY: X-RAY - ABDOMEN/PELVIS REASON FOR EXAM: Female, 80 years old. Abdomen pain. TECHNIQUE: Single AP view of the abdomen / pelvis. COMPARISON: Comparison is made with prior study dated 04/06/2020. FINDINGS: Normal visualized lung bases. There is an abundance of fecal material throughout the colon. The visualized liver, spleen and kidneys are grossly normal in size and morphology. Normal soft tissue structures. There are diffuse degenerative changes of the visualized lumbar spine. Moderate degree of osteoarthritis involving both hip joints. RAD/Abdomen Single View IMPRESSION: Large amount of fecal material is seen in the colon. Electronically Signed: Milo Villanueva MD at 8:08 EST , Service support ,
[2020-04-12 18:08] VITALS: BP 100/69; PULSE 78
[2020-04-12] MEDS: MELATONIN 3 MG TABLET 6 MG PO (21:26)
[2020-04-12] MEDS: Atorvastatin Calcium 40 MG Tablet PO (21:26)
[2020-04-12] MEDS: Ezetimibe 10 MG Tablet PO (21:26)
[2020-04-12 22:25] VITALS: PULSE 60; RESP 16; O2SAT 96
[2020-04-12] MEDS: Magnesium Citrate 300 ML 150 ML PO (22:28)
[2020-04-13 05:00] VITALS: BP 107/49; PULSE 63; RESP 16; TEMP 36.8; O2SAT 93
[2020-04-13] MEDS: APIXABAN 2.5 MG TABLET PO ×2 (06:41→18:08)
[2020-04-13] MEDS: Escitalopram Oxalate 10 MG Tablet PO (06:41)
[2020-04-13] MEDS: Fluticasone/Salmeterol 232-14 Inhaler 1 PUFF IH ×2 (06:41→18:10)
[2020-04-13] MEDS: Lisinopril 40 MG Tablet PO (06:41)
[2020-04-13] MEDS: Furosemide 40 MG Tablet PO (06:41)
[2020-04-13] MEDS: Levothyroxine 100 MCG Tablet PO (06:41)
[2020-04-13] MEDS: Carvedilol 6.25 MG Tablet PO ×2 (06:41→18:09)
[2020-04-13] MEDS: Menthol/Lanolin/Calamine/Znox 113 GM Tube 1 APPLIC TOPICAL ×2 (06:42→18:10)
[2020-04-13] MEDS: Acetaminophen 500 MG Tablet 1000 MG PO ×3 (06:48→20:36)
[2020-04-13] MEDS: Pantoprazole Sodium 20 MG Tablet PO ×2 (06:48→18:09)
[2020-04-13] MEDS: Multivitamins,Ther W-Minerals Tablet 1 TABLET PO (09:38)
[2020-04-13 10:00] VITALS: PULSE 65; RESP 18; O2SAT 98
[2020-04-13 12:36] VITALS: BP 102/61; PULSE 65; RESP 18; TEMP 36.3; O2SAT 98
--- NOTE | 2020-04-13 14:19 | CASEMGMT ---
Social Work Spoke with pt and dtr about insurance update today and unsure if pt will receive additional time. Reviewed pt's level of assist and inquired about pt returning home with assist. Pt and dtr both in agreement to safe to return home and okay if insurance issues DC date. SW will order HHC as needed. No DME needs. Will continue to follow. Merle Small, SOURCE WATER PROTECTION SPECIALIST GAMING WORKER
--- NOTE | 2020-04-13 18:42 | NURSING ---
CALLED AND UPDATED FAMILY ON PT.
[2020-04-13] MEDS: Ezetimibe 10 MG Tablet PO (20:37)
[2020-04-13] MEDS: MELATONIN 3 MG TABLET 6 MG PO (20:37)
[2020-04-13] MEDS: Atorvastatin Calcium 40 MG Tablet PO (20:37)
[2020-04-14 05:00] VITALS: BP 130/70; PULSE 55; RESP 16; TEMP 36.8; O2SAT 97
[2020-04-14 06:03] LABS: Absolute Lymphocyte Count 1.83 X10^3/uL (0.83-4.51); Absolute Neutrophil Count 1.5 X10^3/uL (2.0-7.7); Basophil# 0.03 X10^3/uL; Basophil% 0.7 % (0-1); Eosinophil# 0.13 X10^3/uL; Eosinophils% 3.1 % (0-5); Hematocrit 31.3 % (37-47); Hemoglobin 8.8 g/dL (12.0-15.0); Lymphocyte # 1.83 X10^3/ul (4.0); Lymphocyte % 43.7 % (19-41); Mean Corp Hgb Conc 28.1 g/dL (32-36); Mean Corpuscular Hgb 24.3 pg (27.0-32.0); Mean Corpuscular Volume 86.5 fL (81-99); Mean Platelet Vol. 9.9 fl (6.2-12.0); Monocyte# 0.66 X10^3/uL; Monocyte% 15.8 % (0-10); NRBC Flagged by Analyzer 0 % (0-5); Neutrophil # 1.53 X10^3/uL (2.7-7.7); Neutrophil % 36.5 % (47-70); Platelet Count 249 K/mm3 (150-450); RBC Distribution Width CV 18.4 % (11.6-14.6); RBC Distribution Width SD 58.2 fl (35.1-43.9); Red Blood Count 3.62 M/mm3 (4.2-5.4); White Blood Count 4.2 K/mm3 (4.4-11.0)
[2020-04-14] MEDS: APIXABAN 2.5 MG TABLET PO ×2 (06:08→17:03)
[2020-04-14] MEDS: Acetaminophen 500 MG Tablet 1000 MG PO ×3 (06:08→19:53)
[2020-04-14] MEDS: Furosemide 40 MG Tablet PO (06:09)
[2020-04-14] MEDS: Carvedilol 6.25 MG Tablet PO ×2 (06:09→17:05)
[2020-04-14] MEDS: Pantoprazole Sodium 20 MG Tablet PO ×2 (06:09→17:03)
[2020-04-14] MEDS: Escitalopram Oxalate 10 MG Tablet PO (06:09)
[2020-04-14] MEDS: Senna/Docusate Sodium 1 Tablet PO ×2 (06:09→17:03)
[2020-04-14] MEDS: Lisinopril 40 MG Tablet PO (06:10)
[2020-04-14] MEDS: Levothyroxine 100 MCG Tablet PO (06:10)
[2020-04-14] MEDS: Fluticasone/Salmeterol 232-14 Inhaler 1 PUFF IH ×2 (06:12→17:03)
[2020-04-14] MEDS: Menthol/Lanolin/Calamine/Znox 113 GM Tube 1 APPLIC TOPICAL ×2 (06:14→17:04)
[2020-04-14 06:27] LABS: Anion Gap 1 (5-15); BUN 25 mg/dL (7-18); BUN/Creat Ratio 27.8 RATIO (10-20); Calcium,Total 8.9 mg/dL (8.5-10.1); Chloride 100 mmol/L (98-107); EST Glomerular Filtration Rate 64 mL/min (>60); Est Glom Filt Rate - Afr Amer 78 mL/min (>60); Estimated Creatinine Clearance 41.93 ml/min; Glucose 76 mg/dL (74-106); Potassium 5.2 mmol/L (3.5-5.1); Sodium Level 134 mmol/L (136-145)
[2020-04-14] MEDS: Multivitamins,Ther W-Minerals Tablet 1 TABLET PO (08:57)
[2020-04-14] MEDS: Sodium Polystyrene Sulfonate 15 GM/60 ML UDC PO (11:16)
--- NOTE | 2020-04-14 13:24 | PCA ---
patient rang out for the BR patient appeared to be upset because she had had an accident this showroom sales assistant told patient that it would be ok i would help her clean up . helped patient to toilet washed patient with wipes and then wet washcloth and soap. changed to pjs because patient was going to got out therapy room patient stated that if this showroom sales assistant was such a blessing this showroom sales assistant would have come sooner and to stop calling her a bh. patient had taken her o2 before going to BR which in turn her 02 drops . this showroom sales assistant got patient an extention for o2 so that it would reach to BR . patient continued to be upset until 02 returned to normal . then patient did not seem as agitated.
[2020-04-14 13:56] VITALS: O2SAT 97
[2020-04-14 14:26] VITALS: BP 104/61; PULSE 62; RESP 18; TEMP 36.4; O2SAT 99
[2020-04-14] MEDS: Ezetimibe 10 MG Tablet PO (19:49)
[2020-04-14] MEDS: Atorvastatin Calcium 40 MG Tablet PO (19:49)
[2020-04-14] MEDS: MELATONIN 3 MG TABLET 6 MG PO (19:50)
[2020-04-14 20:02] VITALS: PULSE 70; RESP 18; O2SAT 97
[2020-04-15 04:59] VITALS: BP 135/91; PULSE 66; RESP 18; TEMP 36.8; O2SAT 95
[2020-04-15] MEDS: APIXABAN 2.5 MG TABLET PO ×2 (05:01→17:35)
[2020-04-15] MEDS: Furosemide 40 MG Tablet PO (05:01)
[2020-04-15] MEDS: Escitalopram Oxalate 10 MG Tablet PO (05:01)
[2020-04-15] MEDS: Lisinopril 40 MG Tablet PO (05:01)
[2020-04-15] MEDS: Senna/Docusate Sodium 1 Tablet PO ×2 (05:01→17:36)
[2020-04-15] MEDS: Carvedilol 6.25 MG Tablet PO ×2 (05:01→17:35)
[2020-04-15] MEDS: Levothyroxine 100 MCG Tablet PO (05:01)
[2020-04-15] MEDS: Menthol/Lanolin/Calamine/Znox 113 GM Tube 1 APPLIC TOPICAL ×2 (05:02→17:36)
[2020-04-15] MEDS: Nystatin Powder 15gm Bottle 1 APPLIC TOPICAL ×2 (05:02→17:36)
[2020-04-15] MEDS: Pantoprazole Sodium 20 MG Tablet PO ×2 (05:02→17:36)
[2020-04-15] MEDS: Fluticasone/Salmeterol 232-14 Inhaler 1 PUFF IH ×2 (05:02→17:36)
[2020-04-15] MEDS: Polyethylene Glycol 3350 17 GM PACKET PO (05:03)
[2020-04-15] MEDS: Acetaminophen 500 MG Tablet 1000 MG PO ×3 (05:04→20:53)
[2020-04-15 06:07] LABS: Anion Gap 5 (5-15); BUN 25 mg/dL (7-18); BUN/Creat Ratio 23.1 RATIO (10-20); Calcium,Total 9.1 mg/dL (8.5-10.1); Chloride 99 mmol/L (98-107); Creatinine, Serum 1.08 mg/dL (0.55-1.02); EST Glomerular Filtration Rate 52 mL/min (>60); Est Glom Filt Rate - Afr Amer 63 mL/min (>60); Estimated Creatinine Clearance 34.94 ml/min; Glucose 80 mg/dL (74-106); Potassium 4.3 mmol/L (3.5-5.1); Sodium Level 137 mmol/L (136-145)
[2020-04-15 06:30] VITALS: O2SAT 95
[2020-04-15] MEDS: Multivitamins,Ther W-Minerals Tablet 1 TABLET PO (10:04)
[2020-04-15] MEDS: Potassium Chloride Oral Tablet 20 MEQ PO (10:04)
--- NOTE | 2020-04-15 11:51 | CASEMGMT ---
Social Work Dtr contacted requesting DC 04/17. IDT agreeable. Notified insurance of DC date. Dtr agreeable to [facility]. Inquired about preference of agency and to send list of in network providers. Dtr requesting [facility]. Referral made for PT/OT/ST/SN. No DME needs. Dtr to transport. Plan: DC home with 04/17, [facility] PT/OT/ST/SN, No DME [facility]
[2020-04-15 16:40] VITALS: BP 107/54; PULSE 69; RESP 14; TEMP 37; O2SAT 98
--- NOTE | 2020-04-15 20:45 | PCM.DC ---
- Discharge Diagnoses Current Active Problems: Current Active and Chronic Problems (Last Reviewed 04/05/20 @ 15:01 by Renata Pereira) Debility (Acute) Melena (Acute) Upper gastrointestinal bleed (Acute) Gastritis (Acute) Left middle cerebral artery stroke (Acute) Carotid artery stenosis (Chronic) Coronary artery disease (Chronic) Atrial fibrillation (Chronic) Hypertension (Chronic) Hypothyroidism (Chronic) Chronic obstructive pulmonary disease (Chronic) GERD (gastroesophageal reflux disease) (Chronic) Depression (Chronic) Hypokalemia (Chronic) Non-STEMI (non-ST elevated myocardial infarction) (Acute 01/20/20) Hyperlipidemia (Chronic) You will use the following diet at home:: No restrictions, Regular Your food should be the consistency of: Soft (bite-sized & easy to chew/swallow) Your liquids should be the consistency of: Regular/Thin Discharge Activity: Return to Normal Activity, May Shower, Use Walker Weight Bearing Status: Weight bearing as tolerated Call your doctor if you observe: Fever of 101 or Higher, Inability to urinate, Inability to have a bowel movement, Shortness of breath, Chest pain, Uncontrolled pain Allergies/Adverse Reactions: Allergies Sulfa (Sulfonamide Antibiotics) Allergy (Verified 04/05/20 14:45) Rash apixaban [From Eliquis] Adverse Reaction (Intermediate, Verified 04/05/20 14:45) GI upset, can't eat. tape Allergy (Uncoded 04/05/20 14:45) plastic tape causes blisters Can have cloth and paper Medications to take at Discharge Lisinopril [Zestril] 40 mg PO DAILY 04/17/17 Levothyroxine Sodium [Euthyrox] 100 mcg PO DAILY 12/26/19 Ipratropium/Albuterol Sulfate [Iprat-Albut 0.5-3(2.5) mg/3 ml] 3 ml IH 4X/DAY PRN 01/20/20 ezetimibe 10 mg tablet 10 mg PO QHS #90 tab 02/13/20 Cholecalciferol (VIT D3) [Vitamin D3] 1,000 unit PO DAILY 03/24/20 Escitalopram Oxalate [Lexapro] 10 mg PO DAILY 03/24/20 Furosemide 40 mg PO DAILY 03/24/20 Potassium Chloride Oral Tablet [K-Dur] 20 meq PO BIDCM 03/24/20 melatonin 3 mg tablet 3 mg PO HS PRN 04/05/20 pantoprazole 20 mg tablet,delayed release 20 mg PO DAILY 04/05/20 Acetaminophen [Tylenol] 1,000 mg PO TID tablet 04/15/20 Apixaban [Eliquis] 2.5 mg PO BID #60 tab 04/15/20 Atorvastatin Calcium [Lipitor] 40 mg PO QHS #30 tab 04/15/20 Carvedilol [Coreg (Beta Deya)] 6.25 mg PO BID #60 tab 04/15/20 Fluticasone/Salmeterol [Fluticasone-Salmeterol 232-14] 1 inh INHALATION BID #1 inhaler 04/15/20 Melatonin 6 mg PO QHS tablet 04/15/20 Menthol/Lanolin/Calamine/Znox [Calmoseptine Ointment] 1 applic TOPICAL BID tube 04/15/20 Multivitamins,Ther W-Minerals [Multivitamin With Minerals (BKC)] 1 tablet PO DAILY@0800 tablet 04/15/20 Nystatin Powder [Mycostatin Powder] 1 applic TOPICAL BID bottle 04/15/20 Pantoprazole Sodium [Protonix] 20 mg PO DAILY #30 tab 04/15/20 The following prescriptions were given: Carvedilol [Coreg (Beta Deya)] 6.25 mg PO BID #60 tab Transmission Status: Pending to [id number] Apixaban [Eliquis] 2.5 mg PO BID #60 tab Transmission Status: Pending to [id number] Fluticasone/Salmeterol [Fluticasone-Salmeterol 232-14] 1 inh INHALATION BID #1 inhaler Transmission Status: Pending to [id number] Atorvastatin Calcium [Lipitor] 40 mg PO QHS #30 tab Transmission Status: Pending to [id number] Pantoprazole Sodium [Protonix] 20 mg PO DAILY #30 tab Transmission Status: Pending to [id number] Primary Care Physician: Chase Bryan MD [Primary Care Provider] - Please follow up with your Primary Care Physician in: 1 week. Test Results: Test results from this visit will be discussed in further detail at your follow-up appointment, if applicable. Please Follow Up With: Ghanshyam Zavala NP, [employer]-C When: 2 weeks. Please Follow Up With: Calixto Otero MD (Neurology) When: 1-2 months Proposed Discharge Date: 04/17/20
--- NOTE | 2020-04-15 20:46 | DS.PCM_ITS ---
Discharge Date and Diagnosis - Problem List Patient Problems: Active and Suspected Problems (Last Reviewed 04/05/20 @ 15:01 by Renata Pereira) Debility (Acute) Melena (Acute) Upper gastrointestinal bleed (Acute) Gastritis (Acute) Left middle cerebral artery stroke (Acute) Non-STEMI (non-ST elevated myocardial infarction) (Acute 01/20/20) Date of Admission: 03/30/20 Date of Discharge: 04/17/20 - Primary Discharge Diagnosis Acute Problems: Active Problems (Last Reviewed 04/05/20 @ 15:01 by Renata Pereira) Debility (Acute) Melena (Acute) Upper gastrointestinal bleed (Acute) Gastritis (Acute) Left middle cerebral artery stroke (Acute) Non-STEMI (non-ST elevated myocardial infarction) (Acute 01/20/20) - Secondary Discharge Diagnosis Chronic Problems: Chronic Problems (Last Reviewed 04/05/20 @ 15:01 by Renata Pereira) Peripheral arterial disease (Chronic) History of hemorrhagic stroke with residual hemiparesis (Chronic) Carotid artery stenosis (Chronic) Coronary artery disease (Chronic) Atrial fibrillation (Chronic) Hypertension (Chronic) Hypothyroidism (Chronic) Chronic obstructive pulmonary disease (Chronic) GERD (gastroesophageal reflux disease) (Chronic) Depression (Chronic) Hypokalemia (Chronic) CVA (cerebral vascular accident) (Chronic) ICH CVA in 2015; CVA in January 2020; CVA in March 2020; Cardiomyopathy (Chronic) Acute and chronic respiratory failure (Chronic) 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) Atherosclerosis of coronary artery of [place] heart without angina pectoris (Chronic) Atherosclerosis of coronary artery bypass graft without angina pectoris (Chronic) History of coronary artery stent placement (Chronic 2014) bare-metal stent x 3 to SVG to RPDA in April 2007; BMS to SVG to RPDA in 2014 Essential (primary) hypertension (Chronic) Hyperlipidemia (Chronic) Hospital Course and Treatment Imaging Results: 03/30/20 16:04 Diet: Regular - General Food consistency:: Soft & Bite Sized Liquid Consistency:: Regular/Thin Diet Comments: 1:1 supervision, chopped salads ok, pizza ok if cut up Clinical Impression(s) from Imaging Studies KUB X-Ray 04/12/20 16:50 IMPRESSION: Large amount of fecal material is seen in the colon. Electronically Signed: Milo Villanueva MD at 8:08 EST , Service support , Labs (Last 48 Hours) 04/14/20 04/14/20 04/15/20 05:05 05:05 05:05 WBC 4.2 L RBC 3.62 L Hgb 8.8 L Hct 31.3 L MCV 86.5 MCH 24.3 L MCHC 28.1 L RDW Std Deviation 58.2 H RDW Coeff of Jerry 18.4 H Plt Count 249 MPV 9.9 Immature Gran % (Auto) 0.200 Neut % (Auto) 36.5 L Lymph % (Auto) 43.7 H [place] % (Auto) 15.8 H Eos % (Auto) 3.1 Baso % (Auto) 0.7 Absolute Neuts (auto) 1.5 L Absolute Lymphs (auto) 1.83 Nucleated RBC % 0 Sodium 134 L 137 Potassium 5.2 H 4.3 Chloride 100 99 Carbon Dioxide 33.0 H 33.0 H Anion Gap 1 L 5 BUN 25 H 25 H Creatinine 0.90 1.08 H Estim Creat Clear Calc 41.93 34.94 Est GFR (MDRD) Af Amer 78 63 Est GFR (MDRD) Non-Af 64 52 L BUN/Creatinine Ratio 27.8 H 23.1 H Glucose 76 80 Calcium 8.9 9.1 Operations: None Procedures: None Summary of Care Provided: The patient is a 80 year old Female with below past medical history hospitalized for upper gastrointestinal bleed requiring blood transfusion, complicated by left middle cerebral artery stroke, admitted to TCU with debility, here for rehabilitation, strengthening, prior to discharge home with . Discharge home with , [facility] PT/OT/ST/SN, No durable medical equipment needs. Patient Problems: Active and Suspected Problems (Last Reviewed 04/05/20 @ 15:01 by Renata Pereira) Debility (Acute) Melena (Acute) Upper gastrointestinal bleed (Acute) Gastritis (Acute) Left middle cerebral artery stroke (Acute) Non-STEMI (non-ST elevated myocardial infarction) (Acute 01/20/20) - Physical Exam Vitals/I&O's: Vital Signs Temp Pulse Resp BP Pulse Ox 98.6 F 69 14 107/54 L 98 04/15/20 16:40 04/15/20 16:40 04/15/20 16:40 04/15/20 16:40 04/15/20 16:40 Oxygen Flow Rate (L/min) 1 Oxygen Delivery Method Nasal Cannula Weight: 82.157 kg Body Mass Index (BMI) 33.9 Finger Stick Blood Glucose 135 Intake and Output for Last 24 Hours 04/13/20 04/14/20 04/15/20 23:59 23:59 23:59 Intake Total 720 / 720 360 / 360 360 / 360 Output Total 1000 / 1000 1250 / 1250 Balance 720 / 720 -640 / -640 -890 / -890 Laboratory Results 04/15/20 05:05: Sodium 137, Potassium 4.3, Chloride 99, Carbon Dioxide 33.0 H, Anion Gap 5, BUN 25 H, Creatinine 1.08 H, Estim Creat Clear Calc 34.94, Est GFR (MDRD) Af Amer 63, Est GFR (MDRD) Non-Af 52 L, BUN/Creatinine Ratio 23.1 H, Glucose 80, Calcium 9.1 Current Medications Acetaminophen (Acetaminophen 500 Mg Tablet) 1,000 mg PO TID [facility] Last Admin: 04/15/20 14:20 Dose: 1,000 mg Documented by: Albuterol Sulfate (Albuterol Sulfate 8 Gm Inhaler (60 Puffs)) 2 puff INHALATION Q6H PRN PRN PRN Reason: sob/wheezing Albuterol/Ipratropium (Ipratropium/Albuterol Sulfate 3 Ml Ampul.Neb) 3 ml INHALATION 4X/DAY.RT PRN PRN Reason: SOB &/OR WHEEZING Apixaban (Apixaban 2.5 Mg Tablet) 2.5 mg PO BID [facility] Last Admin: 04/15/20 17:35 Dose: 2.5 mg Documented by: Atorvastatin Calcium (Atorvastatin Calcium 40 Mg Tablet) 40 mg PO QHS [facility] Last Admin: 04/14/20 19:49 Dose: 40 mg Documented by: Bisacodyl (Bisacodyl 10 Mg Suppository) 10 mg RECTAL DAILY PRN PRN Reason: Constipation Calamine/Phenol (Menthol/Lanolin/Calamine/Znox 113 Gm Tube) 1 applic TOPICAL BID [facility]; Protocol Last Admin: 04/15/20 17:36 Dose: 1 applicatio Documented by: Carvedilol (Carvedilol 6.25 Mg Tablet) 6.25 mg PO BID [facility] Last Admin: 04/15/20 17:35 Dose: 6.25 mg Documented by: Cholecalciferol (Cholecalciferol (Vit D3) 1,000 Unit (25mcg)) 1,000 unit PO DAILY [facility] Last Admin: 04/15/20 05:01 Dose: 1,000 unit Documented by: Ezetimibe (Ezetimibe 10 Mg Tablet) 10 mg PO QHS [facility] Last Admin: 04/14/20 19:49 Dose: 10 mg Documented by: Escitalopram Oxalate (Escitalopram Oxalate 10 Mg Tablet) 10 mg PO DAILY [facility] Last Admin: 04/15/20 05:01 Dose: 10 mg Documented by: Furosemide (Furosemide 40 Mg Tablet) 40 mg PO DAILY [facility] Last Admin: 04/15/20 05:01 Dose: 40 mg Documented by: Levothyroxine Sodium (Levothyroxine 100 Mcg Tablet) 100 mcg PO DAILY [facility] Last Admin: 04/15/20 05:01 Dose: 100 mcg Documented by: Lisinopril (Lisinopril 40 Mg Tablet) 40 mg PO DAILY [facility] Last Admin: 04/15/20 05:01 Dose: 40 mg Documented by: Magnesium Hydroxide (Magnesium Hydroxide 30 Ml Udc) 30 ml PO DAILY PRN PRN Reason: Constipation Melatonin (Melatonin 3 Mg Tablet) 6 mg PO QHS [facility] Last Admin: 04/14/20 19:50 Dose: 6 mg Documented by: Multivitamins/Minerals (Multivitamins,Ther W-Minerals Tablet) 1 tablet PO DAILY@0800 [facility] Last Admin: 04/15/20 10:04 Dose: 1 tablet Documented by: Nutritional Formula (Lactose Free) (Ensure Enlive 120 Ml Liquid) 120 ml PO BID [facility] Last Admin: 04/15/20 17:35 Dose: 120 ml Documented by: Nystatin (Nystatin Powder 15gm Bottle) 1 applic TOPICAL BID [facility]; Protocol Last Admin: 04/15/20 17:36 Dose: 1 applicatio Documented by: Ondansetron HCl (Ondansetron Odt 4 Mg Tablet) 4 mg PO Q8H PRN PRN PRN Reason: NAUSEA Last Admin: 04/11/20 17:47 Dose: 4 mg Documented by: Pantoprazole Sodium (Pantoprazole Sodium 20 Mg Tablet) 20 mg PO BID [facility] Stop: 04/27/20 18:01 Last Admin: 04/15/20 17:36 Dose: 20 mg Documented by: Pantoprazole Sodium (Pantoprazole Sodium 20 Mg Tablet) 20 mg PO DAILY [facility] Polyethylene Glycol (Polyethylene Glycol 3350 17 Gm Packet) 17 gm PO DAILY [facility] Last Admin: 04/15/20 05:03 Dose: 17 gm Documented by: Potassium Chloride (Potassium Chloride Oral Tablet 20 Meq) [facility] Last Admin: 04/15/20 10:04 Dose: 20 meq Documented by: Fluticasone/Salmeterol (Fluticasone/Salmeterol 232-14 Inhaler) 1 puff IH Q12 [facility] Last Admin: 04/15/20 17:36 Dose: 1 puff Documented by: Senna/Docusate Sodium (Senna/Docusate Sodium 1 Tablet) 1 tablet PO BID [facility] Last Admin: 04/15/20 17:36 Dose: 1 tablet Documented by: Discharge Diet: No Restrictions Discharge Activity: Return to Normal Activity, May Shower, Use Walker Weight Bearing Status: Weight bearing as tolerated Call your doctor if you observe: Fever of 101 or Higher, Inability to urinate, Inability to have a bowel movement, Shortness of breath, Chest pain, Uncontrolled pain Home Medications: Medications to take at Discharge Lisinopril [Zestril] 40 mg PO DAILY 04/17/17 Levothyroxine Sodium [Euthyrox] 100 mcg PO DAILY 12/26/19 Ipratropium/Albuterol Sulfate [Iprat-Albut 0.5-3(2.5) mg/3 ml] 3 ml IH 4X/DAY PRN 01/20/20 ezetimibe 10 mg tablet 10 mg PO QHS #90 tab 02/13/20 Cholecalciferol (VIT D3) [Vitamin D3] 1,000 unit PO DAILY 03/24/20 Escitalopram Oxalate [Lexapro] 10 mg PO DAILY 03/24/20 Furosemide 40 mg PO DAILY 03/24/20 Potassium Chloride Oral Tablet [K-Dur] 20 meq PO BIDCM 03/24/20 melatonin 3 mg tablet 3 mg PO HS PRN 04/05/20 pantoprazole 20 mg tablet,delayed release 20 mg PO DAILY 04/05/20 Acetaminophen [Tylenol] 1,000 mg PO TID tablet 04/15/20 Apixaban [Eliquis] 2.5 mg PO BID #60 tab 04/15/20 Atorvastatin Calcium [Lipitor] 40 mg PO QHS #30 tab 04/15/20 Carvedilol [Coreg (Beta Deya)] 6.25 mg PO BID #60 tab 04/15/20 Fluticasone/Salmeterol [Fluticasone-Salmeterol 232-14] 1 inh INHALATION BID #1 inhaler 04/15/20 Melatonin 6 mg PO QHS tablet 04/15/20 Menthol/Lanolin/Calamine/Znox [Calmoseptine Ointment] 1 applic TOPICAL BID tube 04/15/20 Multivitamins,Ther W-Minerals [Multivitamin With Minerals (BKC)] 1 tablet PO DAILY@0800 tablet 04/15/20 Nystatin Powder [Mycostatin Powder] 1 applic TOPICAL BID bottle 04/15/20 Pantoprazole Sodium [Protonix] 20 mg PO DAILY #30 tab 04/15/20 Following Prescriptions Were Given to Patient: Carvedilol [Coreg (Beta Deya)] 6.25 mg PO BID #60 tab Transmission Status: Pending to [id number] Apixaban [Eliquis] 2.5 mg PO BID #60 tab Transmission Status: Pending to [facility] Fluticasone/Salmeterol [Fluticasone-Salmeterol 232-14] 1 inh INHALATION BID #1 inhaler Transmission Status: Pending to [facility]66 Atorvastatin Calcium [Lipitor] 40 mg PO QHS #30 tab Transmission Status: Pending to [id number] Pantoprazole Sodium [Protonix] 20 mg PO DAILY #30 tab Transmission Status: Pending to [id number] Primary Care Physician: Chase Bryan MD [Primary Care Provider] - Please follow up with your Primary Care Physician in: 1 week. Please Follow Up With: Head CT without contrast Please Follow Up With: Ghanshyam Zavala NP, [employer]-C When: 2 weeks. Please Follow Up With: Calixto Otero MD (Neurology) When: 1-2 months Disposition: Home with Home Health Minutes spent on discharge:: 35 Patient Condition:: Stable Medical Necessity - Tobacco Use Smoking Status: Former smoker Tobacco Use: Non-smoker Meaningful Use Info Meaningful Use Diagnoses (Choose all that apply): None applicable
[2020-04-15] MEDS: MELATONIN 3 MG TABLET 6 MG PO (20:52)
[2020-04-15] MEDS: Ezetimibe 10 MG Tablet PO (20:52)
[2020-04-15] MEDS: Atorvastatin Calcium 40 MG Tablet PO (20:52)
[2020-04-16 03:15] VITALS: BP 100/43; PULSE 64; RESP 16; TEMP 36.3; O2SAT 98
[2020-04-16 05:53] LABS: Anion Gap 4 (5-15); BUN 21 mg/dL (7-18); BUN/Creat Ratio 24.9 RATIO (10-20); Calcium,Total 9.1 mg/dL (8.5-10.1); Chloride 100 mmol/L (98-107); Creatinine, Serum 0.84 mg/dL (0.55-1.02); EST Glomerular Filtration Rate 69 mL/min (>60); Est Glom Filt Rate - Afr Amer 84 mL/min (>60); Estimated Creatinine Clearance 44.92 ml/min; Glucose 81 mg/dL (74-106); Potassium 4.5 mmol/L (3.5-5.1); Sodium Level 136 mmol/L (136-145)
[2020-04-16] MEDS: Furosemide 40 MG Tablet PO (06:21)
[2020-04-16] MEDS: Carvedilol 6.25 MG Tablet PO ×2 (06:21→17:30)
[2020-04-16] MEDS: APIXABAN 2.5 MG TABLET PO ×2 (06:21→17:30)
[2020-04-16] MEDS: Acetaminophen 500 MG Tablet 1000 MG PO ×3 (06:21→21:38)
[2020-04-16] MEDS: Polyethylene Glycol 3350 17 GM PACKET PO (06:21)
[2020-04-16] MEDS: Levothyroxine 100 MCG Tablet PO (06:22)
[2020-04-16] MEDS: Senna/Docusate Sodium 1 Tablet PO ×2 (06:22→17:31)
[2020-04-16] MEDS: Pantoprazole Sodium 20 MG Tablet PO ×2 (06:22→17:30)
[2020-04-16] MEDS: Lisinopril 40 MG Tablet PO (06:22)
[2020-04-16] MEDS: Escitalopram Oxalate 10 MG Tablet PO (06:22)
[2020-04-16] MEDS: Menthol/Lanolin/Calamine/Znox 113 GM Tube 1 APPLIC TOPICAL ×2 (06:24→17:28)
[2020-04-16] MEDS: Fluticasone/Salmeterol 232-14 Inhaler 1 PUFF IH ×2 (06:24→17:32)
[2020-04-16] MEDS: Nystatin Powder 15gm Bottle 1 APPLIC TOPICAL ×2 (06:24→17:29)
[2020-04-16 07:13] VITALS: O2SAT 94
[2020-04-16] MEDS: Multivitamins,Ther W-Minerals Tablet 1 TABLET PO (08:55)
[2020-04-16] MEDS: Potassium Chloride Oral Tablet 20 MEQ PO (08:55)
[2020-04-16 13:33] VITALS: BP 94/60; PULSE 61; RESP 18; TEMP 36.4; O2SAT 97
--- NOTE | 2020-04-16 13:54 | MDS.RN ---
Completed pain interview for EDUARDO 04/17/20.
[2020-04-16 17:26] VITALS: BP 145/49; PULSE 70
[2020-04-16] MEDS: Atorvastatin Calcium 40 MG Tablet PO (21:32)
[2020-04-16] MEDS: MELATONIN 3 MG TABLET 6 MG PO (21:32)
[2020-04-16] MEDS: Ezetimibe 10 MG Tablet PO (21:33)
[2020-04-17 06:27] VITALS: BP 130/56; PULSE 60; RESP 16; TEMP 36.8; O2SAT 100
[2020-04-17] MEDS: Polyethylene Glycol 3350 17 GM PACKET PO (06:28)
[2020-04-17] MEDS: Escitalopram Oxalate 10 MG Tablet PO (06:30)
[2020-04-17] MEDS: Pantoprazole Sodium 20 MG Tablet PO (06:30)
[2020-04-17] MEDS: Carvedilol 6.25 MG Tablet PO (06:30)
[2020-04-17] MEDS: Furosemide 40 MG Tablet PO (06:30)
[2020-04-17] MEDS: Levothyroxine 100 MCG Tablet PO (06:30)
[2020-04-17] MEDS: Lisinopril 40 MG Tablet PO (06:30)
[2020-04-17] MEDS: Senna/Docusate Sodium 1 Tablet PO (06:30)
[2020-04-17] MEDS: Menthol/Lanolin/Calamine/Znox 113 GM Tube 1 APPLIC TOPICAL (06:31)
[2020-04-17] MEDS: APIXABAN 2.5 MG TABLET PO (06:31)
[2020-04-17] MEDS: Nystatin Powder 15gm Bottle 1 APPLIC TOPICAL (06:31)
[2020-04-17] MEDS: Fluticasone/Salmeterol 232-14 Inhaler 1 PUFF IH (06:33)
[2020-04-17] MEDS: Acetaminophen 500 MG Tablet 1000 MG PO (06:36)
[2020-04-17] MEDS: Potassium Chloride Oral Tablet 20 MEQ PO (08:46)
[2020-04-17] MEDS: Multivitamins,Ther W-Minerals Tablet 1 TABLET PO (08:46)
[2020-04-17 09:28] VITALS: PULSE 64; O2SAT 97
[2020-04-17 11:40] VITALS: BP 88/52; PULSE 71; RESP 18; TEMP 36.5; O2SAT 99
== END 2020-04-17 11:45 | disposition home health service (06) | DRG 57 ==
PROVIDERS: Nurse Practitioner Family; Admitting Provider Family Medicine Geriatric Medicine; PCP Internal Medicine; Visit Provider Family Medicine Geriatric Medicine
DX: I69.359 Hemiplegia and hemiparesis following cerebral infarction affecting unspecified side (principal); I48.20 Chronic atrial fibrillation, unspecified; I50.42 Chronic combined systolic (congestive) and diastolic (congestive) heart failure; J96.10 Chronic respiratory failure, unspecified whether with hypoxia or hypercapnia; K92.1 Melena; I73.9 Peripheral vascular disease, unspecified; E78.5 Hyperlipidemia, unspecified; I25.10 Atherosclerotic heart disease of native coronary artery without angina pectoris; E03.9 Hypothyroidism, unspecified; I11.0 Hypertensive heart disease with heart failure; K21.9 Gastro-esophageal reflux disease without esophagitis; J44.9 Chronic obstructive pulmonary disease, unspecified; F32.9 Major depressive disorder, single episode, unspecified; I25.2 Old myocardial infarction; I27.20 Pulmonary hypertension, unspecified; E66.9 Obesity, unspecified; E87.6 Hypokalemia; E55.9 Vitamin D deficiency, unspecified; Z87.891 Personal history of nicotine dependence; Z68.33 Body mass index [BMI] 33.0-33.9, adult
CPT/HCPCS: 36415; 74018; 80048; 81001; 82962; 83880; 85014; 85018; 85025; 87086; 87635; 92507; 92523; 92526; 92610; 97110; 97116; 97162; 97166; 97530; 97535; J7030; U0003

== ENCOUNTER → 2020-04-05 09:19 | Outpatient (CLI) | payer MEDICARE, SELFPAY ==
[2020-03-30 15:34] VITALS: BMI 33.9
--- NOTE | 2020-04-05 09:21 | CT_ITS ---
STUDY: CT BRAIN WITHOUT CONTRAST REASON FOR EXAM: Female, 80 years old. STROKE FOLLOW UP RADIATION DOSAGE (If Supplied By Facility): CTDIvol = ( 44.99 ) mGy, DLP = ( 829.85 ) mGycm TECHNIQUE: Transaxial CT imaging of the brain was performed without administration of intravenous contrast material. Individualized dose optimization techniques were used for this CT. COMPARISON: Comparison is made with prior study dated 04/18/2020. FINDINGS: Normal soft tissue structures. There is hyperostosis frontalis internus. There is mild cerebral atrophy with widening of the extra-axial spaces and ventricular dilatation. There are areas of decreased attenuation within the white matter tracts of the supratentorial brain, consistent with microvascular disease changes. Normal basal ganglia and thalami. Normal brainstem. There is mild cerebellar atrophy. There is no intracranial hemorrhage. There are no findings of an acute ischemic infarction. Atherosclerotic plaque formation of the vertebral arteries bilaterally as well as the cavernous portions of the internal carotid arteries bilaterally. Normal visualized paranasal sinuses. CT/Brain/Head without Contrast IMPRESSION: Chronic involutional changes of the brain. Electronically Signed: Milo Villanueva MD at 10:37 EST , Service support ,
== END ==
LOC: CT 09:21
PROVIDERS: PCP Internal Medicine; Referring Provider Family Medicine Geriatric Medicine; Visit Provider Family Medicine Geriatric Medicine
DX: I69.359 Hemiplegia and hemiparesis following cerebral infarction affecting unspecified side (principal)
CPT/HCPCS: 70450

== ENCOUNTER 2020-05-07 08:55 | Outpatient (RCR) | payer MEDICARE, SELFPAY ==
[2020-04-29 17:47] LABS: Hematocrit 35.7 % (37-47); Hemoglobin 10.3 g/dL (12.0-15.0); Mean Corp Hgb Conc 28.9 g/dL (32-36); Mean Corpuscular Hgb 24.4 pg (27.0-32.0); Mean Corpuscular Volume 84.6 fL (81-99); Platelet Count 220 K/mm3 (150-450); RBC Distribution Width CV 18.5 % (11.6-14.6); RBC Distribution Width SD 56.8 fl (35.1-43.9); Red Blood Count 4.22 M/mm3 (4.2-5.4); White Blood Count 4.7 K/mm3 (4.4-11.0)
[2020-04-29 17:57] LABS: Anion Gap 4 (5-15); BUN 16 mg/dL (7-18); BUN/Creat Ratio 17.6 RATIO (10-20); Calcium,Total 9.3 mg/dL (8.5-10.1); Chloride 102 mmol/L (98-107); Creatinine, Serum 0.91 mg/dL (0.55-1.02); EST Glomerular Filtration Rate 64 mL/min (>60); Est Glom Filt Rate - Afr Amer 77 mL/min (>60); Glucose 134 mg/dL (74-106); Potassium 4.4 mmol/L (3.5-5.1); Sodium Level 137 mmol/L (136-145)
[2020-05-06 16:56] LABS: Color, Urine Yellow (Yellow); Glucose, Dipstick Normal (Normal); Ketone-Dipstick Negative (Negative); Leukocyte Esterase-Dipstick 500 /ul (Negative); Nitrite-Dipstick Negative (Negative); Occult Blood-Urine 10 /ul (Negative); Protein-Dipstick Negative (Negative); Urine Bilirubin Dipstick Negative (Negative); Urine Clarity Sl. Cloudy (Clear); Urine Urobilinogen Normal (Normal)
== END 2020-05-07 18:00 | disposition home or self-care (01) ==
LOC: HHLAB 08:55
PROVIDERS: Nurse Practitioner Family; PCP Internal Medicine; Visit Provider Internal Medicine
DX: I69.354 Hemiplegia and hemiparesis following cerebral infarction affecting left non-dominant side (principal); I69.319 Unspecified symptoms and signs involving cognitive functions following cerebral infarction; K29.01 Acute gastritis with bleeding
CPT/HCPCS: 80048; 81002; 85027; 87086; 87088; 87186

== ENCOUNTER 2021-01-24 11:56 | Inpatient (IN) | payer MEDICARE, SELFPAY ==
[2021-01-24] VITALS (8 sets, daily range): BP systolic 146–165; BP diastolic 63–109; PULSE 55–144; RESP 18–25; TEMP 35.9–37.2; O2SAT 98–100; BMI 30.2; BMI 29.5
--- NOTE | 2021-01-24 12:31 | RAD_ITS ---
STUDY: X-RAY CHEST REASON FOR EXAM: Female, 80 years old. Sob TECHNIQUE: Single AP portable view of the chest. COMPARISON: Comparison is made with prior study dated 09/21/2020. FINDINGS: EKG electrodes are seen. There is a mild degree of increased linear markings at the lung bases suggestive of a mild degree of linear bibasilar atelectasis or scarring. There is no demonstrated pleural abnormality. Sternal cerclage wires and vascular clips are present from a prior sternotomy and coronary artery bypass graft procedure (CABG). Normal mediastinum and vamshi. Normal visualized pulmonary arteries. There is atherosclerotic calcification of the aortic arch with tortuosity. There are diffuse degenerative changes of the visualized thoracic spine. Normal visualized ribs, clavicles, and shoulders. There is no demonstrated abnormality of the visualized soft tissue structures of the upper abdomen. RAD/Chest 1 View (Portable) IMPRESSION: Stable mild increased markings at the lung bases suggestive of bibasilar atelectasis and/or scarring. Electronically Signed: Milo Villanueva MD at 13:29 EST , Service support ,
--- NOTE | 2021-01-24 12:31 | EKG12_ITS ---
Test Reason : Blood Pressure : / mmHG Vent. Rate : 069 BPM Atrial Rate : 125 BPM P-R Int : 000 ms QRS Dur : 118 ms QT Int : 446 ms P-R-T Axes : 000 -07 174 degrees QTc Int : 477 ms Atrial fibrillation with premature ventricular or aberrantly conducted complexes Left ventricular hypertrophy with QRS widening Nonspecific ST and T wave abnormality Septal [place], age undetermined, cannot be excluded Abnormal ECG Confirmed by RHEA HERNÁNDEZ, LEXIE ([id number]), image editor ABBEY ROBERTS ([id number]) on 01/25/2021 8:33:46 AM Referred By: BETTINA Confirmed By:LEXIE WILKERSON MD
--- NOTE | 2021-01-24 12:33 | EDS_ITS ---
HPI History of Present Illness Chief Complaint: Weakness Informant: patient Onset/Context/Timing Onset: Yesterday Narrative Narrative: Patient reports developing body aches and generalized fatigue last evening. Today she thought she was just dehydrated. EMS reported her pulse ox in the 80s on their arrival. She states she does wear 2 L of oxygen as needed at home. She denies chest or abdominal pain. She denies having the Covid vaccine. She states that she did not go out during the holiday. [facility] Medical History (Updated 01/24/21 @ 15:[address] 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 Atherosclerosis of coronary artery of [place] heart without angina pectoris Dizziness Elevated LFTs (12/26/19) Essential (primary) hypertension History of CVA (cerebrovascular accident) Hyperlipidemia Hypothyroidism Lupus Non-STEMI (non-ST elevated myocardial infarction) (01/20/20) Obesity Restrictive pattern present on pulmonary function testing Secondary pulmonary arterial hypertension Shingles Home Medications levothyroxine 100 mcg PO DAILY 12/26/19 [History Last Taken 01/24/21] ipratropium-albuterol 3 ml IH 4X/DAY PRN 01/20/20 [History Last Taken 01/18/20] ezetimibe 10 mg tablet 10 mg PO QHS #90 tab 02/13/20 [Rx Last Taken 01/23/21] cholecalciferol (vitamin D3) 1,000 unit PO DAILY 03/24/20 [History Last Taken 01/23/21] escitalopram oxalate 10 mg PO DAILY 03/24/20 [History Last Taken 01/23/21] furosemide 40 mg PO DAILY PRN 03/24/20 [History Last Taken Unknown] potassium chloride 20 meq PO BIDCM 03/24/20 [History Last Taken 01/23/21] melatonin 3 mg tablet 3 mg PO HS PRN 04/05/20 [History Last Taken 01/23/21] acetaminophen 1,000 mg PO TID tab 04/15/20 [Rx Last Taken 01/22/21] atorvastatin 40 mg PO QHS #30 tab 04/15/20 [Rx Last Taken 01/23/21] fluticasone propion-salmeterol 1 inh INHALATION BID #1 inhaler 04/15/20 [Rx Last Taken 01/23/21] pantoprazole 20 mg PO DAILY #30 tab 04/15/20 [Rx Last Taken 01/23/21] apixaban 2.5 mg tablet 2.5 mg PO BID #180 tablet 05/14/20 [Rx Last Taken 01/23/21] carvedilol 6.25 mg tablet 6.25 mg PO BID #180 tablet 05/14/20 [Rx Last Taken 01/23/21] lisinopril 20 mg tablet 20 mg PO DAILY #90 tab 06/23/20 [Rx Last Taken 01/23/21] ferrous sulfate [FeroSul] 325 mg PO BID 01/24/21 [History Last Taken 01/23/21] Allergy/AdvReac Type Severity Reaction Status Date / Time Sulfa (Sulfonamide Allergy Rash Verified 01/24/21 12:00 Antibiotics) apixaban [From Eliquis] AdvReac Intermediate GI upset, Verified 01/24/21 12:00 can't eat. tape Allergy plastic Uncoded 01/24/21 12:00 tape causes blisters Family History Daughter Hypertension Melanoma Sister pacemaker Mother , Age 69, [place] Hypertension Diabetes Heart disease Surgical History H/O coronary artery bypass surgery (1999) History of carpal tunnel surgery History of coronary artery stent placement (2014) History of hernia repair History of hysterectomy History of right-sided carotid endarterectomy Social History Smoking Status: Former smoker second hand exposure: No alcohol intake: never substance use type: does not use caffeine: Yes Type: coffee Number of servings: 3 what type of physical activity do you participate in: none seatbelt use: always do you feel safe at home: Yes ROS ROS ED Constitutional Constitutional ED: Denies chills or fever(s) Eyes Eyes: Denies change in vision ENT ENT ED: Denies sore throat Cardiovascular Cardiovascular: Denies chest pain Respiratory/Chest Respiratory/Chest: Denies cough or dyspnea Gastrointestinal Gastrointestinal: Denies abdominal pain, diarrhea, nausea or vomiting Genitourinary Genitourinary ED: Denies dysuria Musculoskeletal Musculoskeletal: Reports myalgias; Denies back pain Integumentary Denies rash Neurologic Neurologic: Reports weakness; Denies headache(s) Allergic/Immunologic Allergic/Immunologic ED: Denies urticaria EXAM Physical Exam Const Vital Signs: 01/24/21 11:57 01/24/21 13:53 01/24/21 13:59 Temperature 96.6 F L Temperature Source Temporal Pulse Rate 144 H 75 Respiratory Rate 25 H 25 H Respiratory Effort Normal Respiratory Pattern Normal Blood Pressure 153/100 H Blood Pressure Mean 117 Pulse Ox 100 98 Oxygen Delivery Method Nasal Cannula Nasal Cannula Oxygen Flow Rate (L/min) 4 4 Positive well nourished and well developed General Appearance ED: well developed HEENT Reports normocephalic and head/scalp atraumatic Eyes PERRL and EOMs intact bilaterally Neck supple Chest Wall inspection of chest normal and palpation of chest normal Resp normal respiratory effort and clear to auscultation bilaterally Cardio regular rate and regular rhythm GI normal to inspection, nondistended, normoactive bowel sounds Palpation: soft Extremity normal to inspection Neuro oriented x3 Neuro Narrative: No focal neurologic deficits. Sensorium / Orientation: alert Psych mental status grossly normal Skin no rashes or lesions noted MDM MDM MDM Narrative Medical decision making narrative: Patient is on 4 L nasal cannula satting 100% the time of my exam. This was turned down to her normal 2 L that she wears as needed. Lab work, EKG, chest x-ray obtained. Lab Data Attestation: I reviewed the patient's lab results. Labs: Laboratory Results - last 24 hr 01/24/21 01/24/21 01/24/21 13:33 13:33 13:33 WBC 4.0 L RBC 4.95 Hgb 14.6 Hct 46.9 MCV 94.7 MCH 29.5 MCHC 31.1 L RDW Std Deviation 49.2 H RDW Coeff of Jerry 14.2 Plt Count 147 L MPV 10.9 Immature Gran % (Auto) 0.200 Neut % (Auto) 55.8 Lymph % (Auto) 29.6 [place] % (Auto) 13.2 H Eos % (Auto) 0.5 Baso % (Auto) 0.7 Absolute Neuts (auto) 2.2 Absolute Lymphs (auto) 1.19 Nucleated RBC % 0 Sodium 136 Potassium 4.4 Chloride 103 Carbon Dioxide 28.0 Anion Gap 5 BUN 12 Creatinine 0.77 Estim Creat Clear Calc 37.74 Est GFR (MDRD) Af Amer 93 Est GFR (MDRD) Non-Af 77 BUN/Creatinine Ratio 15.6 Glucose 133 H Calcium 9.9 Troponin I High Sens 34 B-Natriuretic Peptide 1339.4 H Urine Color Urine Clarity Urine pH Ur Specific [place] Urine Protein Urine Glucose (UA) Urine Ketones Urine Occult Blood Urine Nitrite Urine Bilirubin Urine Urobilinogen Ur Leukocyte Esterase Urine RBC Urine WBC Ur Squamous Epith Cells Urine Bacteria Urine Mucus 01/24/21 14:05 WBC RBC Hgb Hct MCV MCH MCHC RDW Std Deviation RDW Coeff of Jerry Plt Count MPV Immature Gran % (Auto) Neut % (Auto) Lymph % (Auto) [place] % (Auto) Eos % (Auto) Baso % (Auto) Absolute Neuts (auto) Absolute Lymphs (auto) Nucleated RBC % Sodium Potassium Chloride Carbon Dioxide Anion Gap BUN Creatinine Estim Creat Clear Calc Est GFR (MDRD) Af Amer Est GFR (MDRD) Non-Af BUN/Creatinine Ratio Glucose Calcium Troponin I High Sens B-Natriuretic Peptide Urine Color Yellow Urine Clarity Clear Urine pH 6.5 Ur Specific [place] 1.005 Urine Protein Negative Urine Glucose (UA) Normal Urine Ketones Negative Urine Occult Blood Negative Urine Nitrite Negative Urine Bilirubin Negative Urine Urobilinogen Normal Ur Leukocyte Esterase 25 H Urine RBC 0 SEEN Urine WBC 0-5 SEEN Ur Squamous Epith Cells 0 SEEN Urine Bacteria 0 SEEN Urine Mucus 0 SEEN Radiography Chest X-Ray - ED: 1 View, Read by ED Physician and - (Chronic changes with mild CHF.) Diagnostic Testing: Clinical Impression(s) from Imaging Studies Chest X-Ray 01/24/21 12:31 IMPRESSION: Stable mild increased markings at the lung bases suggestive of bibasilar atelectasis and/or scarring. Electronically Signed: Milo Villanueva MD at 13:29 EST , Service support , EKG Initial EKG: Attestation: I personally reviewed and interpreted this EKG as follows: Interpretation: Atrial Fibrillation (A. fib at 70 with no acute ischemia. PVC noted.) Treatment and Re-Evaluation Comments:: On repeat evaluation patient resting comfortably. O2 sats good on 2 L nasal cannula. EMS did note that she was cyanotic and satting in the 80s on room air. Lab work reveals normal white count. Chemistry studies normal. BNP significantly elevated at 1300. Urinalysis shows no sign of acute infection. Patient is on Eliquis and I did not believe that she has PE. Chest x-ray read by radiology with some atelectasis or scarring. On my review there is some mild changes consistent with CHF noted. She is given IV Lasix here. With her increased weakness and need for diuresis I will speak with hospitalist regarding observation. Discharge Plan Triage Chief Complaint: Weakness ED Provider: Estela Santiago Dx/Rx/DC Orders Clinical Impression: CHF (congestive heart failure), Generalized weakness Prescriptions: No Action ezetimibe 10 mg tablet 10 mg PO QHS Qty: 90 RF: 3 melatonin 3 mg tablet 3 mg PO HS PRN (Reason: Sleep) RF: 0 levothyroxine 100 MCG tablet 100 mcg PO DAILY RF: 0 ipratropium-albuterol 3 ML solution for nebulization 3 ml IH 4X/DAY PRN (Reason: Sob &/Or Wheezing) RF: 0 escitalopram oxalate 10 MG tablet 10 mg PO DAILY RF: 0 furosemide 40 MG tablet 40 mg PO DAILY PRN (Reason: FLUID) RF: 0 potassium chloride 20 MEQ tablet 20 meq PO BIDCM RF: 0 cholecalciferol (vitamin D3) 1,000 UNIT tablet 1,000 unit PO DAILY RF: 0 acetaminophen 500 MG tablet 1,000 mg PO TID RF: 0 pantoprazole 20 MG tablet 20 mg PO DAILY Qty: 30 RF: 0 atorvastatin 40 MG tablet 40 mg PO QHS Qty: 30 RF: 0 fluticasone propion-salmeterol 232-14 mcg/actuation aerosol powdr breath activated 1 inh INHALATION BID Qty: 1 RF: 0 ferrous sulfate [FeroSul] 325 mg (65 mg iron) tablet 325 mg PO BID RF: 0 carvedilol 6.25 mg tablet 6.25 mg PO BID Qty: 180 RF: 4 apixaban 2.5 mg tablet 2.5 mg PO BID Qty: 180 RF: 4 lisinopril 20 mg tablet 20 mg PO DAILY Qty: 90 RF: 3 Primary Care Provider: Chase Bryan Referrals: Chase Bryan MD [Primary Care Provider] - Disposition Disposition: Acute Care Hospital [facility]
[2021-01-24 13:41] LABS: Absolute Lymphocyte Count 1.19 X10^3/uL (0.83-4.51); Absolute Neutrophil Count 2.2 X10^3/uL (2.0-7.7); Basophil# 0.03 X10^3/uL; Basophil% 0.7 % (0-1); Eosinophil# 0.02 X10^3/uL; Eosinophils% 0.5 % (0-5); Hematocrit 46.9 % (37-47); Hemoglobin 14.6 g/dL (12.0-15.0); Lymphocyte # 1.19 X10^3/ul (0.83-4.51); Lymphocyte % 29.6 % (19-41); Mean Corp Hgb Conc 31.1 g/dL (32-36); Mean Corpuscular Hgb 29.5 pg (27.0-32.0); Mean Corpuscular Volume 94.7 fL (81-99); Mean Platelet Vol. 10.9 fl (6.2-12.0); Monocyte# 0.53 X10^3/uL; Monocyte% 13.2 % (0-10); NRBC Flagged by Analyzer 0 % (0-5); Neutrophil # 2.24 X10^3/uL (2.7-7.7); Neutrophil % 55.8 % (47-70); Platelet Count 147 K/mm3 (150-450); RBC Distribution Width CV 14.2 % (11.6-14.6); RBC Distribution Width SD 49.2 fl (35.1-43.9); Red Blood Count 4.95 M/mm3 (4.2-5.4)
[2021-01-24 13:59] LABS: Anion Gap 5 (5-15); BUN 12 mg/dL (7-18); BUN/Creat Ratio 15.6 RATIO (10-20); Calcium,Total 9.9 mg/dL (8.5-10.1); Chloride 103 mmol/L (98-107); Creatinine, Serum 0.77 mg/dL (0.55-1.02); EST Glomerular Filtration Rate 77 mL/min (>60); Est Glom Filt Rate - Afr Amer 93 mL/min (>60); Estimated Creatinine Clearance 37.74 ml/min; Glucose 133 mg/dL (74-106); Potassium 4.4 mmol/L (3.5-5.1); Sodium Level 136 mmol/L (136-145); Troponin-I HS 34 pg/mL (3.0-54.0)
[2021-01-24 14:08] LABS: BNP,B-Type NATRIURETIC PEPTIDE 1339.4 pg/mL (0-100)
[2021-01-24 14:09] LABS: Bacteria 0 SEEN /hpf (None Seen); Mucous, Urine 0 SEEN /hpf (<or=2+); Red Blood Cells-Urine 0 SEEN /hpf (0-5); Squamous Epithelial Cells - UA 0 SEEN /hpf (5-10)
[2021-01-24 14:10] LABS: Color, Urine Yellow (Yellow); Glucose, Dipstick Normal (Normal); Ketone-Dipstick Negative (Negative); Leukocyte Esterase-Dipstick 25 /ul (Negative); Nitrite-Dipstick Negative (Negative); Occult Blood-Urine Negative /ul (Negative); Protein-Dipstick Negative (Negative); Specific Gravity, Urine 1.005 (1.002-1.030); Urine Bilirubin Dipstick Negative (Negative); Urine Clarity Clear (Clear); Urine Urobilinogen Normal (Normal); Urine pH 6.5 (5.0 - 8.0)
[2021-01-24 14:19] LABS: White Blood Cells 0-5 SEEN /hpf (0-5)
[2021-01-24] MEDS: Furosemide 40 MG/4 ML Vial IV ×2 (15:06→21:14)
--- NOTE | 2021-01-24 16:08 | PCM.HP.STD ---
HPI - General General Date of Admission: 01/24/21 Date of Service: 01/24/21 Chief Complaint: Shortness of breath HPI Narrative RENETTA ARREGUIN, is a 80 F who presents shortness of breath. Patient states he has been experiencing shortness of breath for almost a month. Patient reported shortness of breath being brought on with activity. Her symptoms have since gotten progressively worse and she ended up calling the squad on the day of admission. Patient was reported to be cyanotic with oxygen saturation in the mid 80s by the squad. Was placed on supplemental oxygen and transferred to the ED. Patient denied any chest pain no fever no chills. Her evaluation in the ED was consistent with congestive heart failure. 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 Atherosclerosis of coronary artery of [place] heart without angina pectoris Dizziness Elevated LFTs (12/26/19) Essential (primary) hypertension History of CVA (cerebrovascular accident) Hyperlipidemia Hypothyroidism Lupus Non-STEMI (non-ST elevated myocardial infarction) (01/20/20) Obesity Restrictive pattern present on pulmonary function testing Secondary pulmonary arterial hypertension Shingles Home Medications levothyroxine 100 mcg PO DAILY 12/26/19 [History Last Taken 01/24/21] ipratropium-albuterol 3 ml IH 4X/DAY PRN 01/20/20 [History Last Taken 01/18/20] ezetimibe 10 mg tablet 10 mg PO QHS #90 tab 02/13/20 [Rx Last Taken 01/23/21] cholecalciferol (vitamin D3) 1,000 unit PO DAILY 03/24/20 [History Last Taken 01/23/21] escitalopram oxalate 10 mg PO DAILY 03/24/20 [History Last Taken 01/23/21] furosemide 40 mg PO DAILY PRN 03/24/20 [History Last Taken Unknown] potassium chloride 20 meq PO BIDCM 03/24/20 [History Last Taken 01/23/21] melatonin 3 mg tablet 3 mg PO HS PRN 04/05/20 [History Last Taken 01/23/21] acetaminophen 1,000 mg PO TID tab 04/15/20 [Rx Last Taken 01/22/21] atorvastatin 40 mg PO QHS #30 tab 04/15/20 [Rx Last Taken 01/23/21] fluticasone propion-salmeterol 1 inh INHALATION BID #1 inhaler 04/15/20 [Rx Last Taken 01/23/21] pantoprazole 20 mg PO DAILY #30 tab 04/15/20 [Rx Last Taken 01/23/21] apixaban 2.5 mg tablet 2.5 mg PO BID #180 tablet 05/14/20 [Rx Last Taken 01/23/21] carvedilol 6.25 mg tablet 6.25 mg PO BID #180 tablet 05/14/20 [Rx Last Taken 01/23/21] lisinopril 20 mg tablet 20 mg PO DAILY #90 tab 06/23/20 [Rx Last Taken 01/23/21] ferrous sulfate [FeroSul] 325 mg PO BID 01/24/21 [History Last Taken 01/23/21] Allergy/AdvReac Type Severity Reaction Status Date / Time Sulfa (Sulfonamide Allergy Rash Verified 01/24/21 12:00 Antibiotics) apixaban [From Eliquis] AdvReac Intermediate GI upset, Verified 01/24/21 12:00 can't eat. tape Allergy plastic Uncoded 01/24/21 12:00 tape causes blisters Family History Daughter Hypertension Melanoma Sister pacemaker Mother , Age 69, [place] Hypertension Diabetes Heart disease Surgical History H/O coronary artery bypass surgery (1999) History of carpal tunnel surgery History of coronary artery stent placement (2014) History of hernia repair History of hysterectomy History of right-sided carotid endarterectomy Social History Smoking Status: Former smoker second hand exposure: No alcohol intake: never substance use type: does not use caffeine: Yes Type: coffee Number of servings: 3 what type of physical activity do you participate in: none seatbelt use: always do you feel safe at home: Yes ROS ROS Narrative GENERAL: denies fever, chills, night sweats HEENT: denies headache, sinus congestion, o RESPIRATORY: shortness of breath, dyspnea on exertion CARDIAC: denies chest pain, palpitations, GASTROINTESTINAL: denies abdominal pain, nausea, GENITOURINARY: denies dysuria, urgency, frequency, EXTREMITY: denies swelling MUSCULOSKELETAL: denies current joint pain or tenderness NEUROLOGIC: denies focal numbness, weakness, tingling HEMATOLOGIC: denies easy bruising and/or hemorrhage INTEGUMENT: denies rashes PSYCHIATRIC: denies suicidal or homicidal ideation Vital Signs Vital Signs Vital Signs: 01/24/21 11:57 01/24/21 13:53 01/24/21 13:59 Temperature 96.6 F L Temperature Source Temporal Pulse Rate 144 H 75 Respiratory Rate 25 H 25 H Respiratory Effort Normal Respiratory Pattern Normal Blood Pressure 153/100 H Blood Pressure Mean 117 Pulse Ox 100 98 Oxygen Delivery Method Nasal Cannula Nasal Cannula Oxygen Flow Rate (L/min) 4 4 Weight Weight: 77.564 kg Body Mass Index (BMI) 30.2 Physical Exam Narrative GENERAL: cooperative HEENT: Atraumatic; EYES; Anicteric, Normal Conjunctiva NECK; supple, normal thyroid, RESPIRATORY: Diminished to auscultation CARDIOVASCULAR: Irregular S1-S2 GI: soft, normoactive bowel sounds, : No Renal angle tenderness; EXTREMITIES: No edema, no clubbing, MUSCULOSKELETAL: no muscle waisting NEURO: Awake; no lateralizing signs. SKIN: No Rash PSYCH; Flat affect Results Lab / Micro Data Result Diagrams: 01/24/21 13:33 01/24/21 13:33 Labs: Laboratory Results - last 24 hr 01/24/21 13:33: WBC 4.0 L, RBC 4.95, Hgb 14.6, Hct 46.9, MCV 94.7, MCH 29.5, MCHC 31.1 L, RDW Std Deviation 49.2 H, RDW Coeff of Jerry 14.2, Plt Count 147 L, MPV 10.9, Immature Gran % (Auto) 0.200, Neut % (Auto) 55.8, Lymph % (Auto) 29.6, [place] % (Auto) 13.2 H, Eos % (Auto) 0.5, Baso % (Auto) 0.7, Absolute Neuts (auto) 2.2, Absolute Lymphs (auto) 1.19, Nucleated RBC % 0 01/24/21 13:33: Sodium 136, Potassium 4.4, Chloride 103, Carbon Dioxide 28.0, Anion Gap 5, BUN 12, Creatinine 0.77, Estim Creat Clear Calc 37.74, Est GFR (MDRD) Af Amer 93, Est GFR (MDRD) Non-Af 77, BUN/Creatinine Ratio 15.6, Glucose 133 H, Calcium 9.9, Troponin I High Sens 34 01/24/21 13:33: B-Natriuretic Peptide 1339.4 H 01/24/21 14:05: Urine Color Yellow, Urine Clarity Clear, Urine pH 6.5, Ur Specific [place] 1.005, Urine Protein Negative, Urine Glucose (UA) Normal, Urine Ketones Negative, Urine Occult Blood Negative, Urine Nitrite Negative, Urine Bilirubin Negative, Urine Urobilinogen Normal, Ur Leukocyte Esterase 25 H, Urine RBC 0 SEEN, Urine WBC 0-5 SEEN, Ur Squamous Epith Cells 0 SEEN, Urine Bacteria 0 SEEN, Urine Mucus 0 SEEN Micro: Microbiology 01/24/21 13:13 Nasal Secretion SARS-CoV-2 Antigen (Rapid) - Final Radiology Impression Chest X-Ray 01/24/21 12:31 IMPRESSION: Stable mild increased markings at the lung bases suggestive of bibasilar atelectasis and/or scarring. Electronically Signed: Milo Villanueva MD at 13:29 EST , Service support , Assessment & Plan Assessment/Plan (1) CHF exacerbation: PLAN: Patient is a 80-year-old lady presented with progressive shortness of breath 1. Acute congestive heart failure with preserved ejection fraction ?Echo obtained in December 2019 demonstrated EF of 50%. Patient has been admitted to monitored bed as part of her evaluation ordered a repeat echo serial cardiac enzymes and a D-dimer. Patient was also placed on fluid restriction strict input and output Daily weights and IV Lasix 2. Coronary artery disease ?With previous CABG and subsequent stent placement 3. Hypertension - Blood pressure controlled, home medications continued with dose adjustment as needed 4. Dyslipidemia -Patient is on statin therapy, continued at home dose 5. Paroxysmal A. fib ?Patient is on Eliquis 6. Hypothyroidism - Patient is on levothyroxine home dose continued 7. Carotid artery disease ?With history of carotid endarterectomy 8. 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 Lupus Per history 10. DVT prophylaxis ?On apixaban Advance planning; did discuss with the patient and family (daughter) regarding advanced directives as well as CODE STATUS. Did explain the various scenarios involved ( FULL CODE, DNR CCA, DNR CCA with no intubation, and DNR CC and what each meant) patient elected to remain full code with CPR and intubation if needed. Order was placed. Time spent on discussion 18 minutes. Charges/Coding Visit Charges Inpatient E&M: 90639 Init Hosp L3 Procedures Hospitalists Procedures: 42539 Advncd Care Plan 30 Min
--- NOTE | 2021-01-24 16:16 | ECHOCS_ITS ---
Reason For Study: CHF Procedure This was a 2D Doppler, Color Flow transthoracic echocardiogram. The study was technically difficult. Contrast injection was performed. Patient would not lay on left side for apical images, she stated she was too uncomfortable, and needed to lay on her back. Patient was scanned supine for the remainder of the test. Exam performed portable in patient room. Left Ventricle Normal LV size. Moderate concentric left ventricular hypertrophy. Moderate segmental systolic dysfunction (see wall motion). The estimated ejection fraction is 35 %. Unable to assess diastolic dysfunction. Posterior-Basal: Hypokinetic. Infero-Basal: Akinetic. Basal inferoseptal: Akinetic. Mid-Posterior: Hypokinetic. Mid-Inferior: Akinetic. Anterior [place] : Hypokinetic. Inferior [place] : Hypokinetic. Right Ventricle Normal RV size. Normal systolic function. Atria The left atrium is moderately enlarged. The right atrium is mildly enlarged. No doppler evidence for ASD. Mitral Valve There is moderate mitral annular calcification. Extension of the mitral annular calcification on the base of the posterior mitral valve leaflet. Moderate (2+) mitral valve insufficiency. Tricuspid Valve Normal tricuspid valve. Mild tricuspid valve insufficiency. Right ventricular systolic pressure estimated to be 26 mmHg. Aortic Valve Trisinus/trileaflet aortic valve. Mild diffuse aortic valve thickening. Mild focal aortic valve calcification. Mild (1+) aortic valve insufficiency. Pulmonic Valve The pulmonic valve is not well visualized. Moderately severe (3+) pulmonic valve insufficiency. Great Vessels Normal sized aortic root. Pericardium/Pleural No pericardial effusion. Medication Diluted definity 3ml given slow IV push to enhance endocardial definition. MMode/2D Measurements & Calculations LVIDd: 5.0 cm IVSd: 1.5 cm Ao root diam: 3.9 cm LVIDs: 4.3 cm LVPWd: 1.5 cm LA dimension: 5.2 cm FS: 14.9 % LAV(MOD-bp): 72.2 ml LA A4 area: 23.0 cm2 RA A4 area: 22.7 cm2 LAV(MOD-bp) Indexed: 40.1 ml/m2 LAV(MOD-sp2): 78.1 ml LAV(MOD-sp4): 65.6 ml Doppler Measurements & Calculations MV E max osman: 65.1 cm/sec Ao V2 max: 73.1 cm/sec AI max osman: 342.6 cm/sec Ao max P.2 mmHg AI max P.0 mmHg AI dec slope: 97.1 cm/sec2 AI P1/2t: 1034 msec LV V1 max: 62.7 cm/sec MR max osman: 363.4 cm/sec PA V2 max: 53.0 cm/sec LV V1 max P.6 mmHg MR max P.8 mmHg PI end-d osman: 204.2 cm/sec TR max osman: 210.0 cm/sec TR max P.6 mmHg ECHO/Echo Complete W/ Contrast Interpretation Summary The study was technically difficult. Contrast injection was performed. Moderate segmental systolic dysfunction (see wall motion). The estimated ejection fraction is 35 %. Moderate concentric left ventricular hypertrophy. The left atrium is moderately enlarged. The right atrium is mildly enlarged. There is moderate mitral annular calcification. Extension of the mitral annular calcification on the base of the posterior mitr al valve leaflet. Moderate (2+) mitral valve insufficiency. Mild tricuspid valve insufficiency. Mild diffuse aortic valve thickening. Mild focal aortic valve calcification. Mild (1+) aortic valve insufficiency. Moderately severe (3+) pulmonic valve insufficiency. Right ventricular systolic pressure estimated to be 26 mmHg. Unable to assess diastolic dysfunction. Ordering Physician: Blaze Mortensen Referring Physician: Chase Bryan Performed By: Adrien Srivastava RCS
--- NOTE | 2021-01-24 18:03 | PCS.PANDOC ---
PANDEMIC DOCUMENTATION INITIATED: Date: 10/11/2020 Time: 190
[2021-01-24 18:59] LABS: D-Dimer Quantitative (DVT/PE) 0.53 FEU/ug/m (0.27-0.49)
[2021-01-24 19:05] LABS: Troponin-I HS 35 pg/mL (3.0-54.0)
[2021-01-24] MEDS: Budesonide Respules 0.5 MG/2 ML AMPUL.NEB. INHALATION (20:17)
[2021-01-24] MEDS: Albuterol 2.5 MG/3 ML VIAL.NEB. INHALATION (20:17)
[2021-01-24 20:28] LABS: Troponin-I HS 33 pg/mL (3.0-54.0)
[2021-01-24] MEDS: APIXABAN 2.5 MG TABLET PO (21:14)
[2021-01-24] MEDS: 0.9% Saline Lock 10 ML Syringe IV (21:14)
[2021-01-24] MEDS: Carvedilol 6.25 MG Tablet PO (21:15)
[2021-01-24] MEDS: Ezetimibe 10 MG Tablet PO (21:15)
[2021-01-24] MEDS: Atorvastatin Calcium 40 MG Tablet PO (21:15)
[2021-01-24] MEDS: Acetaminophen 500 MG Tablet 1000 MG PO (21:15)
[2021-01-25] VITALS (12 sets, daily range): BP systolic 82–115; BP diastolic 46–79; PULSE 60–95; RESP 15–18; TEMP 36.2–36.6; O2SAT 97–100
[2021-01-25] MEDS: 0.9% Saline Lock 10 ML Syringe IV ×3 (06:06→16:49)
[2021-01-25] MEDS: Levothyroxine 100 MCG Tablet PO (06:07)
[2021-01-25] MEDS: Furosemide 40 MG/4 ML Vial IV (06:07)
[2021-01-25] MEDS: Acetaminophen 500 MG Tablet 1000 MG PO ×3 (06:10→20:46)
[2021-01-25 06:50] LABS: Basophil# 0.04 X10^3/uL; Basophil% 1.4 % (0-1); Eosinophil# 0.05 X10^3/uL; Eosinophils% 1.7 % (0-5); Hematocrit 48.8 % (37-47); Hemoglobin 15.1 g/dL (12.0-15.0); Lymphocyte % 45.3 % (19-41); Mean Corp Hgb Conc 30.9 g/dL (32-36); Mean Corpuscular Hgb 29.2 pg (27.0-32.0); Mean Corpuscular Volume 94.2 fL (81-99); Mean Platelet Vol. 10.6 fl (6.2-12.0); Monocyte# 0.51 X10^3/uL; Monocyte% 17.8 % (0-10); NRBC Flagged by Analyzer 0 % (0-5); Neutrophil # 0.97 X10^3/uL (2.7-7.7); Neutrophil % 33.8 % (47-70); POSITIVE DIFFERENTIAL YES; Platelet Count 136 K/mm3 (150-450); RBC Distribution Width CV 14.3 % (11.6-14.6); RBC Distribution Width SD 49.6 fl (35.1-43.9); Red Blood Count 5.18 M/mm3 (4.2-5.4); White Blood Count 2.9 K/mm3 (4.4-11.0)
[2021-01-25 06:52] LABS: Differential Indicated SCAN CRITERIA MET
[2021-01-25] MEDS: Albuterol 2.5 MG/3 ML VIAL.NEB. INHALATION ×2 (07:03→19:57)
[2021-01-25] MEDS: Budesonide Respules 0.5 MG/2 ML AMPUL.NEB. INHALATION ×2 (07:03→19:57)
[2021-01-25 07:06] LABS: Anion Gap 9 (5-15); BUN 15 mg/dL (7-18); BUN/Creat Ratio 18.7 RATIO (10-20); Calcium,Total 9.7 mg/dL (8.5-10.1); Chloride 101 mmol/L (98-107); EST Glomerular Filtration Rate 73 mL/min (>60); Est Glom Filt Rate - Afr Amer 89 mL/min (>60); Estimated Creatinine Clearance 47.17 ml/min; Glucose 89 mg/dL (74-106); Magnesium 1.8 mg/dL (1.6-2.6); Phosphorus 4.5 mg/dL (2.5-4.9); Potassium 3.6 mmol/L (3.5-5.1); Sodium Level 138 mmol/L (136-145)
--- NOTE | 2021-01-25 07:44 | PN.HOSP_ITS ---
Subjective Subjective Patient seen did respond to Lasix and is currently in negative fluid balance of 975. Had a slightly elevated D-dimer which is normal when adjusted for age. Remains on supplemental oxygen. Echo ordered results pending Objective Data Objective Data Vital Signs: Vital Signs Temp Pulse Resp BP Pulse Ox 97.1 F L 61 18 107/70 98 01/25/21 03:30 01/25/21 07:28 01/25/21 03:30 01/25/21 03:30 01/25/21 03:30 Oxygen Flow Rate (L/min) 2 Oxygen Delivery Method Nasal Cannula Weight: 76.7 kg Body Mass Index (BMI) 29.5 Intake & Output: Intake and Output for Last 24 Hours 01/23/21 01/24/21 01/25/21 23:59 23:59 23:59 Output Total 975 / 975 Balance -975 / -975 Lab / Micro Data Result Diagrams: 01/25/21 05:58 01/25/21 05:58 Labs: Laboratory Results - last 24 hr 01/24/21 13:33: WBC 4.0 L, RBC 4.95, Hgb 14.6, Hct 46.9, MCV 94.7, MCH 29.5, MCHC 31.1 L, RDW Std Deviation 49.2 H, RDW Coeff of Jerry 14.2, Plt Count 147 L, MPV 10.9, Immature Gran % (Auto) 0.200, Neut % (Auto) 55.8, Lymph % (Auto) 29.6, Christian % (Auto) 13.2 H, Eos % (Auto) 0.5, Baso % (Auto) 0.7, Absolute Neuts (auto) 2.2, Absolute Lymphs (auto) 1.19, Nucleated RBC % 0 01/24/21 13:33: Sodium 136, Potassium 4.4, Chloride 103, Carbon Dioxide 28.0, Anion Gap 5, BUN 12, Creatinine 0.77, Estim Creat Clear Calc 37.74, Est GFR (MDRD) Af Amer 93, Est GFR (MDRD) Non-Af 77, BUN/Creatinine Ratio 15.6, Glucose 133 H, Calcium 9.9, Troponin I High Sens 34 01/24/21 13:33: B-Natriuretic Peptide 1339.4 H 01/24/21 14:05: Urine Color Yellow, Urine Clarity Clear, Urine pH 6.5, Ur Specific [place] 1.005, Urine Protein Negative, Urine Glucose (UA) Normal, Urine Ketones Negative, Urine Occult Blood Negative, Urine Nitrite Negative, Urine Bilirubin Negative, Urine Urobilinogen Normal, Ur Leukocyte Esterase 25 H, Urine RBC 0 SEEN, Urine WBC 0-5 SEEN, Ur Squamous Epith Cells 0 SEEN, Urine Bacteria 0 SEEN, Urine Mucus 0 SEEN 01/24/21 18:18: D-Dimer Quant (PE/DVT) 0.53 H* 01/24/21 18:18: Troponin I High Sens 35 01/24/21 20:00: Troponin I High Sens 33 01/25/21 05:58: WBC 2.9 L, RBC 5.18, Hgb 15.1 H, Hct 48.8 H, MCV 94.2, MCH 29.2, MCHC 30.9 L, RDW Std Deviation 49.6 H, RDW Coeff of Jerry 14.3, Plt Count 136 L, MPV 10.6, Immature Gran % (Auto) 0.000, Neut % (Auto) 33.8 L, Lymph % (Auto) 45.3 H, Christian % (Auto) 17.8 H, Eos % (Auto) 1.7, Baso % (Auto) 1.4 H, Absolute Neuts (auto) 1.0 L, Absolute Lymphs (auto) 1.30, Nucleated RBC % 0 01/25/21 05:58: Sodium 138, Potassium 3.6, Chloride 101, Carbon Dioxide 28.0, Anion Gap 9, BUN 15, Creatinine 0.80, Estim Creat Clear Calc 47.17, Est GFR (MDRD) Af Amer 89, Est GFR (MDRD) Non-Af 73, BUN/Creatinine Ratio 18.7, Glucose 89, Calcium 9.7, Phosphorus 4.5, Magnesium 1.8 Micro: Microbiology 01/24/21 13:13 Nasal Secretion SARS-CoV-2 Antigen (Rapid) - Final Radiography Diagnostic Testing: Radiology Impression Chest X-Ray 01/24/21 12:31 IMPRESSION: Stable mild increased markings at the lung bases suggestive of bibasilar atelectasis and/or scarring. Electronically Signed: Milo Villanueva MD at 13:29 EST , Service support , Physical Exam Narrative GENERAL: cooperative HEENT: Atraumatic; EYES; Anicteric, Normal Conjunctiva NECK; supple, normal thyroid, RESPIRATORY: Diminished to auscultation CARDIOVASCULAR: Irregular S1-S2 GI: soft, normoactive bowel sounds, : No Renal angle tenderness; EXTREMITIES: No edema, no clubbing, MUSCULOSKELETAL: no muscle waisting NEURO: Awake; no lateralizing signs. SKIN: No Rash PSYCH; Flat affect Assessment & Plan Assessment/Plan (1) CHF exacerbation: PLAN: Patient is a 80-year-old lady presented with progressive shortness of breath 1. Acute congestive heart failure with preserved ejection fraction ?Echo obtained in December 2019 demonstrated EF of 50%. Patient has been admitted to monitored bed as part of her evaluation ordered a repeat echo serial cardiac enzymes and a D-dimer. Patient was also placed on fluid restriction strict input and output Daily weights and IV Lasix -01/25/2021 2. Coronary artery disease ?With previous CABG and subsequent stent placement 3. Hypertension - Blood pressure controlled, home medications continued with dose adjustment as needed 4. Dyslipidemia -Patient is on statin therapy, continued at home dose 5. Paroxysmal A. fib ?Patient is on Eliquis 6. Hypothyroidism - Patient is on levothyroxine home dose continued 7. Carotid artery disease ?With history of carotid endarterectomy 8. 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 Lupus Per history 10. DVT prophylaxis ?On apixaban Charges/Coding Visit Charges Inpatient E&M: [address] [facility] Hosp L3
[2021-01-25] MEDS: Lisinopril 20 MG Tablet PO (08:41)
[2021-01-25] MEDS: Cholecalciferol (VIT D3) 25 MCG TABLET (1,000 UNITS) PO (08:41)
[2021-01-25] MEDS: Escitalopram Oxalate 10 MG Tablet PO (08:41)
[2021-01-25] MEDS: Carvedilol 6.25 MG Tablet PO (08:41)
[2021-01-25] MEDS: APIXABAN 2.5 MG TABLET PO ×2 (08:41→20:46)
[2021-01-25] MEDS: Pantoprazole Sodium 20 MG Tablet PO (08:41)
--- NOTE | 2021-01-25 08:54 | NURSING ---
staff her to do echo
--- NOTE | 2021-01-25 10:40 | CASEMGMT ---
RN CM Face to Face with patient for initial transition planning/care coordination assessment. RN CM introduced self and role at [facility]. Patient lying in bed, alert and oriented. Patient willing to participate in assessment and is able to answer all questions appropriately. Care providers, pharmacy, and demographics verified. Patient wishes to discharge home with resumption of HHC. Patient unsure of company and gave permission to call daughter Millie. Millie called and home oxygen is through [facility] and HHC through [facility]. Patient states she has no further needs or concerns at this time. CM to follow for discharge planning needs that may arise. PCP: Irvin Specialists: Tonya fire chief deputy Preferred Pharmacy: [facility] Insurance: Fiiiling Prescription Benefit: yes Living Will/HPOA: yes, daughter Millie Hoyt LNOK: , daughters Living Arrangements: Patient lives with in a single story home with 3 steps and railing to enter the home. Patient states assists with bathing. Transportation: daughter DME/HHC: patient states she has shower chair, raised toilet, cane, grab bars, walker, and home oxygen through [facility] with portability. HHC is through [facility] P: [phone] F: [phone] Disposition Plan: Patient to discharge home with resumption of HHC, family support, and follow-up plans in place. Lourdes RILEY, RN, CM
[2021-01-25] MEDS: Ferrous Sulfate 325 MG Tablet PO ×2 (12:00→17:04)
[2021-01-25] MEDS: Ondansetron 4 MG/2 ML Vial IV (16:49)
[2021-01-25] MEDS: Atorvastatin Calcium 40 MG Tablet PO (20:46)
[2021-01-25] MEDS: Ezetimibe 10 MG Tablet PO (20:46)
--- NOTE | 2021-01-25 20:48 | NURSING ---
2200 medications given early per patient request.
[2021-01-26] VITALS (8 sets, daily range): BP systolic 91–117; BP diastolic 49–67; PULSE 55–75; RESP 16–18; TEMP 36.5–36.6; O2SAT 78–97
[2021-01-26] MEDS: Acetaminophen 500 MG Tablet 1000 MG PO (06:11)
[2021-01-26] MEDS: Levothyroxine 100 MCG Tablet PO (06:12)
[2021-01-26 06:58] LABS: Absolute Lymphocyte Count 1.64 X10^3/uL (0.83-4.51); Absolute Neutrophil Count 1.3 X10^3/uL (2.0-7.7); Basophil# 0.03 X10^3/uL; Basophil% 0.8 % (0-1); Eosinophil# 0.06 X10^3/uL; Eosinophils% 1.6 % (0-5); Hematocrit 46.9 % (37-47); Hemoglobin 14.4 g/dL (12.0-15.0); Lymphocyte # 1.64 X10^3/ul (0.83-4.51); Lymphocyte % 42.8 % (19-41); Mean Corp Hgb Conc 30.7 g/dL (32-36); Mean Corpuscular Hgb 29.1 pg (27.0-32.0); Mean Corpuscular Volume 94.7 fL (81-99); Mean Platelet Vol. 11.7 fl (6.2-12.0); Monocyte# 0.79 X10^3/uL; Monocyte% 20.6 % (0-10); NRBC Flagged by Analyzer 0 % (0-5); Neutrophil # 1.31 X10^3/uL (2.7-7.7); Neutrophil % 34.2 % (47-70); Platelet Count 136 K/mm3 (150-450); RBC Distribution Width CV 14.3 % (11.6-14.6); RBC Distribution Width SD 49.7 fl (35.1-43.9); Red Blood Count 4.95 M/mm3 (4.2-5.4); White Blood Count 3.8 K/mm3 (4.4-11.0)
[2021-01-26] MEDS: Albuterol 2.5 MG/3 ML VIAL.NEB. INHALATION ×2 (07:20→13:18)
[2021-01-26] MEDS: Budesonide Respules 0.5 MG/2 ML AMPUL.NEB. INHALATION (07:20)
[2021-01-26 07:27] LABS: Anion Gap 7 (5-15); BUN 27 mg/dL (7-18); BUN/Creat Ratio 21.3 RATIO (10-20); Calcium,Total 9.3 mg/dL (8.5-10.1); Chloride 99 mmol/L (98-107); Creatinine, Serum 1.27 mg/dL (0.55-1.02); EST Glomerular Filtration Rate 43 mL/min (>60); Est Glom Filt Rate - Afr Amer 52 mL/min (>60); Estimated Creatinine Clearance 29.71 ml/min; Glucose 88 mg/dL (74-106); Potassium 3.7 mmol/L (3.5-5.1); Sodium Level 136 mmol/L (136-145)
[2021-01-26] MEDS: Escitalopram Oxalate 10 MG Tablet PO (10:25)
[2021-01-26] MEDS: Cholecalciferol (VIT D3) 25 MCG TABLET (1,000 UNITS) PO (10:25)
[2021-01-26] MEDS: Lisinopril 5 MG Tablet PO (10:25)
[2021-01-26] MEDS: Pantoprazole Sodium 20 MG Tablet PO (10:25)
[2021-01-26] MEDS: Furosemide 40 MG Tablet PO (10:25)
[2021-01-26] MEDS: APIXABAN 2.5 MG TABLET PO (10:26)
--- NOTE | 2021-01-26 12:18 | DS.PCM_ITS ---
Providers Date of Admission: 01/24/21 Primary Care Physician: Dr. Chase Bryan MD Reason For Visit: CHF Diagnosis Discharge Diagnosis (1) CHF exacerbation: Status: Chronic Code(s): I50.9 - Heart failure, unspecified Medications at Discharge Home Medications levothyroxine 100 mcg PO DAILY 12/26/19 ipratropium-albuterol 3 ml IH 4X/DAY PRN 01/20/20 ezetimibe 10 mg tablet 10 mg PO QHS #90 tab 02/13/20 cholecalciferol (vitamin D3) 1,000 unit PO DAILY 03/24/20 escitalopram oxalate 10 mg PO DAILY 03/24/20 potassium chloride 20 meq PO BIDCM 03/24/20 melatonin 3 mg tablet 3 mg PO HS PRN 04/05/20 acetaminophen 1,000 mg PO TID tab 04/15/20 atorvastatin 40 mg PO QHS #30 tab 04/15/20 fluticasone propion-salmeterol 1 inh INHALATION BID #1 inhaler 04/15/20 pantoprazole 20 mg PO DAILY #30 tab 04/15/20 apixaban 2.5 mg tablet 2.5 mg PO BID #180 tablet 05/14/20 carvedilol 6.25 mg tablet 6.25 mg PO BID #180 tablet 05/14/20 ferrous sulfate [FeroSul] 325 mg PO BID 01/24/21 furosemide [Lasix] 60 mg PO DAILY 60 Days #90 tab 01/26/21 lisinopril 5 mg PO DAILY #60 tab 01/26/21 Hospital Course Summary of Care Provided Minutes Spent on Discharge: 40 Hospital Course: Patient is a 80-year-old lady presented with progressive shortness of breath 1. Acute congestive heart failure with reduced ejection fraction ?Echo obtained in December 2019 demonstrated EF of 50%.. Repeat echo however d emonstrated ejection fraction of 35%. Patient was admitted to monitored bed as part of her evaluation ordered a repeat echo serial cardiac enzymes and a D- dimer. Patient was also placed on fluid restriction strict input and output Daily weights and IV Lasix -Discharged home with 60 mg of Lasix and lisinopril 5 mg (from 20 mg previously) 2. Coronary artery disease ?With previous CABG and subsequent stent placement 3. Hypertension - Blood pressure controlled, home medications continued with dose adjustment as needed 4. Dyslipidemia -Patient is on statin therapy, continued at home dose 5. Paroxysmal A. fib ?Patient is on Eliquis 6. Hypothyroidism - Patient is on levothyroxine home dose continued 7. Carotid artery disease ?With history of carotid endarterectomy 8. 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 Lupus Per history 10. DVT prophylaxis ?On apixaban Physical Exam Narrative GENERAL: cooperative HEENT: Atraumatic; EYES; Anicteric, Normal Conjunctiva NECK; supple, normal thyroid, RESPIRATORY: Diminished to auscultation CARDIOVASCULAR: Irregular S1-S2 GI: soft, normoactive bowel sounds, : No Renal angle tenderness; EXTREMITIES: No edema, no clubbing, MUSCULOSKELETAL: no muscle waisting NEURO: Awake; no lateralizing signs. SKIN: No Rash PSYCH; Flat affect Weight / BMI Weight Weight: 77.4 kg Body Mass Index (BMI) 29.5 ABG / Lab / Microbiology Data Result Diagrams: 01/26/21 05:50 01/26/21 05:50 Laboratory: Laboratory Results - last 24 hr 01/26/21 05:50: WBC 3.8 L, RBC 4.95, Hgb 14.4, Hct 46.9, MCV 94.7, MCH 29.1, MCHC 30.7 L, RDW Std Deviation 49.7 H, RDW Coeff of Jerry 14.3, Plt Count 136 L, MPV 11.7, Immature Gran % (Auto) 0.000, Neut % (Auto) 34.2 L, Lymph % (Auto) 42.8 H, [place] % (Auto) 20.6 H, Eos % (Auto) 1.6, Baso % (Auto) 0.8, Absolute Neuts (auto) 1.3 L, Absolute Lymphs (auto) 1.64, Nucleated RBC % 0 01/26/21 05:50: Sodium 136, Potassium 3.7, Chloride 99, Carbon Dioxide 30.0, Anion Gap 7, BUN 27 H, Creatinine 1.27 H, Estim Creat Clear Calc 29.71, Est GFR (MDRD) Af Amer 52 L, Est GFR (MDRD) Non-Af 43 L, BUN/Creatinine Ratio 21.3 H, Glucose 88, Calcium 9.3 Microbiology: Microbiology 01/24/21 13:13 Nasal Secretion SARS-CoV-2 Antigen (Rapid) - Final Radiography Diagnostic Testing: Radiology Impression Echocardiogram 01/24/21 16:16 Interpretation Summary The study was technically difficult. Contrast injection was performed. Moderate segmental systolic dysfunction (see wall motion). The estimated ejection fraction is 35 %. Moderate concentric left ventricular hypertrophy. The left atrium is moderately enlarged. The right atrium is mildly enlarged. There is moderate mitral annular calcification. Extension of the mitral annular calcification on the base of the posterior mitral valve leaflet. Moderate (2+) mitral valve insufficiency. Mild tricuspid valve insufficiency. Mild diffuse aortic valve thickening. Mild focal aortic valve calcification. Mild (1+) aortic valve insufficiency. Moderately severe (3+) pulmonic valve insufficiency. Right ventricular systolic pressure estimated to be 26 mmHg. Unable to assess diastolic dysfunction. ___ Ordering Physician: Blaze Mortensen Referring Physician: Chase Bryan Performed By: Adrien Srivastava RCS D/C Instructions Discharge Diet: 8 Cup Fluid Restriction and 2000 mg Sodium Diet Discharge Activity: Return to Normal Activity Call your doctor if you observe: Fever of 101 or Higher, Shortness of breath, Fainting spells and Chest pain Meaningful Use Info Meaningful Use Diagnoses (Choose all that apply): CHF CHF GLYNN/ARB ordered at discharge?: Yes Documented LVEF (%): 35 Discharge Plan Admission Admit Date/Time: 01/24/21 16:13 Attending Provider: Blaze Mortensen Primary Care Provider: Chase Bryan Discharge Orders/Prescriptions Prescriptions: New lisinopril 5 mg Tablet 5 mg PO DAILY Qty: 60 RF: 0 furosemide [Lasix] 40 mg tablet 60 mg PO DAILY 60 Days Qty: 90 RF: 0 Continued ezetimibe 10 mg tablet 10 mg PO QHS Qty: 90 RF: 3 melatonin 3 mg tablet 3 mg PO HS PRN (Reason: Sleep) RF: 0 levothyroxine 100 MCG tablet 100 mcg PO DAILY RF: 0 ipratropium-albuterol 3 ML solution for nebulization 3 ml IH 4X/DAY PRN (Reason: Sob &/Or Wheezing) RF: 0 escitalopram oxalate 10 MG tablet 10 mg PO DAILY RF: 0 potassium chloride 20 MEQ tablet 20 meq PO BIDCM RF: 0 cholecalciferol (vitamin D3) 1,000 UNIT tablet 1,000 unit PO DAILY RF: 0 acetaminophen 500 MG tablet 1,000 mg PO TID RF: 0 pantoprazole 20 MG tablet 20 mg PO DAILY Qty: 30 RF: 0 atorvastatin 40 MG tablet 40 mg PO QHS Qty: 30 RF: 0 fluticasone propion-salmeterol 232-14 mcg/actuation aerosol powdr breath activated 1 inh INHALATION BID Qty: 1 RF: 0 ferrous sulfate [FeroSul] 325 mg (65 mg iron) tablet 325 mg PO BID RF: 0 carvedilol 6.25 mg tablet 6.25 mg PO BID Qty: 180 RF: 4 apixaban 2.5 mg tablet 2.5 mg PO BID Qty: 180 RF: 4 Discontinued furosemide 40 MG tablet 40 mg PO DAILY PRN (Reason: FLUID) RF: 0 lisinopril 20 mg tablet 20 mg PO DAILY Qty: 90 RF: 3 Referrals / Follow Up: Chase Bryan MD [Primary Care Provider] - Within 2 Weeks Disposition Disposition (needs filled in before D/C Order can be placed): Home, Self Care Charges/Coding Visit Charges Inpatient E&M: 13263 Disch Hosp
--- NOTE | 2021-01-26 13:06 | CASEMGMT ---
Per [facility], pt's order is for 3L w/ exertion and pt does not qualify for increased home oxygen at this time. Pt has C for SN only as she refuses therapy at home. Pt declined therapy while here also. YUMIKO order and clinicals faxed to [facility] and call to notify of discharge. Pam GE CM
[2021-01-26] MEDS: Ferrous Sulfate 325 MG Tablet PO (13:13)
== END 2021-01-26 14:38 | disposition home or self-care (01) | DRG 291 ==
LOC: ED 16:21 → PCU 16:24
PROVIDERS: Admitting Provider Internal Medicine; Emergency Provider Emergency Medicine; PCP Internal Medicine; Visit Provider Internal Medicine
DX: I11.0 Hypertensive heart disease with heart failure (principal); I50.31 Acute diastolic (congestive) heart failure; E78.5 Hyperlipidemia, unspecified; E03.9 Hypothyroidism, unspecified; I48.0 Paroxysmal atrial fibrillation; I25.10 Atherosclerotic heart disease of native coronary artery without angina pectoris; Z79.01 Long term (current) use of anticoagulants; Z79.890 Hormone replacement therapy; Z95.1 Presence of aortocoronary bypass graft; Z86.73 Personal history of transient ischemic attack (TIA), and cerebral infarction without residual deficits; I25.2 Old myocardial infarction; Z95.5 Presence of coronary angioplasty implant and graft; Z85.820 Personal history of malignant melanoma of skin; Z88.2 Allergy status to sulfonamides; Z90.710 Acquired absence of both cervix and uterus; Z91.048 Other nonmedicinal substance allergy status; I27.21 Secondary pulmonary arterial hypertension; Z66 Do not resuscitate; Z87.891 Personal history of nicotine dependence; Z23 Encounter for immunization
CPT/HCPCS: 36415; 71045; 80048; 81001; 83735; 83880; 84100; 84484; 85025; 85379; 87426; 93005; 93306; 94640; 97112; 97162; 97166; 99251; 99285; G0008; Q9957; 90686; A4216; C8929; G0463; J1940; J2405; J3490